=== PATIENT | male | born 1975 | race Caucasian/White ===

== ENCOUNTER 2017-03-01 18:34 | Inpatient (IN) | payer OTHER ==
[~2017-03-01] VITALS: Ht 170.2 cm; Wt 142.9 kg
[~2017-03-01 18:34] MED LIST: BACTRIM 400-801 EACH PO; DOXYCYCLINE HY100 M2 PO; KEFLEX500 M1 PO; METFORMIN HCL500 M3 PO
--- NOTE | 2017-03-01 18:43 | NUR ---
PT WAS SEEN HERE IN MAY OF LAST YEAR FOR A BLISTER ON HIS LEFT FOOT GREAT TOE. PT NEVER FOLLOWED UP BECAUSE HE DIDN'T HAVE INSURANCE. PT [facility] SEEN AT [facility] AND THEY TOLD HIM THAT THE INFECTION IS DOWN TO HIS MUSCLE AND HE NEEDED TO COME TO THE ED.
--- NOTE | 2017-03-01 19:19 | RADIOLOGY REPORT ---
EXAMINATION: XR TOES, LEFT CLINICAL INFORMATION: Wounds of left great toe for one year. Concern for osteomyelitis. COMPARISON: None TECHNIQUE: 3 views of the left toes were obtained. FINDINGS: Ovoid radiolucency consistent with the described wound over the left toe near the IP joint. No radiographic evidence of osteomyelitis. No bone destruction. Bone density maintained. Joint spaces are normal. IMPRESSION: No osseous abnormality. No radiographic evidence of osteomyelitis.
--- NOTE | 2017-03-01 19:50 | NUR ---
PT TO [facility], AWAITING EVAL. PT SITTING WITH FEET ON FLOOR USING TABLET, NO DISTRESS.
--- NOTE | 2017-03-01 20:01 | ED GENERAL ADULT ---
History of Present Illness General Chief Complaint: General Adult Stated Complaint: SENT BY URGENT CARE FOR EVAL OF WOUND ON LEFT FOOT Source: patient, friend Exam Limitations: no limitations Vital Signs & Intake/Output Vital Signs & Intake/Output Vital Signs Date Time Temp Pulse Resp B/P B/P Pulse O2 O2 Flow FiO2 Mean Ox Delivery Rate 03/01 2139 97.1 92 20 165/91 98 Room Air 03/01 1843 97.4 88 16 129/91 97 Room Air Allergies Coded Allergies: No Known Allergies (05/22/16) Reconcile Medications No Known Home Medications Triage Note: PT WAS SEEN HERE IN MAY OF LAST YEAR FOR A BLISTER ON HIS LEFT FOOT GREAT TOE. PT NEVER FOLLOWED UP BECAUSE HE DIDN'T HAVE INSURANCE. PT [facility] SEEN AT [facility] AND THEY TOLD HIM THAT THE INFECTION IS DOWN TO HIS MUSCLE AND HE NEEDED TO COME TO THE ED. Triage Nurses Notes Reviewed? yes Onset: Gradual Duration: worse persistent since (1 WEEK) Timing: recent history Injury Environment: home Severity: moderate Severity Numbers: 8 No Modifying Factors: none HPI: Patient is a 41-year-old male with history of diabetes and obesity, not currently on any medications presenting to the emergency department with chief complaint of worsening wound to his left foot. Patient and friends report that the wound has been there for the past 10 months but over the past couple weeks has been getting worse. Friends have noticed increased foul-smelling and purulent drainage from the wound. Patient reports mild pain with ambulation. He reports that he finally has insurance so that he is coming in today for evaluation. He was seen in urgent care prior to arrival and was sent to the emergency department. Patient denying any fevers or chills no nausea or vomiting. Denies chest pain or shortness of breath. No palpitations. Denies abdominal pain. He reports that he was seen and evaluated here last year for similar symptoms and they told him he had high blood glucose level. He never followed up with her primary care physician and he never started taking any medications to help with high blood glucose levels. He has not been watching his diet. (TREY JOHN) Past History Travel History Traveled to [place] past 21 day No Medical History Any Pertinent Medical History? 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 No (TREY JOHN) Review of Systems Review of Systems Constitutional: Reports: no symptoms. Comments Review of systems: See HPI, All other systems negative. Constitutional, no chills fever or weight loss HEENT: No visual changes no sore throat no congestion Cardiovascular: No chest pain ,palpitation , orthopnea or ankle swelling Skin, no jaundice Respiratory: No dyspnea cough sputum or hemoptysis GI: No nausea no vomiting : No dysuria No hematuria Muscle skeletal: no back pain, no neck pain, Neurologic: No numbness no confusion Psych: No stress Immunology: No splenectomy or history of AIDS (TREY JOHN) Physical Exam Physical Exam General Appearance: no apparent distress, alert, awake, comfortable, obese Comments: Obese person in no acute distress HEENT: Pupils equally round and reactive to light and accommodation. Nose is atraumatic. Neck: NORMAL INSPECTION Back: Nontender, Cardiovascular: Regular rate and rhythms no murmurs rubs or gallops, normal JVP Respiratory: Chest nontender. No respiratory distress.breath sounds clear to auscultation bilaterally Abdomen: Soft, NON-TENDER, PROTUBERANT, no appreciable organomegaly. Normal bowel sounds. No ascites Extremity: Nonpitting edema noted in the lower extremities bilaterally, no calf tenderness to palpation, pedal pulses are 1+ bilaterally. Neuro: Alert oriented x3, motor sensory normal, cranial nerves II through XII grossly intact. Skin: 2 and half by 2-1/2 cm wound, approximately grade 3 noted on the lateral aspect of the left great toe with surrounding erythema approximately 5-6 cm extending up the left great toe. Mildly tender to palpation in this area. Foul smelling. Psych: Mood and affect is normal, memory and judgment is normal. Core Measures ACS in differential dx? No CVA/TIA Diagnosis: No Severe Sepsis Present: No Septic Shock Present: No (TREY JOHN) Progress Differential Diagnoses I considered the following diagnoses in my evaluation of the patient: Osteomyelitis, cellulitis, DKA, hyperglycemia, medication noncompliance Plan of Care: Orders Procedure Date/time Status LACTIC ACID 05/09 2301 Active Admit to inpatient 03/01 222 Active Patient Data 03/01 2203 Active Add-on Test (ER Only) 03/01 2103 Active FingerStick- Glucose 03/01 2019 Active WESTERGREN SED RATE 03/01 2010 Active C-REACTIVE PROTEIN 03/01 2010 Active URINALYSIS 03/01 2001 Active LACTIC ACID 03/01 2001 Active GLYCOSYLATED HGB 03/01 2001 Active COMPREHENSIVE METABOLIC PANEL 03/01 2001 Active CBC WITHOUT DIFFERENTIAL 03/01 2001 Active ACETONE 03/01 2001 Active Laboratory Tests 03/01/17 2010: Anion Gap 10, Estimated GFR > 60, BUN/Creatinine Ratio 21.7, Glucose 288 H, Hemoglobin A1c Pending, Lactic Acid 2.2 H, Calcium 9.2, Total Bilirubin 0.4, AST 26, ALT 54, Alkaline Phosphatase 76, C-Reactive Prot, Quant 2.7 H, Total Protein 7.2, Albumin 3.8, Globulin 3.4, Albumin/Globulin Ratio 1.1, CBC w Diff NO MAN DIFF REQ, RBC 5.15, MCV 87.1, MCH 29.6, RDW 12.3, MPV 7.8, Gran % 55.8, Lymphocytes % 33.6, Monocytes % 7.8, Eosinophils % 2.2, Basophils % 0.6, Absolute Granulocytes 7.0 H, Absolute Lymphocytes 4.2 H, Absolute Monocytes 1.0 H, Absolute Eosinophils 0.3, Absolute Basophils 0.1, PUBS MCHC 34.0, ESR Westergren Pending, Acetone Level NEGATIVE Diagnostic Imaging: Viewed by Me: Radiology Read. Discussed w/RAD: Radiology Read. Radiology Impression: PRESENT AGE: 41 PATIENT ACCOUNT NO: [id number] : 75 LOCATION: [facility] ORDERING PHYSICIAN: NATE PRIETO DO (TBS) SERVICE DATE: EXAM TYPE: RAD - XRY-TOES, LEFT EXAMINATION: XR TOES, LEFT CLINICAL INFORMATION: Wounds of left great toe for one year. Concern for osteomyelitis. COMPARISON: None TECHNIQUE: 3 views of the left toes were obtained. FINDINGS: Ovoid radiolucency consistent with the described wound over the left toe near the IP joint. No radiographic evidence of osteomyelitis. No bone destruction. Bone density maintained. Joint spaces are normal. IMPRESSION: No osseous abnormality. No radiographic evidence of osteomyelitis. DICTATED BY: CORINE CALZADA MD DATE/TIME DICTATED:03/01/171912 HONING MACHINE TRY OUT SETTER:DANIEL DATE/TIME TRANSCRIBED:03/01/171912 CONFIDENTIAL, DO NOT COPY WITHOUT APPROPRIATE AUTHORIZATION. <Electronically signed in Other Vendor System> SIGNED BY: CORINE CALZADA MD 03/01/171918 Initial ED EKG: none Comments: 03/01/2017 9:32:44 PM patient's vitals are stable, blood glucose elevated. Patient has been noncompliant with diabetic medications for over a year. Positive family history of diabetes. Patient has had a nonhealing wound on the left foot for about one year now. Likely related to noncompliance with diabetic medications. Patient is afebrile. Wound appears to be stage III with surrounding erythema and foul-smelling. CBC, CMP, lactic acid, sedimentation rate and CRP ordered. X-rays negative for obvious osteomyelitis. Spoke with Dr. Aggarwal who will see the patient first thing in the morning, recommending holding off on antibiotics at this point and getting an MRI in the morning. (TREY JOHN) Departure Departure Disposition: STILL A PATIENT Condition: Stable Referrals: PATIENT HAS NO PRIMARY CARE DR (PCP/Family) Departure Forms: Customer Survey General Discharge Information Prescriptions: Current Visit Scripts No Known Home Medications Admission Note Spoke With: DARWIN LÓPEZ MD Documentation of Exam: Documentation of any treatments & extenuating circumstances including Concerns Regarding Discharge (functional status, medication knowledge or non-compliance, living conditions, etc.) that warrant an admission rather than observation: HOLDING ON ABX, PODIATRY CONSULT, MRI, POTENITAL BONE BIOPSY THEN IV ABX. DISCHARGE AT THIS TIME WOULD BE MEDICALLY HARMFUL. RULE OUT OSTEO. (TREY JOHN) Departure Clinical Impression Primary Impression: Wound infection Secondary Impressions: Cellulitis Qualifiers: Site of cellulitis: extremity Site of cellulitis of extremity: toe Laterality: left Qualified Code: L03.032 - Cellulitis of left toe PA/[employer] Co-Sign Statement Statement: ED Attending supervision documentation- [] I saw and evaluated the patient. I have also reviewed all the pertinent lab results and diagnostic results. I agree with the findings and the plan of care as documented in the PA's/[employer]'s documentation. [x] I have reviewed the ED Record and agree with the PA's/[employer]'s documentation. [] Additions or exceptions (if any) to the PAs/[employer]'s note and plan are summarized below: [] (JAILYN PEDERSON,NATE Valerio) Critical Care Note Critical Care Note Critical Care Time: non-applicable (LENCHO JOHNSON,TREY)
--- NOTE | 2017-03-01 20:01 | NUR ---
PT WITH OPEN BLISTER DEEP INTO SKIN, NO DRAINAGE. SKIN WHITE AND SKIN BENEATH RED/PINK.
--- NOTE | 2017-03-01 20:10 | NUR ---
PT L GREAT TOE REDNESS ON ANTERIOR TOE EXTENDS FROM BASE OF NAIL TO JOINT OF FOOT. FOU ODOR NOTED. PT REPORTS HE FEELS NO PAIN
--- NOTE | 2017-03-01 20:14 | NUR ---
LABS SENT (BLUE,SST,LAV) NURSE AWARE WE STILL NEED ANOTHER LAV AND MURDOCK TOP
[2017-03-01 20:25] LABS: ABSOLUTE BASOPHIL COUNT 0.1 /CUMM (0.0-0.2); ABSOLUTE EOSINOPHIL COUNT 0.3 /CUMM (0.0-0.7); ABSOLUTE LYMPH COUNT 4.2 /CUMM (1.2-3.4); BASOPHIL % 0.6 % (0.0-2.0); EOSINOPHIL % 2.2 % (0-5); GRANULOCYTE % 55.8 % (42.2-75.2); HEMATOCRIT 44.8 % (42-52); MEAN CORPUSCULAR HGB 29.6 PG (27.0-31.0); MEAN CORPUSCULAR VOLUME 87.1 FL (80.0-94.0); MEAN PLATELET VOLUME 7.8 FL (7.4-10.4); PLATELET COUNT 278 /CUMM (130-400); RBC DISTRIBUTION WIDTH 12.3 % (11.5-14.5); RED BLOOD CELL CT 5.15 /CUMM (4.70-6.10); WHITE BLOOD CELL COUNT 12.6 /CUMM (4.8-10.8)
--- NOTE | 2017-03-01 20:29 | NUR ---
ACCUCHECK 261
--- NOTE | 2017-03-01 20:39 | NUR ---
PT UNABLE TO GIVE URINE SAMPLE AT THIS TIME
--- NOTE | 2017-03-01 21:06 | NUR ---
CRITICAL TEST RESULTS [id number] CONNER STEWART 41 M TESTS AND RESULTS: LACTIC 2.2 (SL HEMOLYZED) Results received and read back by: SHIRLENE GONCALVES Results received date and time: 03/01/172105 The following provider was notified of the results, and read the results back: ALEX MUSA Notified date and time: 03/01/17 at 210
--- NOTE | 2017-03-01 21:33 | NUR ---
PT DOES NOT WISH TO CHANGE AT THIS TIME. AWARE OF ADMISSION.
--- NOTE | 2017-03-01 21:34 | NUR ---
L GREAT TOE IRRIGATED
--- NOTE | 2017-03-01 22:01 | History & Physical ---
MONICA PEDERSON,[facility] [place] 03/01/17 2200: General Information and HPI MD Statement: I have seen and personally examined CONNER MAYBERRY and documented this H&P. The patient is a 41 year old M who presented with a patient stated chief complaint of left great toe ulcer. Source of Information: patient Exam Limitations: no limitations History of Present Illness: Mr. Mayberry is a 41 y/o morbidly obese M with no PMHx who is sent in from Urgent Care for further evaluation of a nonhealing ulcer on the plantar surface of his left great toe. Patient reports that the ulcer has been present since April 2016, first starting off as a blister. Over time it has decreased in diameter but increased in depth. There is no drainage. He reports that the ulcer is painful at times but he is able to put pressure on it. Patient was previously seen here in the ED at [facility] for the ulcer on 05/22/16 and 06/20/16 with the application of dressing to the great toe. During his presentation on 05/22/16 his blood sugar was found to be elevated at 387. Patient has not followed up with any physician as he does not have health insurance. He denies fevers, chills, nausea or vomiting, numbness or tingling. Of note, he has not seen a doctor for more than 10 years. He does not have any medical conditions that he is aware of and does not take any medications. Allergies/Medications Allergies: Coded Allergies: No Known Allergies (05/22/16) Home Med list No Known Home Medications Past History Travel History Traveled to [place] past 21 day No Medical History Neurological: NONE EENT: NONE Cardiovascular: NONE Respiratory: NONE Gastrointestinal: NONE Hepatic: NONE Renal: NONE Musculoskeletal: fracture (arm as a child), chronic nonhealing ulcer of left great toe Psychiatric: NONE Endocrine: diabetes Blood Disorders: NONE Cancer(s): NONE ENROLLMENT MANAGEMENT COORDINATOR/Reproductive: NONE Surgical History Surgical History: none Past Family/Social History Family History Relations & Conditions if any MOTHER, , Age 60+; Cause: Cardiac arrest. FH: heart disease FATHER, , Age 60+. Psychosocial History Where do you live? Home Who Do You Live With? friends Services at Home: None Smoking Status: Never Smoked ETOH Use: denies use Illicit Drug Use: denies illicit drug use Functional Ability ADLs Independent: dressing, eating, toileting, bathing. Ambulation: independent IADLs Independent: shopping, housework, finances, food prep, telephone, transportation , medication admin. 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 EENTM: Reports: no symptoms. Cardiovascular: Denies: chest pain, palpitations. Respiratory: Denies: cough, short of breath. GI: Denies: nausea, vomiting. Genitourinary: Reports: no symptoms. Musculoskeletal: Reports: no symptoms. Skin: Reports: lesions (left great toe ulcer). Neurological/Psychological: Denies: numbness, paresthesia, tingling. Hematologic/Endocrine: Reports: no symptoms. Immunologic/Allergic: Reports: no symptoms. All Other Systems: Reviewed and Negative Exam & Diagnostic Data Last 24 Hrs of Vital Signs/I&O Vital Signs Date Time Temp Pulse Resp B/P B/P Pulse O2 O2 Flow FiO2 Mean Ox Delivery Rate 03/019 97.1 92 20 165/91 98 Room Air 03/01 1843 97.4 88 16 129/91 97 Room Air Intake & Output 03/02 0800 03/02 0000 03/01 1600 Intake Total 1000 Output Total Balance 1000 Intake, IV 1000 Patient 142.882 kg Weight Weight Reported by Patient Measurement Method Physical Exam General Appearance Alert, Oriented X3, No Acute Distress HEENT Atraumatic, Mucous Membr. moist/pink Cardiovascular Regular Rate, Normal S1, Normal S2, No Murmurs, Gallops, Rubs Lungs Clear to Auscultation Abdomen Soft, No Tenderness, Obese, Positive Bowel Sounds Neurological Decreased Sensation to Light Touch on Bilateral Toes Extremities No Clubbing, No Cyanosis, No Edema, Stage 3 Pressure Ulcer on the Plantar Surface of Great Toe, 2 x 2 cm with Surrounding Erythema, Slightly Tender to Palpation, No Purulent Drainage or Fluctuance Appreciated Last 24 Hrs of Labs/Denis: Laboratory Tests 03/01/17 2300: Lactic Acid 2.8 H 03/01/17 2250: Urine Color YEL, Urine Clarity CLEAR, Urine pH 6.0, Ur Specific [place] 1.025, Urine Protein NEG, Urine Ketones NEG, Urine Nitrite NEG, Urine Bilirubin NEG, Urine Urobilinogen 0.2, Ur Leukocyte Esterase NEG, Ur Microscopic EXAM NOT REQUIRED, Urine Hemoglobin NEG, Urine Glucose >=1000 H 03/01/172009: Anion Gap 10, Estimated GFR > 60, BUN/Creatinine Ratio 21.7, Glucose 288 H, Hemoglobin A1c Pending, Lactic Acid 2.2 H, Calcium 9.2, Total Bilirubin 0.4, AST 26, ALT 54, Alkaline Phosphatase 76, C-Reactive Prot, Quant 2.7 H, Total Protein 7.2, Albumin 3.8, Globulin 3.4, Albumin/Globulin Ratio 1.1, CBC w Diff NO MAN DIFF REQ, RBC 5.15, MCV 87.1, MCH 29.6, RDW 12.3, MPV 7.8, Gran % 55.8, Lymphocytes % 33.6, Monocytes % 7.8, Eosinophils % 2.2, Basophils % 0.6, Absolute Granulocytes 7.0 H, Absolute Lymphocytes 4.2 H, Absolute Monocytes 1.0 H, Absolute Eosinophils 0.3, Absolute Basophils 0.1, PUBS MCHC 34.0, ESR Westergren 37 H, Acetone Level NEGATIVE Diagnostic Data Other Results XR LEFT TOES: No osseous abnormality. No radiographic evidence of osteomyelitis. Assessment/Plan Assessment: 41 y/o morbidly obese M with no PMHx who is sent in from Urgent Care for further evaluation of left great toe ulcer. #Chronic nonhealing ulcer of left great toe with cellulitis: Chronic nonhealing stage 3 ulcer on the plantar surface of the left great toe with some surrounding erythema but no purulent drainage. Likely secondary to diabetic neuropathy given decreased sensation of bilateral toes on exam and undiagnosed T2DM. Afebrile with no systemic signs of infection other than mild leukocytosis and elevation of lactic acid to 2.8. CRP (2.7) and ESR (37) with only slight elevation. XR of left toes with no radiographic evidence of osteomyelitis, however it needs to be ruled out by MRI given the chronicity of the wound. * Admit to General Medicine. * Podiatry consulted. Appreciate their recs. * MRI left foot W/O SERENA ordered to evaluate for osteomyelitis. * Monitor off antibiotics. * Place ID consult. * Check urine and blood cultures. * NPO for possible bone biopsy or debridement in the AM. * EKG ordered for preoperative clearance. * Continue to trend lactic acid. #Undiagnosed T2DM: Although not officially diagnosed, blood glucose of 387 last year and 288 on current presentation and glucosuria is consistent with diabetes, especially in the setting of diabetic neuropathy and morbid obesity. * Check HbA1c. * Accu-checks Q6H and sliding scale Novolin while NPO. * Check TSH, free T4, vitamin B12 to evaluate for other causes of neuropathy. * Check lipid panel, folate and vitamin D as patient has not been following up with a PCP. * Monitor BP. If elevated, consider starting JENNIFER inhibitor for protection against diabetic nephropathy. Diet: NPO DVT PPx: ALPs Pain: Tylenol 650 mg PO Q6H PRN for mild pain (scale 1-3) Motrin 600 mg PO Q6H PRN for moderate pain (scale 4-6) Tylenol 1 g IV Q6H PRN for severe pain (scale 7-10) CODE: FULL As Ranked By This Provider Problem List: 1. Chronic ulcer of great toe of left foot 2. T2DM (type 2 diabetes mellitus) 3. Morbid obesity with BMI of 45.0-49.9, adult 4. Cellulitis of great toe of left foot Core Measures/Miscellaneous Acute Coronary Syndrome ACS Diagnosis: No Cerebrovascular Accident CVA/TIA Diagnosis: No Congestive Heart Failure CHF Diagnosis: No Venous Thromboembolism VTE Risk Factors: Age > 40, Obesity No [facility] VTE prophylaxis d/t: No contraindications No VTE Pharm Prophylaxis d/t: No contraindications VTE Diagnosis: No VTE Type: NONE VTE Confirmed by (Test): NONE Severe Sepsis Severe Sepsis Present: No Septic Shock Septic Shock Present: No Miscellaneous Documentation Attending Case Discussed With: RADHA [facility] Primary Care Physician: PATIENT HAS NO PRIMARY CARE DR Patient sees these Specialists None Level of Patient Care: General Medicine OLIVE OG 03/02/17 0301: Resident Review Statement Resident Statement: examined this patient, discussed with consultants intern, agreed with consultants intern, discussed with nursing Other Findings: Mr. Baumann is a 41-year-old gentleman with no known significant past medical history presents to the hospital emergency department after being instructed to do so by an outpatient urgent care center. He initially went for evaluation of the left great toe ulcer. He has had the ulcer since April 2016. He states that it started as a blister and progressed. He has not seen a physician for this problem, or any physician for many years. He did visit the hospital emergency department previously and was discharged with outpatient care and instructed to follow-up with her primary care physician. Regarding his ulcer, he states that he occasionally has pain at the site of the wound. He states that the wound is getting better actually, decreasing in circumference but he does note that he feels it is deeper. He denies any associated symptoms including fever, chills, nausea, vomiting or diaphoresis. He denies any fluctuance surrounding masses or drainage. The remaining review of systems as dictated above. Vitals are stable. Physical exam unremarkable. As dictated above except for a stage III ulcer on the medial/plantar aspect of the left great toe. Approximately 1.2 x 1.2 cm, well-circumscribed with surrounding erythema. No fluctuant areas appreciated. No purulent discharge noted. Decreased sensation in the toes BL noted. Labs revealed white blood cell 12.6, H&H 15.2/44.8, platelet 278. BEP revealed sodium 133 potassium 4.8, glucose 288. CRP was elevated at 2.7 and ESR 37. Lactic acid was elevated at 2.2 X-ray of the foot was negative. Problem list assessment and plan We will admit the patient to general medicine floor for treatment/evaluation of the following problems: Cellulitis in a patient with hyperglycemia. * The patient's ulcer does not appear acutely infected. He does have a slight leukocytosis, however his vitals are stable and clinically he appears in no acute distress. * Chest x-ray revealed no signs of ulcer myelitis however we will further evaluate with an MRI * We will hold off on antibiotics for now, and consult with podiatry for possible debridement and culture in the OR tomorrow. * Podiatry consult placed and appreciated. * One of the predisposing risk factors for cellulitis his diabetes. The patient does not carry a formal diagnosis of diabetes, and the A1c is currently pending however the patient has had previous finger stick glucose measurements that were elevated. Notably today 288. * Given his obesity and hyperglycemia, he may have a component of metabolic syndrome. We will evaluate with a hemoglobin A1c, and place the patient on fingersticks 3 times a day before meals at bedtime, as well as a Novolin nothing by mouth sliding scale * He does have a component of decreased sensation and neuropathy in the toes. We will evaluate with B12 and B9 levels as well as TSH and free T4. * Most likely this decreased sensations is the beginning of DM neuropathy. * He should be set up with primary care physician as well as an marketing automation specialist in the outpatient setting for continued management after his discharge. Full code Nothing by mouth Alps for DVT prophylaxis Pain path as ordered RENE PEDERSON, [facility] 03/02/17 0450: Attending MD Review Statement Attending Statement Attending MD Statement: examined this patient, discuss w/resident/PA/SULFIDE HEAD OPERATOR, agreed w/resident/PA/SULFIDE HEAD OPERATOR Attending Assessment/Plan: 41 yo morbidly obese M who has never seen a physician, has had chronic nonhealing ulcer to his left toe, initially went to an Urgent care center for evaluation and was sent to the ER. He reports the wound has gradually progressed since April 2016, now appears more deep. Per ER records, his friends noted purulent foul smelling discharge but patient denies this. He never followed up with PCP due to insurance issues. He is aware of elevated blood sugars but has not been diagnosed with diabetes nor treated. He now has insurance and hence came for further evaluation. Patient denies chest pain, dyspnea, cough, palpitations, nausea or lightheadedness. Of note, he reports right foot plantar ulcer (2 yrs ago) that had healed on its own. Vitals stable, except BP was borderline 165/91. Exam: AAO, Chest b/l clear, Heart S1S2 regular, Left great toe stage 3 ulcer on the plantar aspect about 2 x 2 cm with surrounding erythema, tender with foul smell but no obvious discharge. Peripheral pulses well felt. Labs: WBC 12.6, ESR 37, Na 133, glucose 288, lactic acid 2.2 --> 2.8, CRP 2.7. UA glucose >1000, otherwise normal. Toe Xray: no osseous abnormaligy, no e/o osteomyelitis. 1. Left great toe chronic nonhealing ulcer with cellulitis. GM admit, panculture , plan for MRI to rule out osteomyelitis in AM, Podiatry consult. NPO for possible plan for bone biopsy or debridement. Pain management. IV fluids. Trend lactic acid. Monitor off antibiotics for now. ID consult. Please obtain baseline EKG. 2. Undiagnosed diabetes. Accucheks, check HbA1c, insulin NPO SS. Consider Endo consult for follow up as outpatient. Possible neuropathy check B12, TSH, free T4. 3. Hypertension. Monitor BP, if needed consider JENNIFER-I. PCP follow up on discharge. DVT ppx Alps, if no plans for OR please initiate lovenox for DVT ppx. Full code.
--- NOTE | 2017-03-01 23:01 | NUR ---
AMB TO BATHROOM URINE TRIO SENT REPEAT LACTIC ACID SENT PT GIVEN HOSPITAL GOWN TO CHANGE IN TO
--- NOTE | 2017-03-01 23:08 | NUR ---
HOUSESTAFF AT BEDSIDE.
--- NOTE | 2017-03-01 23:17 | NUR ---
PER DR LÓPEZ WHEN ASKED ABOUT REPEAT LACTIC, NO OTHER BLOODWORK IS NECESSARY AT THIS TIME.
--- NOTE | 2017-03-01 23:23 | NUR ---
CRITICAL TEST RESULTS [id number] CONNER STEWART 41 M TESTS AND RESULTS: LACTIC 2.8 Results received and read back by: ISRAEL GARCIA Results received date and time: 03/01/17 3215 The following provider was notified of the results, and read the results back: DR. SCHAEFER Notified date and time: 03/01/17 at 9181
--- NOTE | 2017-03-02 03:35 | NUR ---
ASSUMED CARE AT THIS TIME, PT NOTED TO BE SLEEPING ON BED, REGULAR RESP RATE NOTED . WILL CONTINUE TO MONITOR
--- NOTE | 2017-03-02 03:43 | NUR ---
HOUSE STAFF CALLED TO SPEAK WITH THIS NURSE, QUESTIONED IF EKG WAS DONE, MADE AWARE THAT THERE IS ONE IN PATIENTS CHART, ALSO STATES THAT SHE WOULD LIKE 0300 LACTIC ACID DRAWN. PT MADE AWARE THAT HE IS TO REMAIN NPO AT THIS TIME. PT VERBALIZED UNDERSTANDING
--- NOTE | 2017-03-02 03:51 | NUR ---
PT AWAKE FOR BLOOD DRAW, ALERT AND ORIENTED , OFFERS NO COMPLAINTS OF PAIN, FLUIDS INFUSING AT 100 ML/HR.
--- NOTE | 2017-03-02 04:15 | Admission Certification ---
Admission Certification Certification Statement - As attending physician, I certify that at the time of - admission, based on clinical presentation, severity of - symptoms, need for further diagnostic testing and - therapeutic interventions, and risk of adverse outcomes - without in-hospital treatment, in my clinical assessment, - this patient requires an acute hospital stay for a minimum - of two nights or longer. I have also considered psychsocial - factors such as support system, advanced age, financial - issues, cognitive issues, and failed out-patient treatments, - past re-admission history, safety of patient, and lack of - compliance as applicable. Specific rationale supporting this admission is: Left great toe nonhealing ulcer with cellulitis, need to rule out osteomyelitis.
--- NOTE | 2017-03-02 05:01 | NUR ---
CRITICAL TEST RESULTS [id number] CONNER STEWART 41 M TESTS AND RESULTS: LACTIC ACID 2.5 Results received and read back by: ROYA LIMA Results received date and time: 03/02/17 0501 The following provider was notified of the results, and read the results back: DR SCHAEFER Notified date and time: 03/02/17 at 0501
--- NOTE | 2017-03-02 06:01 | NUR ---
PT AWAKE AND ALERT, DENIES PAIN, FS 317, 10 UNITS NOVOLIN R GIVEN PER ORDER. LABS BEING DRAWN AT THIS TIME
[2017-03-02 06:18] LABS: ABSOLUTE BASOPHIL COUNT 0.1 /CUMM (0.0-0.2); ABSOLUTE EOSINOPHIL COUNT 0.3 /CUMM (0.0-0.7); ABSOLUTE GRANULOCYTE CT 5.2 /CUMM (1.4-6.5); ABSOLUTE LYMPH COUNT 4.2 /CUMM (1.2-3.4); ABSOLUTE MONOCYTE COUNT 0.9 /CUMM (0.10-0.60); BASOPHIL % 0.7 % (0.0-2.0); EOSINOPHIL % 2.8 % (0-5); HEMATOCRIT 40.8 % (42-52); MEAN CORPUSCULAR HGB CONC 34.3 G/DL (33.0-37.0); MEAN CORPUSCULAR VOLUME 87.4 FL (80.0-94.0); MEAN PLATELET VOLUME 8.3 FL (7.4-10.4); PLATELET COUNT 258 /CUMM (130-400); RBC DISTRIBUTION WIDTH 12.7 % (11.5-14.5); RED BLOOD CELL CT 4.67 /CUMM (4.70-6.10); WHITE BLOOD CELL COUNT 10.6 /CUMM (4.8-10.8)
--- NOTE | 2017-03-02 06:38 | PN- Housestaff ---
HOLDEN PEDERSON,[place] 03/02/17 0638: Subjective Follow-up For: nonhealing toe ulcer Subjective: Pt seen today, he was in good spirits, no complaints, VSS. MRI done and showed early signs of osteomyelitis. Dr Aggarwal will take him to the OR on tuesday. hba1c came back elevated, will get endo consult tomorrow. ID has been consulted, will hold off abx for now. Review of Systems Constitutional: Reports: see HPI. Objective Last 24 Hrs of Vital Signs/I&O Vital Signs Date Time Temp Pulse Resp B/P B/P Pulse O2 O2 Flow FiO2 Mean Ox Delivery Rate 03/02 1523 112/70 03/02 1438 97.4 73 20 162/118 95 03/02 0703 96.8 82 16 147/87 96 Room Air 03/01 2139 97.1 92 20 165/91 98 Room Air 03/01 1843 97.4 88 16 129/91 97 Room Air Intake & Output 03/02 1600 03/02 0800 03/02 0000 Intake Total 1555 0 1000 Output Total 401 2 Balance 1154 -2 1000 Intake, IV 1075 1000 Intake, Oral 480 0 Number 1 Bowel Movements Output, Urine 401 2 Patient 142.882 kg 142.882 kg Weight Weight Reported by Patient Measurement Method Physical Exam General Appearance: Alert, Oriented X3, Cooperative, No Acute Distress Skin: ulcer on left great toe, can see muscle Cardiovascular: Regular Rate, Normal S1, Normal S2, No Murmurs Lungs: Clear to Auscultation, Normal Air Movement Abdomen: Normal Bowel Sounds, Soft, No Tenderness Neurological: Normal Speech Current Medications: Current Medications Sig/Homero Start time Last Medication Dose Route Stop Time Status Admin Acetaminophen 650 MG Q6P PRN 03/01 2345 AC PO Acetaminophen 1,000 MG Q6P PRN 03/01 2345 AC IV Enoxaparin Sodium 40 MG DAILY 03/02 1400 AC SC 03/03 1001 Ibuprofen 600 MG Q6P PRN 03/01 2345 AC PO Insulin Aspart 0 AT BEDTIME 03/02 2200 AC SC Insulin Aspart 0 TIDAC 03/02 1700 AC SC Insulin Detemir 10 UNITS AT BEDTIME 03/02 1445 AC SC Insulin Human Regular 0 Q6 03/01 2359 DC 03/02 SC 0601 Sodium Chloride 1,000 ML .Q10H 03/01 2330 DC 03/02 IV 03/02 1929 0948 Sodium Chloride 1,000 ML BOLUS ONE 03/01 2015 DC 03/01 IV 03/01 Last 24 Hrs of Lab/Denis Results Last 24 Hrs of Labs/Mics: Laboratory Tests 03/02/17 0830: Lactic Acid 2.0 03/02/17 0720: RBC Folate Pending 03/02/17 0605: Anion Gap 10, Estimated GFR > 60, BUN/Creatinine Ratio 28.0 H, Triglycerides 519 H, Cholesterol 179, LDL Cholesterol Direct 90.63, LDL Cholesterol, Calc ND, HDL Cholesterol 23 L, Cholesterol/HDL Ratio 8 H, Vitamin B12 446, TSH 5.760 H , Free T4 1.07 03/02/17 0605: Vit D 1,25-Dihyd Total Pending, 1,25 Dihydroxy Vit D2 Pending, 1,25 Dihydroxy Vit D3 Pending, CBC w Diff NO MAN DIFF REQ, RBC 4.67 L, MCV 87.4, MCH 30.0, RDW 12.7, MPV 8.3, Gran % 49.0, Lymphocytes % 39.0, Monocytes % 8.5, Eosinophils % 2.8, Basophils % 0.7, Absolute Granulocytes 5.2, Absolute Lymphocytes 4.2 H, Absolute Monocytes 0.9 H, Absolute Eosinophils 0.3, Absolute Basophils 0.1, PUBS MCHC 34.3 03/02/17 0350: Lactic Acid 2.5 H 03/01/17 2300: Lactic Acid 2.8 H 03/01/17 2250: Urine Opiates Screen < 100.00, Methadone Screen < 40, Barbiturate Screen < 60, Ur Phencyclidine Scrn < 6.00, Amphetamines Screen < 100, U Benzodiazepines Scrn < 85, Urine Cocaine Screen < 50, Urine Cannabis Screen < 5.00, Urine Color YEL, Urine Clarity CLEAR, Urine pH 6.0, Ur Specific [place] 1.025, Urine Protein NEG, Urine Ketones NEG, Urine Nitrite NEG, Urine Bilirubin NEG, Urine Urobilinogen 0.2, Ur Leukocyte Esterase NEG, Ur Microscopic EXAM NOT REQUIRED, Urine Hemoglobin NEG, Urine Glucose >=1000 H 03/01/172009: Anion Gap 10, Estimated GFR > 60, BUN/Creatinine Ratio 21.7, Glucose 288 H, Hemoglobin A1c 9.7 H, Lactic Acid 2.2 H, Calcium 9.2, Total Bilirubin 0.4, AST 26, ALT 54, Alkaline Phosphatase 76, C-Reactive Prot, Quant 2.7 H, Total Protein 7.2, Albumin 3.8, Globulin 3.4, Albumin/Globulin Ratio 1.1, CBC w Diff NO MAN DIFF REQ, RBC 5.15, MCV 87.1, MCH 29.6, RDW 12.3, MPV 7.8, Gran % 55.8, Lymphocytes % 33.6, Monocytes % 7.8, Eosinophils % 2.2, Basophils % 0.6, Absolute Granulocytes 7.0 H, Absolute Lymphocytes 4.2 H, Absolute Monocytes 1.0 H, Absolute Eosinophils 0.3, Absolute Basophils 0.1, PUBS MCHC 34.0, ESR Westergren 37 H, Acetone Level NEGATIVE Microbiology 03/02 729 BLOOD: Blood Culture - RECD 03/02 720 BLOOD: Blood Culture - RECD 03/02 609 URINE ROUT: Urine Culture - CAN Cancelled: Cancelled via OE: ADD ON 03/01 2250 URINE ROUT: Urine Culture - RECD Assessment/Plan Assessment: 41 y/o morbidly obese M with no PMHx who is sent in from Urgent Care for further evaluation of left great toe ulcer. # Chronic nonhealing ulcer of left great toe: Chronic nonhealing stage 3 ulcer on the plantar surface of the left great toe with some surrounding erythema but no purulent drainage. Likely secondary to diabetic neuropathy given decreased sensation of bilateral toes on exam and undiagnosed T2DM. Afebrile with no systemic signs of infection other than mild leukocytosis and elevation of lactic acid to 2.8,came down to 2. CRP (2.7) and ESR (37) with only slight elevation. XR of left toes with no radiographic evidence of osteomyelitis, MRI showed early signs of osteomyelitis. * Admit to General Medicine. * Podiatry consulted. Appreciate their recs. Plan to go OR on Tuesday03/04/17 * Monitor off antibiotics. * Appreciate ID consult. * Follow urine and blood cultures. * EKG ordered for preoperative clearance. # Newly diagnosed T2DM: Although not officially diagnosed, blood glucose of 387 last year and 288 on current presentation and glucosuria is consistent with diabetes, especially in the setting of diabetic neuropathy and morbid obesity. - hba1c 9.7 * Accu-checks tidac/qhs * Low dose insulin ss tidac * Bedtime novolog * Follow TSH, free T4, vitamin B12 to evaluate for other causes of neuropathy. * Follow lipid panel, folate and vitamin D as patient has not been following up with a PCP. * Monitor BP. If elevated, consider starting JENNIFER inhibitor for protection against diabetic nephropathy. Diet: CC3 DVT PPx: ALPs,lovenox (till 03/03, going to OR 03/04) Pain: Tylenol 650 mg PO Q6H PRN for mild pain (scale 1-3) Motrin 600 mg PO Q6H PRN for moderate pain (scale 4-6) Tylenol 1 g IV Q6H PRN for severe pain (scale 7-10) CODE: FULL Problem List: 1. Chronic ulcer of great toe of left foot Pain Ratin Pain Location: none Pain Goal: Remain pain free Pain Plan: mild pp Tomorrow's Labs & Rationales: bep and cbc for osteomyelitis , monitor wbc and electrolytes DVT/Prophylaxis: mechanical, pharmacological EVARISTO PINZON 03/02/17 1141: Attending MD Review Statement Attending Statement Attending MD Statement: examined this patient, discuss w/resident/PA/SQUEEGEE OPERATOR, agreed w/resident/PA/SQUEEGEE OPERATOR, discussed with family, reviewed EMR data (avail), discussed with nursing, discussed with case mgmt, reviewed images, amended to note Attending Assessment/Plan: ASSESSMENT AND PLAN 1. Left great toe chronic nonhealing ulcer with cellulitis. GM admit, panculture , F/U MRI to rule out osteomyelitis, Podiatry consult. NPO for possible plan for bone biopsy or debridement. Pain management. IV fluids. Trend lactic acid. Monitor off antibiotics for now. ID consult. 2. Undiagnosed diabetes. Accucheks, f/u HbA1c, insulin NPO SS. Consider Endo consult for follow up as outpatient. 3. Hypertension. Monitor BP, if needed consider JENNIFER-I. PCP follow up on discharge. DVT ppx Alps, if no plans for OR please initiate lovenox for DVT ppx. Full code.
[2017-03-02 07:03] VITALS: BP 147/87
--- NOTE | 2017-03-02 07:21 | NUR ---
LABS DRAWN AND SENT BY THIS [facility], LAV, 1ST SET OF CULTURES
--- NOTE | 2017-03-02 07:31 | NUR ---
2ND SET OF CULTURES DRAWN AND SENT
--- NOTE | 2017-03-02 07:59 | NUR ---
PT RESTING ON BED WITH EYES CLOSED AT THIS TIME. REGULAR RESP RATE NOTED.
--- NOTE | 2017-03-02 08:30 | NUR ---
LABS DRAWN AND SENT BY THIS [facility] BLUE, LAV, PINK, TAYLOR
--- NOTE | 2017-03-02 09:23 | NUR ---
MRI CALLED AND PT TO GO FOR TEST AROUND [id number]
--- NOTE | 2017-03-02 09:49 | NUR ---
PT AWAKE AND ALERT, IV FLUIDS INFUSING AT 100ML/HR . PT AWARE THAT HE IS GOING TO GO TO MRI AROUND 1030. PT DENIES ANY IMPLANTED DEVICES
--- NOTE | 2017-03-02 10:33 | NUR ---
PT TO MRI VIA WHEELCHAIR AT THIS TIME.
--- NOTE | 2017-03-02 12:21 | MRI REPORT ---
EXAMINATION: MR FOOT WITHOUT CONTRAST, LEFT CLINICAL INFORMATION: Stage III ulcer with surrounding cellulitis. Presumptive diagnosis of osteomyelitis. COMPARISON: Radiograph dated 03/01/2017. TECHNIQUE: Multiplanar MR imaging was obtained through the left foot without contrast on a 1.5 Brittany magnet. Examination is somewhat limited by patient motion. Multiple sequences were repeated to optimize the study and limit artifact. FINDINGS: Ulceration at the plantar/medial aspect of the great toe measures 1.7 x 2.3 cm and is associated with skin thickening and edema. The edema signal extends to the depth of the great toe distal phalanx at its plantar/medial margin. Reactive intramedullary edema signal is present throughout the great toe distal phalanx. Small foci of decreased signal intensity are evident on T1-weighted images (laterally on image 25/32 of series 8 and medially on 20/32 of series 8), consistent with small areas of early osteomyelitis. No abscesses. Proximal phalangeal bone marrow signal is normal without evidence of osteomyelitis. No evidence of septic arthritis. Bone marrow signal is otherwise normal. No fracture or malalignment. There is diffuse muscle atrophy and fatty replacement of the foot with associated intramuscular edema signal, consistent with chronic changes of diabetes. Plantar fascia is unremarkable. No discrete tendon tears are identified. IMPRESSION: Ulceration at the plantar/medial margin of the great toe distal phalanx with a subtle foci of early osteomyelitis at the distal phalanx. No abscess.
--- NOTE | 2017-03-02 12:22 | NUR ---
GREY PAGED AT 136 TO REPORT BLOOD SUGAR OF 247 AND PT REFUSAL DESPITE EDUCATION ON PROMOTION OF WOUND HEALING.
--- NOTE | 2017-03-02 14:04 | NUR ---
PT GOING TO ROOM 205-1
[2017-03-02 14:38] VITALS: BP 162/118
[2017-03-02 15:23] VITALS: BP 112/70
--- NOTE | 2017-03-02 17:15 | Cons- Infect Disease ---
General Information and HPI Consulting Request Date of Consult: 03/02/17 Requested By: EVARISTO PINZON MD Reason for Consult: Rule out osteomyelitis of the left great toe Source of Information: patient, old records History of Present Illness: This is a 41-year-old man with no known past medical history, seen in the emergency room 9 months prior to admission with a left great toe ulcer, found to have a glucose of 387, a white blood cell count of 15,000 and an x-ray suggesting early erosive arthritic changes, discharged with a prescription for Keflex and Bactrim, which he did not fill, seen again one month later with a white blood cell count of 13,000 and discharged with a prescription for Doxycycline, which he did not fill, admitted on March 01 after he presented to the emergency room with a persistent ulcer of the left great toe, associated with erythema and edema, but with no associated fevers or chills. On admission he was afebrile. Laboratory data revealed a white blood cell count of 11,000, glucose 288, BUN/creatinine 13 and 0.6, lactic acid 2.2, with normal liver enzymes, hemoglobin A1c 9.7. Urinalysis negative. X-ray of the left foot was negative. He was followed off antibiotics and has remained afebrile. An MRI of the left foot today suggested early osteomyelitis of the distal phalanx of the left great toe. Allergies/Medications Allergies: Coded Allergies: No Known Allergies (05/22/16) Home Med List: No Known Home Medications Past History Travel History Traveled to [place] past 21 day No Medical History Blood Transfusion Hx: No Neurological: NONE EENT: NONE Cardiovascular: NONE Respiratory: NONE Gastrointestinal: NONE Hepatic: NONE Renal: NONE Musculoskeletal: fracture (arm as a child), chronic nonhealing ulcer of left great toe Psychiatric: NONE Endocrine: diabetes Blood Disorders: NONE Cancer(s): NONE SIDE HEMMER/Reproductive: NONE History of MRSA: No History of VRE: No History of CDIFF: No Isolation History: Standard Surgical History Surgical History: none Family History Relations & Conditions If Any: MOTHER, , Age 60+; Cause: Cardiac arrest. FH: heart disease FATHER, , Age 60+. Psychosocial History Where Do You Live? Home Who Do You Live With? friends Services at Home: None Smoking Status: Never Smoked ETOH Use: denies use Illicit Drug Use: denies illicit drug use Functional Ability ADLs Independent: dressing, eating, toileting, bathing. Ambulation: independent IADLs Independent: shopping, housework, finances, food prep, telephone, transportation , medication admin. 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 of Systems Review of Systems All Other Systems: Reviewed and Negative Exam & Diagnostic Data Last 24 Hrs of Vital Signs/I&O Vital Signs Date Time Temp Pulse Resp B/P B/P Pulse O2 O2 Flow FiO2 Mean Ox Delivery Rate 03/02 1523 112/70 03/02 1438 97.4 73 20 162/118 95 03/02 0703 96.8 82 16 147/87 96 Room Air 03/01 2139 97.1 92 20 165/91 98 Room Air 03/01 1843 97.4 88 16 129/91 97 Room Air Intake & Output 03/02 1600 03/02 0800 03/02 0000 Intake Total 1555 0 1000 Output Total 401 2 Balance 1154 -2 1000 Intake, IV 1075 1000 Intake, Oral 480 0 Number 1 Bowel Movements Output, Urine 401 2 Patient 315 lb 315 lb Weight Weight Reported by Patient Measurement Method Physical Exam Other Physical Findings: He is awake and alert in no acute distress. He is afebrile. Skin reveals no rash. HEENT exam is negative. Neck is supple with no adenopathy. Lungs are clear. Heart regular rhythm with no murmur. Abdomen is soft, nontender with positive bowel sounds. Back no CVA tenderness. Extremities left great toe swelling and erythema, with a plantar ulcer. Neuro neuropathy both feet. Last 24 Hours of Lab Results: Laboratory Tests 03/02 03/02 03/02 0830 0720 0605 Chemistry Sodium (137 - 145 mmol/L) 136 L Potassium (3.5 - 5.1 mmol/L) 4.5 Chloride (98 - 107 mmol/L) 101 Carbon Dioxide (22 - 30 mmol/L) 24 Anion Gap (5 - 16) 10 BUN (9 - 20 mg/dL) 14 Creatinine (0.7 - 1.2 mg/dL) 0.5 L Estimated GFR (>60 ml/min) > 60 BUN/Creatinine Ratio (7 - 25 %) 28.0 H Lactic Acid (0.7 - 2.1 mmol/L) 2.0 Triglycerides (<150 mg/dL) 519 H Cholesterol (< 200 MG/DL) 179 LDL Cholesterol Direct (<100 mg/dL) 90.63 LDL Cholesterol, Calc (65 - 129 mg/dL) ND HDL Cholesterol (40 - 60 mg/dL) 23 L Cholesterol/HDL Ratio (0.00 - 4.88 %) 8 H Vitamin B12 (239 - 931 pg/mL) 446 RBC Folate Pending TSH (0.270 - 4.200 uIU/mL) 5.760 H Free T4 (0.64 - 1.79 ng/dL) 1.07 03/020 2299 Chemistry Lactic Acid (0.7 - 2.1 mmol/L) 2.5 H 2.8 H Vit D 1,25-Dihyd Total Pending 1,25 Dihydroxy Vit D2 Pending 1,25 Dihydroxy Vit D3 Pending Hematology CBC w Diff NO MAN DIFF REQ WBC (4.8 - 10.8 /CUMM) 10.6 RBC (4.70 - 6.10 /CUMM) 4.67 L Hgb (14.0 - 18.0 G/DL) 14.0 Hct (42 - 52 %) 40.8 L MCV (80.0 - 94.0 FL) 87.4 MCH (27.0 - 31.0 PG) 30.0 RDW (11.5 - 14.5 %) 12.7 Plt Count (130 - 400 /CUMM) 258 MPV (7.4 - 10.4 FL) 8.3 Gran % (42.2 - 75.2 %) 49.0 Lymphocytes % (20.5 - 51.1 %) 39.0 Monocytes % (1.7 - 9.3 %) 8.5 Eosinophils % (0 - 5 %) 2.8 Basophils % (0.0 - 2.0 %) 0.7 Absolute Granulocytes (1.4 - 6.5 /CUMM) 5.2 Absolute Lymphocytes (1.2 - 3.4 /CUMM) 4.2 H Absolute Monocytes (0.10 - 0.60 /CUMM) 0.9 H Absolute Eosinophils (0.0 - 0.7 /CUMM) 0.3 Absolute Basophils (0.0 - 0.2 /CUMM) 0.1 PUBS MCHC (33.0 - 37.0 G/DL) 34.3 03/01 Chemistry Sodium (137 - 145 mmol/L) 133 L Potassium (3.5 - 5.1 mmol/L) 4.2 Chloride (98 - 107 mmol/L) 97 L Carbon Dioxide (22 - 30 mmol/L) 27 Anion Gap (5 - 16) 10 BUN (9 - 20 mg/dL) 13 Creatinine (0.7 - 1.2 mg/dL) 0.6 L Estimated GFR (>60 ml/min) > 60 BUN/Creatinine Ratio (7 - 25 %) 21.7 Glucose (65 - 99 mg/dL) 288 H Hemoglobin A1c (4.2 - 5.8 %) 9.7 H Lactic Acid (0.7 - 2.1 mmol/L) 2.2 H Calcium (8.4 - 10.2 mg/dL) 9.2 Total Bilirubin (0.2 - 1.3 mg/dL) 0.4 AST (17 - 59 U/L) 26 ALT (21 - 72 U/L) 54 Alkaline Phosphatase (< 127 U/L) 76 C-Reactive Prot, Quant (<1.0 mg/dL) 2.7 H Total Protein (6.3 - 8.2 g/dL) 7.2 Albumin (3.5 - 5.0 g/dL) 3.8 Globulin (1.9 - 4.2 gm/dL) 3.4 Albumin/Globulin Ratio (1.1 - 2.2 %) 1.1 Hematology CBC w Diff NO MAN DIFF REQ WBC (4.8 - 10.8 /CUMM) 12.6 H RBC (4.70 - 6.10 /CUMM) 5.15 Hgb (14.0 - 18.0 G/DL) 15.2 Hct (42 - 52 %) 44.8 MCV (80.0 - 94.0 FL) 87.1 MCH (27.0 - 31.0 PG) 29.6 RDW (11.5 - 14.5 %) 12.3 Plt Count (130 - 400 /CUMM) 278 MPV (7.4 - 10.4 FL) 7.8 Gran % (42.2 - 75.2 %) 55.8 Lymphocytes % (20.5 - 51.1 %) 33.6 Monocytes % (1.7 - 9.3 %) 7.8 Eosinophils % (0 - 5 %) 2.2 Basophils % (0.0 - 2.0 %) 0.6 Absolute Granulocytes (1.4 - 6.5 /CUMM) 7.0 H Absolute Lymphocytes (1.2 - 3.4 /CUMM) 4.2 H Absolute Monocytes (0.10 - 0.60 /CUMM) 1.0 H Absolute Eosinophils (0.0 - 0.7 /CUMM) 0.3 Absolute Basophils (0.0 - 0.2 /CUMM) 0.1 PUBS MCHC (33.0 - 37.0 G/DL) 34.0 ESR Westergren (0 - 10 MM) 37 H Toxicology Urine Opiates Screen (>2000 NG/ML) < 100.00 Methadone Screen (>300 NG/ML) < 40 Barbiturate Screen (>200 NG/ML) < 60 Ur Phencyclidine Scrn (>25 NG/ML) < 6.00 Amphetamines Screen (>1000 NG/ML) < 100 U Benzodiazepines Scrn (>200 NG/ML) < 85 Urine Cocaine Screen (>300 NG/ML) < 50 Urine Cannabis Screen (>50 NG/ML) < 5.00 Acetone Level (NEGATIVE) NEGATIVE Urines Urine Color (YEL,AMB,STR) YEL Urine Clarity (CLEAR) CLEAR Urine pH (5.0 - 8.0) 6.0 Ur Specific [place] (1.001 - 1.035) 1.025 Urine Protein (NEG,<30 MG/DL) NEG Urine Ketones (NEG) NEG Urine Nitrite (NEG) NEG Urine Bilirubin (NEG) NEG Urine Urobilinogen (0.1 - 1.0 EU/dl) 0.2 Ur Leukocyte Esterase (NEG) NEG Ur Microscopic EXAM NOT REQUIRED Urine Hemoglobin (NEG) NEG Urine Glucose (N MG/DL) >=1000 H Last 24 Hours of Denis Results: Blood cultures 2 March 02 pending Urine culture March 01 pending Diagnostic Data Recent Imaging Findings: X-ray of the left foot March 01 negative MRI of the left foot March 02 reveals a subtle focus of early osteomyelitis of the distal phalanx of the left great toe Assessment/Plan Assessment/Plan Impression: This is a 41-year-old man, with presumed diabetes, which has not been treated, who was admitted on March 01 with a nearly one-year history of an ulcer on the left great toe, found on admission to be afebrile with erythema and edema of the left great toe surrounding an ulcer on the plantar aspect of the toe and with an MRI suggestive of early osteomyelitis of the distal pharynx. His clinical picture is consistent with a localized cellulitis of the left great toe with underlying osteomyelitis, and he will likely require at least a partial amputation of the toe. The need for antibiotics postop will depend on whether he will be left with any residual infection of the soft tissues or bone, but, as he is stable, he can be followed off antibiotics until cultures are obtained in the OR. Suggestion: 1. Await Podiatry evaluation 2. Further management of his diabetes per Medicine 3. Continue to follow off antibiotics pending above Consult Acknowledgment - Thank you for your consult request.
--- NOTE | 2017-03-02 18:06 | Cons- Podiatry ---
General Information and HPI Consulting Request Date of Consult: 03/02/17 Requested By: EVARISTO PINZON MD History of Present Illness: Adrián is a 41-year-old newly diagnosed diabetic with a long-standing history of a nonhealing ulcer to the plantar aspect of his left great toe. The patient admits to being noncompliant with the recommendations for his left great toe. Patient denies any recent systemic signs of infection. Patient denies nausea vomiting fever chills. Allergies/Medications Allergies: Coded Allergies: No Known Allergies (05/22/16) Home Med List: No Known Home Medications Past History Medical History Blood Transfusion Hx: No Neurological: NONE EENT: NONE Cardiovascular: NONE Respiratory: NONE Gastrointestinal: NONE Hepatic: NONE Renal: NONE Musculoskeletal: fracture (arm as a child), chronic nonhealing ulcer of left great toe Psychiatric: NONE Endocrine: diabetes Blood Disorders: NONE Cancer(s): NONE GRAB DRIVER/Reproductive: NONE Surgical History Pertinent Surgical History: none Family History Relations & Conditions If Any: MOTHER, , Age 60+; Cause: Cardiac arrest. FH: heart disease FATHER, , Age 60+. Psychosocial History Where Do You Live? Home Who Do You Live With? friends Services at Home: None Smoking Status: Never Smoked ETOH Use: denies use Illicit Drug Use: denies illicit drug use Functional Ability ADLs Independent: dressing, eating, toileting, bathing. Ambulation: independent IADLs Independent: shopping, housework, finances, food prep, telephone, transportation , medication admin. 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 of Systems Review of Systems: Unremarkable except for that noted in history of present illness Exam & Diagnostic Data Vital Signs and I&O Vital Signs Date Time Temp Pulse Resp B/P B/P Pulse O2 O2 Flow FiO2 Mean Ox Delivery Rate 03/02 1523 112/70 03/02 1438 97.4 73 20 162/118 95 03/02 0703 96.8 82 16 147/87 96 Room Air 03/01 2139 97.1 92 20 165/91 98 Room Air 03/01 1843 97.4 88 16 129/91 97 Room Air Intake & Output 03/02 1600 03/02 0800 03/02 0000 03/01 1600 03/01 0800 03/01 0000 Intake Total 1555 0 1000 Output Total 401 2 Balance 1154 -2 1000 Intake, IV 1075 1000 Intake, Oral 480 0 Number 1 Bowel Movements Output, Urine 401 2 Patient 315 lb 315 lb Weight Weight Reported by Patient Measurement Method Physical Exam: Posterior tibial artery palpable bilaterally. Patient with a 2 cm x 1 cm full- thickness mal perforans ulcer noted to the plantar left great toe. There is hyperkeratosis at the periphery of the lesion. The wound bed is a mixed granular fibrotic base. 2-3 cm of cellulitis noted to emanate from about the periphery of the lesion. Assessment/Plan Assessment/Plan Left great toe osteomyelitis. Discussed possible treatment options with the patient. Recommended primary amputation, which however the patient refused. Suggested a debridement with a bone biopsy and culture and possible extended course of IV antibiotics. Patient is for the moment amenable to this plan. Williams schedule the patient for debridement and bone culture on Tuesday. Consult Acknowledgment - Thank you for your consult request. Attending MD Review Statement Attending Statement Attending MD Statement: examined this patient
[2017-03-02 22:05] VITALS: BP 130/70
[2017-03-03 06:47] VITALS: BP 130/86
--- NOTE | 2017-03-03 06:55 | PN- Housestaff ---
HOLDEN PEDERSON,[facility] 03/03/17 0655: Subjective Follow-up For: osteomyelitis Subjective: Pt seen today, was feeling fine. Decided to pursue debridement tomorrow with Dr. Aggarwal. noted inc in wbc from 10.6 to 11.4, will continue to trend. He might need prolonged abx, and possibly picc line placement. Will discuss with ID. Dr. Olson, has been consulted for diabetic management. accucheck was [phone]. Review of Systems Constitutional: Reports: see HPI. Objective Last 24 Hrs of Vital Signs/I&O Vital Signs Date Time Temp Pulse Resp B/P B/P Pulse O2 O2 Flow FiO2 Mean Ox Delivery Rate 03/03 0647 97.7 82 20 130/86 97 Room Air 03/02 2205 98.5 75 19 130/70 97 Room Air 03/02 1523 112/70 03/02 1438 97.4 73 20 162/118 95 Intake & Output 03/03 1600 03/03 0800 03/03 0000 Intake Total 120 350 Output Total Balance 120 350 Intake, Oral 120 350 Physical Exam General Appearance: Alert, Oriented X3, Cooperative, No Acute Distress HEENT: Atraumatic Cardiovascular: Regular Rate, Normal S1, Normal S2 Lungs: Clear to Auscultation, Normal Air Movement Abdomen: Normal Bowel Sounds, Soft, No Tenderness Neurological: Normal Speech Extremities: No Edema, left toe nonhealing ulcer noted Last 24 Hrs of Lab/Denis Results Last 24 Hrs of Labs/Mics: Laboratory Tests 03/03/17 0605: Anion Gap 10, Estimated GFR > 60, BUN/Creatinine Ratio 24.0, CBC w Diff NO MAN DIFF REQ, RBC 4.67 L, MCV 88.2, MCH 29.9, RDW 12.6, MPV 7.8, Gran % 46.5, Lymphocytes % 42.3, Monocytes % 7.9, Eosinophils % 3.0, Basophils % 0.3, Absolute Granulocytes 5.3, Absolute Lymphocytes 4.8 H, Absolute Monocytes 0.9 H, Absolute Eosinophils 0.3, Absolute Basophils 0, PUBS MCHC 33.9 Assessment/Plan Assessment: 41 y/o morbidly obese M with no PMHx who is sent in from Urgent Care for further evaluation of left great toe ulcer. # Chronic nonhealing ulcer of left great toe: Chronic nonhealing stage 3 ulcer on the plantar surface of the left great toe with some surrounding erythema but no purulent drainage. Likely secondary to diabetic neuropathy given decreased sensation of bilateral toes on exam and undiagnosed T2DM. Afebrile with no systemic signs of infection other than mild leukocytosis and elevation of lactic acid to 2.8,came down to 2. CRP (2.7) and ESR (37) with only slight elevation. XR of left toes with no radiographic evidence of osteomyelitis, MRI showed early signs of osteomyelitis. * Admit to General Medicine. * Podiatry consulted. Appreciate their recs. Plan to go OR on Tuesday03/04/17 for debridement. NPO past midnight. IVF NS ordered, levemir changed to 5 units at bedtime tonight, novolog will be discontinued at midnight, and novolin started at midnight. * Monitor off antibiotics. * Appreciate ID consult. * Follow urine and blood cultures. * EKG ordered for preoperative clearance. # Newly diagnosed T2DM: Although not officially diagnosed, blood glucose of 387 last year and 288 on current presentation and glucosuria is consistent with diabetes, especially in the setting of diabetic neuropathy and morbid obesity. - hba1c 9.7 - TG 519H - TSH 5.760H, FT4 1.07 - Vit B12 446 * Accu-checks tidac/qhs * Novolog tidac/qhs * Follow folate and vitamin D as patient has not been following up with a PCP. * Monitor BP. If elevated, consider starting JENNIFER inhibitor for protection against diabetic nephropathy * Endocrinology, Dr. Olson, consulted Diet: CC3 --> NPO DVT PPx: ALPs,lovenox (till 03/03, going to OR 03/04) Pain: Tylenol 650 mg PO Q6H PRN for mild pain (scale 1-3) Motrin 600 mg PO Q6H PRN for moderate pain (scale 4-6) Tylenol 1 g IV Q6H PRN for severe pain (scale 7-10) CODE: FULL Problem List: 1. Chronic ulcer of great toe of left foot Pain Ratin Pain Location: none Pain Goal: Remain pain free Pain Plan: mild pp Tomorrow's Labs & Rationales: cbc bep pt ptt preop DVT/Prophylaxis: mechanical, pharmacological EVARISTO PINZON 03/03/17 1042: Attending MD Review Statement Attending Statement Attending MD Statement: examined this patient, discuss w/resident/PA/TRAILER PARK MANAGER, agreed w/resident/PA/TRAILER PARK MANAGER, discussed with family, reviewed EMR data (avail), discussed with nursing, discussed with case mgmt, reviewed images, amended to note Attending Assessment/Plan: ASSESSMENT AND PLAN 1. Left great toe chronic nonhealing ulcer with cellulitis. GM admit, panculture , F/U MRI to rule out osteomyelitis, Podiatry consult. NPO midnight today for plan for bone biopsy or debridement tomorrow. Pain management. IV fluids. Monitor off antibiotics for now. ID consulted. 2. Undiagnosed diabetes. Accucheks, 9.7 HbA1c, basal insulin + RISS. Consider Endo consult for follow up as outpatient. 3. Hypertension. Monitor BP, if needed consider JENNIFER-I. PCP follow up on discharge. DVT lovenox. Full code.
[2017-03-03 07:53] LABS: ABSOLUTE BASOPHIL COUNT 0 /CUMM (0.0-0.2); ABSOLUTE EOSINOPHIL COUNT 0.3 /CUMM (0.0-0.7); ABSOLUTE GRANULOCYTE CT 5.3 /CUMM (1.4-6.5); ABSOLUTE LYMPH COUNT 4.8 /CUMM (1.2-3.4); ABSOLUTE MONOCYTE COUNT 0.9 /CUMM (0.10-0.60); BASOPHIL % 0.3 % (0.0-2.0); GRANULOCYTE % 46.5 % (42.2-75.2); HEMATOCRIT 41.2 % (42-52); MEAN CORPUSCULAR HGB 29.9 PG (27.0-31.0); MEAN CORPUSCULAR HGB CONC 33.9 G/DL (33.0-37.0); MEAN CORPUSCULAR VOLUME 88.2 FL (80.0-94.0); MEAN PLATELET VOLUME 7.8 FL (7.4-10.4); PLATELET COUNT 253 /CUMM (130-400); RBC DISTRIBUTION WIDTH 12.6 % (11.5-14.5); RED BLOOD CELL CT 4.67 /CUMM (4.70-6.10); WHITE BLOOD CELL COUNT 11.4 /CUMM (4.8-10.8)
--- NOTE | 2017-03-03 11:19 | Cons- Endocrinology ---
General Information and HPI Consulting Request Date of Consult: 03/03/17 Requested By: medical team Reason for Consult: management of DM type 2 Source of Information: patient, old records Exam Limitations: no limitations History of Present Illness: 41-year-old man was admitted on March 01 for an ulcer on left great toe. MRI suggesed early osteomyelitis. Patient was found to have glucose level of 288 and HbA1c of 9.7%. On 05/22/2016, he was in ER for an open blister on his left great toe and his glucose level was 387. But he wasn't on any medication for DM. He was put on Levemir 10 units daily and Novolog coverage before meals and his FSGs were 307, 317, 247, 182, 278 and 245. Allergies/Medications Allergies: Coded Allergies: No Known Allergies (05/22/16) Home Med List: No Known Home Medications Review of Systems Review of Systems Constitutional: Reports: see HPI. Cardiovascular: Denies: chest pain. Respiratory: Denies: short of breath. GI: Denies: abdominal pain. Genitourinary: Denies: dysuria. Musculoskeletal: Reports: see HPI (left great toe infection). Hematologic/Endocrine: Denies: polyuria, polydipsia. 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 FH: heart disease FATHER, , Age 60+. Psychosocial History Where Do You Live? Home Who Do You Live With? friends Services at Home: None Smoking Status: Never Smoked ETOH Use: denies use Illicit Drug Use: denies illicit drug use Functional Ability ADLs Independent: dressing, eating, toileting, bathing. Ambulation: independent IADLs Independent: shopping, housework, finances, food prep, telephone, transportation , medication admin. 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 Exam & Diagnostic Data Last 24 Hrs of Vital Signs/I&O Vital Signs Date Time Temp Pulse Resp B/P B/P Pulse O2 O2 Flow FiO2 Mean Ox Delivery Rate 03/03 0647 97.7 82 20 130/86 97 Room Air 03/02 2205 98.5 75 19 130/70 97 Room Air 03/02 1523 112/70 03/02 1438 97.4 73 20 162/118 95 Intake & Output 03/03 1600 03/03 0800 03/03 0000 Intake Total 120 350 Output Total Balance 120 350 Intake, Oral 120 350 Physical Exam General Appearance: no apparent distress, obese Neck: difficult to palpate his thyroid gland due to body habitus Respiratory: lungs clear Cardiovascular: regular rate/rhythm Gastrointestinal: soft Extremities: left great toe lesion Other Physical Findings: gynecomastia Labs/Denis Results: Laboratory Tests 03/03 03/02 03/02 0605 0830 0720 Chemistry Sodium (137 - 145 mmol/L) 135 L Potassium (3.5 - 5.1 mmol/L) 4.2 Chloride (98 - 107 mmol/L) 99 Carbon Dioxide (22 - 30 mmol/L) 26 Anion Gap (5 - 16) 10 BUN (9 - 20 mg/dL) 12 Creatinine (0.7 - 1.2 mg/dL) 0.5 L Estimated GFR (>60 ml/min) > 60 BUN/Creatinine Ratio (7 - 25 %) 24.0 Lactic Acid (0.7 - 2.1 mmol/L) 2.0 RBC Folate Pending Hematology CBC w Diff NO MAN DIFF REQ WBC (4.8 - 10.8 /CUMM) 11.4 H RBC (4.70 - 6.10 /CUMM) 4.67 L Hgb (14.0 - 18.0 G/DL) 13.9 L Hct (42 - 52 %) 41.2 L MCV (80.0 - 94.0 FL) 88.2 MCH (27.0 - 31.0 PG) 29.9 RDW (11.5 - 14.5 %) 12.6 Plt Count (130 - 400 /CUMM) 253 MPV (7.4 - 10.4 FL) 7.8 Gran % (42.2 - 75.2 %) 46.5 Lymphocytes % (20.5 - 51.1 %) 42.3 Monocytes % (1.7 - 9.3 %) 7.9 Eosinophils % (0 - 5 %) 3.0 Basophils % (0.0 - 2.0 %) 0.3 Absolute Granulocytes (1.4 - 6.5 /CUMM) 5.3 Absolute Lymphocytes (1.2 - 3.4 /CUMM) 4.8 H Absolute Monocytes (0.10 - 0.60 /CUMM) 0.9 H Absolute Eosinophils (0.0 - 0.7 /CUMM) 0.3 Absolute Basophils (0.0 - 0.2 /CUMM) 0 PUBS MCHC (33.0 - 37.0 G/DL) 33.9 03/02 03/02 03/02 0605 0605 0350 Chemistry Sodium (137 - 145 mmol/L) 136 L Potassium (3.5 - 5.1 mmol/L) 4.5 Chloride (98 - 107 mmol/L) 101 Carbon Dioxide (22 - 30 mmol/L) 24 Anion Gap (5 - 16) 10 BUN (9 - 20 mg/dL) 14 Creatinine (0.7 - 1.2 mg/dL) 0.5 L Estimated GFR (>60 ml/min) > 60 BUN/Creatinine Ratio (7 - 25 %) 28.0 H Lactic Acid (0.7 - 2.1 mmol/L) 2.5 H Triglycerides (<150 mg/dL) 519 H Cholesterol (< 200 MG/DL) 179 LDL Cholesterol Direct (<100 mg/dL) 90.63 LDL Cholesterol, Calc (65 - 129 mg/dL) ND HDL Cholesterol (40 - 60 mg/dL) 23 L Cholesterol/HDL Ratio (0.00 - 4.88 %) 8 H Vitamin B12 (239 - 931 pg/mL) 446 Vit D 1,25-Dihyd Total Pending 1,25 Dihydroxy Vit D2 Pending 1,25 Dihydroxy Vit D3 Pending TSH (0.270 - 4.200 uIU/mL) 5.760 H Free T4 (0.64 - 1.79 ng/dL) 1.07 Hematology CBC w Diff NO MAN DIFF REQ WBC (4.8 - 10.8 /CUMM) 10.6 RBC (4.70 - 6.10 /CUMM) 4.67 L Hgb (14.0 - 18.0 G/DL) 14.0 Hct (42 - 52 %) 40.8 L MCV (80.0 - 94.0 FL) 87.4 MCH (27.0 - 31.0 PG) 30.0 RDW (11.5 - 14.5 %) 12.7 Plt Count (130 - 400 /CUMM) 258 MPV (7.4 - 10.4 FL) 8.3 Gran % (42.2 - 75.2 %) 49.0 Lymphocytes % (20.5 - 51.1 %) 39.0 Monocytes % (1.7 - 9.3 %) 8.5 Eosinophils % (0 - 5 %) 2.8 Basophils % (0.0 - 2.0 %) 0.7 Absolute Granulocytes (1.4 - 6.5 /CUMM) 5.2 Absolute Lymphocytes (1.2 - 3.4 /CUMM) 4.2 H Absolute Monocytes (0.10 - 0.60 /CUMM) 0.9 H Absolute Eosinophils (0.0 - 0.7 /CUMM) 0.3 Absolute Basophils (0.0 - 0.2 /CUMM) 0.1 PUBS MCHC (33.0 - 37.0 G/DL) 34.3 03/01 03/01 2300 2250 Chemistry Lactic Acid (0.7 - 2.1 mmol/L) 2.8 H Toxicology Urine Opiates Screen (>2000 NG/ML) < 100.00 Methadone Screen (>300 NG/ML) < 40 Barbiturate Screen (>200 NG/ML) < 60 Ur Phencyclidine Scrn (>25 NG/ML) < 6.00 Amphetamines Screen (>1000 NG/ML) < 100 U Benzodiazepines Scrn (>200 NG/ML) < 85 Urine Cocaine Screen (>300 NG/ML) < 50 Urine Cannabis Screen (>50 NG/ML) < 5.00 Urines Urine Color (YEL,AMB,STR) YEL Urine Clarity (CLEAR) CLEAR Urine pH (5.0 - 8.0) 6.0 Ur Specific [place] (1.001 - 1.035) 1.025 Urine Protein (NEG,<30 MG/DL) NEG Urine Ketones (NEG) NEG Urine Nitrite (NEG) NEG Urine Bilirubin (NEG) NEG Urine Urobilinogen (0.1 - 1.0 EU/dl) 0.2 Ur Leukocyte Esterase (NEG) NEG Ur Microscopic EXAM NOT REQUIRED Urine Hemoglobin (NEG) NEG Urine Glucose (N MG/DL) >=1000 H 03/01 2010 Chemistry Sodium (137 - 145 mmol/L) 133 L Potassium (3.5 - 5.1 mmol/L) 4.2 Chloride (98 - 107 mmol/L) 97 L Carbon Dioxide (22 - 30 mmol/L) 27 Anion Gap (5 - 16) 10 BUN (9 - 20 mg/dL) 13 Creatinine (0.7 - 1.2 mg/dL) 0.6 L Estimated GFR (>60 ml/min) > 60 BUN/Creatinine Ratio (7 - 25 %) 21.7 Glucose (65 - 99 mg/dL) 288 H Hemoglobin A1c (4.2 - 5.8 %) 9.7 H Lactic Acid (0.7 - 2.1 mmol/L) 2.2 H Calcium (8.4 - 10.2 mg/dL) 9.2 Total Bilirubin (0.2 - 1.3 mg/dL) 0.4 AST (17 - 59 U/L) 26 ALT (21 - 72 U/L) 54 Alkaline Phosphatase (< 127 U/L) 76 C-Reactive Prot, Quant (<1.0 mg/dL) 2.7 H Total Protein (6.3 - 8.2 g/dL) 7.2 Albumin (3.5 - 5.0 g/dL) 3.8 Globulin (1.9 - 4.2 gm/dL) 3.4 Albumin/Globulin Ratio (1.1 - 2.2 %) 1.1 Hematology CBC w Diff NO MAN DIFF REQ WBC (4.8 - 10.8 /CUMM) 12.6 H RBC (4.70 - 6.10 /CUMM) 5.15 Hgb (14.0 - 18.0 G/DL) 15.2 Hct (42 - 52 %) 44.8 MCV (80.0 - 94.0 FL) 87.1 MCH (27.0 - 31.0 PG) 29.6 RDW (11.5 - 14.5 %) 12.3 Plt Count (130 - 400 /CUMM) 278 MPV (7.4 - 10.4 FL) 7.8 Gran % (42.2 - 75.2 %) 55.8 Lymphocytes % (20.5 - 51.1 %) 33.6 Monocytes % (1.7 - 9.3 %) 7.8 Eosinophils % (0 - 5 %) 2.2 Basophils % (0.0 - 2.0 %) 0.6 Absolute Granulocytes (1.4 - 6.5 /CUMM) 7.0 H Absolute Lymphocytes (1.2 - 3.4 /CUMM) 4.2 H Absolute Monocytes (0.10 - 0.60 /CUMM) 1.0 H Absolute Eosinophils (0.0 - 0.7 /CUMM) 0.3 Absolute Basophils (0.0 - 0.2 /CUMM) 0.1 PUBS MCHC (33.0 - 37.0 G/DL) 34.0 ESR Westergren (0 - 10 MM) 37 H Toxicology Acetone Level (NEGATIVE) NEGATIVE Assessment/Plan Assessment/Plan 41-year-old man was admitted on March 01 for an ulcer on left great toe. MRI suggesed early osteomyelitis. Patient was found to have glucose level of 288 and HbA1c of 9.7%. 1. DM type 2 ---increase Levemir to 20 units daily at bedtime ---adjust Novolog coverage before meals FSG 80-150 4 units 151-200 6 units 201-250 8 units 251-300 10 units 301-350 12 units 351-400 14 units > 400 16 units ---he is scheduled to go to OR tomorrow and he will be NPO and on NS at 75 ml/ hour decrease Levemir to 10 units at bedtime tonight RISS every 6 hours when he is NPO and on NS at 75 ml/hour. FSG 201-250 2 units 251-300 4 units 301-350 6 units 351-400 8 units > 400 10 units 2. abnormal TFT--- repeat TSH, free T4 and TT3 tomorrow; check thyroid antibody panel. 3. dyslipidemia---recommend starting patient on statin. will follow. Consult Acknowledgment - Thank you for your consult request.
--- NOTE | 2017-03-03 12:02 | PN- Infect Dx ---
Subjective Subjective: Afebrile without complaints Objective Last 24 Hrs of Vital Signs/I&O Vital Signs Date Time Temp Pulse Resp B/P B/P Pulse O2 O2 Flow FiO2 Mean Ox Delivery Rate 03/03 0647 97.7 82 20 130/86 97 Room Air 03/02 2205 98.5 75 19 130/70 97 Room Air 03/02 1523 112/70 03/02 1438 97.4 73 20 162/118 95 Intake & Output 03/03 1600 03/03 0800 03/03 0000 Intake Total 120 350 Output Total Balance 120 350 Intake, Oral 120 350 Physical Exam Other Physical Findings: He appears comfortable in no acute distress Extremities left great toe swelling and erythema, nontender to palpation, with a plantar ulcer, measuring 2 x 1 cm Results Last 24 Hours of Lab Results: Laboratory Tests 03/03 605 Chemistry Sodium (137 - 145 mmol/L) 135 L Potassium (3.5 - 5.1 mmol/L) 4.2 Chloride (98 - 107 mmol/L) 99 Carbon Dioxide (22 - 30 mmol/L) 26 Anion Gap (5 - 16) 10 BUN (9 - 20 mg/dL) 12 Creatinine (0.7 - 1.2 mg/dL) 0.5 L Estimated GFR (>60 ml/min) > 60 BUN/Creatinine Ratio (7 - 25 %) 24.0 Hematology CBC w Diff NO MAN DIFF REQ WBC (4.8 - 10.8 /CUMM) 11.4 H RBC (4.70 - 6.10 /CUMM) 4.67 L Hgb (14.0 - 18.0 G/DL) 13.9 L Hct (42 - 52 %) 41.2 L MCV (80.0 - 94.0 FL) 88.2 MCH (27.0 - 31.0 PG) 29.9 RDW (11.5 - 14.5 %) 12.6 Plt Count (130 - 400 /CUMM) 253 MPV (7.4 - 10.4 FL) 7.8 Gran % (42.2 - 75.2 %) 46.5 Lymphocytes % (20.5 - 51.1 %) 42.3 Monocytes % (1.7 - 9.3 %) 7.9 Eosinophils % (0 - 5 %) 3.0 Basophils % (0.0 - 2.0 %) 0.3 Absolute Granulocytes (1.4 - 6.5 /CUMM) 5.3 Absolute Lymphocytes (1.2 - 3.4 /CUMM) 4.8 H Absolute Monocytes (0.10 - 0.60 /CUMM) 0.9 H Absolute Eosinophils (0.0 - 0.7 /CUMM) 0.3 Absolute Basophils (0.0 - 0.2 /CUMM) 0 PUBS MCHC (33.0 - 37.0 G/DL) 33.9 Last 24 Hours of Denis Results: Blood cultures March 02 negative Urine culture March 01 negative Assessment/Plan Impression: Stable off antibiotics with temperatures remaining normal and white blood cell count minimally elevated. He was evaluated by Podiatry who recommended an amputation of the left great toe, which he is currently refusing. If he only undergoes debridement he will likely require a prolonged course of antibiotics, which, without amputation, may not be effective in resolving his infection. Suggestion: 1. Await surgery in the a.m. 2. Continue to follow off antibiotics, but will likely begin antibiotics postoperatively pending OR cultures.
[2017-03-03 14:04] VITALS: BP 112/78
--- NOTE | 2017-03-03 17:18 | PN- Podiatry ---
Subjective Subjective: Patient seen at bedside without new complaints. Patient denies nausea vomiting fever chills. Objective Vital Signs and I&Os Vital Signs Date Time Temp Pulse Resp B/P B/P Pulse O2 O2 Flow FiO2 Mean Ox Delivery Rate 03/03 1404 98.1 80 20 112/78 97 03/03 0647 97.7 82 20 130/86 97 Room Air 03/02 2205 98.5 75 19 130/70 97 Room Air Intake & Output 03/03 1600 03/03 0800 03/03 0000 03/02 1600 03/02 0800 03/02 0000 Intake Total 910 515 358 9270 0 1000 Output Total 401 2 Balance 910 321 457 4143 -2 1000 Intake, IV 10 1075 1000 Intake, Oral 900 120 350 480 0 Number 0 1 Bowel Movements Output, Urine 401 2 Patient 315 lb 315 lb 315 lb Weight Weight Reported by Patient Measurement Method Physical Exam: Necrotic full-thickness ulceration noted to the plantar left great toe. Cellulitis noted dorsally extending to the metatarsophalangeal joint. Minimal drainage identified. Assessment/Plan Assessment/Plan Left great toe osteomyelitis. Patient nothing by mouth tonight for debridement and bone biopsy. Patient refusing great toe amputation. Attending MD Review Statement Attending Statement Attending MD Statement: examined this patient
[2017-03-03 22:34] VITALS: BP 130/80
[2017-03-04 06:32] VITALS: BP 132/78
--- NOTE | 2017-03-04 07:02 | PN- Housestaff ---
HOLDEN PEDERSON,GREY 03/04/17 0702: Subjective Follow-up For: osteomyelitis left great toe Subjective: Pt was asleep,in no distress Last 24 hrs accucheck 284, 247,245,284,341. Pt going to OR at 1PM today Morning labs pending Review of Systems Constitutional: Reports: see HPI. Objective Last 24 Hrs of Vital Signs/I&O Vital Signs Date Time Temp Pulse Resp B/P B/P Pulse O2 O2 Flow FiO2 Mean Ox Delivery Rate 03/04 0632 97.7 78 20 132/78 96 Room Air 03/03 2234 97.6 97 20 130/80 98 Room Air 03/03 1404 98.1 80 20 112/78 97 Intake & Output 03/04 0800 03/04 0000 03/03 1600 Intake Total 535 800 910 Output Total Balance 535 800 910 Intake, IV 535 10 Intake, Oral 0 800 900 Number 0 0 Bowel Movements Patient 142.882 kg Weight Physical Exam General Appearance: asleep , in no distress Cardiovascular: Regular Rate, Normal S1, Normal S2 Lungs: Clear to Auscultation Abdomen: Normal Bowel Sounds, Soft Current Medications: Current Medications Sig/Homero Start time Last Medication Dose Route Stop Time Status Admin Acetaminophen 650 MG Q6P PRN 03/01 2345 AC PO Acetaminophen 1,000 MG Q6P PRN 03/01 2345 AC IV Atorvastatin Calcium 10 MG 0 03/03 1700 AC 03/03 PO 1726 Enoxaparin Sodium 40 MG 0 03/03 1700 DC 03/03 SC 03/03 1701 1726 Ibuprofen 600 MG Q6P PRN 03/01 2345 AC PO Insulin Aspart 0 TIDAC 03/03 1700 DC 03/03 SC 03/03 2300 1726 Insulin Aspart 0 TIDAC/HS 03/03 1200 DC 03/03 SC 03/03 2300 1305 Insulin Aspart 0 AT BEDTIME 03/02 2200 DC 03/02 SC 2210 Insulin Aspart 0 TIDAC 03/02 1700 DC 03/03 SC 0915 Insulin Detemir 5 UNITS AT BEDTIME 03/03 2200 DC SC Insulin Detemir 10 UNITS AT BEDTIME 03/03 2200 AC 03/03 SC 2104 Insulin Detemir 10 UNITS AT BEDTIME 03/02 1445 DC 03/02 SC 2209 Insulin Human Regular 0 Q6 03/04 1200 DC SC Insulin Human Regular 0 Q6 03/04 0000 AC 03/04 SC 0629 Sodium Chloride 1,000 ML Q13H 03/04 0005 AC 03/04 IV 03/04 1304 0028 Last 24 Hrs of Lab/Denis Results Last 24 Hrs of Labs/Mics: Laboratory Tests 03/04/17 0607: Sodium Pending, Potassium Pending, Chloride Pending, Carbon Dioxide Pending, Anion Gap Pending, BUN Pending, Creatinine Pending, BUN/Creatinine Ratio Pending , TSH Pending, Free T4 Pending, Total T3 Pending, PT Pending, INR Pending, APTT Pending, CBC w Diff Pending, WBC Pending, RBC Pending, Hgb Pending, Hct Pending, MCV Pending, MCH Pending, RDW Pending, Plt Count Pending, MPV Pending, PUBS MCHC Pending Assessment/Plan Assessment: 41 y/o morbidly obese M with no PMHx who is sent in from Urgent Care for further evaluation of left great toe ulcer. # Chronic nonhealing ulcer of left great toe: Chronic nonhealing stage 3 ulcer on the plantar surface of the left great toe with some surrounding erythema but no purulent drainage. Likely secondary to diabetic neuropathy given decreased sensation of bilateral toes on exam and undiagnosed T2DM. Afebrile with no systemic signs of infection other than mild leukocytosis and elevation of lactic acid to 2.8,came down to 2. CRP (2.7) and ESR (37) with only slight elevation. XR of left toes with no radiographic evidence of osteomyelitis, MRI showed early signs of osteomyelitis. * Admit to General Medicine. * Podiatry consulted. Appreciate their recs. Debridement by Dr. Aggarwal on Tuesday03/04/17. * Monitor off antibiotics. * Appreciate ID consult, will discuss need for possible picc line placement * Follow urine and blood cultures. * EKG ordered for preoperative clearance. # Newly diagnosed T2DM: Although not officially diagnosed, blood glucose of 387 last year and 288 on current presentation and glucosuria is consistent with diabetes, especially in the setting of diabetic neuropathy and morbid obesity. - hba1c 9.7 - TG 519H - TSH 5.760H, FT4 1.07 - Vit B12 446 * Accu-checks tidac/qhs * Follow folate and vitamin D as patient has not been following up with a PCP. * Monitor BP. If elevated, consider starting JENNIFER inhibitor for protection against diabetic nephropathy * Endocrinology, Dr. Olson, consulted, insulin as per endo Diet: NPO --> CC 3 after surgery DVT PPx: ALPs,lovenox (till 03/03, going to OR 03/04, will resume 03/05) Pain: Tylenol 650 mg PO Q6H PRN for mild pain (scale 1-3) Motrin 600 mg PO Q6H PRN for moderate pain (scale 4-6) Tylenol 1 g IV Q6H PRN for severe pain (scale 7-10) CODE: FULL Problem List: 1. Chronic osteomyelitis of toe of left foot Pain Ratin Pain Location: none Pain Goal: Remain pain free Pain Plan: mild pp Tomorrow's Labs & Rationales: cbc and bep post op DVT/Prophylaxis: mechanical, pharmacological EVARISTO PINZON 03/04/17 1336: Attending MD Review Statement Attending Statement Attending MD Statement: examined this patient, discuss w/resident/PA/TMD TEACHER, agreed w/resident/PA/TMD TEACHER, discussed with family, reviewed EMR data (avail), discussed with nursing, discussed with case mgmt, reviewed images, amended to note Attending Assessment/Plan: ASSESSMENT AND PLAN 1. Left great toe chronic nonhealing ulcer with cellulitis and OM. GM admit, panculture, F/U MRI with osteomyelitis, Podiatry consulted. Plan for bone biopsy or debridement. Pain management. IV fluids. Begin unasyn pending cultures as per ID. 2. Undiagnosed diabetes. Accucheks, 9.7 HbA1c, basal insulin + RISS. f/u Endo. 3. Hypertension. Monitor BP, if needed consider JENNIFER-I. PCP follow up on discharge. DVT lovenox. Full code.
[2017-03-04 08:04] LABS: ABSOLUTE BASOPHIL COUNT 0 /CUMM (0.0-0.2); ABSOLUTE EOSINOPHIL COUNT 0.3 /CUMM (0.0-0.7); ABSOLUTE GRANULOCYTE CT 5.6 /CUMM (1.4-6.5); ABSOLUTE LYMPH COUNT 4.3 /CUMM (1.2-3.4); ABSOLUTE MONOCYTE COUNT 0.9 /CUMM (0.10-0.60); BASOPHIL % 0.3 % (0.0-2.0); EOSINOPHIL % 2.5 % (0-5); GRANULOCYTE % 50.6 % (42.2-75.2); HEMATOCRIT 42.9 % (42-52); MEAN CORPUSCULAR HGB 29.6 PG (27.0-31.0); MEAN CORPUSCULAR HGB CONC 33.5 G/DL (33.0-37.0); MEAN CORPUSCULAR VOLUME 88.3 FL (80.0-94.0); MEAN PLATELET VOLUME 7.9 FL (7.4-10.4); PLATELET COUNT 245 /CUMM (130-400); RBC DISTRIBUTION WIDTH 12.4 % (11.5-14.5); RED BLOOD CELL CT 4.86 /CUMM (4.70-6.10); WHITE BLOOD CELL COUNT 11.1 /CUMM (4.8-10.8)
[2017-03-04 08:15] LABS: PT 11.7 SEC (9.4-12.5); PTT 28 SEC (25-37)
--- NOTE | 2017-03-04 08:32 | Patient Discharge Instructions ---
Discharge Instructions General Discharge Information You were seen/treated for: Osteomyelitis (bone infection) of left great toe You had these procedures: Debridement Special Instructions: -Please follow up with PCP in 1 week -Please follow up with Dr. Olson in 1 week -Please follow up with Dr. Aggarwal in 1 week -Please get weekly ESR (last one checked 03/07/17) -Please finish 4 weeks of unasyn (complete on April 01, 2017) Diet Continue normal diet: No Recommended Diet: Diabetic, Heart Healthy Activity Full Activity/No Limits: No Activity Self Limited: Yes Additional ACTIVITY Info: Heel touch to left foot. Acute Coronary Syndrome Inclusion Criteria At DC or during hospital stay patient has or had the following: ACS DIAGNOSIS No Discharge Core Measures Meds if any: Prescribed or Continued at Discharge Meds if any: NOT Prescribed or Continued at Discharge Congestive Heart Failure Inclusion Criteria At DC or during hospital stay patient has or had the following: CHF DIAGNOSIS No Discharge Core Measures Meds if any: Prescribed or Continued at Discharge Meds if any: NOT Prescribed or Continued at Discharge Cerebrovascular accident Inclusion Criteria At DC or during hospital stay patient has or had the following: CVA/TIA Diagnosis No Discharge Core Measures Meds if any: Prescribed or Continued at Discharge Meds if any: NOT Prescribed or Continued at Discharge Venous thromboembolism Inclusion Criteria VTE Diagnosis No VTE Type NONE VTE Confirmed by (Test) NONE Discharge Core Measures - Per Current guidelines, there needs to be overlap - treatment for the first 5 days of Warfarin therapy. - If discharged on Warfarin prior to 5 days of - overlap therapy, the patient will need to be - assessed for post discharge needs including - *Post discharge parental anticoagulation - *Warfarin and/or parental anticoagulation education - *Follow up date to check INR post discharge At least 5 days overlap therapy as Inpatient No Meds if any: Prescribed or Continued at Discharge Note: Overlap Therapy is Warfarin and Anticoagulant Meds if any: NOT Prescribed or Continued at Discharge
--- NOTE | 2017-03-04 10:40 | PN- Diabetes ---
Assessment/Plan Assessment: 41-year-old man was admitted on March 01 for an ulcer on left great toe. MRI suggesed early osteomyelitis. Patient was found to have glucose level of 288 and HbA1c of 9.7%. He is going to OR later today. He has been NPO since midnight> He received Levemir 10 units last night. Currently he is on RISS every 6 hours. His FSGs were 245, 341, 284, 245, 247 and 284. Plan: After he is giraldo from OR and when he is ready to eat, 1. start Levemir 20 units daily at bedtime; 2. start Novolog coverage before meals and Novolog coverage at bedtime-- detail see the inpatient DM orders; 3. monitor FSGs. will follow. abnormal TFT-- ? sick euthyroid changes recommend repeating TFT next week. Inpatient Diabetes Orders Before Each Meal: Bolus Insulin: Novolog < 80 mg/dl: no coverage 80-100 mg/dl: 6 units 101-120 mg/dl: 6 units 121-150 mg/dl: 6 units 151-200 mg/dl: 8 units 201-250 mg/dl: 10 units 251-300 mg/dl: 12 units 301-350 mg/dl: 14 units 351-400 mg/dl: 16 units > 400 mg/dl: 18 units Bedtime: Bolus Insulin: Novolog < 80 mg/dl: no coverage 80-100 mg/dl: no coverage 101-120 mg/dl: no coverage 121-150 mg/dl: no coverage 151-200 mg/dl: no coverage 201-250 mg/dl: no coverage 251-300 mg/dl: 2 units 301-350 mg/dl: 3 units 351-400 mg/dl: 4 units > 400 mg/dl: 5 units Subjective Subjective: He is waiting for the procedure. Objective Last 24 Hrs of Vital Signs/I&O Vital Signs Date Time Temp Pulse Resp B/P B/P Pulse O2 O2 Flow FiO2 Mean Ox Delivery Rate 03/04 0632 97.7 78 20 132/78 96 Room Air 03/03 2234 97.6 97 20 130/80 98 Room Air 03/03 1404 98.1 80 20 112/78 97 Intake & Output 03/04 1600 / 0800 / 0000 Intake Total 535 800 Output Total Balance 535 800 Intake, IV 535 Intake, Oral 0 800 Number 0 Bowel Movements Findings Pertinent Lab/Denis Results: Laboratory Tests 03/04 0607 Chemistry Sodium (137 - 145 mmol/L) 137 Potassium (3.5 - 5.1 mmol/L) 4.1 Chloride (98 - 107 mmol/L) 100 Carbon Dioxide (22 - 30 mmol/L) 26 Anion Gap (5 - 16) 11 BUN (9 - 20 mg/dL) 22 H Creatinine (0.7 - 1.2 mg/dL) 0.6 L Estimated GFR (>60 ml/min) > 60 BUN/Creatinine Ratio (7 - 25 %) 36.7 H TSH (0.270 - 4.200 uIU/mL) 4.720 H Free T4 (0.64 - 1.79 ng/dL) 0.97 Total T3 (0.97 - 1.69 ng/mL) 1.62 Coagulation PT (9.4 - 12.5 SEC) 11.7 INR (0.90 - 1.17) 1.12 APTT (25 - 37 SEC) 28 Hematology CBC w Diff NO MAN DIFF REQ WBC (4.8 - 10.8 /CUMM) 11.1 H RBC (4.70 - 6.10 /CUMM) 4.86 Hgb (14.0 - 18.0 G/DL) 14.4 Hct (42 - 52 %) 42.9 MCV (80.0 - 94.0 FL) 88.3 MCH (27.0 - 31.0 PG) 29.6 RDW (11.5 - 14.5 %) 12.4 Plt Count (130 - 400 /CUMM) 245 MPV (7.4 - 10.4 FL) 7.9 Gran % (42.2 - 75.2 %) 50.6 Lymphocytes % (20.5 - 51.1 %) 38.3 Monocytes % (1.7 - 9.3 %) 8.3 Eosinophils % (0 - 5 %) 2.5 Basophils % (0.0 - 2.0 %) 0.3 Absolute Granulocytes (1.4 - 6.5 /CUMM) 5.6 Absolute Lymphocytes (1.2 - 3.4 /CUMM) 4.3 H Absolute Monocytes (0.10 - 0.60 /CUMM) 0.9 H Absolute Eosinophils (0.0 - 0.7 /CUMM) 0.3 Absolute Basophils (0.0 - 0.2 /CUMM) 0 PUBS MCHC (33.0 - 37.0 G/DL) 33.5
--- NOTE | 2017-03-04 12:06 | PN- Infect Dx ---
Subjective Subjective: Afebrile without complaints Objective Last 24 Hrs of Vital Signs/I&O Vital Signs Date Time Temp Pulse Resp B/P B/P Pulse O2 O2 Flow FiO2 Mean Ox Delivery Rate 03/04 0632 97.7 78 20 132/78 96 Room Air 03/03 2234 97.6 97 20 130/80 98 Room Air 03/03 1404 98.1 80 20 112/78 97 Intake & Output 03/04 1600 03/04 0800 03/04 0000 Intake Total 535 800 Output Total Balance 535 800 Intake, IV 535 Intake, Oral 0 800 Number 0 Bowel Movements Physical Exam Other Physical Findings: He appears comfortable in no acute distress Extremities left great toe swelling and erythema, with no tenderness on palpation; plantar ulcer unchanged Results Last 24 Hours of Lab Results: Laboratory Tests 03/04 607 Chemistry Sodium (137 - 145 mmol/L) 137 Potassium (3.5 - 5.1 mmol/L) 4.1 Chloride (98 - 107 mmol/L) 100 Carbon Dioxide (22 - 30 mmol/L) 26 Anion Gap (5 - 16) 11 BUN (9 - 20 mg/dL) 22 H Creatinine (0.7 - 1.2 mg/dL) 0.6 L Estimated GFR (>60 ml/min) > 60 BUN/Creatinine Ratio (7 - 25 %) 36.7 H TSH (0.270 - 4.200 uIU/mL) 4.720 H Free T4 (0.64 - 1.79 ng/dL) 0.97 Total T3 (0.97 - 1.69 ng/mL) 1.62 Coagulation PT (9.4 - 12.5 SEC) 11.7 INR (0.90 - 1.17) 1.12 APTT (25 - 37 SEC) 28 Hematology CBC w Diff NO MAN DIFF REQ WBC (4.8 - 10.8 /CUMM) 11.1 H RBC (4.70 - 6.10 /CUMM) 4.86 Hgb (14.0 - 18.0 G/DL) 14.4 Hct (42 - 52 %) 42.9 MCV (80.0 - 94.0 FL) 88.3 MCH (27.0 - 31.0 PG) 29.6 RDW (11.5 - 14.5 %) 12.4 Plt Count (130 - 400 /CUMM) 245 MPV (7.4 - 10.4 FL) 7.9 Gran % (42.2 - 75.2 %) 50.6 Lymphocytes % (20.5 - 51.1 %) 38.3 Monocytes % (1.7 - 9.3 %) 8.3 Eosinophils % (0 - 5 %) 2.5 Basophils % (0.0 - 2.0 %) 0.3 Absolute Granulocytes (1.4 - 6.5 /CUMM) 5.6 Absolute Lymphocytes (1.2 - 3.4 /CUMM) 4.3 H Absolute Monocytes (0.10 - 0.60 /CUMM) 0.9 H Absolute Eosinophils (0.0 - 0.7 /CUMM) 0.3 Absolute Basophils (0.0 - 0.2 /CUMM) 0 PUBS MCHC (33.0 - 37.0 G/DL) 33.5 Last 24 Hours of Denis Results: Blood cultures March 02 negative Urine culture March 01 negative Assessment/Plan Impression: Stable off antibiotics with temperatures remaining normal and white blood cell count minimally elevated. He is scheduled for debridement of the left great toe later today for presumed osteomyelitis. An amputation of the toe was recommended by Podiatry, but he has refused this. He, therefore, will likely require a prolonged course of IV antibiotics, though, without amputation, am not sure that his infection will resolve. Suggestion: 1. Await surgery in the a.m. 2. Follow-up OR cultures 3. Begin Unasyn 3 g IV every 6 hours postop pending above
[2017-03-04 14:00] VITALS: BP 140/86
--- NOTE | 2017-03-04 15:01 | NUR ---
NURSING NOTE: PT OFF FLOOR TO OR. VSS CHARGED
--- NOTE | 2017-03-04 16:49 | Operative Report ---
Operative/Inv Procedure Report Surgery Date: 03/04/17 Name of Procedure: 1 open incision and drainage deep to the deep fascia with exposure of the flexor tendon and tendon sheath multiple sites left foot 2 bone biopsy left great toe 3 closure of nonhealing ulceration with local random advancement flap 4 excisional debridement Pre-Operative Diagnosis: 1 open necrotic wound left foot 2 osteomyelitis left great toe 3 diabetic peripheral neuropathy 4 chronic nonhealing ulceration left great toe Post-Operative Diagnosis: The same Estimated Blood Loss: less than 50ml Surgeon/Tread Builder: GABRIELLE WOOD DPM Anesthesia: moderate sedation, block Operative/Procedure Note Note: After obtaining informed consent the patient was brought to the operating room and placed on the operating table in the supine position. The patient was then securely fastened to the operating table utilizing safety belt. After administration of IV sedation, 10 mL of 0.5% Marcaine plain was infiltrated about the patient's left ankle. Left foot and ankle then scrubbed prepped and draped in usual aseptic manner. Attention directed left foot were a large full- thickness necrotic was identified. A 15 blade was utilized sharply revised skin margins. The dissection was then carried down deep to the D fashion with exposure of the flexor tendon and tendon sheath multiple sites, both proximally and distally. All necrotic nonviable infected tissue sharply evacuated from the wound bed. It 6 was then carried down to the medial distal phalanx where bone was harvested for both microbiologic and pathologic inspection. The open wound was then irrigated with 3 L of normal sterile saline infused with 50,000 units of bacitracin. Following this, the foot was redraped and the surgeon's top was changed clean gloves. Any bleeding vessels identified were cauterized or ligated as encountered. The incision was then extended proximally and laterally and the flap was developed and undermined. The flap was then rotated distally to cover the open wound. It was fixated at its deep side with 3-0 Vicryl. The skin edges reapproximated with 2-0 nylon. Incision was then dressed with Xeroform 4 x 4's Kerlix and an Julian wrap. The patient was noted to tolerate both procedure and anesthesia well and the patient was transported from the operating room to recovery with vital signs stable and fascia status intact to the flap.
[2017-03-04 18:44] VITALS: BP 110/62
--- NOTE | 2017-03-04 18:53 | NUR ---
NURSING NOTE: PT ARRIVED TO FLOOR VIA STRETCHER FROM PACU. PT DROWSY BUT EASILY AROUSABLE. VSS CHARTED. WILL CONTINUE TO MONITOR
[2017-03-04 23:47] VITALS: BP 126/84
[2017-03-05 07:07] VITALS: BP 127/78
--- NOTE | 2017-03-05 08:10 | PN- Housestaff ---
HOLDEN PEDERSON,GREY 03/05/17 0810: Subjective Follow-up For: osteomyelitis Subjective: Pt sp debridement yesterday doing well on abx blood sugar 242,299,193,264 await or cx and sensitivity to decide on final abx he is asking if he would need rehab Review of Systems Constitutional: Reports: see HPI. Objective Last 24 Hrs of Vital Signs/I&O Vital Signs Date Time Temp Pulse Resp B/P B/P Pulse O2 O2 Flow FiO2 Mean Ox Delivery Rate 03/05 0707 98.2 86 20 127/78 97 03/04 2347 97.6 73 20 126/84 95 Room Air 03/04 1844 97.9 60 18 110/62 95 Room Air Room Air 03/04 1400 98.1 80 18 140/86 97 Room Air Intake & Output 03/05 1600 03/05 0800 03/05 0000 Intake Total 1600 630 Output Total Balance 1600 630 Intake, IV 400 150 Intake, Oral 1200 480 Physical Exam General Appearance: Alert, Oriented X3, Cooperative, No Acute Distress Cardiovascular: Regular Rate, Normal S1, Normal S2 Lungs: Clear to Auscultation, Normal Air Movement Abdomen: Normal Bowel Sounds, Soft, No Tenderness Extremities: left foot wrapped Current Medications: Current Medications Sig/Homero Start time Last Medication Dose Route Stop Time Status Admin Acetaminophen 650 MG Q6P PRN 03/01 2345 AC PO Acetaminophen 1,000 MG Q6P PRN 03/01 2345 AC IV Ampicillin Sodium/ 3,000 MG Q6 03/04 1800 AC 03/05 Sulbactam Sodium IV 0621 Sodium Chloride 100 ML Atorvastatin Calcium 10 MG 1700 03/03 1700 AC 03/04 PO 1851 Dexmedetomidine HCl 400 MCG .STK-MED ONE 03/04 1547 DC IV 03/04 1548 Enoxaparin Sodium 40 MG DAILY 03/05 1000 AC SC Fentanyl Citrate 100 MCG .STK-MED ONE 03/04 1541 DC IM 03/04 1542 Ibuprofen 600 MG Q6P PRN 03/01 2345 AC PO Insulin Aspart 0 AT BEDTIME 03/04 2200 AC 03/04 SC 215 Insulin Aspart 0 TIDAC 03/04 1700 AC 03/04 SC 194 Insulin Detemir 20 UNITS AT BEDTIME 03/04 2200 AC 03/04 SC 215 Insulin Detemir 10 UNITS AT BEDTIME 03/03 2200 DC 03/03 SC 2104 Insulin Human Regular 0 Q6 03/04 0000 DC 03/04 SC 03/04 1700 1147 Midazolam HCl 5 MG .STK-MED ONE 03/04 1541 DC IM 03/04 1542 Patient Medication 1 ED ONE ONE 03/04 1400 DC Teaching ED 03/04 1401 Sodium Chloride 1,000 ML Q13H 03/04 0005 DC 03/04 IV 03/05 0203 1156 Last 24 Hrs of Lab/Denis Results Last 24 Hrs of Labs/Mics: Laboratory Tests 03/05/17 0710: Sodium Pending, Potassium Pending, Chloride Pending, Carbon Dioxide Pending, Anion Gap Pending, BUN Pending, Creatinine Pending, BUN/Creatinine Ratio Pending , CBC w Diff Pending, WBC Pending, RBC Pending, Hgb Pending, Hct Pending, MCV Pending, MCH Pending, RDW Pending, Plt Count Pending, MPV Pending, PUBS MCHC Pending Microbiology 03/04 1630 EXTREMITIE: Gross Specimen Examination - RECD 03/04 1630 EXTREMITIE: Gram Stain - RECD Assessment/Plan Assessment: 41 y/o morbidly obese M with no PMHx who is sent in from Urgent Care for further evaluation of left great toe ulcer. # Chronic nonhealing ulcer of left great toe: Chronic nonhealing stage 3 ulcer on the plantar surface of the left great toe with some surrounding erythema but no purulent drainage. Likely secondary to diabetic neuropathy given decreased sensation of bilateral toes on exam and undiagnosed T2DM. Afebrile with no systemic signs of infection other than mild leukocytosis and elevation of lactic acid to 2.8,came down to 2. CRP (2.7) and ESR (37) with only slight elevation. XR of left toes with no radiographic evidence of osteomyelitis, MRI showed early signs of osteomyelitis. * Admit to General Medicine. * Podiatry consulted. Appreciate their recs. S/P debridement by Dr. Aggarwal on Tuesday03/04/17 will follow up OR cx. Unasyn started after OR. * Appreciate ID consult, will discuss need for possible picc line placement * Follow urine and blood cultures. # Newly diagnosed T2DM: Although not officially diagnosed, blood glucose of 387 last year and 288 on current presentation and glucosuria is consistent with diabetes, especially in the setting of diabetic neuropathy and morbid obesity. - hba1c 9.7 - TG 519H - TSH 5.760H, FT4 1.07 - Vit B12 446 * Accu-checks tidac/qhs * Follow folate and vitamin D as patient has not been following up with a PCP. * Monitor BP. If elevated, consider starting JENNIFER inhibitor for protection against diabetic nephropathy * Endocrinology, Dr. Olson, consulted, insulin as per endo * TFT in 1 week Diet: CC 3 DVT PPx: ALPs,lovenox Pain: Tylenol 650 mg PO Q6H PRN for mild pain (scale 1-3) Motrin 600 mg PO Q6H PRN for moderate pain (scale 4-6) Tylenol 1 g IV Q6H PRN for severe pain (scale 7-10) CODE: FULL Problem List: 1. Chronic osteomyelitis of toe of left foot Pain Ratin Pain Location: none Pain Goal: Remain pain free Pain Plan: mild pp Tomorrow's Labs & Rationales: cbc for leukocytosis DVT/Prophylaxis: mechanical, pharmacological CECILE P[facility]ERSON[facility] 03/05/17 1509: Attending MD Review Statement Attending Statement Attending MD Statement: examined this patient, discuss w/resident/PA/CUT OFF MAN, agreed w/resident/PA/CUT OFF MAN, reviewed EMR data (avail), discussed with nursing, reviewed images, amended to note Attending Assessment/Plan: Patient seen and examined, denies any complaints. He denies any aches or pains. He's afebrile. Vital Signs Date Time Temp Pulse Resp B/P B/P Pulse O2 O2 Flow FiO2 Mean Ox Delivery Rate 03/05 1505 98.4 87 18 124/70 95 Room Air 03/05 0707 98.2 86 20 127/78 97 03/04 2347 97.6 73 20 126/84 95 Room Air 03/04 1844 97.9 60 18 110/62 95 Room Air Room Air on exam; aox3, nad. cv; s1,s2, rrr resp; clear abd; soft, nt, bs+ ext; left foot wrapped in jennifer wrap, no edema. Laboratory Tests 03/05 0710 Chemistry Sodium (137 - 145 mmol/L) 134 L Potassium (3.5 - 5.1 mmol/L) 4.6 Chloride (98 - 107 mmol/L) 101 Carbon Dioxide (22 - 30 mmol/L) 23 Anion Gap (5 - 16) 10 BUN (9 - 20 mg/dL) 18 Creatinine (0.7 - 1.2 mg/dL) 0.5 L Estimated GFR (>60 ml/min) > 60 BUN/Creatinine Ratio (7 - 25 %) 36.0 H Hematology CBC w Diff NO MAN DIFF REQ WBC (4.8 - 10.8 /CUMM) 14.2 H RBC (4.70 - 6.10 /CUMM) 5.03 Hgb (14.0 - 18.0 G/DL) 14.8 Hct (42 - 52 %) 43.9 MCV (80.0 - 94.0 FL) 87.2 MCH (27.0 - 31.0 PG) 29.3 RDW (11.5 - 14.5 %) 12.4 Plt Count (130 - 400 /CUMM) 258 MPV (7.4 - 10.4 FL) 7.8 Gran % (42.2 - 75.2 %) 65.1 Lymphocytes % (20.5 - 51.1 %) 24.5 Monocytes % (1.7 - 9.3 %) 7.9 Eosinophils % (0 - 5 %) 2.3 Basophils % (0.0 - 2.0 %) 0.2 Absolute Granulocytes (1.4 - 6.5 /CUMM) 9.2 H Absolute Lymphocytes (1.2 - 3.4 /CUMM) 3.5 H Absolute Monocytes (0.10 - 0.60 /CUMM) 1.1 H Absolute Eosinophils (0.0 - 0.7 /CUMM) 0.3 Absolute Basophils (0.0 - 0.2 /CUMM) 0 PUBS MCHC (33.0 - 37.0 G/DL) 33.6 A/P; 41-year-old male with history of diabetes who is admitted with left great toe nonhealing ulcer/osteomyelitis status post debridement. Currently on Unasyn, follow-up on the bone culture results. For her by infectious disease. Blood sugars are high, seen by Dr. Banks and he recommends to increase the dose of Levemir. Patient denies any pain. DVT prophylaxis: Lovenox.
[2017-03-05 08:34] LABS: ABSOLUTE BASOPHIL COUNT 0 /CUMM (0.0-0.2); ABSOLUTE EOSINOPHIL COUNT 0.3 /CUMM (0.0-0.7); ABSOLUTE GRANULOCYTE CT 9.2 /CUMM (1.4-6.5); ABSOLUTE LYMPH COUNT 3.5 /CUMM (1.2-3.4); ABSOLUTE MONOCYTE COUNT 1.1 /CUMM (0.10-0.60); BASOPHIL % 0.2 % (0.0-2.0); EOSINOPHIL % 2.3 % (0-5); GRANULOCYTE % 65.1 % (42.2-75.2); HEMATOCRIT 43.9 % (42-52); MEAN CORPUSCULAR HGB 29.3 PG (27.0-31.0); MEAN CORPUSCULAR HGB CONC 33.6 G/DL (33.0-37.0); MEAN CORPUSCULAR VOLUME 87.2 FL (80.0-94.0); MEAN PLATELET VOLUME 7.8 FL (7.4-10.4); PLATELET COUNT 258 /CUMM (130-400); RBC DISTRIBUTION WIDTH 12.4 % (11.5-14.5); RED BLOOD CELL CT 5.03 /CUMM (4.70-6.10); WHITE BLOOD CELL COUNT 14.2 /CUMM (4.8-10.8)
--- NOTE | 2017-03-05 10:02 | PN- Infect Dx ---
Subjective Subjective: Afebrile without complaints Objective Last 24 Hrs of Vital Signs/I&O Vital Signs Date Time Temp Pulse Resp B/P B/P Pulse O2 O2 Flow FiO2 Mean Ox Delivery Rate 03/05 0707 98.2 86 20 127/78 97 03/04 2347 97.6 73 20 126/84 95 Room Air 03/04 1844 97.9 60 18 110/62 95 Room Air Room Air 03/04 1400 98.1 80 18 140/86 97 Room Air Intake & Output 03/05 1600 03/05 0800 03/05 0000 Intake Total 1600 630 Output Total Balance 1600 630 Intake, IV 400 150 Intake, Oral 1200 480 Physical Exam Other Physical Findings: He appears comfortable in no acute distress Extremities left foot dressing intact Results Last 24 Hours of Lab Results: Laboratory Tests 03/05 0710 Chemistry Sodium (137 - 145 mmol/L) 134 L Potassium (3.5 - 5.1 mmol/L) 4.6 Chloride (98 - 107 mmol/L) 101 Carbon Dioxide (22 - 30 mmol/L) 23 Anion Gap (5 - 16) 10 BUN (9 - 20 mg/dL) 18 Creatinine (0.7 - 1.2 mg/dL) 0.5 L Estimated GFR (>60 ml/min) > 60 BUN/Creatinine Ratio (7 - 25 %) 36.0 H Hematology CBC w Diff NO MAN DIFF REQ WBC (4.8 - 10.8 /CUMM) 14.2 H RBC (4.70 - 6.10 /CUMM) 5.03 Hgb (14.0 - 18.0 G/DL) 14.8 Hct (42 - 52 %) 43.9 MCV (80.0 - 94.0 FL) 87.2 MCH (27.0 - 31.0 PG) 29.3 RDW (11.5 - 14.5 %) 12.4 Plt Count (130 - 400 /CUMM) 258 MPV (7.4 - 10.4 FL) 7.8 Gran % (42.2 - 75.2 %) 65.1 Lymphocytes % (20.5 - 51.1 %) 24.5 Monocytes % (1.7 - 9.3 %) 7.9 Eosinophils % (0 - 5 %) 2.3 Basophils % (0.0 - 2.0 %) 0.2 Absolute Granulocytes (1.4 - 6.5 /CUMM) 9.2 H Absolute Lymphocytes (1.2 - 3.4 /CUMM) 3.5 H Absolute Monocytes (0.10 - 0.60 /CUMM) 1.1 H Absolute Eosinophils (0.0 - 0.7 /CUMM) 0.3 Absolute Basophils (0.0 - 0.2 /CUMM) 0 PUBS MCHC (33.0 - 37.0 G/DL) 33.6 Last 24 Hours of Denis Results: OR culture labeled left first toe bone pending Blood cultures March 02 negative Assessment/Plan Impression: Stable status post I&D of a left great toe infection and bone biopsy for presumed osteomyelitis yesterday, with closure of the wound. He remains afebrile with white blood cell count elevated today, likely reactive secondary to his recent surgery, now on empiric treatment with Unasyn pending OR cultures. He will likely require a prolonged course of IV antibiotics, though, without toe amputation, which was recommended by Podiatry, am not sure that his infection will resolve. Suggestion: 1. Follow-up OR cultures 2. Continue Unasyn pending above
--- NOTE | 2017-03-05 14:50 | PN- Diabetes ---
Assessment/Plan Assessment: 41-year-old man was admitted on March 01 for an ulcer on left great toe. MRI suggesed early osteomyelitis. Patient was found to have glucose level of 288 and HbA1c of 9.7%. The patient went to the operating room yesterday. He did receive 20 units of Levemir last night. He is on sliding scale NovoLog before meals with a separate sliding-scale at bedtime. The patient states he is eating okay. Fingerstick blood sugar this morning was 242 before breakfast and before lunch was 274. Plan: The patient's blood sugar remains high. This is his first day postop foot surgery. Suggest increase the patient's Levemir to 26 units daily. Also increase sliding -scale NovoLog before meals. Sliding-scale NovoLog before meals should be 80- 150 give 6 units NovoLog, 151-200 give 8 units NovoLog, 201-250 give 10 units NovoLog, 51-300 give 11 units NovoLog, 301-350 give 12 units NovoLog, 351-400 give 13 units NovoLog. Bedtime sliding-scale NovoLog can stay the same. Subjective Subjective: Feels okay Review of Systems Constitutional: Denies: chills, fever. Cardiovascular: Denies: chest pain. Respiratory: Denies: short of breath. Gastrointestinal: Denies: abdominal pain, nausea, vomiting. Skin: Reports: no symptoms. Objective Last 24 Hrs of Vital Signs/I&O Vital Signs Date Time Temp Pulse Resp B/P B/P Pulse O2 O2 Flow FiO2 Mean Ox Delivery Rate 03/05 707 98.2 86 20 127/78 97 03/04 2347 97.6 73 20 126/84 95 Room Air 03/04 1844 97.9 60 18 110/62 95 Room Air Room Air Intake & Output 03/05 0000 Intake Total 1000 1600 630 Output Total Balance 1000 1600 630 Intake, IV 100 400 150 Intake, Oral 900 1200 480 Number 0 Bowel Movements Vital Signs Date Time Temp Pulse Resp B/P B/P Pulse O2 O2 Flow FiO2 Mean Ox Delivery Rate 03/05 707 98.2 86 20 127/78 97 03/04 2347 97.6 73 20 126/84 95 Room Air 03/04 1844 97.9 60 18 110/62 95 Room Air Room Air Intake & Output 03/05 0000 Intake Total 1000 1600 630 Output Total Balance 1000 1600 630 Intake, IV 100 400 150 Intake, Oral 900 1200 480 Number 0 Bowel Movements Physical Exam General Appearance: alert, awake, obese Head: normal appearance Neck: normal inspection Respiratory: normal breath sounds Cardiovascular: regular rate/rhythm Extremities: right foot bandaged Current Medications: Current Medications Sig/Homero Start time Last Medication Dose Route Stop Time Status Admin Acetaminophen 650 MG Q6P PRN 03/01 2345 AC PO Acetaminophen 1,000 MG Q6P PRN 03/01 2345 AC IV Ampicillin Sodium/ 3,000 MG Q6 03/04 1800 AC 03/05 Sulbactam Sodium IV 1240 Sodium Chloride 100 ML Atorvastatin Calcium 10 MG 1700 03/03 1700 AC 03/04 PO 1851 Dexmedetomidine HCl 400 MCG .STK-MED ONE 03/04 1547 DC IV 03/04 1548 Enoxaparin Sodium 40 MG DAILY 03/05 1000 AC 03/05 SC 0840 Fentanyl Citrate 100 MCG .STK-MED ONE 03/04 1541 DC IM 03/04 1542 Ibuprofen 600 MG Q6P PRN 03/01 2345 AC PO Insulin Aspart 0 AT BEDTIME 03/04 2200 AC 03/04 SC 2156 Insulin Aspart 0 TIDAC 03/04 1700 AC 03/05 SC 1240 Insulin Detemir 20 UNITS AT BEDTIME 03/04 2200 AC 03/04 SC 2155 Insulin Human Regular 0 Q6 03/04 0000 DC 03/04 SC 03/04 1700 1147 Midazolam HCl 5 MG .STK-MED ONE 03/04 1541 DC IM 03/04 1542 Sodium Chloride 1,000 ML Q13H 03/04 0005 DC 03/04 IV 03/05 0203 1156 Findings Pertinent Lab/Denis Results: Laboratory Tests 03/05 0710 Chemistry Sodium (137 - 145 mmol/L) 134 L Potassium (3.5 - 5.1 mmol/L) 4.6 Chloride (98 - 107 mmol/L) 101 Carbon Dioxide (22 - 30 mmol/L) 23 Anion Gap (5 - 16) 10 BUN (9 - 20 mg/dL) 18 Creatinine (0.7 - 1.2 mg/dL) 0.5 L Estimated GFR (>60 ml/min) > 60 BUN/Creatinine Ratio (7 - 25 %) 36.0 H Hematology CBC w Diff NO MAN DIFF REQ WBC (4.8 - 10.8 /CUMM) 14.2 H RBC (4.70 - 6.10 /CUMM) 5.03 Hgb (14.0 - 18.0 G/DL) 14.8 Hct (42 - 52 %) 43.9 MCV (80.0 - 94.0 FL) 87.2 MCH (27.0 - 31.0 PG) 29.3 RDW (11.5 - 14.5 %) 12.4 Plt Count (130 - 400 /CUMM) 258 MPV (7.4 - 10.4 FL) 7.8 Gran % (42.2 - 75.2 %) 65.1 Lymphocytes % (20.5 - 51.1 %) 24.5 Monocytes % (1.7 - 9.3 %) 7.9 Eosinophils % (0 - 5 %) 2.3 Basophils % (0.0 - 2.0 %) 0.2 Absolute Granulocytes (1.4 - 6.5 /CUMM) 9.2 H Absolute Lymphocytes (1.2 - 3.4 /CUMM) 3.5 H Absolute Monocytes (0.10 - 0.60 /CUMM) 1.1 H Absolute Eosinophils (0.0 - 0.7 /CUMM) 0.3 Absolute Basophils (0.0 - 0.2 /CUMM) 0 PUBS MCHC (33.0 - 37.0 G/DL) 33.6
[2017-03-05 15:05] VITALS: BP 124/70
[2017-03-05 22:06] VITALS: BP 110/62
[2017-03-06 06:55] VITALS: BP 110/65
--- NOTE | 2017-03-06 07:48 | PN- Housestaff ---
See Addendum Subjective Follow-up For: osteomyelitis Subjective: Pt seen today, was woken up from sleep, no complains. no pain blood sugar was 275,257,218,274,242. pain has been 0 or cx grew GPC in chains and gnr, pt on unasyn, cbc from this am still pending. will f/u Review of Systems Constitutional: Reports: see HPI. Objective Last 24 Hrs of Vital Signs/I&O Vital Signs Date Time Temp Pulse Resp B/P B/P Pulse O2 O2 Flow FiO2 Mean Ox Delivery Rate 03/06 0655 98.1 80 20 110/65 96 03/05 2206 98.4 108 18 110/62 95 03/05 1600 95 Room Air 03/05 1505 98.4 87 18 124/70 95 Room Air Intake & Output 03/06 1600 03/06 0800 03/06 0000 Intake Total 200 840 Output Total Balance 200 840 Intake, IV 200 120 Intake, Oral 720 Number 1 Bowel Movements Physical Exam General Appearance: Alert, Oriented X3, Cooperative, No Acute Distress Cardiovascular: Regular Rate, Normal S1, Normal S2 Lungs: Clear to Auscultation, Normal Air Movement Abdomen: Normal Bowel Sounds, Soft, No Tenderness Extremities: left foot wrapped Current Medications: Current Medications Sig/Homero Start time Last Medication Dose Route Stop Time Status Admin Acetaminophen 650 MG Q6P PRN 03/01 2345 AC PO Acetaminophen 1,000 MG Q6P PRN 03/01 2345 AC IV Ampicillin Sodium/ 3,000 MG Q6 03/04 1800 AC 03/06 Sulbactam Sodium IV 0624 Sodium Chloride 100 ML Atorvastatin Calcium 10 MG 1700 03/03 1700 AC 03/05 PO 1652 Enoxaparin Sodium 40 MG DAILY 03/05 1000 AC 03/05 MA 0840 Ibuprofen 600 MG Q6P PRN 03/01 2345 AC PO Insulin Aspart 0 AT BEDTIME 03/04 2200 AC 03/05 SC 2117 Insulin Aspart 0 TIDAC 03/04 1700 AC 03/05 SC 1652 Insulin Detemir 26 UNITS AT BEDTIME 03/05 2200 AC 03/05 SC 2116 Insulin Detemir 20 UNITS AT BEDTIME 03/04 2200 DC 03/04 MA 2155 Last 24 Hrs of Lab/Denis Results Last 24 Hrs of Labs/Mics: Laboratory Tests 03/06/17 0613: CBC w Diff Pending, WBC Pending, RBC Pending, Hgb Pending, Hct Pending, MCV Pending, MCH Pending, RDW Pending, Plt Count Pending, MPV Pending, PUBS MCHC Pending Assessment/Plan Assessment: 41 y/o morbidly obese M with no PMHx who is sent in from Urgent Care for further evaluation of left great toe ulcer. # Chronic nonhealing ulcer of left great toe: Chronic nonhealing stage 3 ulcer on the plantar surface of the left great toe with some surrounding erythema but no purulent drainage. Likely secondary to diabetic neuropathy given decreased sensation of bilateral toes on exam and undiagnosed T2DM. Afebrile with no systemic signs of infection other than mild leukocytosis and elevation of lactic acid to 2.8,came down to 2. CRP (2.7) and ESR (37) with only slight elevation. XR of left toes with no radiographic evidence of osteomyelitis, MRI showed early signs of osteomyelitis. * Admit to General Medicine. * Podiatry consulted. Appreciate their recs. S/P debridement by Dr. Aggarwal on Tuesday03/04/17 will follow up OR cx - GNR and GPC in chains. Unasyn started after OR. * Appreciate ID consult, will discuss need for possible picc line placement * Follow urine and blood cultures. # Newly diagnosed T2DM: Although not officially diagnosed, blood glucose of 387 last year and 288 on current presentation and glucosuria is consistent with diabetes, especially in the setting of diabetic neuropathy and morbid obesity. - hba1c 9.7 - TG 519H - TSH 5.760H, FT4 1.07 - Vit B12 446 * Accu-checks tidac/qhs * Follow folate and vitamin D as patient has not been following up with a PCP. * Monitor BP. If elevated, consider starting JENNIFER inhibitor for protection against diabetic nephropathy * Endocrinology, Dr. Olson, consulted, insulin as per endo * TFT in 1 week Diet: CC3 DVT PPx: ALPs,lovenox Pain: Tylenol 650 mg PO Q6H PRN for mild pain (scale 1-3) Motrin 600 mg PO Q6H PRN for moderate pain (scale 4-6) Tylenol 1 g IV Q6H PRN for severe pain (scale 7-10) CODE: FULL Problem List: 1. Chronic osteomyelitis of toe of left foot Pain Ratin Pain Location: none Pain Goal: Remain pain free Pain Plan: mild pp Tomorrow's Labs & Rationales: cbc for leukocytosis DVT/Prophylaxis: mechanical, pharmacological
[2017-03-06 07:50] LABS: ABSOLUTE BASOPHIL COUNT 0 /CUMM (0.0-0.2); ABSOLUTE EOSINOPHIL COUNT 0.3 /CUMM (0.0-0.7); ABSOLUTE GRANULOCYTE CT 6.6 /CUMM (1.4-6.5); ABSOLUTE MONOCYTE COUNT 1.3 /CUMM (0.10-0.60); BASOPHIL % 0.3 % (0.0-2.0); EOSINOPHIL % 2.4 % (0-5); GRANULOCYTE % 49.9 % (42.2-75.2); HEMATOCRIT 42.9 % (42-52); MEAN CORPUSCULAR HGB 29.7 PG (27.0-31.0); MEAN CORPUSCULAR HGB CONC 33.7 G/DL (33.0-37.0); MEAN CORPUSCULAR VOLUME 88.1 FL (80.0-94.0); MEAN PLATELET VOLUME 7.8 FL (7.4-10.4); PLATELET COUNT 247 /CUMM (130-400); RBC DISTRIBUTION WIDTH 12.7 % (11.5-14.5); RED BLOOD CELL CT 4.87 /CUMM (4.70-6.10); WHITE BLOOD CELL COUNT 13.3 /CUMM (4.8-10.8)
--- NOTE | 2017-03-06 10:25 | PN- Diabetes ---
Assessment/Plan Assessment: 41-year-old man was admitted on March 01 for an ulcer on left great toe. MRI suggesed early osteomyelitis. Patient was found to have glucose level of 288 and HbA1c of 9.7%. The patient went to the operating last Tuesday. Levemir was increased to 26 units last night. . He is on sliding scale NovoLog before meals with a separate sliding-scale at bedtime. The patient states he is eating okay. Fingerstick blood sugar this morning was 275 before breakfast. Plan: Suggest increase the patient's Levemir to 32 units at bedtime. As an outpatient he will be a candidate to begin metformin. Continue present sliding-scale NovoLog. Subjective Subjective: Feels okay Review of Systems Constitutional: Denies: chills, fever. Respiratory: Denies: cough, short of breath. Gastrointestinal: Denies: abdominal pain, nausea, vomiting. Hematologic/Endocrine: Denies: polyuria, polydipsia. Objective Last 24 Hrs of Vital Signs/I&O Vital Signs Date Time Temp Pulse Resp B/P B/P Pulse O2 O2 Flow FiO2 Mean Ox Delivery Rate 03/06 0655 98.1 80 20 110/65 96 03/05 2206 98.4 108 18 110/62 95 03/05 1600 95 Room Air 03/05 1505 98.4 87 18 124/70 95 Room Air Intake & Output 03/06 1600 03/06 0803/06 0000 Intake Total 200 840 Output Total Balance 200 840 Intake, IV 200 120 Intake, Oral 720 Number 1 Bowel Movements Vital Signs Date Time Temp Pulse Resp B/P B/P Pulse O2 O2 Flow FiO2 Mean Ox Delivery Rate 03/06 0655 98.1 80 20 110/65 96 03/05 2206 98.4 108 18 110/62 03/05 1600 95 Room Air 03/05 1505 98.4 87 18 124/70 95 Room Air Intake & Output 03/06 1600 03/06 0000 Intake Total 200 840 Output Total Balance 200 840 Intake, IV 200 120 Intake, Oral 720 Number 1 Bowel Movements Physical Exam General Appearance: alert, awake, comfortable Head: normal appearance Respiratory: normal breath sounds Cardiovascular: regular rate/rhythm Abdomen: normal bowel sounds Extremities: left foot is bandaged
[2017-03-06 14:26] VITALS: BP 130/77
[2017-03-06 21:41] VITALS: BP 160/90
[2017-03-07 06:12] VITALS: BP 132/72
--- NOTE | 2017-03-07 07:15 | PN- Housestaff ---
HOLDEN PEDERSON,GREY 03/07/17 0715: Subjective Follow-up For: osteomyelitis Subjective: Pt was seen today, no complains, just asking when he can go home or cx grew gnr, gpc, beta strep g, on unasyn blood sugar was 252, 262, 249, 331,275 Review of Systems Constitutional: Reports: see HPI. Objective Last 24 Hrs of Vital Signs/I&O Intake & Output 03/07 0800 03/07 0000 Intake Total 490 100 Output Total Balance 490 100 Intake, IV 250 100 Intake, Oral 240 Number 0 Bowel Movements Vital Signs Date Time Temp Pulse Resp B/P B/P Pulse O2 O2 Flow FiO2 Mean Ox Delivery Rate 03/07 06 97.7 77 20 132/72 95 Room Air 03/06 2141 98.3 94 20 160/90 95 03/06 1426 97.8 82 20 130/77 95 Room Air Intake & Output 03/07 1600 03/07 0800 03/07 0000 Intake Total 490 100 Output Total Balance 490 100 Intake, IV 250 100 Intake, Oral 240 Number 0 Bowel Movements Physical Exam General Appearance: Alert, Oriented X3, Cooperative, No Acute Distress Cardiovascular: Regular Rate, Normal S1, Normal S2, No Murmurs Lungs: Clear to Auscultation, Normal Air Movement Abdomen: Normal Bowel Sounds, Soft, No Tenderness Extremities: left foot wrapped Current Medications: Current Medications Sig/Homero Start time Last Medication Dose Route Stop Time Status Admin Acetaminophen 650 MG Q6P PRN 03/01 2345 AC PO Acetaminophen 1,000 MG Q6P PRN 03/01 2345 AC IV Ampicillin Sodium/ 3,000 MG Q6 03/04 1800 AC 03/07 Sulbactam Sodium IV 0531 Sodium Chloride 100 ML Atorvastatin Calcium 10 MG 1700 03/03 1700 AC 03/06 PO 1832 Enoxaparin Sodium 40 MG DAILY 03/05 1000 AC 03/07 SC 0844 Ibuprofen 600 MG Q6P PRN 03/01 2345 AC PO Insulin Aspart 0 AT BEDTIME 03/04 2200 AC 03/06 SC 2200 Insulin Aspart 0 TIDAC 03/04 1700 AC 03/07 SC 0845 Insulin Detemir 22 UNITS BID 03/07 1000 AC 03/07 SC 0844 Insulin Detemir 32 UNITS AT BEDTIME 03/06 2200 DC 03/06 SC 2200 Insulin Detemir 26 UNITS AT BEDTIME 03/05 2200 DC 03/05 SC 2116 Last 24 Hrs of Lab/Denis Results Last 24 Hrs of Labs/Mics: Laboratory Tests 03/07/17 0718: CBC w Diff Pending, WBC Pending, RBC Pending, Hgb Pending, Hct Pending, MCV Pending, MCH Pending, RDW Pending, Plt Count Pending, MPV Pending, PUBS MCHC Pending Assessment/Plan Assessment: 41 y/o morbidly obese M with no PMHx who is sent in from Urgent Care for further evaluation of left great toe ulcer. # Chronic nonhealing ulcer of left great toe: Chronic nonhealing stage 3 ulcer on the plantar surface of the left great toe with some surrounding erythema but no purulent drainage. Likely secondary to diabetic neuropathy given decreased sensation of bilateral toes on exam and undiagnosed T2DM. Afebrile with no systemic signs of infection other than mild leukocytosis and elevation of lactic acid to 2.8,came down to 2. CRP (2.7) and ESR (37) with only slight elevation. XR of left toes with no radiographic evidence of osteomyelitis, MRI showed early signs of osteomyelitis. * Admit to General Medicine. * Podiatry consulted. Appreciate their recs. S/P debridement by Dr. Aggarwal on Tuesday03/04/17 will follow up OR cx - beta strep G, GNR and GPC. Unasyn started after OR. * Appreciate ID consult, will discuss need for possible picc line placement * Follow urine and blood cultures. # Newly diagnosed T2DM: Although not officially diagnosed, blood glucose of 387 last year and 288 on current presentation and glucosuria is consistent with diabetes, especially in the setting of diabetic neuropathy and morbid obesity. - hba1c 9.7 - TG 519H - TSH 5.760H, FT4 1.07 - Vit B12 446 * Accu-checks tidac/qhs * Follow Vitamin D level * Monitor BP. If elevated, consider starting JENNIFER inhibitor for protection against diabetic nephropathy * Endocrinology, Dr. Olson, consulted, insulin as per endo * TFT in 1 week Diet: CC3 DVT PPx: ALPs,lovenox Pain: Tylenol 650 mg PO Q6H PRN for mild pain (scale 1-3) Motrin 600 mg PO Q6H PRN for moderate pain (scale 4-6) Tylenol 1 g IV Q6H PRN for severe pain (scale 7-10) CODE: FULL Problem List: 1. Chronic osteomyelitis of toe of left foot Pain Ratin Pain Location: none Pain Goal: Remain pain free Pain Plan: mild pp Tomorrow's Labs & Rationales: none DVT/Prophylaxis: mechanical, pharmacological EVARISTO PINZON 03/07/17 1209: Attending MD Review Statement Attending Statement Attending MD Statement: examined this patient, discuss w/resident/PA/AUTOMOTIVE SERVICE PROFESSIONAL, agreed w/resident/PA/AUTOMOTIVE SERVICE PROFESSIONAL, discussed with family, reviewed EMR data (avail), discussed with nursing, discussed with case mgmt, reviewed images, amended to note Attending Assessment/Plan: A/P; 41-year-old male with history of diabetes who is admitted with left great toe nonhealing ulcer/osteomyelitis status post debridement, refused amputation. Currently on Unasyn, follow-up on the bone culture results. Possible PICC line placement. f/u ID Blood sugars control as per endo Patient denies any pain. DVT prophylaxis: Lovenox. d/c planning. case management on board.
[2017-03-07 08:30] LABS: ABSOLUTE BASOPHIL COUNT 0.1 /CUMM (0.0-0.2); ABSOLUTE EOSINOPHIL COUNT 0.4 /CUMM (0.0-0.7); ABSOLUTE GRANULOCYTE CT 6.8 /CUMM (1.4-6.5); ABSOLUTE LYMPH COUNT 4.2 /CUMM (1.2-3.4); BASOPHIL % 0.6 % (0.0-2.0); EOSINOPHIL % 3.2 % (0-5); GRANULOCYTE % 54.4 % (42.2-75.2); MEAN CORPUSCULAR HGB 29.8 PG (27.0-31.0); MEAN CORPUSCULAR VOLUME 87.4 FL (80.0-94.0); PLATELET COUNT 241 /CUMM (130-400); RBC DISTRIBUTION WIDTH 12.8 % (11.5-14.5); WHITE BLOOD CELL COUNT 12.5 /CUMM (4.8-10.8)
--- NOTE | 2017-03-07 11:12 | PN- Diabetes ---
Assessment/Plan Assessment: 41-year-old man was admitted on March 01 for an ulcer on left great toe. MRI suggesed early osteomyelitis. Patient was found to have glucose level of 288 and HbA1c of 9.7%. The patient went to the operating last Tuesday. Levemir was increased to 32 units daily. He is on sliding scale NovoLog before meals with a separate sliding-scale at bedtime. The patient states he is eating okay. Fingerstick blood sugars were 275, 331, 249, 262, 252. Plan: 1. increase Levemir to 22 units twice a day; 2. adjust Novolog coverage before meals--detail see the inpatient DM orders; 3. continue the current Novolog coverage at bedtime; 4. monitor FSGs. will follow. Inpatient Diabetes Orders Before Each Meal: Bolus Insulin: Novolog < 80 mg/dl: no coverage 80-100 mg/dl: 8 units 101-120 mg/dl: 8 units 121-150 mg/dl: 8 units 151-200 mg/dl: 10 units 201-250 mg/dl: 12 units 251-300 mg/dl: 14 units 301-350 mg/dl: 16 units 351-400 mg/dl: 18 units > 400 mg/dl: 20 units Subjective Subjective: His glucose levels are not controlled yet. Objective Last 24 Hrs of Vital Signs/I&O Vital Signs Date Time Temp Pulse Resp B/P B/P Pulse O2 O2 Flow FiO2 Mean Ox Delivery Rate 03/07 1018 Room Air Room Air 03/07 1016 Room Air Room Air 03/07 0612 97.7 77 20 132/72 95 Room Air 03/06 2141 98.3 94 20 160/90 95 03/06 1426 97.8 82 20 130/77 95 Room Air Intake & Output 03/07 1600 03/07 0800 03/07 0000 Intake Total 490 100 Output Total Balance 490 100 Intake, IV 250 100 Intake, Oral 240 Number 0 Bowel Movements Findings Pertinent Lab/Denis Results: Laboratory Tests 03/07 0718 Hematology CBC w Diff NO MAN DIFF REQ WBC (4.8 - 10.8 /CUMM) 12.5 H RBC (4.70 - 6.10 /CUMM) 4.80 Hgb (14.0 - 18.0 G/DL) 14.3 Hct (42 - 52 %) 42.0 MCV (80.0 - 94.0 FL) 87.4 MCH (27.0 - 31.0 PG) 29.8 RDW (11.5 - 14.5 %) 12.8 Plt Count (130 - 400 /CUMM) 241 MPV (7.4 - 10.4 FL) 8.0 Gran % (42.2 - 75.2 %) 54.4 Lymphocytes % (20.5 - 51.1 %) 33.7 Monocytes % (1.7 - 9.3 %) 8.1 Eosinophils % (0 - 5 %) 3.2 Basophils % (0.0 - 2.0 %) 0.6 Absolute Granulocytes (1.4 - 6.5 /CUMM) 6.8 H Absolute Lymphocytes (1.2 - 3.4 /CUMM) 4.2 H Absolute Monocytes (0.10 - 0.60 /CUMM) 1.0 H Absolute Eosinophils (0.0 - 0.7 /CUMM) 0.4 Absolute Basophils (0.0 - 0.2 /CUMM) 0.1 PUBS MCHC (33.0 - 37.0 G/DL) 34.0
--- NOTE | 2017-03-07 12:51 | PN- Infect Dx ---
Subjective Subjective: Afebrile without complaints Objective Last 24 Hrs of Vital Signs/I&O Vital Signs Date Time Temp Pulse Resp B/P B/P Pulse O2 O2 Flow FiO2 Mean Ox Delivery Rate 03/07 1018 Room Air Room Air 03/07 1016 Room Air Room Air 03/07 0612 97.7 77 20 132/72 95 Room Air 03/06 2141 98.3 94 20 160/90 95 03/06 1426 97.8 82 20 130/77 95 Room Air Intake & Output 03/07 1600 03/07 0800 03/07 0000 Intake Total 490 100 Output Total Balance 490 100 Intake, IV 250 100 Intake, Oral 240 Number 0 Bowel Movements Physical Exam Other Physical Findings: He appears comfortable in no acute distress Extremities left foot dressing intact Results Last 24 Hours of Lab Results: Laboratory Tests 03/07 07 Hematology CBC w Diff NO MAN DIFF REQ WBC (4.8 - 10.8 /CUMM) 12.5 H RBC (4.70 - 6.10 /CUMM) 4.80 Hgb (14.0 - 18.0 G/DL) 14.3 Hct (42 - 52 %) 42.0 MCV (80.0 - 94.0 FL) 87.4 MCH (27.0 - 31.0 PG) 29.8 RDW (11.5 - 14.5 %) 12.8 Plt Count (130 - 400 /CUMM) 241 MPV (7.4 - 10.4 FL) 8.0 Gran % (42.2 - 75.2 %) 54.4 Lymphocytes % (20.5 - 51.1 %) 33.7 Monocytes % (1.7 - 9.3 %) 8.1 Eosinophils % (0 - 5 %) 3.2 Basophils % (0.0 - 2.0 %) 0.6 Absolute Granulocytes (1.4 - 6.5 /CUMM) 6.8 H Absolute Lymphocytes (1.2 - 3.4 /CUMM) 4.2 H Absolute Monocytes (0.10 - 0.60 /CUMM) 1.0 H Absolute Eosinophils (0.0 - 0.7 /CUMM) 0.4 Absolute Basophils (0.0 - 0.2 /CUMM) 0.1 PUBS MCHC (33.0 - 37.0 G/DL) 34.0 Last 24 Hours of Denis Results: OR culture May 12 positive for Group G strep, MSSA, Proteus and possible anaerobes Assessment/Plan Impression: Stable status post I&D of a left great toe infection and bone biopsy for polymicrobial osteomyelitis 3 days ago, with closure of the wound. He remains afebrile with white blood cell count slightly decreased today on Unasyn, which should provide adequate coverage for the organisms isolated from the bone culture.. He will require a four-week course of IV antibiotics, though, without toe amputation, which was recommended by Podiatry, am not sure that his infection will resolve. Suggestion: 1. Would proceed with placement of a PICC 2. Would obtain a postop baseline ESR and x-ray of the left foot 3. Continue Unasyn to plan on a four-week course of antibiotics from his debridement (until April 01) 4. Will need a weekly ESR while on Unasyn
[2017-03-07] MEDS ORDERED: UNASYN 3 GM VIAL3 GM IV (13:28)
[2017-03-07] MEDS ORDERED: NOVOLOG100 UNIT/2 SC ×2 (13:30→13:33)
[2017-03-07] MEDS ORDERED: LEVEMIR100 UNIT/1 SC (13:34)
[2017-03-07] MEDS ORDERED: ATORVASTATIN CA10 M1 PO (13:35)
--- NOTE | 2017-03-07 13:54 | Discharge Summary ---
Visit Information Visit Dates Admission Date: 03/01/17 Discharge Date: 03/07/17 Hospital Course Course Attending Physician: EVARISTO PINZON MD Primary Care Physician: PATIENT HAS NO PRIMARY CARE DR Consulting Request: Consulting Specialty: Infectious Disease Hospital Course: This is a 41 y/o morbidly obese Male with no diagnosed PMHx was sent in from Urgent Care for further evaluation of left great toe ulcer. Patient reports that the ulcer has been present since April 2016, first starting off as a blister. Over time it has decreased in diameter but increased in depth. There is no drainage. He reports that the ulcer is painful at times but he is able to put pressure on it. Patient was previously seen here in the ED at [facility] for the ulcer on 05/22/16 and 06/20/16 with the application of dressing to the great toe. During his presentation on 05/22/16 his blood sugar was found to be elevated at 387. Patient has not followed up with any physician as he does not have health insurance. Of note, he has not seen a doctor for more than 10 years. He does not have any medical conditions that he is aware of and does not take any medications. Vitals are stable. Physical exam unremarkable. As dictated above except for a stage III ulcer on the medial/plantar aspect of the left great toe. Approximately 1.2 x 1.2 cm, well-circumscribed with surrounding erythema. No fluctuant areas appreciated. No purulent discharge noted. Decreased sensation in the toes BL noted. Labs revealed white blood cell 12.6, H&H 15.2/44.8, platelet 278. BEP revealed sodium 133 potassium 4.8, glucose 288. CRP was elevated at 2.7 and ESR 37. Lactic acid was elevated at 2.2 X-ray of the foot was negative. Further imaging, MRI of the left foot, revealed subtle foci of early osteomyelitis at the distal phalanx. After discussing his options, he refused toe amputation, and debridement was done instead, by Dr. Wood, on 03/04/17. The following were done; open incision and drainage deep to the deep fascia with exposure of the flexor tendon and tendon sheath multiple sites left foot, bone biopsy left great toe, closure of nonhealing ulceration with local random advancement flap, excisional debridement. He was kept off antibiotics prior to the OR biopsy. Unasyn was started right after the procedure. Post procedure, his WBC went up to 14.2 without bands, most likely reactive. The rest of his lab was unremarkable and his vitals were WNL. OR culture grew proteus mirabilis, beta strep group g , and gram positive cocci, final identification and sensitivity still pending. PICC line (single lumen) was placed on 03/07/17, and patient will be continued on unasyn for a total of 4 weeks, completing his antibiotics course on March. ESR is to be checked every week (last checked 03/07/17), results to be forwarded to Dr. William. Endocrinology, Dr. Akhtar, was on board, to manage his insulin (hba1c 9.7). He is on Levemir 22 U BID and Novolog coverage before meals and bedtime. Atorvastatin was started for hyperlipidemia (TG 519). TSH 5.760H, FT4 1.07, TT3 1.62, most likely representing sick euthyroid. Patient will follow up with Dr. Akhtar for the management of the above. Patient also needs a new PCP to follow up with. Referral to Dr. Mota given. DVT PPX: SC Lovenox. Code status: Full code Allergies: Coded Allergies: No Known Allergies (05/22/16) Significant Procedures: EXAM TYPE: MRI - MRI-LT FOOT W/O SERENA EXAMINATION: MR FOOT WITHOUT CONTRAST, LEFT CLINICAL INFORMATION: Stage III ulcer with surrounding cellulitis. Presumptive diagnosis of osteomyelitis. COMPARISON: Radiograph dated 03/01/2017. TECHNIQUE: Multiplanar MR imaging was obtained through the left foot without contrast on a 1.5 Brittany magnet. Examination is somewhat limited by patient motion. Multiple sequences were repeated to optimize the study and limit artifact. FINDINGS: Ulceration at the plantar/medial aspect of the great toe measures 1.7 x 2.3 cm and is associated with skin thickening and edema. The edema signal extends to the depth of the great toe distal phalanx at its plantar/medial margin. Reactive intramedullary edema signal is present throughout the great toe distal phalanx. Small foci of decreased signal intensity are evident on T1-weighted images (laterally on image 25/32 of series 8 and medially on 20/32 of series 8), consistent with small areas of early osteomyelitis. No abscesses. Proximal phalangeal bone marrow signal is normal without evidence of osteomyelitis. No evidence of septic arthritis. Bone marrow signal is otherwise normal. No fracture or malalignment. There is diffuse muscle atrophy and fatty replacement of the foot with associated intramuscular edema signal, consistent with chronic changes of diabetes. Plantar fascia is unremarkable. No discrete tendon tears are identified. IMPRESSION: Ulceration at the plantar/medial margin of the great toe distal phalanx with a subtle foci of early osteomyelitis at the distal phalanx. No abscess. DICTATED BY: ROBERTO LIRA MD DATE/TIME DICTATED:03/02/171133 EXAM TYPE: RAD - XRY-TOES, LEFT EXAMINATION: XR TOES, LEFT CLINICAL INFORMATION: Wounds of left great toe for one year. Concern for osteomyelitis. COMPARISON: None TECHNIQUE: 3 views of the left toes were obtained. FINDINGS: Ovoid radiolucency consistent with the described wound over the left toe near the IP joint. No radiographic evidence of osteomyelitis. No bone destruction. Bone density maintained. Joint spaces are normal. IMPRESSION: No osseous abnormality. No radiographic evidence of osteomyelitis. DICTATED BY: CORINE CALZADA MD DATE/TIME DICTATED:03/01/171912 Chest x-ray after PICC line placement: 03/07/2017: COMPARISON: Multiple chest x-rays most recent prior also performed on 03/07/2017 TECHNIQUE: 2 views of the chest were obtained. FINDINGS: Stable cardiomediastinal silhouette. Right-sided PICC line terminates at the cavoatrial junction. Lungs are clear. Bony thorax is intact. IMPRESSION: PICC line in place. No acute pulmonary disease. Foot x-ray 03/07/2017: COMPARISON: 03/01/2017 TECHNIQUE: AP, lateral, and oblique views of the left foot. FINDINGS: There is a new erosion at the medial base of the distal phalanx of the left hallux. Osseous fragments are noted in the overlying soft tissues. Recent MR with reactive intramedullary edema in the distal phalanx underlying ulceration and consistent with early osteomyelitis. The proximal phalanx of the left hallux is normal in appearance. The interphalangeal joint is normal in appearance aside from postsurgical changes. IMPRESSION: There is cortical destruction and osseous fragments and soft tissue along the medial aspect of the base of the left hallux distal phalanx consistent with debridement of osteomyelitis identified at recent MR. Disposition Summary Disposition Principal Diagnosis: Osteomyelitis left great toe, sp debridement Additional Diagnosis: Newly diagnosed diabetes mellitus open necrotic wound left foot osteomyelitis left great toe diabetic peripheral neuropathy chronic nonhealing ulceration left great toe Discharge Disposition: SNF Discharge Instructions General Discharge Information Code Status: Full Code Patient's Diet: Diabetic diet Patient's Activity: As tolerated, heel touch to left foot Follow-Up Instructions/Appts: -Please follow up with PCP in 1 week -Please follow up with Dr. Akhtar in 1 week; will need repeat TFT. -Please follow up with Dr. Wood in 1 week -Please get weekly ESR (last one checked 03/07/17) -Please finish 4 weeks of unasyn (complete on April 01, 2017) Medications at Discharge Discharge Medications: Start taking the following new medications: Ampicillin Sodium/Sulbactam Na (Unasyn 3 Gm Vial) 3 GRAM VIAL 3,000 Milligram INTRAVEN EVERY SIX HOURS Days = 30 No Refills Instructions: To complete 4 week course on April 01, 2017 Comments: Last Taken:03/07/17 Time: 1900PM Insulin Aspart (Novolog) 100 UNIT/ML VIAL 0 Inject into fatty tissue BEDTIME Qty = 10 No Refills Instructions: Blood sugar # Units Less than 250 0 251-300 1 301-350 2 351-400 3 more than 400 4 Comments: Last Taken:03/06/17 Time:2200PM Insulin Aspart (Novolog) 100 UNIT/ML VIAL 0 Inject into fatty tissue 3 TIMES DAILY BEFORE MEALS Qty = 30 No Refills Instructions: blood sugar # units less than 80 initiate hypoglycemia 80-150 8 units 151-200 10 units 201-250 12 units 251-300 14 units 301-350 16 units 351-400 18 units more than 400 20 units, notify Comments: Last Taken:03/07/17 Time: 1700PM Insulin Detemir (Levemir) 100 UNIT/ML VIAL 22 Units Inject into fatty tissue TWICE DAILY Qty = 30 No Refills Comments: Last Taken:03/07/17 Time: 0900AM Atorvastatin Calcium (Atorvastatin Calcium) 10 MG TABLET 1 Tablet ORAL DAILY Qty = 30 No Refills Comments: Last Taken:03/07/17 Time: 1700PM Copies To: NKECHI WOOD DPM, MD,CHIO Bynum; PHONG PEDERSON,MARCELLUS AKHTAR MD,TAYLOR Attending MD Review Statement Documenting Attending: EVARISTO PINZON MD
[2017-03-07 15:00] VITALS: BP 132/78
--- NOTE | 2017-03-07 15:19 | NUR ---
PHYSICAL THERAPY- CONSULT RECEIVED, CHART REVIEWED. PT INDEPENDENTLY AMB IN ROOM PER DOCUMENTATION AND ROUNDS REPORT. NO SKILLED ACUTE P.T. NEEDS IDENTIFIED, WILL NOT FOLLOW.
--- NOTE | 2017-03-07 15:31 | RADIOLOGY REPORT ---
EXAMINATION: XR PORTABLE CHEST CLINICAL INFORMATION: PICC line placement COMPARISON: None TECHNIQUE: Portable frontal 80 degree upright view of the chest was obtained. FINDINGS: A right PICC line projects over the SVC, tip poorly seen. Recommend upright PA radiograph when feasible to more accurately document location. There is abnormal elevation of the right diaphragm. This could represent an eventration, diaphragmatic paralysis or subphrenic mass/collection. There may be some left perihilar consolidation. Indistinct left hemidiaphragm is nonspecific given extreme lordotic positioning. Again, upright PA and lateral radiographs advised. Widening of the mediastinum is nonspecific for technique. IMPRESSION: Right PICC line projects over SVC however tip is not well seen. Abnormal elevation or eventration of the right diaphragm. Abnormal opacity at the left lung base. Recommend PA and lateral radiograph.
--- NOTE | 2017-03-07 16:12 | NUR ---
NURSING NOTE: PT LEFT FLOOR VIA STRETCHER WITH DISTRIBUTION FOR CXR TO CONFIRM PICC PLACEMENT, PT AWAKE, A/OX3, ROOM AIR, DENIES COMPLAINTS, DSG INTACT. AWAIT RETURN TO FLOOR
--- NOTE | 2017-03-07 16:36 | RADIOLOGY REPORT ---
EXAMINATION: XR CHEST CLINICAL INFORMATION: PICC line placement COMPARISON: 03/07/2017 TECHNIQUE: 2 views of the chest were obtained. FINDINGS: The right-sided PICC line is in place, extending into the right atrium, terminating approximately 2.5 cm beyond the cavoatrial junction. Mild elevation of the right hemidiaphragm is improved from prior. No consolidation, edema, or effusion. No pneumothorax. The cardiomediastinal silhouette is within normal limits. No acute osseous abnormality. IMPRESSION: Right-sided PICC line terminates over the right atrium. Clear lungs.
--- NOTE | 2017-03-07 17:09 | RADIOLOGY REPORT ---
EXAMINATION: XR FOOT, LEFT CLINICAL INFORMATION: Osteomyelitis debridement. COMPARISON: 03/01/2017 TECHNIQUE: AP, lateral, and oblique views of the left foot. FINDINGS: There is a new erosion at the medial base of the distal phalanx of the left hallux. Osseous fragments are noted in the overlying soft tissues. Recent MR with reactive intramedullary edema in the distal phalanx underlying ulceration and consistent with early osteomyelitis. The proximal phalanx of the left hallux is normal in appearance. The interphalangeal joint is normal in appearance aside from postsurgical changes. IMPRESSION: There is cortical destruction and osseous fragments and soft tissue along the medial aspect of the base of the left hallux distal phalanx consistent with debridement of osteomyelitis identified at recent MR.
--- NOTE | 2017-03-07 17:15 | NUR ---
NURSING NOTE: PT LEFT FLOOR VIA WC WITH DISTRIBUTION FOR ANOTHER CXR TO CONFIRM PICC PLACEMENT AFTER IT WAS ADJUSTED BY ROSALIE BOWLING RN. TICKET TO RIDE COMPLETE, DENIES PAIN, AWAIT RETURN TO FLOOR.
--- NOTE | 2017-03-07 17:42 | RADIOLOGY REPORT ---
EXAMINATION: XR CHEST CLINICAL INFORMATION: PICC line placement COMPARISON: Chest x-rays from earlier on 03/07/2017. TECHNIQUE: 2 views of the chest were obtained. FINDINGS: Stable cardiomediastinal silhouette. Right-sided PICC line terminating in the right atrium. No significant interval change compared to the earlier chest x-ray. Lungs are clear. No evidence of pneumothorax. Bony thorax is intact. IMPRESSION: Right-sided PICC line terminating in the right atrium somewhat similar to the previous examination. No acute pulmonary disease.
--- NOTE | 2017-03-07 18:37 | NUR ---
NURSING NOTE: PT LEFT FLOOR VIA WC WITH DISTRUBUTION FOR CXR PER MD ORDER AFTER ROSALIE ADJUSTED THE PICC LINE AGAIN. PT AWAKE, A/OX3, ROOM AIR, DSG TO L FOOT INTACT. TICKET TO RIDE COMPLETE.
[2017-03-07 18:51] VITALS: BP 132/78
--- NOTE | 2017-03-07 18:55 | NUR ---
NURSING NOTE: PT BACK TO FLOOR, NO CHANGES, AWAITING CONFIRMATION XRAY.
--- NOTE | 2017-03-07 18:57 | RADIOLOGY REPORT ---
EXAMINATION: XR CHEST CLINICAL INFORMATION: PICC line readjustment COMPARISON: Multiple chest x-rays most recent prior also performed on 03/07/2017 TECHNIQUE: 2 views of the chest were obtained. FINDINGS: Stable cardiomediastinal silhouette. Right-sided PICC line terminates at the cavoatrial junction. Lungs are clear. Bony thorax is intact. IMPRESSION: PICC line in place. No acute pulmonary disease.
--- NOTE | 2017-03-07 19:59 | NUR ---
NURSING NOTE:SARMAD PICC LINE CONFIRMED PLACEMENT; OK TO USE PER MOD. PT RECEIVED 1800PM DOSE OF UNASYN, PICC LINE FLUSHED AND PATENT, +BLOOD RETURN, REPORT CALLED TO LELO JESUS; [email or web address] REPORT GIVEN TO NEXT SHIFT RN. PICC LINE/XRAY PAPERWORK SENT.
== END 2017-03-07 20:45 | DRG 312 ==
LOC: ERH 18:34 → 2NB 22:21 → ERHI 22:21 → ENRESERV 23:13 → ERHI 03-02 09:16 → ENRESERV 03-02 12:48 → CMPBEDREQ 03-02 12:51 → 2NB 03-02 14:14
PROVIDERS: Internal Medicine Cardiovascular Disease; Physician Assistant; Radiology Diagnostic Radiology; ADMIT Student in an Organized Health Care Education/Training Program
PROC: 0HXNXZZ Transfer Left Foot Skin, External Approach (ICD-10-PCS; principal; 2017-03-04)
PROC: 0QBR0ZX Excision of Left Toe Phalanx, Open Approach, Diagnostic (ICD-10-PCS; principal; 2017-03-04)
DX: E11.621 Type 2 diabetes mellitus with foot ulcer (principal); E11.42 Type 2 diabetes mellitus with diabetic polyneuropathy; E11.69 Type 2 diabetes mellitus with other specified complication; E66.01 Morbid (severe) obesity due to excess calories; Z68.42 Body mass index [BMI] 45.0-49.9, adult; E11.65 Type 2 diabetes mellitus with hyperglycemia; L97.529 Non-pressure chronic ulcer of other part of left foot with unspecified severity; L03.032 Cellulitis of left toe; M86.672 Other chronic osteomyelitis, left ankle and foot; I10 Essential (primary) hypertension; E78.5 Hyperlipidemia, unspecified; Z79.4 Long term (current) use of insulin
CPT/HCPCS: 2NBP; 75657; 87070; 87075; 87184; ERO; 36415; 73630-LT; 73660-LT; 80307; 81003; 82436; 82652; 86376; 86800; 87040; 87086; 87147; 88307; 93005; 93010; 96360; C1769; J1650; J1815; J2001

== ENCOUNTER 2017-04-22 16:01 | Inpatient (IN) | payer OTHER ==
[~2017-04-22] VITALS: Ht 170.2 cm; Wt 148.8 kg
[~2017-04-22 16:01] MED LIST changes: +ATORVASTATIN CA10 M1 PO; +LEVEMIR100 UNIT/1 SC; +NOVOLOG100 UNIT/2 SC; +UNASYN 3 GM VIAL3 GM IV
--- NOTE | 2017-04-22 16:12 | NUR ---
PT BIBA FROM HOME WITH C/C OF DIZZINESS AND NOT FEEL RIGHT "WEAK" VOMITED X 2 TODAY AND FEELING NAUSEAS AT THIS TIME. C/O DRY MOUTH. PT HAS HISTORY IDDM. RAN OUT OF NEEDLES AND WAS NON COMPLIANT WITH INSULIN SC. FINGER STICK 300. PT AO X3. VITAL SIGNS OBTAINED. TEMPERATURE 101.6 TYPANIC. PT HAS LEFT BIG TOE DRESSING ON WITH DRIED YELLOW DRAINS. SKIN AROUND THE BIG TOES NTOED RED AND WARM TO TOUGH. AWAITING EVAL.
--- NOTE | 2017-04-22 16:28 | NUR ---
TOOK DRESSING OFF OF L BIG TOE. LEFT BIG TOE NOTED GROSSLY REDNESS WITH FULL THICKNESS LOSS OF SKIN AND ABOUT QUARTER SIZE WHITE TISSUE AROUND. NO ACTIVE DRAINAGE. DENIES PAIN.
--- NOTE | 2017-04-22 16:35 | NUR ---
ALEX NAZARIO IN ROOM EVALUATING THE PT.
--- NOTE | 2017-04-22 16:37 | ED GENERAL ADULT ---
History of Present Illness General Chief Complaint: Dizziness Stated Complaint: BIBA FOR DIZZINESS Source: patient, old records Exam Limitations: no limitations Vital Signs & Intake/Output Vital Signs & Intake/Output Vital Signs Date Time Temp Pulse Resp B/P B/P Pulse O2 O2 Flow FiO2 Mean Ox Delivery Rate 04/22 1858 99.6 105 18 120/67 95 Room Air 04/22 1802 100.3 04/22 1731 101.6 04/22 1607 101.6 101 20 125/62 98 Room Air Allergies Coded Allergies: No Known Allergies (05/22/16) Reconcile Medications Ampicillin Sodium/Sulbactam Na (Unasyn 3 Gm Vial) 3 GRAM VIAL 3,000 MG IV Q6 Osteomyelitis To complete 4 week course on April 01, 2017 Atorvastatin Calcium 10 MG TABLET 1 TAB PO DAILY HLD Insulin Aspart (Novolog) 100 UNIT/ML VIAL 0 SC BEDTIME DM Blood sugar # Units Less than 250 0 251-300 1 301-350 2 351-400 3 more than 400 4 Insulin Aspart (Novolog) 100 UNIT/ML VIAL 0 SC TIDAC DM blood sugar # units less than 80 initiate hypoglycemia 80-150 8 units 151-200 10 units 201-250 12 units 251-300 14 units 301-350 16 units 351-400 18 units more than 400 20 units, notify Insulin Detemir (Levemir) 100 UNIT/ML VIAL 22 UNITS SC BID diabetes Triage Note: SEE NURSES NOTES Triage Nurses Notes Reviewed? 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 Wood for concerns of left great toe infection in which he states that since his evaluation yesterday he is continuously REGRESSING with his symptoms of generalized weakness fatigue nausea, X 2 episodes of nonbloody nonbilious emesis and worsening redness and swelling and discharge the left toe. Patient currently is not on antibiotics. Denies any chest pain shortness of breath cough abdominal pain. Patient also admits that for the past 5-6 days he ran out of his syringes which he has been unmedicated of insulin Past History Travel History Traveled to [place] past 21 day No Medical History Any Pertinent Medical History? 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 FH: heart disease FATHER, , Age 60+. Hx Contributory? No Review of Systems Review of Systems Constitutional: Reports: see HPI, chills, fever. EENTM: Reports: no symptoms. Respiratory: Reports: see HPI. Denies: cough, short of breath. Cardiovascular: Reports: see HPI. Denies: chest pain, palpitations. GI: Reports: see HPI, nausea, vomiting. Denies: abdominal pain. Genitourinary: Reports: no symptoms. Musculoskeletal: Reports: see HPI. Skin: Reports: see HPI, erythema. Neurological/Psychological: Reports: no symptoms. Hematologic/Endocrine: Reports: no symptoms. Immunologic/Allergic: Reports: no symptoms. All Other Systems: Reviewed and Negative Physical Exam Physical Exam General Appearance: no apparent distress, obese Head: atraumatic Eyes: Bilateral: normal appearance. Ears, Nose, Throat: normal pharynx, normal ENT inspection Neck: normal inspection, supple Respiratory: normal breath sounds, chest non-tender, no respiratory distress Cardiovascular: regular rate/rhythm Gastrointestinal: normal bowel sounds, soft, non-tender Extremities: swelling Neurologic/Psych: awake, alert Comments: LEFT GREAT TOE- NOTED circumferential swelling and redness and tenderness with a 2 cm dorsal aspect open weeping ulcer Core Measures ACS in differential dx? No CVA/TIA Diagnosis: No Severe Sepsis Present: No BC x2: Yes Lactic Acid x2: Yes IV ABX Broad Spectrum: Yes NS/LR Started: Yes Septic Shock Present: No Progress Differential Diagnoses I considered the following diagnoses in my evaluation of the patient: [ Cellulitis, osteomyelitis, sepsis, DKA, hyperglycemia] Plan of Care: Orders Procedure Date/time Status LACTIC ACID 04/22 1949 Active Add-on Test (ER Only) 04/22 1710 Active WESTERGREN SED RATE 04/22 171 Complete C-REACTIVE PROTEIN 04/22 171 Complete MIXED VENOUS BLOOD GAS (GEN) 04/22 164 Active Telemetry/Sustainability Director 04/22 164 Active BLOOD CULTURE 04/22 1649 Active TROPONIN LEVEL 04/22 164 Complete MAGNESIUM 04/22 164 Complete LACTIC ACID 04/22 164 Complete COMPREHENSIVE METABOLIC PANEL 04/22 1649 Complete CBC WITHOUT DIFFERENTIAL 04/22 164 Complete ACETONE 04/22 164 Complete EKG 04/22 1649 Active Current Medications Sig/Homero Start time Last Medication Dose Stop Time Status Admin Sodium Chloride 1,000 ML BOLUS ONE 04/22 1945 AC (Normal Saline 0.9%) 04/22 2044 Sodium Chloride 1,000 ML BOLUS ONE 04/22 1945 AC (Normal Saline 0.9%) 04/22 2044 Laboratory Tests 04/22/17 1849: Bicarbonate Actual 23, Mixed VBG pH 7.49 H, Mixed VBG pCO2 31 L, Mixed VBG O2 Saturation 79 H, Carboxyhemoglobin 0.7 L, O2 Concentration % RA, O2 Delivery Method RA, Phlebotomy Draw Site L.HAND 04/22/171709: ESR Westergren 194 H 04/22/171709: Anion Gap 10, Estimated GFR > 60, BUN/Creatinine Ratio 18.0, Glucose 298 H, Lactic Acid 3.5 H, Calcium 8.8, Magnesium 1.3 L, Total Bilirubin 0.6, AST 24, ALT 29, Alkaline Phosphatase 68, Troponin I < 0.01, C-Reactive Prot, Quant > 9.0 H, Total Protein 7.2, Albumin 3.4 L, Globulin 3.8, Albumin/Globulin Ratio 0.9 L, CBC w Diff MAN DIFF ORDERED, RBC 4.62 L, MCV 85.4, MCH 29.1, RDW 12.4, MPV 7.4, Gran % 88.2 H, Lymphocytes % 7.3 L, Monocytes % 4.2, Eosinophils % 0.1, Basophils % 0.2, Absolute Granulocytes 8.6 H, Segmented Neutrophils 75, Band Neutrophils 8 H, Absolute Lymphocytes 0.7 L, Lymphocytes 8 L, Monocytes 7, Absolute Monocytes 0.4, Eosinophils 1, Absolute Eosinophils 0, Basophils 1, Absolute Basophils 0, Platelet Estimate ADEQUATE, Anisocytosis 1+, PUBS MCHC 34.1, Acetone Level NEGATIVE Microbiology 04/22 1746 BLOOD: Blood Culture - RECD 04/22 1710 BLOOD: Blood Culture - RECD Please note that below is the x-ray taken yesterday of patient's left great toe PATIENT: CONNER STEWART PRESENT AGE: 41 PATIENT ACCOUNT NO: [id number] : 75 LOCATION: [facility] ORDERING PHYSICIAN: GABRIELLE WOOD DPM SERVICE DATE: 04/21/17 EXAM TYPE: RAD - XRY-FOOT COMPLETE, LEFT EXAMINATION: XR FOOT, LEFT CLINICAL INFORMATION: Ulcer of the left first toe. Evaluate for osteomyelitis. COMPARISON: Left foot films dated 03/07/2017. TECHNIQUE: 4 views of the left foot. FINDINGS: Prominent soft tissue swelling of the great toe is seen. There is interval development of a comminuted and partially impacted intra-articular fracture of the head of the proximal phalanx of the first digit with 2 small bone fragments seen projected into the soft tissues medial to the joint. The previously seen erosive change at the base of the distal phalanx of the first digit is again noted, unchanged, consistent with patient's history of debridement status post osteomyelitis. There is a small bony spur seen projected along the lateral aspect of the base of the proximal phalanx of the first digit at the first MTP joint, unchanged. Periarticular osteopenia is noted. Diffuse soft tissue swelling about the foot is seen. IMPRESSION: 1. Interval development of a comminuted impacted intra-articular fracture of the proximal phalanx at the interphalangeal joint. 2. Focal lytic lesion at the base of the distal phalanx of the first digit is seen, consistent with prior debridement at site of osteomyelitis. 3. Prominent soft tissue swelling of the great toe. Voicemail message left at Dr. Herrera's office 04/21/2017, 8:55 PM. DICTATED BY: NATHAN SNYDER MD DATE/TIME DICTATED:04/21/172039 I discussed patient's symptoms of fever and concerns of osteomyelitis with Dr. Wood who advised patient to be admitted for IV antibiotics for ongoing osteomyelitis There is no overt findings for concerns of DKA upon admission (GONZALES PA,RUDOLPH) Diagnostic Imaging: Viewed by Me: Radiology Read. Radiology Impression: SEE COMMENTS Initial ED EKG: normal p-waves, normal QRS complex, normal sinus rhythm, 95 BPM, NSR Comments: PATIENT: CONNER STEWART PRESENT AGE: 41 PATIENT ACCOUNT NO: [id number] : 75 LOCATION: [facility] ORDERING PHYSICIAN: RUDOLPH JOHNSON SERVICE DATE: 04/22/17 EXAM TYPE: RAD - XRY-PORTABLE CHEST XRAY EXAMINATION: XR PORTABLE CHEST CLINICAL INFORMATION: Fever. COMPARISON: None TECHNIQUE: Portable frontal view of the chest was obtained. FINDINGS: The cardiomediastinal silhouette is unremarkable. Lung volumes are somewhat diminished. The lungs and pleural spaces appear clear without evidence of congestion, consolidation, or significant appearing effusion or atelectasis. There is no evidence of pneumothorax or pulmonary edema. Included osseous structures appear largely unremarkable. IMPRESSION: No evidence of an acute intrathoracic process. DICTATED BY: AMBER LIND MD DATE/TIME DICTATED:04/22/171718 Departure Departure Disposition: STILL A PATIENT Condition: Stable Clinical Impression Primary Impression: Osteomyelitis of toe of left foot Secondary Impressions: Cellulitis of great toe of left foot, Hyperglycemia, Hyponatremia, Lactic acidosis Departure Forms: Customer Survey General Discharge Information Admission Note Spoke With: SALIMA ESPANA MD Documentation of Exam: Documentation of any treatments & extenuating circumstances including Concerns Regarding Discharge (functional status, medication knowledge or non-compliance, living conditions, etc.) that warrant an admission rather than observation: [ Discussed patient with who agrees with general medicine admission for concerns of cellulitis and continued osteomyelitis. Patient requires IV antibiotics, PODIATRY consultation, repeat labs wound care.] Critical Care Note Critical Care Note Critical Care Time: 30-74 min
--- NOTE | 2017-04-22 17:15 | NUR ---
LABS AND BLOOD CULTRES X 1ST SET SENT. MEDICATED WITH ZOFRAN IVP AND NS UP INFUING ORDERED.
--- NOTE | 2017-04-22 17:23 | RADIOLOGY REPORT ---
EXAMINATION: XR PORTABLE CHEST CLINICAL INFORMATION: Fever. COMPARISON: None TECHNIQUE: Portable frontal view of the chest was obtained. FINDINGS: The cardiomediastinal silhouette is unremarkable. Lung volumes are somewhat diminished. The lungs and pleural spaces appear clear without evidence of congestion, consolidation, or significant appearing effusion or atelectasis. There is no evidence of pneumothorax or pulmonary edema. Included osseous structures appear largely unremarkable. IMPRESSION: No evidence of an acute intrathoracic process.
--- NOTE | 2017-04-22 17:32 | NUR ---
MEDICATED WITH TYLENOL PO FIR FEVER.
[2017-04-22 17:34] LABS: ABSOLUTE BASOPHIL COUNT 0 /CUMM (0.0-0.2); ABSOLUTE EOSINOPHIL COUNT 0 /CUMM (0.0-0.7); ABSOLUTE GRANULOCYTE CT 8.6 /CUMM (1.4-6.5); ABSOLUTE LYMPH COUNT 0.7 /CUMM (1.2-3.4); ABSOLUTE MONOCYTE COUNT 0.4 /CUMM (0.10-0.60); BASOPHIL % 0.2 % (0.0-2.0); EOSINOPHIL % 0.1 % (0-5); HEMATOCRIT 39.4 % (42-52); MEAN CORPUSCULAR HGB 29.1 PG (27.0-31.0); MEAN CORPUSCULAR HGB CONC 34.1 G/DL (33.0-37.0); MEAN CORPUSCULAR VOLUME 85.4 FL (80.0-94.0); MEAN PLATELET VOLUME 7.4 FL (7.4-10.4); PLATELET COUNT 320 /CUMM (130-400); RBC DISTRIBUTION WIDTH 12.4 % (11.5-14.5); RED BLOOD CELL CT 4.62 /CUMM (4.70-6.10); WHITE BLOOD CELL COUNT 9.8 /CUMM (4.8-10.8)
[2017-04-22 17:44] LABS: GRANULOCYTE % 88.2 % (42.2-75.2)
--- NOTE | 2017-04-22 17:49 | NUR ---
2ND SET OF CULTURES SENT TO [facility].
--- NOTE | 2017-04-22 17:49 | NUR ---
2ND SET OF BLOOD CULTURES AND LAV SENT TO LAB.
--- NOTE | 2017-04-22 18:02 | NUR ---
RECHECKED TEMPERATURE 100.3 TYMPANIC. ZOFRAN EFFECTIVE. NO C/O NAUSEA AT THIS TIME.
--- NOTE | 2017-04-22 18:09 | NUR ---
CRITICAL TEST RESULTS [id number] CONNER STEWART 41 M TESTS AND RESULTS: LACTIC ACID 3.5 Results received and read back by: LEBRON CELIS Results received date and time: 04/22/17 1809 The following provider was notified of the results, and read the results back: Notified date and time: 04/22/17 at 1809
--- NOTE | 2017-04-22 18:39 | NUR ---
DIABETIC TRAY ORDERED FOR PT.
--- NOTE | 2017-04-22 18:50 | NUR ---
NS 1L INFUSED. IV SECOND BAG INFUSING ORDERED.
--- NOTE | 2017-04-22 18:51 | NUR ---
DIABETIC TRAY GIVEN.
--- NOTE | 2017-04-22 18:56 | NUR ---
VBG DRAWN, RESP IN DEPT AND AWARE.
--- NOTE | 2017-04-22 19:05 | NUR ---
CONNER STEWART Nurse Note by: SURESH ZIMMERMAN I agree with the RAIL EQUIPMENT OPERATOR findings/evaluation of this patient's condition. Entered by: SURESH ZIMMERMAN Date: 04/22/17 Time: 1904
--- NOTE | 2017-04-22 19:59 | NUR ---
REPEAT LACTIC ACID DRAWN AND SENT TO LAB. PT DIFF STICK, SMALL AMOUNT IN TUBE.
--- NOTE | 2017-04-22 20:21 | NUR ---
REPEAT LACTIC SENT TO LAB
--- NOTE | 2017-04-22 20:35 | NUR ---
HOUSE STAFF AT BEDSIDE TO EVAL.
--- NOTE | 2017-04-22 20:43 | NUR ---
AT BEDSIDE. DR.DESHPANDE MATIAS'Iman TOE AND WRAPPED IN GAUZE.
--- NOTE | 2017-04-22 21:19 | NUR ---
CRITICAL TEST RESULTS [id number] CONNER STEWART 41 M TESTS AND RESULTS: LACTIC 2.5 Results received and read back by: SURESH ZIMMERMAN Results received date and time: 04/22/172118 The following provider was notified of the results, and read the results back: HOUSE STAFF Notified date and time: 04/22/17 at 2120
--- NOTE | 2017-04-22 21:51 | NUR ---
4TH LITER NS INFUSING AT THSI TIME. PT READING COMFORTABLY ON STRETCHER. AWAITING ADMISSION.
--- NOTE | 2017-04-22 23:02 | NUR ---
PT AMBULATORY TO BATHROOM AT THIS TIME.
--- NOTE | 2017-04-22 23:14 | NUR ---
BED 220-2
--- NOTE | 2017-04-23 00:07 | NUR ---
REPORT GIVEN TO HAYDEE SIDDIQUI.
--- NOTE | 2017-04-23 00:54 | History & Physical ---
EUGENIO PEDERSON,[facility] 04/23/17 0054: General Information and HPI MD Statement: I have seen and personally examined CONNER MAYBERRY and documented this H&P. The patient is a 41 year old M who presented with a patient stated chief complaint of [nausea, vomiting, diarrhea, fever]. Source of Information: patient, old records Exam Limitations: poor historian History of Present Illness: Mr. Mayberry is 41 year old male presented with chief complaint of GI symptoms. Patient has past medical history significant for morbid obesity, diabetes mellitus, osteomyelitis status post 4 weeks of IV Unasyn through PICC line that finished . Patient reported that after eating outside on (steak, spinach, fried chicken and potato), Tuesday morning he started to have nausea, vomiting 2 none bilious or bloody vomit, diarrhea 3, fever Tmax 101, chills, fatigue. Patient denied any abdominal pain called EMS for presistent symptoms. Patient denied history of sick contact. Patient was discharged in after was treated for stage III left great toe ulcer with IV antibiotic Unasyn to finish total of 4 weeks in . Wound culture positive for Proteus, staph aureus and diabetes tripped group G. Patient reported follow-up visit with Dr. Aggarwal on with recommendation for x-ray of left foot. Patient denied any pain at that time but later in the day started to have pain in the left great toe, denied motor weakness or numbness. Patient chief complain was GI symptoms, with ED incidental finding of left great toe swelling and open wound with bloody purulent secretion. Patient reported burning out syringes for the last couple of days for what he didn't receive his insulin, denied polyuria, polydipsia, blurry vision, dizziness. Patient doesn't have glucometer. Allergies/Medications Allergies: Coded Allergies: No Known Allergies (05/22/16) Home Med list Atorvastatin Calcium 10 MG TABLET 1 TAB PO DAILY HLD Insulin Aspart (Novolog) 100 UNIT/ML VIAL 0 SC BEDTIME DM Blood sugar # Units Less than 250 0 251-300 1 301-350 2 351-400 3 more than 400 4 Insulin Aspart (Novolog) 100 UNIT/ML VIAL 0 SC TIDAC DM blood sugar # units less than 80 initiate hypoglycemia 80-150 8 units 151-200 10 units 201-250 12 units 251-300 14 units 301-350 16 units 351-400 18 units more than 400 20 units, notify Insulin Detemir (Levemir) 100 UNIT/ML VIAL 22 UNITS SC BID diabetes Past History Travel History Traveled to [place] past 21 day No Medical History Neurological: NONE EENT: NONE Cardiovascular: NONE Respiratory: NONE Gastrointestinal: NONE Hepatic: NONE Renal: NONE Musculoskeletal: fracture (arm as a child), 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 FH: heart disease FATHER, , Age 60+. Psychosocial History Who Do You Live With? friends Services at Home: None ETOH Use: denies use Illicit Drug Use: denies illicit drug use Functional Ability ADLs Independent: dressing, eating, toileting, bathing. Ambulation: independent IADLs Independent: shopping, housework, finances, food prep, telephone, transportation , medication admin. Review of Systems Review of Systems Constitutional: Reports: see HPI. Exam & Diagnostic Data Last 24 Hrs of Vital Signs/I&O Vital Signs Date Time Temp Pulse Resp B/P B/P Pulse O2 O2 Flow FiO2 Mean Ox Delivery Rate 04/23 0303 90 20 128/64 97 Room Air 04/23 0245 98.9 04/23 0245 98.9 04/23 0106 102.7 04/23 0103 102.7 97 18 138/70 97 Room Air 04/22 2359 98.8 87 19 138/75 98 Room Air 04/22 2141 98.7 80 18 143/76 97 Room Air 04/22 1858 99.6 105 18 120/67 95 Room Air 04/22 1802 100.3 04/22 1731 101.6 04/22 1607 101.6 101 20 125/62 98 Room Air Intake & Output 04/23 0800 04/23 0000 04/22 1600 Intake Total 1000 Output Total Balance 1000 Intake, IV 1000 Patient 149.685 kg 145.15 kg Weight Weight Reported by Patient Measurement Method Physical Exam General Appearance Alert, Oriented X3, Cooperative, No Acute Distress Skin No Rashes Skin Temp/Moisture Exam: Warm/Dry Sepsis Skin Exam (color): Normal for Ethnicity HEENT Atraumatic, PERRLA, EOMI, Mucous Membr. moist/pink Neck Supple Lymphatic no cervical lymphadenopathy Cardiovascular Regular Rate, Normal S1, Normal S2, No Murmurs Lungs Clear to Auscultation, Normal Air Movement Abdomen Patient refused examination Neurological Normal Gait, Normal Speech, Strength at 5/5 X4 Ext, Normal Tone, Sensation Intact, Cranial Nerves 3-12 NL, Reflexes 2+ Extremities No Clubbing, No Cyanosis, No Edema, Normal Pulses, No Tenderness/ Swelling, left great toe swelling, erythema, warm, mild tenderness to palpation, no crepitation, positive flactulace with blood and pus Assessment/Plan Assessment: Mr. Mayberry is 41 year old male presented with chief complaint of GI symptoms nausea, vomiting, diarrhea, fever and chills. Patient has past medical history significant for morbid obesity, diabetes mellitus, osteomyelitis status post 4 weeks of IV Unasyn through PICC line that finished . Patient chief complain was GI symptoms, with ED incidental finding of left great toe swelling, redness, warm and open wound with bloody purulent secretion, no crepitation. On admission Vital signs 101.6, heart rate 101, blood pressure 125/62, respiratory rate 20 saturating 98% room air Labs pertinent to WBC 9.8 with bands 8, H&H 13.4/39.4, platelets 320, sodium 126 , potassium 4.5, BUN/creatinine 9/0.5, glucose 298, ESR 194, C-reactive protein more than 9, lactic acid 3.5, magnesium 1.3, liver function test within normal, trops negative, UA negative for ketones Image #Chest x-ray didn't refill any acute intrathoracic pathology #Left foot x-ray on 04/21 IMPRESSION: 1. Interval development of a comminuted impacted intra-articular fracture of the proximal phalanx at the interphalangeal joint. 2. Focal lytic lesion at the base of the distal phalanx of the first digit is seen, consistent with prior debridement at site of osteomyelitis. 3. Prominent soft tissue swelling of the great toe. Problem list #Sepsis due to left foot cellulitis/osteomyelitis #Uncontrolled diabetes mellitus #Viral gastroenteritis #Hyponatremia Plan #Sepsis due to left foot cellulitis/osteomyelitis -Admit to general medical floor -Vitals every shift -IV fluid normal saline running at 75 mL/h -Trend lactic acid -IV Unasyn as patient didn't grow any resistant organism in previous soft tissue culture -Podiatry consultation -Wound care -Leg elevation -Pain management -Nothing by mouth in anticipation for debridement #Uncontrolled diabetes mellitus -Accu check -Levemir 22 units twice a day -NovoLog sliding scale 3 times a day before meals and at bedtime -Endocrine consultation #Viral gastroenteritis -IV fluid -Monitor electrolytes -Bowel rest #Hyponatremia -Corrected sodium around 129 -Check serum osmolarity -Check urine osmolarity -Check urine lites -Monitor sodium correction, avoid correcting more than 8 points in 24 hour -Diet nothing by mouth in anticipation for podiatry procedure -Code full -DVT prophylaxis heparin subcutaneous As Ranked By This Provider Problem List: 1. Hyperglycemia 2. Hyponatremia 3. Lactic acidosis 4. Osteomyelitis of toe of left foot 5. Cellulitis of great toe of left foot Core Measures/Miscellaneous Acute Coronary Syndrome ACS Diagnosis: No Cerebrovascular Accident CVA/TIA Diagnosis: No Congestive Heart Failure CHF Diagnosis: No VTE (View Protocol) VTE Risk Factors: Age > 40 No [facility] VTE prophylaxis d/t: No contraindications No VTE Pharm Prophylaxis d/t: No contraindications VTE Diagnosis: No VTE Type: NONE VTE Confirmed by (Test): NONE Sepsis (View Protocol) Severe Sepsis Present: No BC x2: Yes Lactic Acid x2: Yes IV ABX Broad Spectrum: Yes NS/LR Started: Yes Septic Shock Septic Shock Present: No Miscellaneous Documentation Attending Case Discussed With: SALIMA ESPANA MD Primary Care Physician: PATIENT HAS NO PRIMARY CARE DR Patient sees these Specialists podiatery Level of Patient Care: General Medicine PAZ KEYS MD,REGGIE 04/23/17 0245: Resident Review Statement Resident Statement: examined this patient, discussed with education intern, reviewed EMR data (avail) Other Findings: 41-year-old, morbidly obese male with past medical history significant for uncontrolled diabetes mellitus on insulin, noncompliant with medications, hyperlipidemia, history of osteomyelitis of left foot, completed 4 weeks of antibiotic therapy with Unasyn on 04/01/2017, came to emergency department with chief complaint of dry heaving, nausea and 2 episodes of nonbloody emesis, 2 episodes of loose stools, along with worsening of redness and swelling of the left toe. Vitals in emergency department, patient had a MAXIMUM TEMPERATURE of 102.7, tachycardia, heart rate ranging from 80-105, respiratory rate of 18-20, blood pressure ranging from 120-138 systolic and diastolic 70-75, oxygen saturation of 95-98% on room air. On examination patient was alert and oriented, in mild distress lying in the bed. S1 and S2 audible without any murmurs overall clear lung sounds, patient denied abdominal examination, grossly intact neurological examination. Labs are significant for, no leukocytosis WBC count of 9.8, granulocytes 88.2, band neutrophils 8, hemoglobin 13.4 and hematocrit of 39.4, ESR 194, sodium 134, no significant electrolyte abnormality, lactic acid 3.5 Recent foot x-ray showed, Interval development of a comminuted impacted intra- articular fracture of the proximal phalanx at the interphalangeal joint. Prominent soft tissue swelling of the great toe. Patient was admitted on general medicine so for the management of following problems Sepsis secondary to lower extremity cellulitis/abscess in the setting of recent osteomyelitis/ Lactic acidosis Patient met the criteria of sepsis with, tachycardia, fever of 102.7, and possible source of infection in the lower extremity. He also has bandemia of 8. Patient received 4 L of normal saline in emergency department. Give 1 additional bolus of normal saline along with continuous IV fluids at the rate of 125 mL per hour. Patient was empirically given Unasyn 1500 mg in emergency department. Recent or cultures grew Proteus mirabilis, staph aureus and beta strep group G, sensitive to Unasyn. Will start the patient on 3 g IV Unasyn every 6 hours. Patient will certainly benefit from podiatry and orthopedic consult. Patient did certainly need drainage of pus from that swollen toe. Will keep the patient nothing by mouth overnight for a possible surgery tomorrow morning. Will panculture the patient. Loose stools In the setting of recent antibiotic use E will rule out C. difficile. Uncontrolled diabetes mellitus Patient recently ran out of his insulin and did not take as per schedule. Will keep the patient on Accu-Cheks start him on his previous dose of home dose insulin and sliding scale. PseudoHypoNa Patient had Hypo Na likely secodary to increased blood sugar. Patient is full code Patient is on heparin for DVT prophylaxis patient is on pain management Patient is on Accu-Cheks Patient is nothing by mouth JOVI,AARTEE 04/23/17 0620: Attending MD Review Statement Attending Statement Attending MD Statement: examined this patient, discuss w/resident/PA/DESIGN TECHNOLOGY PROFESSOR, agreed w/resident/PA/DESIGN TECHNOLOGY PROFESSOR, reviewed EMR data (avail), reviewed images, amended to note Attending Assessment/Plan: CC : Fever PMH: Obesity, diabetes Patient is very poor historian, was recently admitted here for osteomyelitis of left toe, bone biopsy was obtained, patient was discharged on 4 week treatment of Unasyn, patient completed treatment on April 01, was apparently all right. Patient came to ER for 2 episodes of vomiting, 2 episodes of diarrhea, fever since one day. He is thought he had food poisoning because he had some steak and potatoes with some spinach and chicken yesterday. He went to see Dr. Aggarwal yesterday who ordered x-ray of his left foot. Patient does not provide any further details about the left great toe swelling, worsening discharge or ulcer. Patient also ran out of his insulin needles and was not taking insulin since last 3 days and prior to that he was taking insulin only once daily according to him. Vitals: T max in ER 101.6, HR 101, RR 20, blood pressure 125/62, saturating well on room air. On exam: A O 3, cooperative, morbidly obese, no acute distress, neck supple, JVD normal, no lymphadenopathy, mucosa moist, no focal neurological deficit, no dependent edema, CVS: S1-S2, RRR. RS: Clear to auscultate bilaterally. Abdomen: Soft, NT, ND, bowel sounds present. Left toe is markedly swollen, mild fluctuation, ulcer with unhealthy base, with pus and serous discharge, increased warmth, no crepitus. Labs: WBC 9.8, neutrophils 88%, bands 8, hemoglobin 13.4, hematocrit 39.4, platelets 320, ESR 194, CRP more than 9, sodium 126, potassium 4.5, direct 91, bicarbonate 25, BUN 9, creatinine 0.5, glucose 298, calcium 8.8, lactate 3.5 UA unremarkable CXR: No acute intrathoracic processes X-ray foot than on April 21: 1. Interval development of a comminuted impacted intra-articular fracture of the proximal phalanx at the interphalangeal joint. 2. Focal lytic lesion at the base of the distal phalanx of the first digit is seen, consistent with prior debridement at site of osteomyelitis. 3. Prominent soft tissue swelling of the great toe. A and P 41-year-old male with morbid obesity and diabetes with noncompliance presented for fever, nausea, vomiting and diarrhea. Patient is very vague historian and just reports 2 episodes of vomiting and 2 episodes of diarrhea does not inform the consistency or contents. But he is found to have worsening left toe swelling , fluctuation, discharge. Imaging done yesterday reviewed showed probable comminuted fracture, ESR and CRP is significantly elevated from previous hospitalization. The patient needs further evaluation for osteomyelitis probable debridement. + Suspected osteomyelitis left great toe, cellulitis + Comminuted impacted fracture of proximal phalanx of left great toe + Noncompliance with insulin with hyperglycemia + Probably viral gastroenteritis + Hyponatremia : Calculated sodium around 130 + Sepsis secondary to left great toe infection, diabetic foot - Admit to general medicine - Continue aggressive hydration - Serial lactate - Blood culture - IV Unasyn - Podiatry consult in morning - ID consult - Patient may need orthopedic consult please check with Dr. Aggarwal - Follow serum osmolality and urine osmolality for hyponatremia probably secondary to SIADH but at this point he needs hydration for sepsis. - Continue basal and sliding scale insulin - DVT prophylaxis with heparin - Adequate pain control
[2017-04-23 01:03] VITALS: BP 138/70
--- NOTE | 2017-04-23 01:30 | NUR ---
PATIENT ARRIVED ON UNIT AT 0034 VIA WHEELCHAIR. PATIENT AMBULATED TO BED WITHOUT ANY DIFFICULTY. PATIENT A+Ox3 AND ON RA. PATIENT ORIENTED TO CALL GLASER, ROOM, STAFF, SURROUNDINGS. ADMISSION ASSESSMENT COMPLETE. L GREAT TOE ULCER ASSESSED AND DRY DRESSING WAS PLACED (SEE WOUNDMAN). PATIENT'S ORAL TEMP AT THIS TIME WAS 102.7, MD BECKER WAS NOTIFIED AND MADE AWARE; PO TYLENOL WAS ADMINISTERED. IVF INITIATED. PATIENT REFUSED ALPS AT THIS TIME. NO FURTHER COMPLAINTS AT THIS TIME. WILL CONTINUE TO CLOSELY MONITOR.
[2017-04-23 03:03] VITALS: BP 128/64
--- NOTE | 2017-04-23 06:22 | Admission Certification ---
Admission Certification Certification Statement - As attending physician, I certify that at the time of - admission, based on clinical presentation, severity of - symptoms, need for further diagnostic testing and - therapeutic interventions, and risk of adverse outcomes - without in-hospital treatment, in my clinical assessment, - this patient requires an acute hospital stay for a minimum - of two nights or longer. I have also considered psychsocial - factors such as support system, advanced age, financial - issues, cognitive issues, and failed out-patient treatments, - past re-admission history, safety of patient, and lack of - compliance as applicable. Specific rationale supporting this admission is: Suspected osteomyelitis of left great toe Diabetic foot infection
[2017-04-23 06:39] VITALS: BP 132/66
[2017-04-23 08:44] LABS: ABSOLUTE BASOPHIL COUNT 0 /CUMM (0.0-0.2); ABSOLUTE EOSINOPHIL COUNT 0 /CUMM (0.0-0.7); ABSOLUTE GRANULOCYTE CT 4.9 /CUMM (1.4-6.5); ABSOLUTE LYMPH COUNT 1.8 /CUMM (1.2-3.4); ABSOLUTE MONOCYTE COUNT 0.7 /CUMM (0.10-0.60); BASOPHIL % 0.3 % (0.0-2.0); EOSINOPHIL % 0.2 % (0-5); GRANULOCYTE % 65.7 % (42.2-75.2); HEMATOCRIT 37.7 % (42-52); MEAN CORPUSCULAR HGB CONC 33.7 G/DL (33.0-37.0); MEAN PLATELET VOLUME 7.6 FL (7.4-10.4); PLATELET COUNT 287 /CUMM (130-400); RBC DISTRIBUTION WIDTH 12.4 % (11.5-14.5); RED BLOOD CELL CT 4.38 /CUMM (4.70-6.10); WHITE BLOOD CELL COUNT 7.5 /CUMM (4.8-10.8)
--- NOTE | 2017-04-23 10:06 | Event Note ---
Event Note Event Note: 41-year-old gentleman with a PMH of obesity and diabetes, recently treated for stage III left great toe ulcer, completed a four-week course of IV Unasyn via PICC line (last dose 04/01/2017) presented with complaints of fevers, nausea and vomiting. VS on admission: BP 125 was 62, HR 101, RR 20, SPO2 98% on RA, T101.6 Pertinent physical findings: Fluctuance and bloody purulent drainage from great toe Pertinent labs: WBC 9.8, H&H 13.4/39.4, platelets 320, sodium 134, BUN/09/0.6 lactic acid 3.3 Problem list: 1. Left great toe osteomyelitis/cellulitis 3. Comminuted impacted fracture proximal phalanx of left great toe 3. Uncontrolled diabetic Plan: Follow up blood cultures. We'll continue the patient on IV Unasyn with tentative plan to go to the operating room on Tuesday with Dr. Aggarwal. Levemir 22 units BID, Insulin sliding scale
--- NOTE | 2017-04-23 10:57 | PN- Att Addend ---
Attending Addendum Attending Brief Note Patient seen and examined. Plan of care discussed with the medical team and the patient. Available lab work and radiology test reports were reviewed. Patient awake alert without any distress. He denies any difficulty breathing or abdominal pain nausea vomiting. He had 3 episodes of loose bowel motion last night. Vital Signs Date Time Temp Pulse Resp B/P B/P Pulse O2 O2 Flow FiO2 Mean Ox Delivery Rate 04/23 1026 99.7 04/23 0800 Room Air 04/23 0639 99.2 75 20 132/66 96 Room Air 04/23 0303 90 20 128/64 97 Room Air 04/23 0245 98.9 04/23 0245 98.9 04/23 0106 102.7 04/23 0103 102.7 97 18 138/70 97 Room Air 04/22 2359 98.8 87 19 138/75 98 Room Air 04/22 2141 98.7 80 18 143/76 97 Room Air 04/22 1858 99.6 105 18 120/67 95 Room Air 04/22 1802 100.3 04/22 1731 101.6 04/22 1607 101.6 101 20 125/62 98 Room Air Intake & Output 04/23 1600 04/23 0800 04/23 0000 Intake Total 1600 1000 Output Total 600 Balance 1000 1000 Intake, IV 1600 1000 Intake, Oral 0 Output, Urine 600 Patient 330 lb 320 lb Weight Weight Reported by Patient Measurement Method Exam: General: Patient awake alert oriented without any distress; patient is noted to be obese; CVS: S1 plus S2 without any murmur or gallops Chest: Few scattered crepitation without any wheeze. There is no respiratory distress. Abdomen: Limited examination as patient does not wish to be touched overt his abdomen area he denies any pain but says he is ticklish BUSINESS RULES DEVELOPER: Awake alert oriented without any focal neuro deficit and follows command appropriately Extremities: No edema; no clubbing or cyanosis noted; right big toe has a round punched-out 1 inch lesion with pus no surrounding erythema or streaks noted ; patient is able to move his toes Laboratory Tests 04/23 04/23 1006 0620 Chemistry Sodium (137 - 145 mmol/L) 134 L Potassium (3.5 - 5.1 mmol/L) 4.2 Chloride (98 - 107 mmol/L) 101 Carbon Dioxide (22 - 30 mmol/L) 24 Anion Gap (5 - 16) 9 BUN (9 - 20 mg/dL) 8 L Creatinine (0.7 - 1.2 mg/dL) 0.5 L Estimated GFR (>60 ml/min) > 60 BUN/Creatinine Ratio (7 - 25 %) 16.0 Lactic Acid (0.7 - 2.1 mmol/L) 1.7 1.7 Hematology CBC w Diff NO MAN DIFF REQ WBC (4.8 - 10.8 /CUMM) 7.5 RBC (4.70 - 6.10 /CUMM) 4.38 L Hgb (14.0 - 18.0 G/DL) 12.7 L Hct (42 - 52 %) 37.7 L MCV (80.0 - 94.0 FL) 86.0 MCH (27.0 - 31.0 PG) 29.0 RDW (11.5 - 14.5 %) 12.4 Plt Count (130 - 400 /CUMM) 287 MPV (7.4 - 10.4 FL) 7.6 Gran % (42.2 - 75.2 %) 65.7 Lymphocytes % (20.5 - 51.1 %) 24.2 Monocytes % (1.7 - 9.3 %) 9.6 H Eosinophils % (0 - 5 %) 0.2 Basophils % (0.0 - 2.0 %) 0.3 Absolute Granulocytes (1.4 - 6.5 /CUMM) 4.9 Absolute Lymphocytes (1.2 - 3.4 /CUMM) 1.8 Absolute Monocytes (0.10 - 0.60 /CUMM) 0.7 H Absolute Eosinophils (0.0 - 0.7 /CUMM) 0 Absolute Basophils (0.0 - 0.2 /CUMM) 0 PUBS MCHC (33.0 - 37.0 G/DL) 33.7 04/23 04/23 04/22 0200 0200 2355 Chemistry Lactic Acid (0.7 - 2.1 mmol/L) 3.3 H Urines Urine Color (YEL,AMB,STR) STRAW Urine Clarity (CLEAR) CLEAR Urine pH (5.0 - 8.0) 6.0 Ur Specific [place] (1.001 - 1.035) 1.015 Urine Protein (NEG,<30 MG/DL) NEG Urine Ketones (NEG) NEG Urine Nitrite (NEG) NEG Urine Bilirubin (NEG) NEG Urine Urobilinogen (0.1 - 1.0 EU/dl) 0.2 Ur Leukocyte Esterase (NEG) NEG Ur Microscopic EXAM NOT REQUIRED Urine Hemoglobin (NEG) NEG Urine Osmolality (300 - 1000 MOSM/KG) 410 Ur Random Creatinine (mg/dL) 31.7 Ur Random Sodium (30 - 90 mmol/L) 135 H Ur Random Potassium (mmol/L) 21.4 Fraction Sodium Excret (<1% %) 1.9 H Urine Glucose (N MG/DL) NEG 04/22 171 Blood Gas Bicarbonate Actual (22 - 26 MEQ/L) 23 Mixed VBG pH (7.31 - 7.41 PH) 7.49 H Mixed VBG pCO2 (41 - 51 TORR) 31 L Mixed VBG O2 Saturation (35 - 45 TORR) 79 H Carboxyhemoglobin (1.5 - 5.0 %) 0.7 L O2 Concentration % RA O2 Delivery Method RA Chemistry Sodium (137 - 145 mmol/L) 134 L Potassium (3.5 - 5.1 mmol/L) 4.6 Chloride (98 - 107 mmol/L) 101 Carbon Dioxide (22 - 30 mmol/L) 26 Anion Gap (5 - 16) 7 BUN (9 - 20 mg/dL) 9 Creatinine (0.7 - 1.2 mg/dL) 0.6 L Estimated GFR (>60 ml/min) > 60 BUN/Creatinine Ratio (7 - 25 %) 15.0 Lactic Acid (0.7 - 2.1 mmol/L) 2.5 H Hematology ESR [place] (0 - 10 MM) 194 H Miscellaneous Phlebotomy Draw Site L.HAND 04/22 1710 Chemistry Sodium (137 - 145 mmol/L) 126 L Potassium (3.5 - 5.1 mmol/L) 4.5 Chloride (98 - 107 mmol/L) 91 L Carbon Dioxide (22 - 30 mmol/L) 25 Anion Gap (5 - 16) 10 BUN (9 - 20 mg/dL) 9 Creatinine (0.7 - 1.2 mg/dL) 0.5 L Estimated GFR (>60 ml/min) > 60 BUN/Creatinine Ratio (7 - 25 %) 18.0 Glucose (65 - 99 mg/dL) 298 H Serum Osmolality (285 - 295 MOSM/KG) 279 L Lactic Acid (0.7 - 2.1 mmol/L) 3.5 H Calcium (8.4 - 10.2 mg/dL) 8.8 Magnesium (1.6 - 2.3 mg/dL) 1.3 L Total Bilirubin (0.2 - 1.3 mg/dL) 0.6 AST (17 - 59 U/L) 24 ALT (21 - 72 U/L) 29 Alkaline Phosphatase (< 127 U/L) 68 Troponin I (<0.11 ng/ml) < 0.01 C-Reactive Prot, Quant (<1.0 mg/dL) > 9.0 H Total Protein (6.3 - 8.2 g/dL) 7.2 Albumin (3.5 - 5.0 g/dL) 3.4 L Globulin (1.9 - 4.2 gm/dL) 3.8 Albumin/Globulin Ratio (1.1 - 2.2 %) 0.9 L Hematology CBC w Diff MAN DIFF ORDERED WBC (4.8 - 10.8 /CUMM) 9.8 RBC (4.70 - 6.10 /CUMM) 4.62 L Hgb (14.0 - 18.0 G/DL) 13.4 L Hct (42 - 52 %) 39.4 L MCV (80.0 - 94.0 FL) 85.4 MCH (27.0 - 31.0 PG) 29.1 RDW (11.5 - 14.5 %) 12.4 Plt Count (130 - 400 /CUMM) 320 MPV (7.4 - 10.4 FL) 7.4 Gran % (42.2 - 75.2 %) 88.2 H Lymphocytes % (20.5 - 51.1 %) 7.3 L Monocytes % (1.7 - 9.3 %) 4.2 Eosinophils % (0 - 5 %) 0.1 Basophils % (0.0 - 2.0 %) 0.2 Absolute Granulocytes (1.4 - 6.5 /CUMM) 8.6 H Segmented Neutrophils (42.2 - 75.2 %) 75 Band Neutrophils (0.0 - 5.0 %) 8 H Absolute Lymphocytes (1.2 - 3.4 /CUMM) 0.7 L Lymphocytes (20.5 - 51.1 %) 8 L Monocytes (1.7 - 9.3 %) 7 Absolute Monocytes (0.10 - 0.60 /CUMM) 0.4 Eosinophils (0 - 5.0 %) 1 Absolute Eosinophils (0.0 - 0.7 /CUMM) 0 Basophils (0.0 - 2.0 %) 1 Absolute Basophils (0.0 - 0.2 /CUMM) 0 Platelet Estimate (ADEQUATE) ADEQUATE Anisocytosis 1+ PUBS MCHC (33.0 - 37.0 G/DL) 34.1 Toxicology Acetone Level (NEGATIVE) NEGATIVE Microbiology Date/Time Procedure - Status Source Growth 04/22 2331 Respiratory Culture - COLB LOWER RESP 04/22 2331 Gram Stain - COLB LOWER RESP 04/22 2331 Cryptosporidium Antigen - COLB STOOL 04/22 2331 Giardia Antigen (STEFANIE) - COLB STOOL 04/22 2331 Clostridium difficile Toxin A & B - COLB STOOL 04/22 1746 Blood Culture - RECD BLOOD 04/22 1710 Blood Culture - RECD BLOOD Chest x-ray did not show any acute process Assessment * diabetic foot infection of right big toe * History of diabetes * Morbid obesity * Fever- likely sources cellulitis and asked to myelitis * Rule out underlying ostium myelitis of big toe * Elevated lactic acid level improved Plan * Continue leg elevation * Continue IV Unasyn * Follow blood cultures; C. difficile and stool cultures * Podiatry consult with Dr. Aggarwal * Infectious disease consult
[2017-04-23 14:47] VITALS: BP 120/70
[2017-04-23 21:50] VITALS: BP 122/80
[2017-04-24 06:30] VITALS: BP 136/70
[2017-04-24 09:27] LABS: ABSOLUTE BASOPHIL COUNT 0 /CUMM (0.0-0.2); ABSOLUTE EOSINOPHIL COUNT 0.2 /CUMM (0.0-0.7); ABSOLUTE GRANULOCYTE CT 5.9 /CUMM (1.4-6.5); ABSOLUTE LYMPH COUNT 2.8 /CUMM (1.2-3.4); ABSOLUTE MONOCYTE COUNT 1.2 /CUMM (0.10-0.60); BASOPHIL % 0.4 % (0.0-2.0); EOSINOPHIL % 2.1 % (0-5); GRANULOCYTE % 58.2 % (42.2-75.2); HEMATOCRIT 37.9 % (42-52); MEAN CORPUSCULAR HGB 29.5 PG (27.0-31.0); MEAN CORPUSCULAR HGB CONC 34.2 G/DL (33.0-37.0); MEAN CORPUSCULAR VOLUME 86.1 FL (80.0-94.0); MEAN PLATELET VOLUME 7.8 FL (7.4-10.4); PLATELET COUNT 264 /CUMM (130-400); RBC DISTRIBUTION WIDTH 12.4 % (11.5-14.5); WHITE BLOOD CELL COUNT 10.2 /CUMM (4.8-10.8)
--- NOTE | 2017-04-24 10:41 | PN- Housestaff ---
Subjective Follow-up For: Left toe cellulitis/ostial myelitis Comminuted fracture proximal phalanx Complaints: no complaints Subjective: Interval history: Overnight there were no acute events. This morning he states that he feels comfortable and denies any fevers or chills. Review of Systems Constitutional: Reports: see HPI. Cardiovascular: Reports: no symptoms. Respiratory: Reports: no symptoms. Gastrointestinal: Reports: no symptoms. Musculoskeletal: Reports: see HPI. Objective Last 24 Hrs of Vital Signs/I&O Vital Signs Date Time Temp Pulse Resp B/P B/P Pulse O2 O2 Flow FiO2 Mean Ox Delivery Rate 04/24 630 99.5 86 18 136/70 96 Room Air 04/23 2150 95 20 122/80 96 Room Air 04/23 1600 Room Air 04/23 1447 99.0 105 20 120/70 96 Intake & Output 04/24 1600 04/24 0800 04/24 0000 Intake Total 390 230 Output Total Balance 390 230 Intake, IV 150 130 Intake, Oral 240 100 Physical Exam General Appearance: Alert, Cooperative, No Acute Distress Skin: left great toe covered in a clean a ditch with slight serosanguineous drainage. HEENT: Mucous Membr. moist/pink Cardiovascular: Regular Rate, Normal S1, Normal S2 Lungs: Normal Air Movement, distant breath sounds Abdomen: Normal Bowel Sounds, Soft, No Tenderness Extremities: 1+ pitting edema bilateral lower extremities Current Medications: Current Medications Sig/Homero Start time Last Medication Dose Route Stop Time Status Admin Acetaminophen 650 MG Q6P PRN 04/22 2330 AC 04/23 PO 0106 Ampicillin Sodium/ 3,000 MG Q6H 04/23 0200 AC 04/24 Sulbactam Sodium IV 0755 Sodium Chloride 100 ML Atorvastatin Calcium 10 MG DAILY 04/23 1000 AC 04/24 PO 0755 Benzonatate 100 MG TID 04/22 2327 AC 04/24 PO 0755 Heparin Sodium 5,000 UNIT Q8 04/23 0600 AC 04/24 (Porcine) SC 0530 Insulin Aspart 0 TIDAC 04/23 0800 AC 04/24 SC 0756 Insulin Detemir 22 UNITS BID 04/22 2319 AC 04/24 SC 0755 Morphine Sulfate 0.5 MG Q6P PRN 04/22 2330 AC IV Ondansetron HCl 4 MG Q6P PRN 04/22 2330 AC IV Oxycodone HCl 5 MG Q6P PRN 04/22 2330 AC PO Sodium Chloride 1,000 ML ONCE ONE 04/23 0645 CAN IV 04/23 1444 Last 24 Hrs of Lab/Denis Results Last 24 Hrs of Labs/Mics: Laboratory Tests 04/24/17 0730: Anion Gap 10, Estimated GFR > 60, BUN/Creatinine Ratio 18.0, CBC w Diff NO MAN DIFF REQ, RBC 4.40 L, MCV 86.1, MCH 29.5, RDW 12.4, MPV 7.8, Gran % 58.2, Lymphocytes % 27.7, Monocytes % 11.6 H, Eosinophils % 2.1, Basophils % 0.4, Absolute Granulocytes 5.9, Absolute Lymphocytes 2.8, Absolute Monocytes 1.2 H, Absolute Eosinophils 0.2, Absolute Basophils 0, PUBS MCHC 34.2 Assessment/Plan Assessment: 41-year-old gentleman with a PMH of obesity and diabetes, recently treated for stage III left great toe ulcer, completed a four-week course of IV Unasyn via PICC line (last dose 04/01/2017) presented with complaints of fevers, nausea and vomiting. VS on admission: BP 125 was 62, HR 101, RR 20, SPO2 98% on RA, T101.6 Pertinent physical findings: Fluctuance and bloody purulent drainage from great toe Pertinent labs: WBC 9.8, H&H 13.4/39.4, platelets 320, sodium 134, BUN/09/0.6 lactic acid 3.3 Problem list: 1. Left great toe osteomyelitis/cellulitis 3. Comminuted impacted fracture proximal phalanx of left great toe 3. Uncontrolled diabetic Plan: * Patient continues to remain stable at this time, afebrile. No evidence of leukocytosis and blood cultures negative thus far * Continue with IV Unasyn. Plan to follow-up with Dr. Aggarwal on Tuesday. At this time tentative schedule is to go to the OR on Tuesday * Accu-Cheks over the past 24 hours between 186 and 230. We will increase sliding scale from medium to high dose * DVT prophylaxis: Heparin 5000 units subcutaneous * Full code * Diabetic diet Problem List: 1. Osteomyelitis of toe of left foot Pain Ratin Pain Location: Left great toe Pain Goal: Pain 4 or less Pain Plan: Pain pathway Tomorrow's Labs & Rationales: CBC: Trending leukocytosis DVT/Prophylaxis: pharmacological
--- NOTE | 2017-04-24 10:58 | PN- Att Addend ---
Attending Addendum Attending Brief Note Patient seen and examined. Plan of care discussed with the medical team and the patient. Available lab work and radiology test reports were reviewed. Patient awake alert without any distress. He denies any difficulty breathing or abdominal pain nausea vomiting. His pain is well controlled. He denies any fever or chills. Vital Signs Date Time Temp Pulse Resp B/P B/P Pulse O2 O2 Flow FiO2 Mean Ox Delivery Rate 04/24 630 99.5 86 18 136/70 96 Room Air 04/23 2150 95 20 122/80 96 Room Air 04/23 1600 Room Air 04/23 1447 99.0 105 20 120/70 96 Intake & Output 04/24 1600 04/24 0800 04/24 0000 Intake Total 390 230 Output Total Balance 390 230 Intake, IV 150 130 Intake, Oral 240 100 Exam: General: Patient awake alert oriented without any distress; patient is noted to be obese; CVS: S1 plus S2 without any murmur or gallops Chest: Few scattered crepitation without any wheeze. There is no respiratory distress. 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: Awake alert oriented without any focal neuro deficit and follows command appropriately Extremities: No edema; no clubbing or cyanosis noted; right big toe has a round punched-out 1 inch lesion with pus no surrounding erythema or streaks noted ; patient is able to move his toes Laboratory Tests 04/24 730 Chemistry Sodium (137 - 145 mmol/L) 134 L Potassium (3.5 - 5.1 mmol/L) 3.9 Chloride (98 - 107 mmol/L) 100 Carbon Dioxide (22 - 30 mmol/L) 25 Anion Gap (5 - 16) 10 BUN (9 - 20 mg/dL) 9 Creatinine (0.7 - 1.2 mg/dL) 0.5 L Estimated GFR (>60 ml/min) > 60 BUN/Creatinine Ratio (7 - 25 %) 18.0 Hematology CBC w Diff NO MAN DIFF REQ WBC (4.8 - 10.8 /CUMM) 10.2 RBC (4.70 - 6.10 /CUMM) 4.40 L Hgb (14.0 - 18.0 G/DL) 13.0 L Hct (42 - 52 %) 37.9 L MCV (80.0 - 94.0 FL) 86.1 MCH (27.0 - 31.0 PG) 29.5 RDW (11.5 - 14.5 %) 12.4 Plt Count (130 - 400 /CUMM) 264 MPV (7.4 - 10.4 FL) 7.8 Gran % (42.2 - 75.2 %) 58.2 Lymphocytes % (20.5 - 51.1 %) 27.7 Monocytes % (1.7 - 9.3 %) 11.6 H Eosinophils % (0 - 5 %) 2.1 Basophils % (0.0 - 2.0 %) 0.4 Absolute Granulocytes (1.4 - 6.5 /CUMM) 5.9 Absolute Lymphocytes (1.2 - 3.4 /CUMM) 2.8 Absolute Monocytes (0.10 - 0.60 /CUMM) 1.2 H Absolute Eosinophils (0.0 - 0.7 /CUMM) 0.2 Absolute Basophils (0.0 - 0.2 /CUMM) 0 PUBS MCHC (33.0 - 37.0 G/DL) 34.2 Blood cultures are negative so far. Assessment * diabetic foot infection of right big toe * Strong suspicion of underlying osteomyelitis * History of diabetes * Transient episode of diarrhea/soft stools- resolved * Morbid obesity * Fever- likely sources cellulitis and osteomyelitis * Elevated lactic acid level improved Plan * Continue leg elevation * Continue IV Unasyn * Follow blood cultures; C. difficile and stool cultures * Podiatry consult with Dr. Aggarwal * Infectious disease consult
[2017-04-24 14:49] VITALS: BP 120/80
[2017-04-24 22:12] VITALS: BP 128/84
[2017-04-25 06:45] VITALS: BP 140/80
--- NOTE | 2017-04-25 08:32 | PN- Housestaff ---
Subjective Follow-up For: Left toe cellulitis/ostial myelitis Comminuted fracture proximal phalanx Subjective: No acute events overnight. The patient feels comfortable this morning and denies any fevers,chills or pain. Review of Systems Constitutional: Denies: see HPI. Objective Last 24 Hrs of Vital Signs/I&O Vital Signs Date Time Temp Pulse Resp B/P B/P Pulse O2 O2 Flow FiO2 Mean Ox Delivery Rate 04/25 1406 97.7 68 20 130/80 97 Room Air 04/25 0645 98.2 90 18 140/80 95 Room Air 07/ 0000 96 Room Air 04/24 2212 98.3 86 20 128/84 96 Room Air 04/24 1449 97.3 86 20 120/80 97 Intake & Output 04/25 1600 04/25 0800 04/25 0000 Intake Total 480 320 580 Output Total Balance 480 320 580 Intake, IV 120 100 Intake, Oral 480 200 480 Number 0 Bowel Movements Physical Exam General Appearance: Alert, Oriented X3, Cooperative, No Acute Distress Current Medications: Current Medications Sig/Homero Start time Last Medication Dose Route Stop Time Status Admin Acetaminophen 650 MG Q6P PRN 04/22 2330 AC 04/23 PO 0106 Ampicillin Sodium/ 3,000 MG Q6H 04/23 0200 AC 04/25 Sulbactam Sodium IV 1334 Sodium Chloride 100 ML Atorvastatin Calcium 10 MG DAILY 04/23 1000 AC 04/25 PO 0830 Benzonatate 100 MG TID 04/22 2327 AC 04/25 PO 0830 Heparin Sodium 5,000 UNIT Q8 04/23 0600 AC 04/25 (Porcine) SC 1334 Insulin Aspart 0 TIDAC 04/23 0800 AC 04/25 SC 1237 Insulin Detemir 22 UNITS BID 04/22 2319 AC 04/25 SC 0829 Morphine Sulfate 0.5 MG Q6P PRN 04/22 2330 AC IV Ondansetron HCl 4 MG Q6P PRN 04/22 2330 AC IV Oxycodone HCl 5 MG Q6P PRN 04/22 2330 AC PO Last 24 Hrs of Lab/Denis Results Last 24 Hrs of Labs/Mics: Laboratory Tests 04/25/17 0756: Anion Gap 11, Estimated GFR > 60, BUN/Creatinine Ratio 26.0 H, CBC w Diff NO MAN DIFF REQ, RBC 4.45 L, MCV 85.3, MCH 29.0, RDW 12.7, MPV 7.3 L, Gran % 48.1 , Lymphocytes % 37.0, Monocytes % 11.3 H, Eosinophils % 3.2, Basophils % 0.4, Absolute Granulocytes 4.4, Absolute Lymphocytes 3.4, Absolute Monocytes 1.0 H, Absolute Eosinophils 0.3, Absolute Basophils 0, PUBS MCHC 34.0 Lines/Diet/Fluids Lines: none Assessment/Plan Assessment: 41-year-old gentleman with a PMH of obesity and diabetes, recently treated for stage III left great toe ulcer, completed a four-week course of IV Unasyn via PICC line (last dose 04/01/2017) presented with complaints of fevers, nausea and vomiting. VS on admission: BP 125 was 62, HR 101, RR 20, SPO2 98% on RA, T101.6 Pertinent physical findings: Fluctuance and bloody purulent drainage from great toe Pertinent labs: WBC 9.8, H&H 13.4/39.4, platelets 320, sodium 134, BUN/09/0.6 lactic acid 3.3 Problem list: 1. Left great toe osteomyelitis/cellulitis 3. Comminuted impacted fracture proximal phalanx of left great toe 3. Uncontrolled diabetic Plan: * Patient continues to remain stable at this time, afebrile. No evidence of leukocytosis and blood cultures negative thus far * Continue with IV Unasyn. At this time tentative schedule is to go to the OR on Tuesday * Accu-Cheks over the past 24 hours between 164 and 229. We will continue the high dose sliding scale. * DVT prophylaxis: Heparin 5000 units subcutaneous * Full code * Diabetic diet Problem List: 1. Hyperglycemia 2. Osteomyelitis of toe of left foot Pain Ratin Pain Location: left toe Pain Goal: Pain 4 or less Pain Plan: Tylenol, Morphine sulphate, Oxycodone Tomorrow's Labs & Rationales: None
[2017-04-25 08:49] LABS: ABSOLUTE BASOPHIL COUNT 0 /CUMM (0.0-0.2); ABSOLUTE EOSINOPHIL COUNT 0.3 /CUMM (0.0-0.7); ABSOLUTE GRANULOCYTE CT 4.4 /CUMM (1.4-6.5); ABSOLUTE LYMPH COUNT 3.4 /CUMM (1.2-3.4); BASOPHIL % 0.4 % (0.0-2.0); EOSINOPHIL % 3.2 % (0-5); GRANULOCYTE % 48.1 % (42.2-75.2); HEMATOCRIT 37.9 % (42-52); MEAN CORPUSCULAR VOLUME 85.3 FL (80.0-94.0); MEAN PLATELET VOLUME 7.3 FL (7.4-10.4); PLATELET COUNT 299 /CUMM (130-400); RBC DISTRIBUTION WIDTH 12.7 % (11.5-14.5); RED BLOOD CELL CT 4.45 /CUMM (4.70-6.10); WHITE BLOOD CELL COUNT 9.2 /CUMM (4.8-10.8)
--- NOTE | 2017-04-25 10:54 | PN- Att Addend ---
Attending Addendum Attending Brief Note Patient seen and examined. Plan of care discussed with the medical team and the patient. Available lab work and radiology test reports were reviewed. Patient awake alert without any distress. He denies any difficulty breathing or abdominal pain nausea vomiting. His pain is well controlled. He denies any fever or chills. Vital Signs Date Time Temp Pulse Resp B/P B/P Pulse O2 O2 Flow FiO2 Mean Ox Delivery Rate 04/25 0645 98.2 90 18 140/80 95 Room Air 04/25 0000 96 Room Air 04/24 2212 98.3 86 20 128/84 96 Room Air 04/24 1449 97.3 86 20 120/80 97 Intake & Output 04/25 1600 04/25 0800 04/25 0000 Intake Total 320 580 Output Total Balance 320 580 Intake, IV 120 100 Intake, Oral 200 480 Exam: General: Patient awake alert oriented without any distress; patient is noted to be obese; CVS: S1 plus S2 without any murmur or gallops Chest: Few scattered crepitation without any wheeze. There is no respiratory distress. 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 without any focal neuro deficit and follows command appropriately Extremities: No edema; no clubbing or cyanosis noted; right big toe has a round punched-out 1 inch lesion with pus no surrounding erythema or streaks noted ; patient is able to move his toes Laboratory Tests 04/25 0756 Chemistry Sodium (137 - 145 mmol/L) 136 L Potassium (3.5 - 5.1 mmol/L) 3.8 Chloride (98 - 107 mmol/L) 101 Carbon Dioxide (22 - 30 mmol/L) 25 Anion Gap (5 - 16) 11 BUN (9 - 20 mg/dL) 13 Creatinine (0.7 - 1.2 mg/dL) 0.5 L Estimated GFR (>60 ml/min) > 60 BUN/Creatinine Ratio (7 - 25 %) 26.0 H Hematology CBC w Diff NO MAN DIFF REQ WBC (4.8 - 10.8 /CUMM) 9.2 RBC (4.70 - 6.10 /CUMM) 4.45 L Hgb (14.0 - 18.0 G/DL) 12.9 L Hct (42 - 52 %) 37.9 L MCV (80.0 - 94.0 FL) 85.3 MCH (27.0 - 31.0 PG) 29.0 RDW (11.5 - 14.5 %) 12.7 Plt Count (130 - 400 /CUMM) 299 MPV (7.4 - 10.4 FL) 7.3 L Gran % (42.2 - 75.2 %) 48.1 Lymphocytes % (20.5 - 51.1 %) 37.0 Monocytes % (1.7 - 9.3 %) 11.3 H Eosinophils % (0 - 5 %) 3.2 Basophils % (0.0 - 2.0 %) 0.4 Absolute Granulocytes (1.4 - 6.5 /CUMM) 4.4 Absolute Lymphocytes (1.2 - 3.4 /CUMM) 3.4 Absolute Monocytes (0.10 - 0.60 /CUMM) 1.0 H Absolute Eosinophils (0.0 - 0.7 /CUMM) 0.3 Absolute Basophils (0.0 - 0.2 /CUMM) 0 PUBS MCHC (33.0 - 37.0 G/DL) 34.0 Blood cultures are negative so far. Assessment * diabetic foot infection of right big toe * Strong suspicion of underlying osteomyelitis * History of diabetes * Transient episode of diarrhea/soft stools- resolved * Morbid obesity * Fever- likely sources cellulitis and osteomyelitis * Elevated lactic acid level improved Plan * Continue leg elevation * Continue IV Unasyn * Infectious disease consult * Await podiatry consult; patient likely needs a I&D
[2017-04-25 14:06] VITALS: BP 130/80
[2017-04-25 22:05] VITALS: BP 118/62
[2017-04-26 06:39] VITALS: BP 110/60
--- NOTE | 2017-04-26 08:03 | PN- Housestaff ---
Subjective Follow-up For: Left toe cellulitis/ostial myelitis Comminuted fracture proximal phalanx Subjective: Patient was resting comfortably in his bed. Denies any overnight events. Patient was informed that he will be going to the OR tomorrow. Review of Systems Constitutional: Denies: see HPI. Objective Last 24 Hrs of Vital Signs/I&O Vital Signs Date Time Temp Pulse Resp B/P B/P Pulse O2 O2 Flow FiO2 Mean Ox Delivery Rate 04/26 0639 97.9 74 20 110/60 97 Room Air 04/25 2205 97.9 80 20 118/62 98 Room Air 04/25 1406 97.7 68 20 130/80 97 Room Air Intake & Output 04/26 1600 04/26 0800 04/26 0000 Intake Total 390 540 Output Total Balance 390 540 Intake, IV 150 300 Intake, Oral 240 240 Patient 328 lb Weight Physical Exam General Appearance: Alert, Oriented X3, Cooperative, No Acute Distress Other Physical Findings: Skin No Rashes HEENT Atraumatic, PERRLA, EOMI Neck Supple, No JVD Cardiovascular Regular Rate, Normal S1, Normal S2, No Murmurs Lungs Clear to Auscultation, Normal Air Movement Abdomen Patient refused to be examined Neurological Normal Gait, Normal Speech, Strength at 5/5 X4 Ext, Normal Tone, Sensation Intact Extremities No Clubbing, No Cyanosis, No Edema, Normal Pulses, Normal Capillary Refill, Draining ulcer on left great toe Vascular Normal Pulses Current Medications: Current Medications Sig/Homero Start time Last Medication Dose Route Stop Time Status Admin Acetaminophen 650 MG Q6P PRN 04/22 2330 AC 04/23 PO 0106 Ampicillin Sodium/ 3,000 MG Q6H 04/23 0200 AC 04/26 Sulbactam Sodium IV 0814 Sodium Chloride 100 ML Atorvastatin Calcium 10 MG DAILY 04/23 1000 AC 04/26 PO 0815 Benzonatate 100 MG TID 04/22 2327 AC 04/26 PO 0815 Heparin Sodium 5,000 UNIT Q8 04/23 0600 AC 04/26 (Porcine) SC 0502 Insulin Aspart 0 TIDAC 04/23 0800 AC 04/26 SC 0815 Insulin Detemir 22 UNITS BID 04/22 2319 AC 04/26 SC 0814 Morphine Sulfate 0.5 MG Q6P PRN 04/22 2330 AC IV Ondansetron HCl 4 MG Q6P PRN 04/22 2330 AC IV Oxycodone HCl 5 MG Q6P PRN 04/22 2330 AC PO Assessment/Plan Assessment: 41-year-old gentleman with a PMH of obesity and diabetes, recently treated for stage III left great toe ulcer, completed a four-week course of IV Unasyn via PICC line (last dose 04/01/2017) presented with complaints of fevers, nausea and vomiting. VS on admission: BP 125 was 62, HR 101, RR 20, SPO2 98% on RA, T101.6 Pertinent physical findings: Fluctuance and bloody purulent drainage from great toe Pertinent labs: WBC 9.8, H&H 13.4/39.4, platelets 320, sodium 134, BUN/09/0.6 lactic acid 3.3 Problem list: 1. Left great toe osteomyelitis/cellulitis 3. Comminuted impacted fracture proximal phalanx of left great toe 3. Uncontrolled diabetic Plan: * Patient continues to remain stable at this time, afebrile. No evidence of leukocytosis and blood cultures negative thus far * Continue with IV Unasyn. At this time tentative schedule is to go to the OR on tomorrow. * Accu-Cheks over the past 24 hours between 156 and 193. We will continue the high dose sliding scale. * DVT prophylaxis: Heparin 5000 units subcutaneous * Full code * Diabetic diet Problem List: 1. Osteomyelitis of toe of left foot 2. Hyperglycemia Pain Ratin Pain Location: Left great toe Pain Goal: Pain 4 or less Pain Plan: Pain Pathway Tomorrow's Labs & Rationales: CBC,BEP (Pre-Procedure)
--- NOTE | 2017-04-26 10:02 | PN- Att Addend ---
Attending Addendum Attending Brief Note Patient seen and examined. Plan of care discussed with the medical team and the patient. Available lab work and radiology test reports were reviewed. Patient awake alert without any distress. He denies any difficulty breathing or abdominal pain nausea vomiting. His pain is well controlled. He denies any fever or chills. Vital Signs Date Time Temp Pulse Resp B/P B/P Pulse O2 O2 Flow FiO2 Mean Ox Delivery Rate 04/26 0639 97.9 74 20 110/60 97 Room Air 04/25 2205 97.9 80 20 118/62 98 Room Air 04/25 1406 97.7 68 20 130/80 97 Room Air Intake & Output 04/26 1600 04/26 0800 04/26 0000 Intake Total 390 540 Output Total Balance 390 540 Intake, IV 150 300 Intake, Oral 240 240 Patient 328 lb Weight Exam: General: Patient awake alert oriented without any distress; patient is noted to be obese; CVS: S1 plus S2 without any murmur or gallops Chest: Few scattered crepitation without any wheeze. There is no respiratory distress. 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: Awake alert oriented without any focal neuro deficit and follows command appropriately Extremities: No edema; no clubbing or cyanosis noted; right big toe has a round punched-out 1 inch lesion with pus no surrounding erythema or streaks noted ; patient is able to move his toes Blood cultures are negative Assessment * diabetic foot infection of right big toe * Strong suspicion of underlying osteomyelitis * History of diabetes * Transient episode of diarrhea/soft stools- resolved * Morbid obesity * Fever- likely sources cellulitis and osteomyelitis * Elevated lactic acid level improved Plan * Continue leg elevation * Continue IV Unasyn * Nothing by mouth post midnight for OR tomorrow; start IV fluids and nothing by mouth
[2017-04-26 14:11] VITALS: BP 124/80
[2017-04-26 22:18] VITALS: BP 140/90
[2017-04-27 06:10] VITALS: BP 128/82
[2017-04-27 09:11] LABS: ABSOLUTE BASOPHIL COUNT 0 /CUMM (0.0-0.2); ABSOLUTE EOSINOPHIL COUNT 0.4 /CUMM (0.0-0.7); ABSOLUTE GRANULOCYTE CT 5.3 /CUMM (1.4-6.5); ABSOLUTE LYMPH COUNT 3.7 /CUMM (1.2-3.4); ABSOLUTE MONOCYTE COUNT 0.8 /CUMM (0.10-0.60); BASOPHIL % 0.3 % (0.0-2.0); GRANULOCYTE % 51.8 % (42.2-75.2); HEMATOCRIT 39.8 % (42-52); MEAN CORPUSCULAR HGB CONC 33.8 G/DL (33.0-37.0); MEAN CORPUSCULAR VOLUME 85.7 FL (80.0-94.0); MEAN PLATELET VOLUME 7.6 FL (7.4-10.4); PLATELET COUNT 331 /CUMM (130-400); RBC DISTRIBUTION WIDTH 12.4 % (11.5-14.5); RED BLOOD CELL CT 4.64 /CUMM (4.70-6.10)
[2017-04-27 10:31] LABS: WHITE BLOOD CELL COUNT 10.2 /CUMM (4.8-10.8)
--- NOTE | 2017-04-27 12:47 | PN- Att Addend ---
Attending Addendum Attending Brief Note 41M PMH T2DM, morbid obesity, recent osteomyelitis of left toe s/p 4 weeks of Unasyn admitted with sepsis secondary to cellulitis and osteomyelitis of the left toe. Started on Unasyn on admission, fever has resolved, toe still erythematous, patient with no complaints. Labs reviewed, exam otherwise benign. AFVSS NAD Anicteric, MMM Supple RRR CTAB Soft, NTND Left toe erythema Pulses intact A&Ox3 no focal deficits Current Medications Sig/Homero Start time Last Medication Dose Route Stop Time Status Admin Acetaminophen 650 MG Q6P PRN 04/22 2330 AC 04/23 PO 0106 Ampicillin Sodium/ 3,000 MG Q6H 04/23 0200 AC 04/27 Sulbactam Sodium IV 0837 Sodium Chloride 100 ML Atorvastatin Calcium 10 MG DAILY 04/23 1000 AC 04/27 PO 0837 Benzonatate 100 MG TID 04/22 2327 AC 04/27 PO 0837 Dextrose/Sodium 1,000 ML Q13H 04/27 0000 AC 04/26 Chloride IV 04/27 1259 2334 Heparin Sodium 5,000 UNIT Q8 04/23 0600 AC 04/26 (Porcine) SC 2124 Insulin Aspart 0 TIDAC 04/23 0800 DC 04/26 SC 04/27 0000 1728 Insulin Detemir 11 UNITS BID 04/27 1000 AC 04/27 SC 0837 Insulin Detemir 22 UNITS BID 04/22 2319 DC 04/26 SC 2125 Insulin Human Regular 0 Q6 / 0000 AC 04/27 SC 1245 Morphine Sulfate 0.5 MG Q6P PRN 04/22 2330 AC IV Ondansetron HCl 4 MG Q6P PRN 04/22 2330 AC IV Oxycodone HCl 5 MG Q6P PRN 04/22 2330 AC PO Laboratory Tests 04/27 0640 Chemistry Sodium (137 - 145 mmol/L) 138 Potassium (3.5 - 5.1 mmol/L) 4.4 Chloride (98 - 107 mmol/L) 103 Carbon Dioxide (22 - 30 mmol/L) 25 Anion Gap (5 - 16) 10 BUN (9 - 20 mg/dL) 15 Creatinine (0.7 - 1.2 mg/dL) 0.6 L Estimated GFR (>60 ml/min) > 60 BUN/Creatinine Ratio (7 - 25 %) 25.0 Hematology CBC w Diff NO MAN DIFF REQ WBC (4.8 - 10.8 /CUMM) 10.2 RBC (4.70 - 6.10 /CUMM) 4.64 L Hgb (14.0 - 18.0 G/DL) 13.4 L Hct (42 - 52 %) 39.8 L MCV (80.0 - 94.0 FL) 85.7 MCH (27.0 - 31.0 PG) 29.0 RDW (11.5 - 14.5 %) 12.4 Plt Count (130 - 400 /CUMM) 331 MPV (7.4 - 10.4 FL) 7.6 Gran % (42.2 - 75.2 %) 51.8 Lymphocytes % (20.5 - 51.1 %) 35.9 Monocytes % (1.7 - 9.3 %) 8.0 Eosinophils % (0 - 5 %) 4.0 Basophils % (0.0 - 2.0 %) 0.3 Absolute Granulocytes (1.4 - 6.5 /CUMM) 5.3 Absolute Lymphocytes (1.2 - 3.4 /CUMM) 3.7 H Absolute Monocytes (0.10 - 0.60 /CUMM) 0.8 H Absolute Eosinophils (0.0 - 0.7 /CUMM) 0.4 Absolute Basophils (0.0 - 0.2 /CUMM) 0 PUBS MCHC (33.0 - 37.0 G/DL) 33.8 1. Sepsis (resolved) 2. Acute osteomyelitis of right first toe 3. T2DM 4. Morbid obesity Plan - Continue on general medicine - Will go to OR today with podiatry, follow recommendations - Levemir decreased to 11 units for this morning as patient will be NPO prior to surgery. Once post-op and diet is reinstated can increase Levemir back to home dose + sliding scale insulin - Continue Unasyn - Recheck CBC tomorrow. No need to check other labs - ID consult for antibiotic length and recommendations - Continue home medications - Follow culture results - DVT PPx
--- NOTE | 2017-04-27 13:23 | PN- Housestaff ---
Subjective Follow-up For: Left toe cellulitis/ostial myelitis Comminuted fracture proximal phalanx Subjective: I have personally seen and examined the patient today. Denies any overnight events. His toe pain is also well controlled. Review of Systems Constitutional: Denies: see HPI. Objective Last 24 Hrs of Vital Signs/I&O Vital Signs Date Time Temp Pulse Resp B/P B/P Pulse O2 O2 Flow FiO2 Mean Ox Delivery Rate 04/27 1459 96.8 71 18 122/72 94 04/27 0610 97.5 73 20 128/82 98 Room Air 04/26 2218 97.9 76 20 140/90 98 Intake & Output 04/27 1600 04/27 0800 04/27 0000 Intake Total 650 600 580 Output Total Balance 650 600 580 Intake, IV 650 600 100 Intake, Oral 0 480 Number 0 Bowel Movements Physical Exam General Appearance: Alert, Oriented X3, Cooperative, No Acute Distress Other Physical Findings: Skin No Rashes HEENT Atraumatic, PERRLA, EOMI Neck Supple, No JVD Cardiovascular Regular Rate, Normal S1, Normal S2, No Murmurs Lungs Clear to Auscultation, Normal Air Movement Abdomen Patient refused to be examined Neurological Normal Gait, Normal Speech, Strength at 5/5 X4 Ext, Normal Tone, Sensation Intact Extremities No Clubbing, No Cyanosis, No Edema, Normal Pulses, Normal Capillary Refill, Draining ulcer on left great toe Vascular Normal Pulses Current Medications: Current Medications Sig/Homero Start time Last Medication Dose Route Stop Time Status Admin Acetaminophen 650 MG Q6P PRN 04/22 2330 AC 04/23 PO 0106 Ampicillin Sodium/ 3,000 MG Q6H 04/23 0200 AC 04/27 Sulbactam Sodium IV 1357 Sodium Chloride 100 ML Atorvastatin Calcium 10 MG DAILY 04/23 1000 AC 04/27 PO 0837 Benzonatate 100 MG TID 04/22 2327 AC 04/27 PO 0837 Dextrose/Sodium 1,000 ML Q13H 04/27 0000 DC 04/26 Chloride IV 04/27 1259 2334 Heparin Sodium 5,000 UNIT Q8 04/23 0600 AC 04/26 (Porcine) SC 2124 Insulin Aspart 0 TIDAC 04/23 0800 DC 04/26 SC 04/27 0000 1728 Insulin Detemir 11 UNITS BID 04/27 1000 AC 04/27 SC 0837 Insulin Detemir 22 UNITS BID 04/22 2319 DC 04/26 SC 2125 Insulin Human Regular 0 Q6 04/27 0000 AC 04/27 SC 1245 Morphine Sulfate 0.5 MG Q6P PRN 04/22 2330 AC IV Ondansetron HCl 4 MG Q6P PRN 04/22 2330 AC IV Oxycodone HCl 5 MG Q6P PRN 04/22 2330 AC PO Last 24 Hrs of Lab/Denis Results Last 24 Hrs of Labs/Mics: Laboratory Tests 04/27/17 0640: Anion Gap 10, Estimated GFR > 60, BUN/Creatinine Ratio 25.0, CBC w Diff NO MAN DIFF REQ, RBC 4.64 L, MCV 85.7, MCH 29.0, RDW 12.4, MPV 7.6, Gran % 51.8, Lymphocytes % 35.9, Monocytes % 8.0, Eosinophils % 4.0, Basophils % 0.3, Absolute Granulocytes 5.3, Absolute Lymphocytes 3.7 H, Absolute Monocytes 0.8 H, Absolute Eosinophils 0.4, Absolute Basophils 0, PUBS MCHC 33.8 Assessment/Plan Assessment: 41-year-old gentleman with a PMH of obesity and diabetes, recently treated for stage III left great toe ulcer, completed a four-week course of IV Unasyn via PICC line (last dose 04/01/2017) presented with complaints of fevers, nausea and vomiting. VS on admission: BP 125 was 62, HR 101, RR 20, SPO2 98% on RA, T101.6 Pertinent physical findings: Fluctuance and bloody purulent drainage from great toe Pertinent labs: WBC 9.8, H&H 13.4/39.4, platelets 320, sodium 134, BUN/09/0.6 lactic acid 3.3 Problem list: 1. Left great toe osteomyelitis/cellulitis 3. Comminuted impacted fracture proximal phalanx of left great toe 3. Uncontrolled diabetic Plan: * Patient continues to remain stable at this time, afebrile. No evidence of leukocytosis and blood cultures negative thus far * Continue with IV Unasyn. Patient was schedueled to go to the OR today, but patient refused to do the amputation. Dr. Ott will see the patient tomorrow. * Accu-Cheks over the past 24 hours between 191 and 280. We will continue the high dose sliding scale. * DVT prophylaxis: Heparin 5000 units subcutaneous * Full code * Diabetic diet Problem List: 1. Osteomyelitis of toe of left foot 2. Hyperglycemia Pain Ratin Pain Location: Left great toe Pain Goal: Pain 4 or less Pain Plan: Pain Pathway Tomorrow's Labs & Rationales: None
[2017-04-27 14:59] VITALS: BP 122/72
--- NOTE | 2017-04-27 16:25 | NUR ---
PT LEFT FLOOR VIA STRETCHER TO OR.
--- NOTE | 2017-04-27 17:03 | NUR ---
PT ARRIVED TO FLOOR VIA STRETCHER, PROCEDURE NOT COMPLETE, REQUESTING DINNER, CALL GLASER WITHIN REACH.
[2017-04-27 22:32] VITALS: BP 124/80
--- NOTE | 2017-04-27 22:49 | Patient Discharge Instructions ---
Discharge Instructions General Discharge Information You were seen/treated for: Osteomyelitis: Infection of the bone Cellulitis: Infection of the skin Watch for these problems: Worsening redness or swelling. Fevers, chills Nausea, vomiting, and diarrhea Special Instructions: Recommendations were for toe amputation. Based on your preference not to have this done here being discharged with instructions to watch for any worsening redness, swelling, pain, fevers or chills that may arise. Please return to the emergency room immediately Please follow-up with your PCP within one week after discharge. Please follow-up with Dr. Aggarwal as directed. Diet Recommended Diet: Heart Healthy Activity Activity Self Limited: Yes Acute Coronary Syndrome Inclusion Criteria At DC or during hospital stay patient has or had the following: ACS DIAGNOSIS No Discharge Core Measures Meds if any: Prescribed or Continued at Discharge Meds if any: NOT Prescribed or Continued at Discharge Congestive Heart Failure Inclusion Criteria At DC or during hospital stay patient has or had the following: CHF DIAGNOSIS No Discharge Core Measures Meds if any: Prescribed or Continued at Discharge Meds if any: NOT Prescribed or Continued at Discharge Cerebrovascular accident Inclusion Criteria At DC or during hospital stay patient has or had the following: CVA/TIA Diagnosis No Discharge Core Measures Meds if any: Prescribed or Continued at Discharge Meds if any: NOT Prescribed or Continued at Discharge Venous thromboembolism Inclusion Criteria VTE Diagnosis No VTE Type NONE VTE Confirmed by (Test) NONE Discharge Core Measures - Per Current guidelines, there needs to be overlap - treatment for the first 5 days of Warfarin therapy. - If discharged on Warfarin prior to 5 days of - overlap therapy, the patient will need to be - assessed for post discharge needs including - *Post discharge parental anticoagulation - *Warfarin and/or parental anticoagulation education - *Follow up date to check INR post discharge At least 5 days overlap therapy as Inpatient No Meds if any: Prescribed or Continued at Discharge Note: Overlap Therapy is Warfarin and Anticoagulant Meds if any: NOT Prescribed or Continued at Discharge
[2017-04-28 06:49] VITALS: BP 128/80
--- NOTE | 2017-04-28 07:17 | PN- Housestaff ---
RINA PEDERSON,LUL 04/28/17 0716: Subjective Follow-up For: Left toe cellulitis/ostial myelitis Comminuted fracture proximal phalanx Subjective: I have personally seen and examined the patient today. Patient was sleepy and not very interactive. Denies any overnight events. Review of Systems Constitutional: Denies: see HPI. Objective Last 24 Hrs of Vital Signs/I&O Vital Signs Date Time Temp Pulse Resp B/P B/P Pulse O2 O2 Flow FiO2 Mean Ox Delivery Rate 04/28 1435 98.0 74 20 120/70 96 Room Air 04/28 0938 Room Air 04/28 0800 Room Air 04/28 0649 98.4 75 20 128/80 96 Room Air 04/27 2232 98.6 80 20 124/80 95 Room Air Intake & Output 04/28 1600 04/28 0800 04/28 0000 Intake Total 680 450 230 Output Total Balance 680 450 230 Intake, IV 200 250 130 Intake, Oral 480 200 100 Number 1 Bowel Movements Physical Exam General Appearance: Alert, Oriented X3, Cooperative Other Physical Findings: Skin No Rashes HEENT Atraumatic, PERRLA, EOMI Neck Supple, No JVD Cardiovascular Regular Rate, Normal S1, Normal S2, No Murmurs Lungs Clear to Auscultation, Normal Air Movement Abdomen Patient refused to be examined Neurological Normal Gait, Normal Speech, Strength at 5/5 X4 Ext, Normal Tone, Sensation Intact Extremities No Clubbing, No Cyanosis, No Edema, Normal Pulses, Normal Capillary Refill, Draining ulcer on left great toe Vascular Normal Pulses Current Medications: Current Medications Sig/Homero Start time Last Medication Dose Route Stop Time Status Admin Acetaminophen 650 MG Q6P PRN 04/22 2330 AC 04/23 PO 0106 Ampicillin Sodium/ 3,000 MG Q6H 04/23 0200 AC 04/28 Sulbactam Sodium IV 1324 Sodium Chloride 100 ML Atorvastatin Calcium 10 MG DAILY 04/23 1000 AC 04/28 PO 0850 Benzonatate 100 MG TID 04/22 2327 AC 04/28 PO 0850 Fentanyl Citrate 100 MCG .STK-MED ONE 04/27 1631 DC IM 04/27 1632 Heparin Sodium 5,000 UNIT Q8 04/23 0600 AC 04/26 (Porcine) SC 2124 Insulin Aspart 0 TIDAC 04/28 0800 AC 04/28 SC 1324 Insulin Detemir 22 UNITS BID 04/27 2200 AC 04/28 SC 0850 Insulin Detemir 11 UNITS BID 04/27 1000 DC 04/27 NV 0837 Insulin Human Regular 0 Q6 04/27 0000 DC 04/27 SC 1245 Midazolam HCl 2 MG .STK-MED ONE 04/27 1631 DC IM 04/27 1632 Morphine Sulfate 0.5 MG Q6P PRN 04/22 2330 AC IV Ondansetron HCl 4 MG Q6P PRN 04/22 2330 AC IV Oxycodone HCl 5 MG Q6P PRN 04/22 2330 AC PO Last 24 Hrs of Lab/Denis Results Last 24 Hrs of Labs/Mics: Laboratory Tests 04/28/17 0744: CBC w Diff NO MAN DIFF REQ, RBC 4.72, MCV 85.9, MCH 28.9, RDW 12.6, MPV 7.3 L, Gran % 61.0, Lymphocytes % 28.3, Monocytes % 7.7, Eosinophils % 2.7, Basophils % 0.3, Absolute Granulocytes 7.2 H, Absolute Lymphocytes 3.4, Absolute Monocytes 0.9 H, Absolute Eosinophils 0.3, Absolute Basophils 0, PUBS MCHC 33.6 Microbiology 04/28 0211 STOOL: Stool Culture - COLB Assessment/Plan Assessment: 41-year-old gentleman with a PMH of obesity and diabetes, recently treated for stage III left great toe ulcer, completed a four-week course of IV Unasyn via PICC line (last dose 04/01/2017) presented with complaints of fevers, nausea and vomiting. VS on admission: BP 125 was 62, HR 101, RR 20, SPO2 98% on RA, T101.6 Pertinent physical findings: Fluctuance and bloody purulent drainage from great toe Pertinent labs: WBC 9.8, H&H 13.4/39.4, platelets 320, sodium 134, BUN/09/0.6 lactic acid 3.3 Problem list: 1. Left great toe osteomyelitis/cellulitis 3. Comminuted impacted fracture proximal phalanx of left great toe 3. Uncontrolled diabetic Plan: * Patient continues to remain stable at this time, afebrile. No evidence of leukocytosis and blood cultures negative thus far * Continue with IV Unasyn. Patient was schedueled to go to the OR yesterday, but patient refused to do the amputation. Dr. Ott will see the patient today, awaiting his recommendations. * Accu-Cheks over the past 24 hours between 173 and 219. We will continue the high dose sliding scale. * DVT prophylaxis: Heparin 5000 units subcutaneous * Full code * Diabetic diet Problem List: 1. Osteomyelitis of toe of left foot 2. Hyperglycemia Pain Ratin Pain Location: Left great toe Pain Goal: Pain 4 or less Pain Plan: Pain Pathway Tomorrow's Labs & Rationales: None HUSEYIN LYON MD 04/28/17 1223: Attending MD Review Statement Attending Statement Attending MD Statement: examined this patient, discuss w/resident/PA/MILL CONTROL OPERATOR, agreed w/resident/PA/MILL CONTROL OPERATOR, reviewed EMR data (avail) Attending Assessment/Plan: 41M PMH T2DM, morbid obesity, recent osteomyelitis of left toe s/p 4 weeks of Unasyn admitted with sepsis secondary to cellulitis and osteomyelitis of the left toe. Started on Unasyn on admission, fever has resolved. Patient refused toe amputation yesterday. He is still having erythema and mild discomfort. Afebrile overnight, stable vitals, WBC up to 11.9 today. AFVSS NAD Anicteric, MMM Supple RRR CTAB Soft, NTND Left toe erythema Pulses intact A&Ox3 no focal deficits 1. Sepsis (resolved) 2. Acute osteomyelitis of right first toe 3. T2DM 4. Morbid obesity Plan - Continue on general medicine - Follow ID, podiatry, vascular recommendations - Continue home dose of Levemir + sliding scale insulin - Continue Unasyn - CBC tomorrow - Continue home medications - Follow culture results - DVT PPx
[2017-04-28 08:32] LABS: ABSOLUTE BASOPHIL COUNT 0 /CUMM (0.0-0.2); ABSOLUTE EOSINOPHIL COUNT 0.3 /CUMM (0.0-0.7); ABSOLUTE GRANULOCYTE CT 7.2 /CUMM (1.4-6.5); ABSOLUTE LYMPH COUNT 3.4 /CUMM (1.2-3.4); ABSOLUTE MONOCYTE COUNT 0.9 /CUMM (0.10-0.60); BASOPHIL % 0.3 % (0.0-2.0); EOSINOPHIL % 2.7 % (0-5); HEMATOCRIT 40.6 % (42-52); MEAN CORPUSCULAR HGB 28.9 PG (27.0-31.0); MEAN CORPUSCULAR HGB CONC 33.6 G/DL (33.0-37.0); MEAN CORPUSCULAR VOLUME 85.9 FL (80.0-94.0); MEAN PLATELET VOLUME 7.3 FL (7.4-10.4); PLATELET COUNT 348 /CUMM (130-400); RBC DISTRIBUTION WIDTH 12.6 % (11.5-14.5); RED BLOOD CELL CT 4.72 /CUMM (4.70-6.10); WHITE BLOOD CELL COUNT 11.9 /CUMM (4.8-10.8)
--- NOTE | 2017-04-28 11:15 | NUR ---
PT LEFT FLOOR Via STRETCHER TO US.
--- NOTE | 2017-04-28 13:01 | ULTRASOUND REPORT ---
EXAMINATION: US DUPLEX LOWER EXTREMITY ARTERY/GRAFT LIMITED, LEFT CLINICAL INFORMATION: Left leg arterial insufficiency. Ulcer of left leg. COMPARISON: None. TECHNIQUE: Real-time ultrasound and Doppler techniques (integrating B-mode 2-D vascular images, Doppler spectral analysis and color flow Doppler imaging) were utilized to interrogate the left lower extremity. FINDINGS: Left lower extremity: Common femoral artery: 108 cm/sec; multiphasic waveform Superficial femoral artery proximal: 64 cm/sec; multiphasic waveform Superficial femoral artery mid portion: 63 cm/sec; multiphasic waveform Superficial femoral artery distal: 50 cm/sec; multiphasic waveform Profunda artery: 60 cm/sec; multiphasic waveform Popliteal artery: 37.7 cm/sec; multiphasic waveform Posterior tibial artery: 81 cm/sec; multiphasic waveform Anterior tibial artery: 52 cm/s; multiphasic waveform ADDITIONAL FINDINGS: None. IMPRESSION: No clear evidence of arterial insufficiency in the left lower extremity. Greater sensitivity and specificity can be obtained with pre-and post exercise PVRs with SHERMAN calculations. Also consider dedicated CTA for further anatomical detail.
--- NOTE | 2017-04-28 13:45 | NUR ---
PT BACK TO FLOOR, CALL GLASER WITHIN REACH
[2017-04-28 14:35] VITALS: BP 120/70
--- NOTE | 2017-04-28 18:05 | Cons- Vascular Surgery ---
General Information and HPI Consulting Request Date of Consult: 04/28/17 Requested By: HUSEYIN LYON MD History of Present Illness: Patient is a 41-year-old gentleman with history of morbid obesity, diabetes, osteomyelitis which was treated with antibiotics with a PICC line. He presented to the hospital with GI symptoms. First toe ulcer was noted. Imaging was consistent with Ostermeier's of the left first toe. I was asked to see the patient regarding adequacy of blood flow to the left foot. Allergies/Medications Allergies: Coded Allergies: No Known Allergies (05/22/16) Home Med List: Atorvastatin Calcium 10 MG TABLET 1 TAB PO DAILY HLD Insulin Aspart (Novolog) 100 UNIT/ML VIAL 0 SC BEDTIME DM Blood sugar # Units Less than 250 0 251-300 1 301-350 2 351-400 3 more than 400 4 Insulin Aspart (Novolog) 100 UNIT/ML VIAL 0 SC TIDAC DM blood sugar # units less than 80 initiate hypoglycemia 80-150 8 units 151-200 10 units 201-250 12 units 251-300 14 units 301-350 16 units 351-400 18 units more than 400 20 units, notify Insulin Detemir (Levemir) 100 UNIT/ML VIAL 22 UNITS SC BID diabetes Past History Medical History Blood Transfusion Hx: No Neurological: NONE EENT: NONE Cardiovascular: NONE Respiratory: NONE Gastrointestinal: NONE Hepatic: NONE Renal: NONE Musculoskeletal: fracture (arm as a child), chronic nonhealing ulcer of left great toe Psychiatric: NONE Endocrine: diabetes Blood Disorders: NONE Cancer(s): NONE ASSISTANT TRACK AND FIELD COACH/Reproductive: NONE Surgical History Pertinent Surgical History: BIOPSY OF L GREAT TOE Family History Relations & Conditions If Any: MOTHER, , Age 60+; Cause: Cardiac arrest. FH: heart disease FATHER, , Age 60+. Psychosocial History Where Do You Live? Home Who Do You Live With? friends Services at Home: None Smoking Status: Never Smoked ETOH Use: denies use Illicit Drug Use: denies illicit drug use Functional Ability ADLs Independent: dressing, eating, toileting, bathing. Ambulation: independent IADLs Independent: shopping, housework, finances, food prep, telephone, transportation , medication admin. Review of Systems Review of Systems: Patient denies headache, dizziness, cough, palpitation, diarrhea or constipation Exam & Diagnostic Data Vital Signs and I&O Vital Signs Date Time Temp Pulse Resp B/P B/P Pulse O2 O2 Flow FiO2 Mean Ox Delivery Rate 04/28 1435 98.0 74 20 120/70 96 Room Air 04/28 0938 Room Air 04/28 0800 Room Air 04/28 0649 98.4 75 20 128/80 96 Room Air 04/27 2232 98.6 80 20 124/80 95 Room Air Intake & Output 04/28 1600 04/28 0800 04/28 0000 04/27 1600 04/27 0800 04/27 0000 Intake Total 680 450 230 650 600 580 Output Total Balance 680 450 230 650 600 580 Intake, IV 200 250 130 650 600 100 Intake, Oral 480 200 100 0 480 Number 1 0 Bowel Movements Physical Exam: Patient is alert and oriented 3 Lungs: Clear to auscultation bilaterally Heart: Regular rate and rhythm Abdomen: Soft, nontender nondistended Extremities: There is palpable dorsalis pedis and posterior tibial artery pulses on the left foot. The left first toe has some drainage. This is not purulence or nature. There is erythema around the left first toe. Assessment/Plan Assessment/Plan 41-year-old man with diabetes and prior history of osteomyelitis presents with left first toe osteomyelitis by imaging. Because of his strongly palpable left pedal pulses, I don't believe any significant disease is present. Arterial ultrasound of the lower extremity showed no evidence of significant arterial disease. There is no vascular surgical intervention needed at this time. Thank you for asking me to be involved in the care of this patient. Consult Acknowledgment - Thank you for your consult request. Attending MD Review Statement Attending Statement Attending MD Statement: examined this patient, discuss w/resident/PA/ARC CUTTER PLASMA ARC
--- NOTE | 2017-04-28 18:55 | NUR ---
ALERT AND ORIENTED X 3. ON ROOM AIR. DENIES SHORTNESS OF BREATH VITAL SIGNS STABLE. DENIES CHEST PAIN. + PULSES. DENIES NUMBNESS/TINGLING DSG TO L GREAT TOE IS C/D/I. NO DISCOMFORT/DISTRESS NOTED. STEADY GAIT WILL CONTINUE TO MONITOR
[2017-04-28 22:08] VITALS: BP 124/76
--- NOTE | 2017-04-29 08:15 | PN- Housestaff ---
RINA PEDERSON,[facility] 04/29/17 0815: Subjective Follow-up For: Left toe cellulitis/ostial myelitis Comminuted fracture proximal phalanx Review of Systems Constitutional: Denies: see HPI. Objective Last 24 Hrs of Vital Signs/I&O Vital Signs Date Time Temp Pulse Resp B/P B/P Pulse O2 O2 Flow FiO2 Mean Ox Delivery Rate 04/29 1110 Room Air 04/29 0800 Room Air 04/28 2208 97.4 76 20 124/76 95 Room Air 04/28 1435 98.0 74 20 120/70 96 Room Air Intake & Output 04/29 1600 04/29 0800 04/29 0000 Intake Total 300 580 Output Total Balance 300 580 Intake, IV 120 130 Intake, Oral 180 450 Number 0 Bowel Movements Physical Exam General Appearance: Alert, Oriented X3, Cooperative, No Acute Distress Other Physical Findings: Skin No Rashes HEENT Atraumatic, PERRLA, EOMI Neck Supple, No JVD Cardiovascular Regular Rate, Normal S1, Normal S2, No Murmurs Lungs Clear to Auscultation, Normal Air Movement Abdomen Patient refused to be examined Neurological Normal Gait, Normal Speech, Strength at 5/5 X4 Ext, Normal Tone, Sensation Intact Extremities No Clubbing, No Cyanosis, No Edema, Normal Pulses, Normal Capillary Refill, Draining ulcer on left great toe Vascular Normal Pulses Current Medications: Current Medications Sig/Homero Start time Last Medication Dose Route Stop Time Status Admin Acetaminophen 650 MG Q6P PRN 04/22 2330 AC 04/23 PO 0106 Ampicillin Sodium/ 3,000 MG Q6H 04/23 0200 DC 04/29 Sulbactam Sodium IV 0203 Sodium Chloride 100 ML Atorvastatin Calcium 10 MG DAILY 04/23 1000 AC 04/29 PO 0852 Benzonatate 100 MG TID 04/22 2327 AC 04/29 PO 0852 Heparin Sodium 5,000 UNIT Q8 04/23 06 AC 04/26 (Porcine) UT 212 Insulin Aspart 0 TIDAC 04/28 08 AC 04/29 SC 0852 Insulin Detemir 22 UNITS BID 04/27 2200 AC 04/29 SC 0852 Morphine Sulfate 0.5 MG Q6P PRN 04/22 2330 AC IV Ondansetron HCl 4 MG Q6P PRN 04/22 2330 AC IV Oxycodone HCl 5 MG Q6P PRN 04/22 2330 AC PO Assessment/Plan Assessment: 41-year-old gentleman with a PMH of obesity and diabetes, recently treated for stage III left great toe ulcer, completed a four-week course of IV Unasyn via PICC line (last dose 04/01/2017) presented with complaints of fevers, nausea and vomiting. VS on admission: BP 125 was 62, HR 101, RR 20, SPO2 98% on RA, T101.6 Pertinent physical findings: Fluctuance and bloody purulent drainage from great toe Pertinent labs: WBC 9.8, H&H 13.4/39.4, platelets 320, sodium 134, BUN/09/0.6 lactic acid 3.3 Problem list: 1. Left great toe osteomyelitis/cellulitis 3. Comminuted impacted fracture proximal phalanx of left great toe 3. Uncontrolled diabetic Plan: * Patient refused toe amputation and was informed about worsening of his infection without surgical intervention. continues to remain stable at this time , afebrile. No evidence of leukocytosis and blood cultures negative thus far. * Dr. Ott does not recommend any vascular surgical interventions at this time. * Will discontinue his antibiotics as per ID recommendations. * Accu-Cheks over the past 24 hours between 153 and 211. We will continue the high dose sliding scale. * DVT prophylaxis: Heparin 5000 units subcutaneous * Full code * Diabetic diet Problem List: 1. Osteomyelitis of toe of left foot 2. Hyperglycemia Pain Ratin Pain Location: left great toe Pain Goal: Remain pain free Pain Plan: Pain Pathwy Tomorrow's Labs & Rationales: None(Discharged) HUSEYIN LYON MD 04/29/17 1115: Attending MD Review Statement Attending Statement Attending MD Statement: examined this patient, discuss w/resident/PA/TOWEL SEWER, agreed w/resident/PA/TOWEL SEWER, reviewed EMR data (avail) Attending Assessment/Plan: 41M PMH T2DM, morbid obesity, recent osteomyelitis of left toe s/p 4 weeks of Unasyn admitted with sepsis secondary to cellulitis and osteomyelitis of the left toe. Started on Unasyn on admission, fever has resolved. Patient continues to refuse toe amputation. He remains afebrile and has no complaints. Arterial doppler and vascular consult revealed no evidence of PAD or ischemia in LE. AFVSS NAD Anicteric, MMM Supple RRR CTAB Soft, NTND Left toe erythema Pulses intact A&Ox3 no focal deficits 1. Sepsis (resolved) 2. Acute osteomyelitis of left first toe 3. T2DM 4. Morbid obesity Plan - Continue on general medicine - Follow ID, podiatry, vascular recommendations - Continue home dose of Levemir + sliding scale insulin - Discontinue antibiotics per ID recommendations - Continue home medications - Follow culture results - DVT PPx - Will have discussion with patient today regarding plan of care. Definitive treatment would be amputation of the toe. There is no role for IV antibiotics for this infection, as the risks outweigh the benefits. Will inform patient that without surgical intervention his infection is likely to worsen and spread. ADDENDUM: After extensive discussion with patient, he has decided not to undergo surgery at this time. Given his recent course of antibiotics, and after discussion with ID and podiatry, there is no role for repeat of detention antibiotics, and PO antibiotics would not be beneficial in this case. Patient understands the risks of this and that he is likely to have worsening of his foot infection with risk of sepsis or , and in particular how it may require more extensive surgical intervention. He has capacity for decision making, has insight, and is able to explain the risks and benefits in a way that demonstrates clear understanding. The patient will be discharged home off of antibiotics and will follow up in the wound care center with Dr. Aggarwal.
[2017-04-29 13:52] VITALS: BP 122/70
--- NOTE | 2017-04-29 16:54 | Discharge Summary ---
Visit Information Visit Dates Admission Date: 04/22/17 Discharge Date: 04/29/17 Hospital Course Course Attending Physician: HUSEYIN LYON MD Primary Care Physician: PATIENT HAS NO PRIMARY CARE DR Hospital Course: 41-year-old gentleman with a PMH of obesity and diabetes, recently treated for stage III left great toe ulcer, completed a four-week course of IV Unasyn via PICC line (last dose 04/01/2017) presented with complaints of fevers, nausea and vomiting. On examination was also found to have a draining ulcer on his left great toe. Patient was treated for the following problems 1. Left great toe osteomyelitis/cellulitis: * Patient had no leukocytosis and negative blood cultures, was restarted on IV Unasyn. Podiatry Consult: Dr. brown recommended to do the toe amputation which the patient refused. * ID Consult: Discontinued Unasyn as he already completed a 4 weeks course of Unasyn and its very unlikely that the patient will benefit from further antibiotics. * Vascular Consult: No vascular surgical intervention needed at this time. 2. Viral gastroenteritis 3. Diabetes : Patient is on Levemir 22 units BID and Novolog TIDAC and at bedtime. Allergies: Coded Allergies: No Known Allergies (05/22/16) Significant Procedures: CHEST XRAY: IMPRESSION: No evidence of an acute intrathoracic process. US-DUPLEX SCAN LOWER EXT ARTERIAL: IMPRESSION: No clear evidence of arterial insufficiency in the left lower extremity. Greater sensitivity and specificity can be obtained with pre-and post exercise PVRs with SHERMAN calculations. Also consider dedicated CTA for further anatomical detail. Disposition Summary Disposition Principal Diagnosis: Left toe cellulitis/osteomyelitis Additional Diagnosis: Comminuted fracture proximal phalanx Discharge Disposition: home or self care Discharge Instructions General Discharge Information Code Status: Full Code Patient's Diet: Heart Healthy Diet Patient's Activity: As tolerated. Follow-Up Instructions/Appts: Recommendations were for toe amputation. Based on your preference not to have this done here being discharged with instructions to watch for any worsening redness, swelling, pain, fevers or chills that may arise. Please return to the emergency room immediately Please follow-up with your PCP within one week after discharge. Please follow-up with Dr. Brown as directed. Medications at Discharge Discharge Medications: Continue taking these medications: Insulin Aspart (Novolog) 100 UNIT/ML VIAL 0 Inject into fatty tissue BEDTIME Qty = 10 Instructions: Blood sugar # Units Less than 250 0 251-300 1 301-350 2 351-400 3 more than 400 4 Comments: Last Taken:04/29/17 Time: 12PM Insulin Aspart (Novolog) 100 UNIT/ML VIAL 0 Inject into fatty tissue 3 TIMES DAILY BEFORE MEALS Qty = 30 Instructions: blood sugar # units less than 80 initiate hypoglycemia 80-150 8 units 151-200 10 units 201-250 12 units 251-300 14 units 301-350 16 units 351-400 18 units more than 400 20 units, carlos PEDERSON Comments: Last Taken:04/29/17 Time: 12PM Insulin Detemir (Levemir) 100 UNIT/ML VIAL 22 Units Inject into fatty tissue TWICE DAILY Qty = 30 Comments: Last Taken:04/29/17 Time: 0900AM Atorvastatin Calcium (Atorvastatin Calcium) 10 MG TABLET 1 Tablet ORAL DAILY Qty = 30 Comments: Last Taken:04/29/17 Time: 10AM Copies To: GABRIELLE BROWN DPM Attending MD Review Statement Documenting Attending: HUSEYIN LYON MD
== END 2017-04-29 16:18 | DRG 720 ==
LOC: ERH 16:01 → 2NA 22:03 → ERHI 22:03 → ENRESERV 23:09 → 2NA 04-23 00:39 → ENPENDDIS 04-29 11:42 → 2NA 04-29 16:18
PROVIDERS: Internal Medicine; Physician Assistant; Student in an Organized Health Care Education/Training Program; ADMIT Internal Medicine
DX: A41.9 Sepsis, unspecified organism (principal); E11.65 Type 2 diabetes mellitus with hyperglycemia; Z79.4 Long term (current) use of insulin; S92.912A Unspecified fracture of left toe(s), initial encounter for closed fracture; E66.01 Morbid (severe) obesity due to excess calories; Z68.43 Body mass index [BMI] 50.0-59.9, adult; E11.69 Type 2 diabetes mellitus with other specified complication; M86.172 Other acute osteomyelitis, left ankle and foot; E87.1 Hypo-osmolality and hyponatremia; E87.2 Acidosis; L03.032 Cellulitis of left toe; L03.116 Cellulitis of left lower limb; A08.4 Viral intestinal infection, unspecified; Z91.19 Patient's noncompliance with other medical treatment and regimen
CPT/HCPCS: 2NASP; 84133; 84300; ERO; 36415; 73630-LT; 81003; 82436; 82570; 87040; 87045; 87070; 87328; 87329; 93005; 93010; 96361; 96374; 96375; G0463; J1644; J1815; J2405; J7042

== ENCOUNTER 2018-03-09 20:24 | Inpatient (IN) | payer OTHER ==
[~2018-03-09] VITALS: Ht 170.2 cm; Wt 142.9 kg
[~2018-03-09 20:24] MED LIST changes: +LEVEMIR FL100 UNIT/1 SC; +VANCO 2 GR2 GM/250 M IV
--- NOTE | 2018-03-09 22:52 | ED ANKLE/FOOT INJURY COMPLAINT ---
History of Present Illness General Chief Complaint: Foot or Ankle Injury Stated Complaint: L FOOT PAIN AND BLEEDING Source: patient, old records Exam Limitations: no limitations Vital Signs & Intake/Output Vital Signs & Intake/Output Vital Signs Date Time Temp Pulse Resp B/P B/P Pulse O2 O2 Flow FiO2 Mean Ox Delivery Rate 03/09 2219 99.3 03/09 2219 99.3 03/09 2051 101.4 03/09 2041 101.4 120 18 104/73 98 Room Air ED Intake and Output 03/10 0000 03/09 1200 Intake Total 0 Output Total Balance 0 Intake, Oral 0 Patient 315 lb Weight Weight Estimated Measurement Method Allergies Coded Allergies: No Known Allergies (05/22/16) Reconcile Medications Atorvastatin Calcium 10 MG TABLET 1 TAB PO DAILY HLD Insulin Aspart (Novolog) 100 UNIT/ML VIAL 0 SC BEDTIME DM Blood sugar # Units Less than 250 0 251-300 1 301-350 2 351-400 3 more than 400 4 Insulin Aspart (Novolog) 100 UNIT/ML VIAL 0 SC TIDAC DM blood sugar # units less than 80 initiate hypoglycemia 80-150 8 units 151-200 10 units 201-250 12 units 251-300 14 units 301-350 16 units 351-400 18 units more than 400 20 units, notify Insulin Detemir (Levemir Flextouch) 100 UNIT/ML (3 ML) INSULN.PEN 30 UNITS SC DAILY DM (Reported) Vancomycin/0.9 % Sod Chloride (Vanco 2 Gram/250 Ml-0.9% NaCl) 2 GRAM/250 ML PLAST..BAG 2 GM IV Q12 ANTIBIOTIC, INFECTION Triage Note: RECEIVED 42 YO MALE C/O HE HAD HIS LEFT GREAT TOE AMPUTATED ON 05/24/17, PT WAS IN A SHELTER FOR REHAB AND ANTIBIOTICS. PT REPORTS HIS LEFT TOE CONTINUES TO BLEED. Triage Nurses Notes Reviewed? yes Occurred: last week Duration: day(s):, constant, continues in ED, getting worse Timing: recent history Severity: moderate Pain/Injury Location: Left: Foot. Method of Injury: unknown Modifying Factors: Improves With: immobilization. Worsens With: movement. Associated Symptoms: swelling, redness, GCS 15 since HPI: 1 week prior to admission patient complains of opening wound on plantar surface of left foot with bleeding pain and redness extending to the dorsum with fever and chills. He denies nausea vomiting diarrhea chest pain cough shortness breath headache dysuria. Past History Travel History Traveled to [place] past 21 day No Medical History Any Pertinent Medical History? see below for history Neurological: NONE EENT: NONE Cardiovascular: hyperlipidemia Respiratory: NONE Gastrointestinal: NONE Hepatic: NONE Renal: NONE Musculoskeletal: fracture (arm as a child) Psychiatric: NONE Endocrine: diabetes Blood Disorders: NONE Cancer(s): NONE DOPEMAN/Reproductive: NONE History of MRSA: Yes History of VRE: No History of CDIFF: No Surgical History Surgical History: BIOPSY OF L GREAT TOE Psychosocial History Who do you live with Friend Services at Home None What is your primary language Kazakh Tobacco Use: Never used Family History Family History, If Any: MOTHER, , Age 60+; Cause: Cardiac arrest. FH: diabetes mellitus FH: heart disease FATHER, , Age 60+. Hx Contributory? No Review of Systems Review of Systems Constitutional: Reports: see HPI, chills, fever. EENTM: Reports: no symptoms. Respiratory: Reports: no symptoms. Cardiovascular: Reports: no symptoms. GI: Reports: no symptoms. Genitourinary: Reports: no symptoms. Musculoskeletal: Reports: no symptoms. Skin: Reports: see HPI, rash. Neurological/Psychological: Reports: no symptoms. Hematologic/Endocrine: Reports: no symptoms. Immunologic/Allergic: Reports: no symptoms. All Other Systems: Reviewed and Negative Physical Exam Physical Exam General Appearance: well developed/nourished, alert, awake, anxious, mild distress, obese Head: atraumatic, normal appearance Eyes: Bilateral: normal appearance, PERRL, EOMI. Ears, Nose, Throat: normal pharynx, normal ENT inspection, hearing grossly normal Neck: normal inspection, supple, full range of motion Cardiovascular/Respiratory: normal breath sounds, normal peripheral pulses, regular rate/rhythm, no respiratory distress Back: normal inspection, normal range of motion Leg/Knee/Thigh Left: normal range of motion, normal inspection Leg/Knee/Thigh Right: normal range of motion, normal inspection Ankle Left: normal inspection, normal range of motion Ankle Right: normal inspection, normal range of motion Foot Left: tenderness, deformity, infection, soft tissue tenderness, swelling Foot Right: normal inspection, normal range of motion Reflexes: 2+: knee (R), knee (L). Neuro/Vascular: normal motor function Tendon: normal tendon function Psychiatric: awake, alert, oriented x 3 Skin: warm/dry, rash, Plantar surace of left foot with 4 cm area of denuded skin with beefy red base and surrounding erythema extending to dorsum Progress Differential Diagnosis: cellulitis, septic arthritis Plan of Care: Orders Procedure Date/time Status Consistent Carbohydrate 2 03/10 B Active LACTIC ACID 03/10 0139 Active Patient Data 03/09 2356 Active OXYGEN SETUP (GEN) 03/09 233 Active Saline Lock 03/09 233 Active Admit to inpatient 03/09 233 Active Vital Signs 03/09 2334 Active Activity/Ambulation 03/09 233 Active Code Status 03/09 2334 Active C-REACTIVE PROTEIN 03/09 225 Complete BLOOD CULTURE 03/09 2239 Active LACTIC ACID 03/09 2239 Complete HIGH SENSITIVITY CRP 03/09 2239 Complete WESTERGREN SED RATE 03/09 2239 Complete COMPREHENSIVE METABOLIC PANEL 03/09 2239 Complete CBC WITHOUT DIFFERENTIAL 03/09 2239 Complete Intake & Output 03/09 2218 Active Current Medications Sig/Homero Start time Last Medication Dose Stop Time Status Admin Vancomycin HCl 2,000 MG ONCE ONE 03/10 0015 AC 03/10 Sodium Chloride 500 ML 03/10 0214 0022 (Normal Saline 0.9%) Ceftriaxone Sodium 1,000 MG ONCE ONE 03/09 2345 CAN (Rocephin) 03/09 2346 Vancomycin HCl 2,000 MG ONCE ONE 03/09 2345 CAN Sodium Chloride 500 ML 03/10 0144 (Normal Saline 0.9%) Laboratory Tests 03/09/182251: Anion Gap 14, Estimated GFR > 60, BUN/Creatinine Ratio 20.0, Glucose 265 H, Lactic Acid 1.7, Calcium 9.0, Total Bilirubin 0.5, AST 14 L, ALT 21, Alkaline Phosphatase 88, C-Reactive Prot, Quant 6.8 H, C-React Prot High Sens > 15.0 H, Total Protein 6.8, Albumin 3.6, Globulin 3.2, Albumin/Globulin Ratio 1.1, CBC w Diff MAN DIFF ORDERED, RBC 4.88, MCV 85.3, MCH 29.0, MCHC 34.0, RDW 13.1, MPV 7.5, Gran % 73.6, Lymphocytes % 17.1 L, Monocytes % 8.1, Eosinophils % 0.5, Basophils % 0.7, Absolute Granulocytes 15.5 H, Segmented Neutrophils 72, Band Neutrophils 1, Absolute Lymphocytes 3.6 H, Lymphocytes 20 L, Monocytes 5, Absolute Monocytes 1.7 H, Eosinophils 2, Absolute Eosinophils 0.1, Absolute Basophils 0.1, Platelet Estimate INCREASED, Normocytic RBCs VERIFIED, Normochromic RBCs VERIFIED, ESR Westergren 56 H Microbiology 03/10 0001 BLOOD: Blood Culture - RECD 03/09 225 BLOOD: Blood Culture - RECD Diagnostic Imaging: Viewed by Me: Radiology Read. Discussed w/RAD: Radiology Read. Radiology Impression: 1. Amputation of the great toe at the distal shaft of the first metatarsal. 2. Evidence of osteomyelitis of the medial cuneiform and navicular bone and osteomyelitis involving the second, third fourth and fifth toes. 3. Subluxation of the midfoot involving the medial cuneiform and the second through fifth metatarsal tarsal joints. Departure Departure Disposition: STILL A PATIENT Condition: Stable Clinical Impression Primary Impression: Osteomyelitis Secondary Impressions: Fever, Leukocytosis Referrals: Javier PEDERSON,Juan Acevedo (PCP/Family) Departure Forms: Customer Survey General Discharge Information Admission Note Spoke With: Jeannie Thayer MD Documentation of Exam: Documentation of any treatments & extenuating circumstances including Concerns Regarding Discharge (functional status, medication knowledge or non-compliance, living conditions, etc.) that warrant an admission rather than observation: IV antibiotics follow cultures ID evaluation podiatry evaluation wound care evaluation endocrinology evaluation medication adjustment continuing care discharge planning Critical Care Note Critical Care Note Critical Care Time: 30-74 min (40)
[2018-03-09 23:00] LABS: ABSOLUTE BASOPHIL COUNT 0.1 /CUMM (0.0-0.2); ABSOLUTE EOSINOPHIL COUNT 0.1 /CUMM (0.0-0.7); ABSOLUTE GRANULOCYTE CT 15.5 /CUMM (1.4-6.5); ABSOLUTE LYMPH COUNT 3.6 /CUMM (1.2-3.4); ABSOLUTE MONOCYTE COUNT 1.7 /CUMM (0.10-0.60); BASOPHIL % 0.7 % (0.0-2.0); EOSINOPHIL % 0.5 % (0-5); GRANULOCYTE % 73.6 % (42.2-75.2); HEMATOCRIT 41.6 % (42-52); MEAN CORPUSCULAR VOLUME 85.3 FL (80.0-94.0); MEAN PLATELET VOLUME 7.5 FL (7.4-10.4); PLATELET COUNT 419 /CUMM (130-400); RBC DISTRIBUTION WIDTH 13.1 % (11.5-14.5); RED BLOOD CELL CT 4.88 /CUMM (4.70-6.10)
--- NOTE | 2018-03-09 23:22 | RADIOLOGY REPORT ---
EXAMINATION: XR FOOT, LEFT CLINICAL INFORMATION: Ulceration of foot. Cellulitis COMPARISON: Left foot 05/19/2017. TECHNIQUE: AP, lateral, and oblique views of the left foot. FINDINGS: Patient's undergone amputation of the great toe through the mid distal shaft of the first metatarsal. There is bone destruction of the medial cuneiform and subluxation of the bone relative to the middle cuneiform. There is probable loss of bone also of the navicular bone adjacent to the medial cuneiform. The second toe demonstrates subluxation of the MTP joint and destruction of bone at the second MTP joint involving the metatarsal head and the proximal phalanges. There is loss of bone and bone destruction of the third metatarsal head involving the articular surface of the bone. There is mild periosteal reaction seen along the distal shaft of the third metatarsal. There is subluxation of the second metatarsal tarsal joint with loss of bone of the proximal shaft at the articular bone. There is subluxation of the fourth metatarsal tarsal joint also with loss of bone. There is subluxation of the fifth metatarsal tarsal joint with cortical bone loss of the articular surface of the metatarsal at the joint space. The cortex of the cuboid at the fifth metatarsal tarsal joint is indistinct and there may be bone destruction of this bone as well. The cuneiform and the talus is normal. IMPRESSION: 1. Amputation of the great toe at the distal shaft of the first metatarsal. 2. Evidence of osteomyelitis of the medial cuneiform and navicular bone and osteomyelitis involving the second, third fourth and fifth toes. 3. Subluxation of the midfoot involving the medial cuneiform and the second through fifth metatarsal tarsal joints.
--- NOTE | 2018-03-10 00:02 | History & Physical ---
Arlen Burks MD,[facility] 03/10/18 0002: General Information and HPI MD Statement: I have seen and personally examined CONNER STEWART and documented this H&P. The patient is a 42 year old M who presented with a patient stated chief complaint of [left foot pain and bleeding]. Source of Information: patient, old records History of Present Illness: Patient is 42 y M with PMH of DM (noncompliant with medication), HLP, obesity, osteomyelitis s/p L toe amputation, h/o MRSA in presented with left foot pain and non- healing ulcer. Patient was in usual state of health until one week ago that he realized a blister was popped in bottom of his right foot when he tried to walk after longtime to get groceries. Patient lives in his car and occasionally visits his friends. He doesn't know when the blister started in bottom of his right foot. Since the skin lesion was not healing he decided to come to hospital. He also noticed increasing redness for the last few days. He didn't do much of care for the wound, only had clean socks, denied using any chemicals. He denied much pain as he has decreased sensation in distal lower extremities. He also reported chills but never measured his temperature. He denied any chest pain, shortness of breathing, altered mental status. Patient noted that he was not compliant with his diabetes mellitus medication for the last months, he was discharged on insulin in the last admission, however it was changed to oral medication (he couldn't remember the name) after he couldn't administer insulin due to living condition. He also noted he feels depressed, denied any suicidal ideation. He denied smoking and reported occasional drinking alcohol. Patient was admitted to several times during the last spring/summer, 1: February 2017, had amputation, received 4 w of unasyn, 2: March 24, refused repeating procedure, recieved unasyn for 1w, discharged on no antibiotics, 3: End of April 2017, underwent amputation, had MRSA, recieved Vanc for 4w. Allergies/Medications Allergies: Coded Allergies: No Known Allergies (05/22/16) Home Med list Atorvastatin Calcium 10 MG TABLET 1 TAB PO DAILY HLD Insulin Aspart (Novolog) 100 UNIT/ML VIAL 0 SC BEDTIME DM Blood sugar # Units Less than 250 0 251-300 1 301-350 2 351-400 3 more than 400 4 Insulin Aspart (Novolog) 100 UNIT/ML VIAL 0 SC TIDAC DM blood sugar # units less than 80 initiate hypoglycemia 80-150 8 units 151-200 10 units 201-250 12 units 251-300 14 units 301-350 16 units 351-400 18 units more than 400 20 units, notify Insulin Detemir (Levemir Flextouch) 100 UNIT/ML (3 ML) INSULN.PEN 30 UNITS SC DAILY DM (Reported) Vancomycin/0.9 % Sod Chloride (Vanco 2 Gram/250 Ml-0.9% NaCl) 2 GRAM/250 ML PLAST..BAG 2 GM IV Q12 ANTIBIOTIC, INFECTION Past History Travel History Traveled to [place] past 21 day No Medical History Neurological: NONE EENT: NONE Cardiovascular: hyperlipidemia Respiratory: NONE Gastrointestinal: NONE Hepatic: NONE Renal: NONE Musculoskeletal: fracture (arm as a child) Psychiatric: NONE Endocrine: diabetes Blood Disorders: NONE Cancer(s): NONE SUPERVISOR AREA/Reproductive: NONE History of MRSA: Yes History of VRE: No History of CDIFF: No Surgical History Surgical History: BIOPSY OF L GREAT TOE Past Family/Social History Family History Relations & Conditions if any MOTHER, , Age 60+; Cause: Cardiac arrest. FH: diabetes mellitus FH: heart disease FATHER, , Age 60+. Psychosocial History Who Do You Live With? friends Services at Home: None Functional Ability ADLs Independent: dressing, eating, toileting, bathing. Ambulation: independent IADLs Independent: shopping, housework, finances, food prep, telephone, transportation , medication admin. Review of Systems Review of Systems Constitutional: Reports: see HPI. Exam & Diagnostic Data Last 24 Hrs of Vital Signs/I&O Vital Signs Date Time Temp Pulse Resp B/P B/P Pulse O2 O2 Flow FiO2 Mean Ox Delivery Rate 03/09 2219 99.3 03/09 2219 99.3 03/09 2051 101.4 03/09 2041 101.4 120 18 104/73 98 Room Air Intake & Output 03/10 0800 03/10 0000 03/09 1600 Intake Total 0 Output Total Balance 0 Intake, Oral 0 Patient 315 lb Weight Weight Estimated Measurement Method Physical Exam General Appearance Alert, Oriented X3, No Acute Distress, inattentive, obese Skin 10 cm X10 cm no bleeding ulcer in bottom of left foot, granulation tissue, no pus/discharge erythema around the ulcer Skin Temp/Moisture Exam: Warm/Dry Sepsis Skin Exam (color): Normal for Ethnicity HEENT Atraumatic, EOMI Cardiovascular Regular Rate, Normal S1, Normal S2 Lungs decreased breathing sound bilaterally Abdomen doest not allow for exam Neurological M normal, decreased S in L lE distal Extremities as noted above Last 24 Hrs of Labs/Denis: Laboratory Tests 03/10/18 0139: Lactic Acid Cancelled 03/09/182251: Anion Gap 14, Estimated GFR > 60, BUN/Creatinine Ratio 20.0, Glucose 265 H, Lactic Acid 1.7, Calcium 9.0, Total Bilirubin 0.5, AST 14 L, ALT 21, Alkaline Phosphatase 88, C-Reactive Prot, Quant 6.8 H, C-React Prot High Sens > 15.0 H, Total Protein 6.8, Albumin 3.6, Globulin 3.2, Albumin/Globulin Ratio 1.1, CBC w Diff MAN DIFF ORDERED, RBC 4.88, MCV 85.3, MCH 29.0, MCHC 34.0, RDW 13.1, MPV 7.5, Gran % 73.6, Lymphocytes % 17.1 L, Monocytes % 8.1, Eosinophils % 0.5, Basophils % 0.7, Absolute Granulocytes 15.5 H, Segmented Neutrophils 72, Band Neutrophils 1, Absolute Lymphocytes 3.6 H, Lymphocytes 20 L, Monocytes 5, Absolute Monocytes 1.7 H, Eosinophils 2, Absolute Eosinophils 0.1, Absolute Basophils 0.1, Platelet Estimate INCREASED, Normocytic RBCs VERIFIED, Normochromic RBCs VERIFIED, ESR Westergren 56 H Microbiology 03/10 0233 URINE ROUT: Urine Culture - ORD 03/10 0001 BLOOD: Blood Culture - RECD 03/09 2252 BLOOD: Blood Culture - RECD Assessment/Plan Assessment: Patient is 42 y M presented with nonhealing ulcer of left foot, chills None complaint with medication miserable living condition PMH of DM (noncompliant with medication), HLP, obesity, osteomyelitis s/p L toe amputation, h/o MRSA VS, Ph Ex at admission: Tmax 101.4, OK 120, RR 18, BP 104/73 Labs at admission: WBC 21, band 1, Hgb 14.2, PLT 419, ESR 56 Imagings at admission: Foot x-ray: 1. Amputation of the great toe at the distal shaft of the first metatarsal. 2. Evidence of osteomyelitis of the medial cuneiform and navicular bone and osteomyelitis involving the second, third fourth and fifth toes. 3. Subluxation of the midfoot involving the medial cuneiform and the second through fifth metatarsal tarsal joints. In the ED patient received ceftriaxone and vancomycin. Patient was admitted to [facility] floor for management of following conditions: Sepsis Infection of the left foot, h/o MRSA IDDM, non complaint with medications Obesity -Admit patient to general medicine floor -Vital signs -Continue IV fluids -IV vancomycin, IV Unasyn -Consult Dr. Shelton, nothing by mouth overnight for possible surgery tomorrow -Endocrinology consult, placed -Continue home medication -Consider ID consult in a.m. Full code DVT Ppx: Alps, hold anticoag for now NPO for now for possible procedure tomorrow As Ranked By This Provider Problem List: 1. Fever 2. Osteomyelitis Core Measures/Misc (07/10) Acute Coronary Syndrome ACS Diagnosis: No Congestive Heart Failure Congestive Heart Failure Diagnosis No Cerebrovascular Accident CVA/TIA Diagnosis: No VTE (View Protocol) VTE Risk Factors Age>40 No Mechanical VTE Prophylaxis d/t N/A MechProphylax Ordered No VTE Pharm Prophylaxis d/t Medical Contraindication (poss procedure tomorrow) Sepsis (View protocol) Sepsis Present: Yes Jeannie Thayer 03/10/18 0315: Attending MD Review Statement Attending Statement Attending MD Statement: examined this patient, discuss w/resident/PA/TECHNICAL DELIVERY MANAGER, agreed w/resident/PA/TECHNICAL DELIVERY MANAGER, reviewed EMR data (avail), reviewed images, amended to note Attending Assessment/Plan: CC: Left foot bleeding PMH: DM Patient came to ER for bloody discharge from left foot wound. He stated that approximately a week back he noticed a blister on the bottom of his left foot, it popped open leaving of wound. Whenever he walks it drains blood, he did not notice any pus discharge. He did not notice any worsening redness around the wound, did not have any trauma or bites. He endorses chills at home but unaware if he had fever. He tried to put Neosporin ointment on the wound and clean socks but did not see any physician or did not take any antibiotics for the same. Patient had been noncompliant with all his medications since last 1 month or so, feels depressed. He used to be on insulin but he cannot take the shots so it was changed to oral medication, even that he is not taking since last 1 month. Otherwise complete ROS unremarkable Vitals: T max 101.4, pulse 120, RR 18, blood pressure 104/73, saturating 98% on room air On exam: A O 3, cooperative, no acute distress, neck supple, JVD normal, no lymphadenopathy, mucosa moist, no focal neurological deficit, no dependent edema , no obvious skin rashes or inflammation CVS: S1-S2, RRR. RS: Clear to auscultate bilaterally. Abdomen: Soft, NT, ND, bowel sounds present. Left foot has approximately 5 cm diameter ulcer on lateral aspect with surrounding mild redness , no pus or blood expressed from the wound, no fluctuation, peripheral pulses intact, ROM intact in ankle and toes. Left foot x-ray: 1. Amputation of the great toe at the distal shaft of the first metatarsal. 2. Evidence of osteomyelitis of the medial cuneiform and navicular bone and osteomyelitis involving the second, third fourth and fifth toes. 3. Subluxation of the midfoot involving the medial cuneiform and the second through fifth metatarsal tarsal joints. Assessment and plan 42-year-old male with history of insulin-dependent diabetes, currently noncompliant with medications since one month, presented in ER for nonhealing ulcer on left foot since last 1 week. He was admitted for similar complaints last year, initially treated consultatively with 4 week IV antibiotic and month of February, patient came back again for worsening symptoms and was admitted in April, underwent partial amputation, at that time patient had MRSA and polymicrobial infection so patient was discharged on vancomycin for 4 more weeks. Patient comes back for nonhealing wound on left foot since last 1 week, initially started with blisters which popped open and now it's draining blood intermittently when he walks. He had chills at home. His main concern was nonhealing wound, he did not see any physician and did not take antibiotics. He had fever of 101.4, tachycardic and on examination Left foot has approximately 5 cm diameter ulcer on lateral aspect with surrounding mild redness , no pus or blood expressed from the wound, no fluctuation, peripheral pulses intact. Labs show significant leukocytosis and x-ray confirms the finding of osteomyelitis. Although it would be beneficial to wait until bone cultures and given his sepsis his fever, tachycardia and leukocytosis we will continue empiric antibiotics with vancomycin and Unasyn for now, get podiatry involved for further intervention. We continue basal and bolus insulin. + Suspected osteomyelitis of medial cuneiform and navicular bone, second, third fourth and fifth toes + Hx DM : non compliance + Depression - Admit to general medicine - Continue gentle hydration 75 mL per hour for 1 L - Nothing by mouth after midnight - Consult podiatry Dr. Aggarwal - Continue IV vancomycin and Unasyn - Follow blood cultures - Sliding-scale insulin low dose - Endocrine consult patient known to Dr. valdes - ECG - Patient requests psych consult for depression - Repeat labs in a.m. - DVT prophylaxis with Alps only until evaluation for surgery then change to pharmacologic Con PEDERSON,[facility] 03/10/18 0544: Resident Review Statement Resident Statement: examined this patient, discussed with internal control manager, agreed with internal control manager, reviewed EMR data (avail), discussed with nursing Other Findings: Patient is 42-year-old male with past medical history significant for diabetes mellitus, diabetic foot and nonhealing wound of left foot status post left great toe amputation in May 27, 2017, MRSA infection who presented to ED with chief complaint of left foot nonhealing wound. Patient is poor historian, he reported being homeless and living in his car, a week ago had a blister on the plantar surface of his left foot that popped up and developed a wound that has been oozing blood every time he walk on his foot, denied any discharges, fever or chills. He has been cleaning the wound with regular water and wear clean socks. He reported using Neosporin ointment sometimes. Patient had follow up with Dr. Aggarwal couple of months ago, noncompliant with his medication mainly hypoglycemic medication because of depression. He expressed being depressed but could not tell the lesions. Patient denied suicidal or homicidal ideation. Problem list #Osteomyelitis left foot #Sepsis #Diabetes mellitus noncompliant with medication Plan Admit to general medical floor Vitals every shift Pancultured Cover with Unasyn and vancomycin to cover for MRSA and anaerobes N.p.o. for possible procedure in a.m. Podiatry consultation Endocrinology Dr. valdes consultation IV fluid 1 L Accu Check and NovoLog sliding scale every 6 hours Psych consultation Obtain EKG Blood type and crossmatch DVT prophylaxis Alps Code full
--- NOTE | 2018-03-10 03:16 | Admission Certification ---
Admission Certification Certification Statement - As attending physician, I certify that at the time of - admission, based on clinical presentation, severity of - symptoms, need for further diagnostic testing and - therapeutic interventions, and risk of adverse outcomes - without in-hospital treatment, in my clinical assessment, - this patient requires an acute hospital stay for a minimum - of two nights or longer. I have also considered psychsocial - factors such as support system, advanced age, financial - issues, cognitive issues, and failed out-patient treatments, - past re-admission history, safety of patient, and lack of - compliance as applicable. Specific rationale supporting this admission is: Diabetic foot infection
[2018-03-10 06:20] LABS: ABSOLUTE BASOPHIL COUNT 0 /CUMM (0.0-0.2); ABSOLUTE EOSINOPHIL COUNT 0.3 /CUMM (0.0-0.7); ABSOLUTE GRANULOCYTE CT 8.6 /CUMM (1.4-6.5); ABSOLUTE LYMPH COUNT 3.4 /CUMM (1.2-3.4); ABSOLUTE MONOCYTE COUNT 1.3 /CUMM (0.10-0.60); BASOPHIL % 0.3 % (0.0-2.0); EOSINOPHIL % 2.5 % (0-5); GRANULOCYTE % 62.7 % (42.2-75.2); HEMATOCRIT 40.9 % (42-52); MEAN CORPUSCULAR HGB 28.4 PG (27.0-31.0); MEAN CORPUSCULAR HGB CONC 32.9 G/DL (33.0-37.0); MEAN CORPUSCULAR VOLUME 86.4 FL (80.0-94.0); MEAN PLATELET VOLUME 7.4 FL (7.4-10.4); PLATELET COUNT 363 /CUMM (130-400); RBC DISTRIBUTION WIDTH 13.1 % (11.5-14.5); RED BLOOD CELL CT 4.73 /CUMM (4.70-6.10); WHITE BLOOD CELL COUNT 13.8 /CUMM (4.8-10.8)
--- NOTE | 2018-03-10 09:01 | Cons- Endocrinology ---
General Information and HPI Consulting Request Date of Consult: 03/10/18 Requested By: medical team Reason for Consult: management of uncontrolled diabetes Source of Information: patient, old records Exam Limitations: no limitations History of Present Illness: 42 y M with PMH of DM type 2 (noncompliant with medication), dyslipidemia, obesity, osteomyelitis s/p L toe amputation, h/o MRSA, was admitted for fever, left foot pain and non- healing ulcer. His glucose level was over 300. He has been kept NPO for left foot procedure. Now he is on D5 1/ NS at 75 ml/hour. FSG at 6 am was 348. He received regular insulin 10 units. Repeat FSG was 291. Allergies/Medications Allergies: Coded Allergies: No Known Allergies (05/22/16) Home Med List: Atorvastatin Calcium 10 MG TABLET 1 TAB PO DAILY HLD Insulin Aspart (Novolog) 100 UNIT/ML VIAL 0 SC BEDTIME DM Blood sugar # Units Less than 250 0 251-300 1 301-350 2 351-400 3 more than 400 4 Insulin Aspart (Novolog) 100 UNIT/ML VIAL 0 SC TIDAC DM blood sugar # units less than 80 initiate hypoglycemia 80-150 8 units 151-200 10 units 201-250 12 units 251-300 14 units 301-350 16 units 351-400 18 units more than 400 20 units, notify Insulin Detemir (Levemir Flextouch) 100 UNIT/ML (3 ML) INSULN.PEN 30 UNITS SC DAILY DM (Reported) Vancomycin/0.9 % Sod Chloride (Vanco 2 Gram/250 Ml-0.9% NaCl) 2 GRAM/250 ML PLAST..BAG 2 GM IV Q12 ANTIBIOTIC, INFECTION Review of Systems Review of Systems Constitutional: Reports: see HPI. Cardiovascular: Denies: chest pain. Respiratory: Denies: short of breath. GI: Denies: abdominal pain. Musculoskeletal: Reports: see HPI (left foot pain). Hematologic/Endocrine: Denies: polyuria, polydipsia. 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 FH: diabetes mellitus FH: heart disease FATHER, , Age 60+. Psychosocial History Who Do You Live With? friends Services at Home: None Functional Ability ADLs Independent: dressing, eating, toileting, bathing. Ambulation: independent IADLs Independent: shopping, housework, finances, food prep, telephone, transportation , medication admin. Exam & Diagnostic Data Last 24 Hrs of Vital Signs/I&O Vital Signs Date Time Temp Pulse Resp B/P B/P Pulse O2 O2 Flow FiO2 Mean Ox Delivery Rate 03/10 0608 98.3 58 18 110/60 97 Room Air 03/10 0259 97.0 72 16 100/55 96 Room Air 03/10 0051 98.7 100 18 131/78 100 Room Air 03/09 2219 99.3 03/09 2219 99.3 03/09 2051 101.4 03/09 2041 101.4 120 18 104/73 98 Room Air Intake & Output 03/10 1600 03/10 0800 03/10 0000 Intake Total 0 Output Total 900 Balance -900 0 Intake, Oral 0 Output, Urine 900 Patient 315 lb Weight Weight Estimated Measurement Method Physical Exam General Appearance: no apparent distress, obese Respiratory: lungs clear Cardiovascular: regular rate/rhythm Gastrointestinal: soft, distention Extremities: left foot nonhealing lesion with swelling and redness Labs/Denis Results: Laboratory Tests 03/10 03/10 0600 0139 Chemistry Sodium (137 - 145 mmol/L) 138 Potassium (3.5 - 5.1 mmol/L) 3.7 Chloride (98 - 107 mmol/L) 100 Carbon Dioxide (22 - 30 mmol/L) 27 Anion Gap (5 - 16) 10 BUN (9 - 20 mg/dL) 13 Creatinine (0.7 - 1.2 mg/dL) 0.6 L Estimated GFR (>60 ml/min) > 60 BUN/Creatinine Ratio (7 - 25 %) 21.7 Hemoglobin A1c (4.2 - 5.8 %) Pending Lactic Acid Cancelled Hematology CBC w Diff NO MAN DIFF REQ WBC (4.8 - 10.8 /CUMM) 13.8 H RBC (4.70 - 6.10 /CUMM) 4.73 Hgb (14.0 - 18.0 G/DL) 13.4 L Hct (42 - 52 %) 40.9 L MCV (80.0 - 94.0 FL) 86.4 MCH (27.0 - 31.0 PG) 28.4 MCHC (33.0 - 37.0 G/DL) 32.9 L RDW (11.5 - 14.5 %) 13.1 Plt Count (130 - 400 /CUMM) 363 MPV (7.4 - 10.4 FL) 7.4 Gran % (42.2 - 75.2 %) 62.7 Lymphocytes % (20.5 - 51.1 %) 24.9 Monocytes % (1.7 - 9.3 %) 9.6 H Eosinophils % (0 - 5 %) 2.5 Basophils % (0.0 - 2.0 %) 0.3 Absolute Granulocytes (1.4 - 6.5 /CUMM) 8.6 H Absolute Lymphocytes (1.2 - 3.4 /CUMM) 3.4 Absolute Monocytes (0.10 - 0.60 /CUMM) 1.3 H Absolute Eosinophils (0.0 - 0.7 /CUMM) 0.3 Absolute Basophils (0.0 - 0.2 /CUMM) 0 03/09 2252 Chemistry Sodium (137 - 145 mmol/L) 132 L Potassium (3.5 - 5.1 mmol/L) 4.1 Chloride (98 - 107 mmol/L) 94 L Carbon Dioxide (22 - 30 mmol/L) 25 Anion Gap (5 - 16) 14 BUN (9 - 20 mg/dL) 14 Creatinine (0.7 - 1.2 mg/dL) 0.7 Estimated GFR (>60 ml/min) > 60 BUN/Creatinine Ratio (7 - 25 %) 20.0 Glucose (65 - 99 mg/dL) 265 H Lactic Acid (0.7 - 2.1 mmol/L) 1.7 Calcium (8.4 - 10.2 mg/dL) 9.0 Total Bilirubin (0.2 - 1.3 mg/dL) 0.5 AST (17 - 59 U/L) 14 L ALT (21 - 72 U/L) 21 Alkaline Phosphatase (< 127 U/L) 88 C-Reactive Prot, Quant (<1.0 mg/dL) 6.8 H C-React Prot High Sens (1.0 - 3.0 mg/L) > 15.0 H Total Protein (6.3 - 8.2 g/dL) 6.8 Albumin (3.5 - 5.0 g/dL) 3.6 Globulin (1.9 - 4.2 gm/dL) 3.2 Albumin/Globulin Ratio (1.1 - 2.2 %) 1.1 Hematology CBC w Diff MAN DIFF ORDERED WBC (4.8 - 10.8 /CUMM) 21.0 H RBC (4.70 - 6.10 /CUMM) 4.88 Hgb (14.0 - 18.0 G/DL) 14.2 Hct (42 - 52 %) 41.6 L MCV (80.0 - 94.0 FL) 85.3 MCH (27.0 - 31.0 PG) 29.0 MCHC (33.0 - 37.0 G/DL) 34.0 RDW (11.5 - 14.5 %) 13.1 Plt Count (130 - 400 /CUMM) 419 H MPV (7.4 - 10.4 FL) 7.5 Gran % (42.2 - 75.2 %) 73.6 Lymphocytes % (20.5 - 51.1 %) 17.1 L Monocytes % (1.7 - 9.3 %) 8.1 Eosinophils % (0 - 5 %) 0.5 Basophils % (0.0 - 2.0 %) 0.7 Absolute Granulocytes (1.4 - 6.5 /CUMM) 15.5 H Segmented Neutrophils (42.2 - 75.2 %) 72 Band Neutrophils (0.0 - 5.0 %) 1 Absolute Lymphocytes (1.2 - 3.4 /CUMM) 3.6 H Lymphocytes (20.5 - 51.1 %) 20 L Monocytes (1.7 - 9.3 %) 5 Absolute Monocytes (0.10 - 0.60 /CUMM) 1.7 H Eosinophils (0 - 5.0 %) 2 Absolute Eosinophils (0.0 - 0.7 /CUMM) 0.1 Absolute Basophils (0.0 - 0.2 /CUMM) 0.1 Platelet Estimate (ADEQUATE) INCREASED Normocytic RBCs VERIFIED Normochromic RBCs VERIFIED ESR Westergren (0 - 10 MM) 56 H Assessment/Plan Assessment/Plan 42 y M with PMH of DM type 2 (noncompliant with medication), dyslipidemia, obesity, osteomyelitis s/p L toe amputation, h/o MRSA, was admitted for fever, left foot pain and non- healing ulcer. His glucose level was over 300. He has been kept NPO for left foot procedure. Now he is on D5 1/ NS at 75 ml/hour. FSG at 6 am was 348. He received regular insulin 10 units. Repeat FSG was 291. Plan: 1. start :evemir 16 units twice a day; 2. stop RISS every 6 hours; 3. start Novolog coverage every 4 hours; detail see the inpatient DM order; 4. monitor FSGs and follow HbA1c; 5. after procedure and when he is ready to eat, please contact me and then his insulin orders will be adjusted accordingly. will follow. Inpatient Diabetes Orders Every 4 Hours: Bolus Insulin: Novolog < 80 mg/dl: no coverage 80-100 mg/dl: no coverage 101-120 mg/dl: no coverage 121-150 mg/dl: no coverage 151-200 mg/dl: 2 units 201-250 mg/dl: 4 units 251-300 mg/dl: 6 units 301-350 mg/dl: 8 units 351-400 mg/dl: 10 units > 400 mg/dl: 12 units Consult Acknowledgment - Thank you for your consult request.
--- NOTE | 2018-03-10 10:26 | PN- Att Addend ---
Attending Addendum Attending Brief Note Patient seen and examined. Plan of care discussed with the medical team and the patient. Available lab work and radiology test reports were reviewed. Patient sleepy this morning. He denies any recent fever chills. Overnight the he did not have any nausea vomiting abdominal pain or chest pain and denies any difficulty breathing. Complains of moderate to severe pain 7 out of 10 left foot. Exam: General: Patient sleepy but arousable oriented without any distress CVS: S1 plus S2 without any murmur or gallops Chest: Few scattered crepitation without any wheeze. There is no respiratory distress. 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 without any focal neuro deficit and follows commands appropriately Extremities: Left foot is swollen red with a larger lateral and plantar area crusted wound with edema; no clubbing or cyanosis noted Assessment * Left foot osteomyelitis multiple bones involved * Superadded cellulitis of soft tissue * Diabetes That is uncontrolled * Morbid obesity Plan * Continue Vanco and Unasyn * Continue Levemir and sliding scale as recommended by endocrinology * Podiatry consult * Elevate left foot * DVT prophylaxis Current Medications Sig/Homero Start time Last Medication Dose Route Stop Time Status Admin Acetaminophen 650 MG Q6P PRN 03/10 0230 AC PO Acetaminophen 975 MG ONCE ONE 03/09 2100 DC 03/09 PO 03/09 2101 205 Ampicillin Sodium/ 0 .STK-MED ONE 03/10 0619 DC Sulbactam Sodium .ROUTE Ampicillin Sodium/ 3,000 MG Q6 03/10 0600 AC 03/10 Sulbactam Sodium IV 0617 Sodium Chloride 100 ML Ceftriaxone Sodium 1,000 MG ONCE ONE 03/10 0015 DC 03/10 IV 03/10 0016 0022 Ceftriaxone Sodium 0 .STK-MED ONE 03/10 0014 DC .ROUTE Ceftriaxone Sodium 1,000 MG ONCE ONE 03/09 2345 CAN IV 03/09 2346 Dextrose/Sodium 1,000 ML .[id number] 03/10 0230 AC 03/10 Chloride IV 03/10 1549 0259 Insulin Aspart 0 Q4 03/10 1000 AC 03/10 SC 0947 Insulin Detemir 16 UNITS BID 03/10 0900 AC 03/10 SC 0947 Insulin Human Regular 0 Q6 03/10 0245 DC 03/10 SC 0618 Vancomycin HCl 2,000 MG Q12H 03/10 1200 AC Sodium Chloride 500 ML IV Vancomycin HCl 2,000 MG ONCE ONE 03/10 0015 DC 03/10 Sodium Chloride 500 ML IV 03/10 0214 0022 Vancomycin HCl 2,000 MG ONCE ONE 03/09 2345 CAN Sodium Chloride 500 ML IV 03/10 0144 Laboratory Tests 03/10/18 0600: Anion Gap 10, Estimated GFR > 60, BUN/Creatinine Ratio 21.7, Hemoglobin A1c 8.4 H, CBC w Diff NO MAN DIFF REQ, RBC 4.73, MCV 86.4, MCH 28.4, MCHC 32.9 L, RDW 13.1, MPV 7.4, Gran % 62.7, Lymphocytes % 24.9, Monocytes % 9.6 H, Eosinophils % 2.5, Basophils % 0.3, Absolute Granulocytes 8.6 H, Absolute Lymphocytes 3.4, Absolute Monocytes 1.3 H, Absolute Eosinophils 0.3, Absolute Basophils 0 03/10/18 0139: Lactic Acid Cancelled 03/09/182251: Anion Gap 14, Estimated GFR > 60, BUN/Creatinine Ratio 20.0, Glucose 265 H, Lactic Acid 1.7, Calcium 9.0, Total Bilirubin 0.5, AST 14 L, ALT 21, Alkaline Phosphatase 88, C-Reactive Prot, Quant 6.8 H, C-React Prot High Sens > 15.0 H, Total Protein 6.8, Albumin 3.6, Globulin 3.2, Albumin/Globulin Ratio 1.1, CBC w Diff MAN DIFF ORDERED, RBC 4.88, MCV 85.3, MCH 29.0, MCHC 34.0, RDW 13.1, MPV 7.5, Gran % 73.6, Lymphocytes % 17.1 L, Monocytes % 8.1, Eosinophils % 0.5, Basophils % 0.7, Absolute Granulocytes 15.5 H, Segmented Neutrophils 72, Band Neutrophils 1, Absolute Lymphocytes 3.6 H, Lymphocytes 20 L, Monocytes 5, Absolute Monocytes 1.7 H, Eosinophils 2, Absolute Eosinophils 0.1, Absolute Basophils 0.1, Platelet Estimate INCREASED, Normocytic RBCs VERIFIED, Normochromic RBCs VERIFIED, ESR Westergren 56 H Microbiology 03/10 0233 URINE ROUT: Urine Culture - COLB 03/10 0001 BLOOD: Blood Culture - RECD 03/09 2252 BLOOD: Blood Culture - RECD Vital Signs Date Time Temp Pulse Resp B/P B/P Pulse O2 O2 Flow FiO2 Mean Ox Delivery Rate 03/10 0608 98.3 58 18 110/60 97 Room Air 03/10 0259 97.0 72 16 100/55 96 Room Air 03/10 0051 98.7 100 18 131/78 100 Room Air 03/09 2219 99.3 03/09 2219 99.3 03/09 2051 101.4 03/09 2041 101.4 120 18 104/73 98 Room Air Intake & Output 03/10 1600 03/10 0800 03/10 0000 Intake Total 0 Output Total 900 Balance -900 0 Intake, Oral 0 Output, Urine 900 Patient 315 lb Weight Weight Estimated Measurement Method
--- NOTE | 2018-03-10 11:49 | Event Note ---
Event Note Event Note: 42 YO M obese with PMH of DM (noncompliant with medication), HLP, osteomyelitis s/p L big toe amputation, h/o MRSA in presented with left foot pain and non- healing ulcer. No overnight events. Patient remained afebrile overnight. Seen and examined this morning. He denied any chest pain, short of breath, nausea, vomiting, chills, fever, abdominal pain dysuria. Patient is nothing by mouth and he is going for procedure possibly this afternoon. On examination: Patient has left foot plantar surface nonhealing ulcer surrounded with erythema. Left foot is swollen but no fluctuation may have deep abscess. Patient having peripheral neuropathy so it's hard to tell any tenderness. He has left foot big toe amputation in the past. We are following the patient for following problems: Sepsis due to left foot cellulitis and osteomyelitis: -On admission patient was meeting SIRS criteria, as he has elevated WBC count, temperature and tachycardia with source of infection. -Patient had history of MRSA osteomyelitis in the past. -Patient has nonhealing left foot diabetic ulcer, patient may have developed abscess and on imaging study, he has navicular and cuboid bone osteomyelitis also involving second third and fourth metatarsals. -Follow-up blood cultures. -Continue vancomycin and Unasyn -Follow-up podiatry recommendations after surgery -Follow-up ID recommendations Uncontrolled diabetes: -Patient is noncompliant to medication. For last 1 month he is not taking any medications. -Accu-Cheks -Diabetic diet -HbA1c is 8.4 -Insulin NovoLog according to sliding scale -Insulin Levemir 16 units twice a day -Follow-up endocrinology after the surgery when patient started to eat. Dr. valdes will change insulin doses after the surgery. DVT prophylaxis: Mechanical only. After the surgery we will start subcutaneous Lovenox. CODE STATUS: Full code
--- NOTE | 2018-03-10 14:47 | Cons- Infect Disease ---
General Information and HPI Consulting Request Date of Consult: 03/10/18 Requested By: Raymundo PEDERSON,Sylwia Reason for Consult: Necrotic wound/cellulitis of the left foot Source of Information: patient, old records History of Present Illness: This is a 42-year-old man with diabetes, noncompliant with medication, peripheral vascular disease, status post left great toe amputation 9 months prior to admission for osteomyelitis secondary to MRSA and Group B strep, requiring a 4 week course of Vancomycin, with eventual healing, admitted on March 09 after presenting to the emergency room with a one week history of a wound on the plantar aspect of his left foot, which began as a blister, associated with increasing erythema and edema of the foot and more acute onset of chills. On admission he was febrile to 101.4. Laboratory data revealed a white blood cell count of 21,000, glucose 265, BUN/creatinine 14 and 0.7, with normal liver enzyme. X-ray of the left foot revealed evidence of osteomyelitis of the medial cuneiform and navicular bone as well as the second, third, fourth and fifth toes. He was given a dose of Ceftriaxone, followed by Vancomycin and Unasyn. He has defervesced and offers no complaints at this time. Allergies/Medications Allergies: Coded Allergies: No Known Allergies (05/22/16) Home Med List: Atorvastatin Calcium 10 MG TABLET 1 TAB PO DAILY HLD Insulin Aspart (Novolog) 100 UNIT/ML VIAL 0 SC BEDTIME DM Blood sugar # Units Less than 250 0 251-300 1 301-350 2 351-400 3 more than 400 4 Insulin Aspart (Novolog) 100 UNIT/ML VIAL 0 SC TIDAC DM blood sugar # units less than 80 initiate hypoglycemia 80-150 8 units 151-200 10 units 201-250 12 units 251-300 14 units 301-350 16 units 351-400 18 units more than 400 20 units, notify Insulin Detemir (Levemir Flextouch) 100 UNIT/ML (3 ML) INSULN.PEN 30 UNITS SC DAILY DM (Reported) Vancomycin/0.9 % Sod Chloride (Vanco 2 Gram/250 Ml-0.9% NaCl) 2 GRAM/250 ML PLAST..BAG 2 GM IV Q12 ANTIBIOTIC, INFECTION Past History Travel History Traveled to [place] past 21 day No Medical History Neurological: NONE EENT: NONE Cardiovascular: hyperlipidemia Respiratory: NONE Gastrointestinal: NONE Hepatic: NONE Renal: NONE Musculoskeletal: fracture (arm as a child) Psychiatric: NONE Endocrine: diabetes Blood Disorders: NONE Cancer(s): NONE 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 FH: diabetes mellitus FH: heart disease FATHER, , Age 60+. Psychosocial History Who Do You Live With? friends Services at Home: None Functional Ability ADLs Independent: dressing, eating, toileting, bathing. Ambulation: independent IADLs Independent: shopping, housework, finances, food prep, telephone, transportation , medication admin. Review of Systems Review of Systems All Other Systems: Reviewed and Negative Exam & Diagnostic Data Last 24 Hrs of Vital Signs/I&O Vital Signs Date Time Temp Pulse Resp B/P B/P Pulse O2 O2 Flow FiO2 Mean Ox Delivery Rate 03/10 1349 97.7 64 18 121/56 99 Room Air 03/10 1032 98.0 63 16 116/61 96 03/10 0608 98.3 58 18 110/60 97 Room Air 03/10 0259 97.0 72 16 100/55 96 Room Air 03/10 0051 98.7 100 18 131/78 100 Room Air 03/09 2219 99.3 03/09 2219 99.3 03/09 2051 101.4 03/09 2041 101.4 120 18 104/73 98 Room Air Intake & Output 03/10 1600 03/10 0800 03/10 0000 Intake Total 0 Output Total 900 Balance -900 0 Intake, Oral 0 Output, Urine 900 Patient 315 lb Weight Weight Estimated Measurement Method Physical Exam Other Physical Findings: He is awake and alert in no acute distress. T-max 101.4. Skin reveals no rash. HEENT exam is negative. Neck is supple with no adenopathy. Lungs are clear. Heart regular rhythm with no murmur. Abdomen is obese, soft, nontender with positive bowel sounds. Back no CVA tenderness. Extremities left foot status post amputation of the great toe; necrotic wound on the plantar aspect laterally , 5 x 7 cm, with surrounding erythema and with edema of the entire foot; moderate edema with minimal erythema of the left leg; decreased pulses bilaterally. Neuro neuropathy both feet. Last 24 Hours of Lab Results: Laboratory Tests 03/10 03/10 0600 0139 Chemistry Sodium (137 - 145 mmol/L) 138 Potassium (3.5 - 5.1 mmol/L) 3.7 Chloride (98 - 107 mmol/L) 100 Carbon Dioxide (22 - 30 mmol/L) 27 Anion Gap (5 - 16) 10 BUN (9 - 20 mg/dL) 13 Creatinine (0.7 - 1.2 mg/dL) 0.6 L Estimated GFR (>60 ml/min) > 60 BUN/Creatinine Ratio (7 - 25 %) 21.7 Hemoglobin A1c (4.2 - 5.8 %) 8.4 H Lactic Acid Cancelled Magnesium (1.6 - 2.3 mg/dL) 1.6 Hematology CBC w Diff NO MAN DIFF REQ WBC (4.8 - 10.8 /CUMM) 13.8 H RBC (4.70 - 6.10 /CUMM) 4.73 Hgb (14.0 - 18.0 G/DL) 13.4 L Hct (42 - 52 %) 40.9 L MCV (80.0 - 94.0 FL) 86.4 MCH (27.0 - 31.0 PG) 28.4 MCHC (33.0 - 37.0 G/DL) 32.9 L RDW (11.5 - 14.5 %) 13.1 Plt Count (130 - 400 /CUMM) 363 MPV (7.4 - 10.4 FL) 7.4 Gran % (42.2 - 75.2 %) 62.7 Lymphocytes % (20.5 - 51.1 %) 24.9 Monocytes % (1.7 - 9.3 %) 9.6 H Eosinophils % (0 - 5 %) 2.5 Basophils % (0.0 - 2.0 %) 0.3 Absolute Granulocytes (1.4 - 6.5 /CUMM) 8.6 H Absolute Lymphocytes (1.2 - 3.4 /CUMM) 3.4 Absolute Monocytes (0.10 - 0.60 /CUMM) 1.3 H Absolute Eosinophils (0.0 - 0.7 /CUMM) 0.3 Absolute Basophils (0.0 - 0.2 /CUMM) 0 03/09 2252 Chemistry Sodium (137 - 145 mmol/L) 132 L Potassium (3.5 - 5.1 mmol/L) 4.1 Chloride (98 - 107 mmol/L) 94 L Carbon Dioxide (22 - 30 mmol/L) 25 Anion Gap (5 - 16) 14 BUN (9 - 20 mg/dL) 14 Creatinine (0.7 - 1.2 mg/dL) 0.7 Estimated GFR (>60 ml/min) > 60 BUN/Creatinine Ratio (7 - 25 %) 20.0 Glucose (65 - 99 mg/dL) 265 H Lactic Acid (0.7 - 2.1 mmol/L) 1.7 Calcium (8.4 - 10.2 mg/dL) 9.0 Total Bilirubin (0.2 - 1.3 mg/dL) 0.5 AST (17 - 59 U/L) 14 L ALT (21 - 72 U/L) 21 Alkaline Phosphatase (< 127 U/L) 88 C-Reactive Prot, Quant (<1.0 mg/dL) 6.8 H C-React Prot High Sens (1.0 - 3.0 mg/L) > 15.0 H Total Protein (6.3 - 8.2 g/dL) 6.8 Albumin (3.5 - 5.0 g/dL) 3.6 Globulin (1.9 - 4.2 gm/dL) 3.2 Albumin/Globulin Ratio (1.1 - 2.2 %) 1.1 Hematology CBC w Diff MAN DIFF ORDERED WBC (4.8 - 10.8 /CUMM) 21.0 H RBC (4.70 - 6.10 /CUMM) 4.88 Hgb (14.0 - 18.0 G/DL) 14.2 Hct (42 - 52 %) 41.6 L MCV (80.0 - 94.0 FL) 85.3 MCH (27.0 - 31.0 PG) 29.0 MCHC (33.0 - 37.0 G/DL) 34.0 RDW (11.5 - 14.5 %) 13.1 Plt Count (130 - 400 /CUMM) 419 H MPV (7.4 - 10.4 FL) 7.5 Gran % (42.2 - 75.2 %) 73.6 Lymphocytes % (20.5 - 51.1 %) 17.1 L Monocytes % (1.7 - 9.3 %) 8.1 Eosinophils % (0 - 5 %) 0.5 Basophils % (0.0 - 2.0 %) 0.7 Absolute Granulocytes (1.4 - 6.5 /CUMM) 15.5 H Segmented Neutrophils (42.2 - 75.2 %) 72 Band Neutrophils (0.0 - 5.0 %) 1 Absolute Lymphocytes (1.2 - 3.4 /CUMM) 3.6 H Lymphocytes (20.5 - 51.1 %) 20 L Monocytes (1.7 - 9.3 %) 5 Absolute Monocytes (0.10 - 0.60 /CUMM) 1.7 H Eosinophils (0 - 5.0 %) 2 Absolute Eosinophils (0.0 - 0.7 /CUMM) 0.1 Absolute Basophils (0.0 - 0.2 /CUMM) 0.1 Platelet Estimate (ADEQUATE) INCREASED Normocytic RBCs VERIFIED Normochromic RBCs VERIFIED ESR Westergren (0 - 10 MM) 56 H Last 24 Hours of Denis Results: Blood cultures 2 March 09/March 10 negative Diagnostic Data Recent Imaging Findings: X-ray of the left foot revealed evidence of osteomyelitis of the medial cuneiform and navicular bone as well as the second, third, fourth and fifth toes Assessment/Plan Assessment/Plan Impression: This is a 42-year-old man with diabetes, peripheral vascular disease, status post left great toe amputation 9 months prior to admission for osteomyelitis secondary to MRSA and Group B strep, admitted on March 09 with a one week history of a wound on the plantar aspect of his left foot, associated with increasing erythema and edema of the foot and more acute onset of chills, found to be febrile with a leukocytosis and with an x-ray of the left foot revealing evidence of osteomyelitis of the medial cuneiform and navicular bone as well as the second, third, fourth and fifth toes. He has evidence of a severe infection involving the plantar aspect of his left foot, with the suspicion on exam of a possible abscess within the soft tissues as well as cellulitis and with evidence on x-ray of underlying osteomyelitis of the foot and second through fifth toes, though these x-ray changes could also be consistent with Charcot foot. He will require debridement of the foot, but, based on the x-ray findings, suspect he may ultimately require a BKA. He was evaluated by Vascular surgery on his last hospitalization, with no intervention recommended at that time, but feel that reevaluation should be considered. He can be continued on empiric antibiotics pending OR cultures, but do not believe his infection will resolve without the appropriate drainage/debridement. Suggestion: 1. Await Podiatry input and eventual debridement/drainage 2. Vascular surgery evaluation 3. Discontinue Vancomycin 4. Continue Unasyn pending above Consult Acknowledgment - Thank you for your consult request.
--- NOTE | 2018-03-10 15:55 | Cons- Podiatry ---
General Information and HPI Consulting Request Date of Consult: 03/10/18 Requested By: Raymundo PEDERSON,Sylwia History of Present Illness: Courses a 42-year-old diabetic male known to me for left foot osteomyelitis, requiring a partial first ray resection. The patient presented to the ED complaining of redness, swelling and fever. Patient states that he developed the lesion that he noticed 1 week ago at the plantar aspect of his left foot. Patient denies drainage from the lesion. Allergies/Medications Allergies: Coded Allergies: No Known Allergies (05/22/16) Home Med List: Atorvastatin Calcium 10 MG TABLET 1 TAB PO DAILY HLD Insulin Aspart (Novolog) 100 UNIT/ML VIAL 0 SC BEDTIME DM Blood sugar # Units Less than 250 0 251-300 1 301-350 2 351-400 3 more than 400 4 Insulin Aspart (Novolog) 100 UNIT/ML VIAL 0 SC TIDAC DM blood sugar # units less than 80 initiate hypoglycemia 80-150 8 units 151-200 10 units 201-250 12 units 251-300 14 units 301-350 16 units 351-400 18 units more than 400 20 units, notify Insulin Detemir (Levemir Flextouch) 100 UNIT/ML (3 ML) INSULN.PEN 30 UNITS SC DAILY DM (Reported) Vancomycin/0.9 % Sod Chloride (Vanco 2 Gram/250 Ml-0.9% NaCl) 2 GRAM/250 ML PLAST..BAG 2 GM IV Q12 ANTIBIOTIC, INFECTION Past History Medical History Neurological: NONE EENT: NONE Cardiovascular: hyperlipidemia Respiratory: NONE Gastrointestinal: NONE Hepatic: NONE Renal: NONE Musculoskeletal: fracture (arm as a child) Psychiatric: NONE Endocrine: diabetes Blood Disorders: NONE Cancer(s): NONE 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 FH: diabetes mellitus FH: heart disease FATHER, , Age 60+. Psychosocial History Who Do You Live With? friends Services at Home: None Smoking Status: Never Smoked Functional Ability ADLs Independent: dressing, eating, toileting, bathing. Ambulation: independent IADLs Independent: shopping, housework, finances, food prep, telephone, transportation , medication admin. Review of Systems Review of Systems: Unremarkable except a noted history of present illness Exam & Diagnostic Data Vital Signs and I&O Vital Signs Date Time Temp Pulse Resp B/P B/P Pulse O2 O2 Flow FiO2 Mean Ox Delivery Rate 03/10 1349 97.7 64 18 121/56 99 Room Air 03/10 1032 98.0 63 16 116/61 96 03/10 0608 98.3 58 18 110/60 97 Room Air 03/10 0259 97.0 72 16 100/55 96 Room Air 03/10 0051 98.7 100 18 131/78 100 Room Air 03/09 2219 99.3 03/09 2219 99.3 03/09 205 101.4 03/09 204 101.4 120 18 104/73 98 Room Air Intake & Output 03/10 1600 03/10 0800 03/10 0000 03/09 1600 03/09 0800 03/09 0000 Intake Total 0 Output Total 900 Balance -900 0 Intake, Oral 0 Output, Urine 900 Patient 315 lb 315 lb Weight Weight Reported by Patient Estimated Measurement Method Physical Exam: 6 cm x 6 cm circular eschar identified at the plantar lateral aspect of the left midfoot. No probing or undermining identified. No fluctuance or crepitus appreciated. No active drainage identified. Cellulitis noted extending along the medial arch to the dorsal foot. X-rays demonstrate significant interval changes to the Lisfranc's joint left foot. These findings could represent either Charcot and/or a midfoot osteomyelitis. The obliteration of the joint uniformly from medial to lateral suggests a neuropathic arthritic process, however periostitis at the fifth ray could represent an infection. Assessment/Plan Assessment/Plan Left lower extremity cellulitis in the setting of diabetic peripheral neuropathy. Continue IV antibiotics per ID and medicine recommendations. Recommend an MRI Tuesday and a debridement of the foot on Tuesday. Consult Acknowledgment - Thank you for your consult request.
[2018-03-10 16:00] VITALS: BP 110/68
--- NOTE | 2018-03-10 17:16 | Cons- Psychiatry ---
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 Asked by emergency service to see pt for r/o depression. ED Course: Laboratory Tests 03/10/18 0600: Anion Gap 10, Estimated GFR > 60, BUN/Creatinine Ratio 21.7, Hemoglobin A1c 8.4 H, Magnesium 1.6, CBC w Diff NO MAN DIFF REQ, RBC 4.73, MCV 86.4, MCH 28.4, MCHC 32.9 L, RDW 13.1, MPV 7.4, Gran % 62.7, Lymphocytes % 24.9, Monocytes % 9.6 H, Eosinophils % 2.5, Basophils % 0.3, Absolute Granulocytes 8.6 H, Absolute Lymphocytes 3.4, Absolute Monocytes 1.3 H, Absolute Eosinophils 0.3, Absolute Basophils 0 03/10/18 0139: Lactic Acid Cancelled 03/09/18 2252: Anion Gap 14, Estimated GFR > 60, BUN/Creatinine Ratio 20.0, Glucose 265 H, Lactic Acid 1.7, Calcium 9.0, Total Bilirubin 0.5, AST 14 L, ALT 21, Alkaline Phosphatase 88, C-Reactive Prot, Quant 6.8 H, C-React Prot High Sens > 15.0 H, Total Protein 6.8, Albumin 3.6, Globulin 3.2, Albumin/Globulin Ratio 1.1, CBC w Diff MAN DIFF ORDERED, RBC 4.88, MCV 85.3, MCH 29.0, MCHC 34.0, RDW 13.1, MPV 7.5, Gran % 73.6, Lymphocytes % 17.1 L, Monocytes % 8.1, Eosinophils % 0.5, Basophils % 0.7, Absolute Granulocytes 15.5 H, Segmented Neutrophils 72, Band Neutrophils 1, Absolute Lymphocytes 3.6 H, Lymphocytes 20 L, Monocytes 5, Absolute Monocytes 1.7 H, Eosinophils 2, Absolute Eosinophils 0.1, Absolute Basophils 0.1, Platelet Estimate INCREASED, Normocytic RBCs VERIFIED, Normochromic RBCs VERIFIED, ESR Westergren 56 H Microbiology 03/10 0233 URINE ROUT: Urine Culture - COLB 03/10 0001 BLOOD: Blood Culture - RECD 03/09 225 BLOOD: Blood Culture - RES Left foot x-ray: 1. Amputation of the great toe at the distal shaft of the first metatarsal. 2. Evidence of osteomyelitis of the medial cuneiform and navicular bone and osteomyelitis involving the second, third fourth and fifth toes. 3. Subluxation of the midfoot involving the medial cuneiform and the second through fifth metatarsal tarsal joints. PMH: See above PPHx: None. FH: None SH: From [place], came with parents in 1993. They are both . Finished HS 2 years of college in [employer]. He was living with his father who 2 years ago and he no longer had access to the apartment. He was living in hotels and with friends when he was still working and in his car on weekends. Since he became more ill with diabetes he lost his job and now stays in the car at [facility] in [place]. He has food stamps. 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 MSE: Obese Male in bed in gown looking at his tablet. Alert and oriented. Looks at tablet for entire interview. He is calm and pleasant. Heavy Tongan accent but speaks perfect Pashto. No motor abnormalities. Speech normal rate and rhythm. Mood down and depressed. Affect full range, even. TP linear TC SI, delusions or violent ideation. He is unconcerned about consequences of his diabetes med non-compliance. Insight into depression is fair and Judgment is fair/ A/ Pt is a 42 SWM w/ uncontrolled diabetes who is homeless and c/o depression. He is interested in trialing an SSRI. -Would start lexapro 10 mg qDaily -Pt with very poor understanding of his diabetes, would continue education -TSH, Vit D, -I will set him up with [place] outpatient psychiat[facility]
[2018-03-10 22:26] VITALS: BP 102/74
[2018-03-11 06:22] VITALS: BP 110/66
[2018-03-11 08:36] LABS: ABSOLUTE BASOPHIL COUNT 0 /CUMM (0.0-0.2); ABSOLUTE EOSINOPHIL COUNT 0.4 /CUMM (0.0-0.7); ABSOLUTE GRANULOCYTE CT 6.4 /CUMM (1.4-6.5); ABSOLUTE MONOCYTE COUNT 0.9 /CUMM (0.10-0.60); BASOPHIL % 0.3 % (0.0-2.0); EOSINOPHIL % 3.7 % (0-5); GRANULOCYTE % 66.5 % (42.2-75.2); HEMATOCRIT 37.7 % (42-52); MEAN CORPUSCULAR HGB 28.8 PG (27.0-31.0); MEAN CORPUSCULAR HGB CONC 33.2 G/DL (33.0-37.0); MEAN CORPUSCULAR VOLUME 86.6 FL (80.0-94.0); MEAN PLATELET VOLUME 7.9 FL (7.4-10.4); PLATELET COUNT 342 /CUMM (130-400); RBC DISTRIBUTION WIDTH 13.4 % (11.5-14.5); RED BLOOD CELL CT 4.36 /CUMM (4.70-6.10); WHITE BLOOD CELL COUNT 9.7 /CUMM (4.8-10.8)
--- NOTE | 2018-03-11 09:02 | PN- Housestaff ---
Barrett PEDERSON,Radha 03/11/18 0901: Subjective Follow-up For: Sepsis Infection of the left foot, h/o MRSA IDDM, non complaint with medications Obesity Subjective: Patient states that he is sleepy today. Vital signs are stable. notes some mild lower left leg pain. no shortness of breath or chest pain. no nausea, vomiting, fever, chills. Review of Systems Constitutional: Reports: no symptoms. EENTM: Reports: no symptoms. Cardiovascular: Reports: no symptoms. Respiratory: Reports: no symptoms. Gastrointestinal: Reports: no symptoms. Genitourinary: Reports: no symptoms. Musculoskeletal: Reports: see HPI. Skin: Reports: change in skin color, lesions. Objective Last 24 Hrs of Vital Signs/I&O Vital Signs Date Time Temp Pulse Resp B/P B/P Pulse O2 O2 Flow FiO2 Mean Ox Delivery Rate 03/11 1436 97.9 77 18 116/73 97 Room Air 03/11 0622 98.1 80 20 110/66 97 03/10 2226 97.8 85 20 102/74 99 Intake & Output 03/11 1600 03/11 0800 03/11 0000 Intake Total 750 710 250 Output Total Balance 750 710 250 Intake, IV 230 10 Intake, Oral 750 480 240 Number 0 0 Bowel Movements Patient 315 lb Weight Physical Exam General Appearance: Alert, Oriented X3, Cooperative, No Acute Distress Skin: No Breakdown, large non bleeding ulcer bottom left foot with granulation tissue. no erythema Skin Temp/Moisture Exam: Warm/Dry Sepsis Skin Exam (color): Normal for Ethnicity HEENT: Atraumatic, EOMI, Mucous Membr. moist/pink Cardiovascular: Regular Rate, Normal S1, Normal S2, No Murmurs Lungs: Clear to Auscultation, Normal Air Movement Abdomen: Normal Bowel Sounds, Soft, No Tenderness, No Hepatospenomegaly Neurological: Normal Speech, Strength at 5/5 X4 Ext, Normal Tone Extremities: No Clubbing, No Cyanosis Current Medications: Current Medications Sig/Homero Start time Last Medication Dose Route Stop Time Status Admin Acetaminophen 650 MG Q6P PRN 03/10 0230 AC PO Ampicillin Sodium/ 3,000 MG Q6 03/10 0600 AC 03/11 Sulbactam Sodium IV 1732 Sodium Chloride 100 ML Enoxaparin Sodium 40 MG DAILY 03/10 1643 AC 03/11 SC 0802 Escitalopram Oxalate 10 MG DAILY 03/11 0900 AC 03/11 PO 0802 Insulin Aspart 0 TIDAC 03/11 0800 AC 03/11 SC 1731 Insulin Aspart 0 AT BEDTIME 03/10 2100 AC SC Insulin Detemir 20 UNITS BID 03/11 2100 AC SC Insulin Detemir 16 UNITS BID 03/10 0900 DC 03/11 SC 0803 Last 24 Hrs of Lab/Denis Results Last 24 Hrs of Labs/Mics: Laboratory Tests 03/11/18 0623: Anion Gap 10, Estimated GFR > 60, BUN/Creatinine Ratio 31.7 H, 25-OH Vitamin D Total 12.4 L, TSH 5.170 H, Free T4 1.34, CBC w Diff NO MAN DIFF REQ, RBC 4.36 L, MCV 86.6, MCH 28.8, MCHC 33.2, RDW 13.4, MPV 7.9, Gran % 66.5, Lymphocytes % 20.7, Monocytes % 8.8, Eosinophils % 3.7, Basophils % 0.3, Absolute Granulocytes 6.4, Absolute Lymphocytes 2.0, Absolute Monocytes 0.9 H, Absolute Eosinophils 0.4, Absolute Basophils 0 Microbiology 03/11 0425 URINE ROUT: Urine Culture - RECD Assessment/Plan Assessment: Patient is 42 y M presented with nonhealing ulcer of left foot, chills None complaint with medication miserable living condition PMH of DM (noncompliant with medication), HLP, obesity, osteomyelitis s/p L toe amputation, h/o MRSA VS, Ph Ex at admission: Tmax 101.4, CT 120, RR 18, BP 104/73 Labs at admission: WBC 21, band 1, Hgb 14.2, PLT 419, ESR 56 Imagings at admission: Foot x-ray: 1. Amputation of the great toe at the distal shaft of the first metatarsal. 2. Evidence of osteomyelitis of the medial cuneiform and navicular bone and osteomyelitis involving the second, third fourth and fifth toes. 3. Subluxation of the midfoot involving the medial cuneiform and the second through fifth metatarsal tarsal joints. In the ED patient received ceftriaxone and vancomycin. Patient was admitted to floor for management of following conditions: Sepsis Infection of the left foot, h/o MRSA IDDM, non complaint with medications Obesity -MRI of the foot on Tuesday which will better locate the site of infection -Patient will go for surgery on March 14Tuesday -Admitted patient to general medicine floor -As per vascular surgery: He has adequate pedal perfusion to heal wound. Needs local wound care, offloading. Once wound heals, he needs orthotic support to correct abnormal pressure bearing. -Vital signs -Continue IV fluids - IV Unasyn, stopped vanco -Continue home medication -Hemoglobin A1c is found to be 8.4, endocrine consult, we started Levemir 16 units twice a day and sliding scale coverage. TSH was found to be mildly high with a normal free T4 and vitamin D was found to be low at 12.4 Full code DVT Ppx: Alps, hold anticoag for now NPO for now for possible procedure tomorrow Problem List: 1. Fever 2. Sepsis 3. Cellulitis Pain Ratin Pain Location: lower left ext Pain Goal: Pain 4 or less Pain Plan: pathway Tomorrow's Labs & Rationales: taina Hung MD,Amir 03/11/18 1151: Attending MD Review Statement Attending Statement Attending MD Statement: examined this patient, discuss w/resident/PA/OUTSIDE PRODUCTION INSPECTOR, agreed w/resident/PA/OUTSIDE PRODUCTION INSPECTOR, reviewed EMR data (avail), discussed with nursing Attending Assessment/Plan: Pt was seen and evaluated. Chart reviewed. Reports doing OK just sleepy. Remains afebrile. Has been evaluated by Endo, ID and Podiatry. Appreciate their input. D/C Vanco. MRI on Tue and Debridement on . --rest of the plan as per resident's note
--- NOTE | 2018-03-11 10:15 | PN- Vascular Surgery ---
Surgical Brief Attending Note Brief Attending Note: Patient seen and examined, full note to follow. Left pedal plantar ulcer due to Charcot deformity. Surrounding cellulitis, no purulence. Palpable pedal pulses. He has adequate pedal perfusion to heal wound. Needs local wound care, offloading. Once wound heals, he needs orthotic support to correct abnormal pressure bearing. Defer to podiatry.
--- NOTE | 2018-03-11 12:49 | Cons- Vascular Surgery ---
See Addendum General Information and HPI Consulting Request Date of Consult: 03/11/18 Requested By: Raymundo PEDERSON,Sylwia Reason for Consult: diabetic foot ulcer Source of Information: patient Exam Limitations: no limitations History of Present Illness: 42 y/o diabetic male, noncompliant on medications, with a history of previous foot infections to include osteo of the left foot, presented to the hospital with a new ulceration that developed along the plantar aspect of his right foot. patient states he had a blister that popped on the bottom of his foot and it has slowly gotten infected. he has decreased sensation to the feet and he does not have much pain. Patient was admitted to several times during the last spring/summer, 1: February 2017, had amputation, received 4 w of unasyn, 2: March 24, refused repeating procedure, recieved unasyn for 1w, discharged on no antibiotics, 3: End of April 2017, underwent amputation, had MRSA, recieved Vanc for 4w. Allergies/Medications Allergies: Coded Allergies: No Known Allergies (05/22/16) Home Med List: Atorvastatin Calcium 10 MG TABLET 1 TAB PO DAILY HLD Insulin Aspart (Novolog) 100 UNIT/ML VIAL 0 SC BEDTIME DM Blood sugar # Units Less than 250 0 251-300 1 301-350 2 351-400 3 more than 400 4 Insulin Aspart (Novolog) 100 UNIT/ML VIAL 0 SC TIDAC DM blood sugar # units less than 80 initiate hypoglycemia 80-150 8 units 151-200 10 units 201-250 12 units 251-300 14 units 301-350 16 units 351-400 18 units more than 400 20 units, notify Insulin Detemir (Levemir Flextouch) 100 UNIT/ML (3 ML) INSULN.PEN 30 UNITS SC DAILY DM (Reported) Vancomycin/0.9 % Sod Chloride (Vanco 2 Gram/250 Ml-0.9% NaCl) 2 GRAM/250 ML PLAST..BAG 2 GM IV Q12 ANTIBIOTIC, INFECTION Current Medications: Current Medications Sig/Homero Start time Last Medication Dose Route Stop Time Status Admin Acetaminophen 650 MG Q6P PRN 03/10 0230 AC PO Ampicillin Sodium/ 3,000 MG Q6 03/10 0600 AC 03/11 Sulbactam Sodium IV 1123 Sodium Chloride 100 ML Dextrose/Sodium 1,000 ML .[id number] 03/10 0230 DC 03/10 Chloride IV 03/10 1549 0259 Enoxaparin Sodium 40 MG DAILY 03/10 1643 AC 03/11 SC 0802 Escitalopram Oxalate 10 MG DAILY 03/11 0900 AC 03/11 PO 0802 Insulin Aspart 0 TIDAC 03/11 0800 AC 03/11 SC 1249 Insulin Aspart 0 AT BEDTIME 03/10 2100 AC SC Insulin Aspart 0 Q4 03/10 1000 DC 03/10 SC 1347 Insulin Detemir 20 UNITS BID 03/11 2100 AC SC Insulin Detemir 16 UNITS BID 03/10 0900 DC 03/11 SC 0803 Vancomycin HCl 2,000 MG Q12H 03/10 1200 DC 03/10 Sodium Chloride 500 ML IV 1400 Admission Lab Results I reviewed the following labs: Laboratory Tests 03/11 623 Chemistry Sodium (137 - 145 mmol/L) 135 L Potassium (3.5 - 5.1 mmol/L) 4.2 Chloride (98 - 107 mmol/L) 99 Carbon Dioxide (22 - 30 mmol/L) 26 Anion Gap (5 - 16) 10 BUN (9 - 20 mg/dL) 19 Creatinine (0.7 - 1.2 mg/dL) 0.6 L Estimated GFR (>60 ml/min) > 60 BUN/Creatinine Ratio (7 - 25 %) 31.7 H 25-OH Vitamin D Total (30 - 100 ng/ml) 12.4 L TSH (0.270 - 4.200 uIU/mL) 5.170 H Free T4 (0.64 - 1.79 ng/dL) 1.34 Hematology CBC w Diff NO MAN DIFF REQ WBC (4.8 - 10.8 /CUMM) 9.7 RBC (4.70 - 6.10 /CUMM) 4.36 L Hgb (14.0 - 18.0 G/DL) 12.5 L Hct (42 - 52 %) 37.7 L MCV (80.0 - 94.0 FL) 86.6 MCH (27.0 - 31.0 PG) 28.8 MCHC (33.0 - 37.0 G/DL) 33.2 RDW (11.5 - 14.5 %) 13.4 Plt Count (130 - 400 /CUMM) 342 MPV (7.4 - 10.4 FL) 7.9 Gran % (42.2 - 75.2 %) 66.5 Lymphocytes % (20.5 - 51.1 %) 20.7 Monocytes % (1.7 - 9.3 %) 8.8 Eosinophils % (0 - 5 %) 3.7 Basophils % (0.0 - 2.0 %) 0.3 Absolute Granulocytes (1.4 - 6.5 /CUMM) 6.4 Absolute Lymphocytes (1.2 - 3.4 /CUMM) 2.0 Absolute Monocytes (0.10 - 0.60 /CUMM) 0.9 H Absolute Eosinophils (0.0 - 0.7 /CUMM) 0.4 Absolute Basophils (0.0 - 0.2 /CUMM) 0 Past History Medical History Neurological: NONE EENT: NONE Cardiovascular: hyperlipidemia Respiratory: NONE Gastrointestinal: NONE Hepatic: NONE Renal: NONE Musculoskeletal: fracture (arm as a child) Psychiatric: NONE Endocrine: diabetes Blood Disorders: NONE Cancer(s): NONE CASE FOLDER/Reproductive: NONE Surgical History Pertinent Surgical History: Amputation of the left great toe Family History Relations & Conditions If Any: MOTHER, , Age 60+; Cause: Cardiac arrest. FH: diabetes mellitus FH: heart disease FATHER, , Age 60+. Psychosocial History Who Do You Live With? friends Services at Home: None Smoking Status: Never Smoked Functional Ability ADLs Independent: dressing, eating, toileting, bathing. Ambulation: independent IADLs Independent: shopping, housework, finances, food prep, telephone, transportation , medication admin. Review of Systems Review of Systems Constitutional: Denies: chills, diaphoresis, fever, malaise, weakness. EENTM: Denies: no symptoms. Cardiovascular: Denies: no symptoms. Respiratory: Denies: no symptoms. GI: Denies: no symptoms. Genitourinary: Denies: no symptoms. Musculoskeletal: Reports: see HPI. Skin: Reports: erythema. Exam & Diagnostic Data Vital Signs and I&O Vital Signs Date Time Temp Pulse Resp B/P B/P Pulse O2 O2 Flow FiO2 Mean Ox Delivery Rate 03/11 0622 98.1 80 20 110/66 97 03/10 2226 97.8 85 20 102/74 99 03/10 1600 97.5 67 18 110/68 98 Room Air 03/10 1349 97.7 64 18 121/56 99 Room Air Intake & Output 0503/11 0803/11 0000 03/10 1600 03/10 0800 03/10 0000 Intake Total 710 250 0 Output Total 900 Balance 710 250 -900 0 Intake, IV 230 10 Intake, Oral 480 240 0 Number 0 0 Bowel Movements Output, Urine 900 Patient 0 lb 315 lb Weight Weight Reported by Patient Estimated Measurement Method Physical Exam: patient is alert and oriented, complaining of being tired and wants to sleep chest -CTA symmetric Heart- RRR without MRG Abdomen- rounded without distention, NT bilateral lower extremities- pulses palpable bilaterally and feet warm with good blood flow PT/DP 1+ large plantar ulceration @10cm annular with surrounding erythema calves soft bilaterally without edema Assessment/Plan Assessment/Plan 42 y/o male, DM with new right plantar ulcer recommendations per Dr. TRAYLOR Left pedal plantar ulcer due to Charcot deformity. Surrounding cellulitis, no purulence. Palpable pedal pulses. He has adequate pedal perfusion to heal wound. Needs local wound care, offloading. Once wound heals, he needs orthotic support to correct abnormal pressure bearing. Defer to podiatry. Problem List: 1. Hyperglycemia 2. Morbid obesity with BMI of 45.0-49.9, adult 3. Fever Copies To: Maureen PEDERSON,Hiren Henry. Consult Acknowledgment - Thank you for your consult request.
--- NOTE | 2018-03-11 13:55 | PN- Infect Dx ---
Subjective Subjective: Afebrile without complaints Objective Last 24 Hrs of Vital Signs/I&O Vital Signs Date Time Temp Pulse Resp B/P B/P Pulse O2 O2 Flow FiO2 Mean Ox Delivery Rate 03/11 622 98.1 80 20 110/66 97 03/10 2226 97.8 85 20 102/74 99 03/10 1600 97.5 67 18 110/68 98 Room Air Intake & Output 03/11 1600 03/11 0800 03/11 0000 Intake Total 710 250 Output Total Balance 710 250 Intake, IV 230 10 Intake, Oral 480 240 Number 0 0 Bowel Movements Physical Exam Other Physical Findings: He appears comfortable in no acute distress Extremities left foot necrotic eschar unchanged, with decreased edema and erythema of the foot and leg, nontender to palpation Results Last 24 Hours of Lab Results: Laboratory Tests 03/11 623 Chemistry Sodium (137 - 145 mmol/L) 135 L Potassium (3.5 - 5.1 mmol/L) 4.2 Chloride (98 - 107 mmol/L) 99 Carbon Dioxide (22 - 30 mmol/L) 26 Anion Gap (5 - 16) 10 BUN (9 - 20 mg/dL) 19 Creatinine (0.7 - 1.2 mg/dL) 0.6 L Estimated GFR (>60 ml/min) > 60 BUN/Creatinine Ratio (7 - 25 %) 31.7 H 25-OH Vitamin D Total (30 - 100 ng/ml) 12.4 L TSH (0.270 - 4.200 uIU/mL) 5.170 H Free T4 (0.64 - 1.79 ng/dL) 1.34 Hematology CBC w Diff NO MAN DIFF REQ WBC (4.8 - 10.8 /CUMM) 9.7 RBC (4.70 - 6.10 /CUMM) 4.36 L Hgb (14.0 - 18.0 G/DL) 12.5 L Hct (42 - 52 %) 37.7 L MCV (80.0 - 94.0 FL) 86.6 MCH (27.0 - 31.0 PG) 28.8 MCHC (33.0 - 37.0 G/DL) 33.2 RDW (11.5 - 14.5 %) 13.4 Plt Count (130 - 400 /CUMM) 342 MPV (7.4 - 10.4 FL) 7.9 Gran % (42.2 - 75.2 %) 66.5 Lymphocytes % (20.5 - 51.1 %) 20.7 Monocytes % (1.7 - 9.3 %) 8.8 Eosinophils % (0 - 5 %) 3.7 Basophils % (0.0 - 2.0 %) 0.3 Absolute Granulocytes (1.4 - 6.5 /CUMM) 6.4 Absolute Lymphocytes (1.2 - 3.4 /CUMM) 2.0 Absolute Monocytes (0.10 - 0.60 /CUMM) 0.9 H Absolute Eosinophils (0.0 - 0.7 /CUMM) 0.4 Absolute Basophils (0.0 - 0.2 /CUMM) 0 Last 24 Hours of Denis Results: Blood cultures 2 March 09/March 10 negative Urine culture March 11 pending Assessment/Plan ID Impression: Improved, with temperatures and white blood cell count now normal, on Unasyn, Day 2 of treatment for cellulitis of the left foot and leg, with the x-ray of the left foot suggesting osteomyelitis of the medial cuneiform and navicular bone as well as the second through fifth toes, though these changes could be secondary to Charcot foot. He is scheduled for surgery on March 14, with plans for an MRI prior to that, though the MRI may not help distinguish between osteomyelitis and Charcot foot. Suggestion: 1. Await MRI of the left foot 2. Await surgery per Podiatry on March 14 3. Continue Unasyn pending above
[2018-03-11 14:36] VITALS: BP 116/73
--- NOTE | 2018-03-11 18:25 | PN- Diabetes ---
Assessment/Plan Diabetes Assessment: 42 y M with PMH of DM type 2 (noncompliant with medication), dyslipidemia, obesity, osteomyelitis s/p L toe amputation, h/o MRSA, was admitted for fever, left foot pain and non- healing ulcer. His glucose level was over 300. He was put on Levemir 16 units twice a day, Novolog coverage before meals and Novolog coverage at bedtime. His FSGs were 222, 199 and 290. Plan: 1. increase Levemir to 20 units twice a day; 2. continue the current Novolog coverage before meals and Novolog coverage at bedtime; 3. monitor FSGs. will follow. Subjective Subjective: He feels okay. Objective Last 24 Hrs of Vital Signs/I&O Vital Signs Date Time Temp Pulse Resp B/P B/P Pulse O2 O2 Flow FiO2 Mean Ox Delivery Rate 03/11 1436 97.9 77 18 116/73 97 Room Air 03/11 0622 98.1 80 20 110/66 97 03/10 2226 97.8 85 20 102/74 99 Intake & Output 03/11 1600 03/11 0800 03/11 0000 Intake Total 750 710 250 Output Total Balance 750 710 250 Intake, IV 230 10 Intake, Oral 750 480 240 Number 0 0 Bowel Movements Patient 315 lb Weight Findings Pertinent Lab/Denis Results: Laboratory Tests 03/11 0623 Chemistry Sodium (137 - 145 mmol/L) 135 L Potassium (3.5 - 5.1 mmol/L) 4.2 Chloride (98 - 107 mmol/L) 99 Carbon Dioxide (22 - 30 mmol/L) 26 Anion Gap (5 - 16) 10 BUN (9 - 20 mg/dL) 19 Creatinine (0.7 - 1.2 mg/dL) 0.6 L Estimated GFR (>60 ml/min) > 60 BUN/Creatinine Ratio (7 - 25 %) 31.7 H 25-OH Vitamin D Total (30 - 100 ng/ml) 12.4 L TSH (0.270 - 4.200 uIU/mL) 5.170 H Free T4 (0.64 - 1.79 ng/dL) 1.34 Hematology CBC w Diff NO MAN DIFF REQ WBC (4.8 - 10.8 /CUMM) 9.7 RBC (4.70 - 6.10 /CUMM) 4.36 L Hgb (14.0 - 18.0 G/DL) 12.5 L Hct (42 - 52 %) 37.7 L MCV (80.0 - 94.0 FL) 86.6 MCH (27.0 - 31.0 PG) 28.8 MCHC (33.0 - 37.0 G/DL) 33.2 RDW (11.5 - 14.5 %) 13.4 Plt Count (130 - 400 /CUMM) 342 MPV (7.4 - 10.4 FL) 7.9 Gran % (42.2 - 75.2 %) 66.5 Lymphocytes % (20.5 - 51.1 %) 20.7 Monocytes % (1.7 - 9.3 %) 8.8 Eosinophils % (0 - 5 %) 3.7 Basophils % (0.0 - 2.0 %) 0.3 Absolute Granulocytes (1.4 - 6.5 /CUMM) 6.4 Absolute Lymphocytes (1.2 - 3.4 /CUMM) 2.0 Absolute Monocytes (0.10 - 0.60 /CUMM) 0.9 H Absolute Eosinophils (0.0 - 0.7 /CUMM) 0.4 Absolute Basophils (0.0 - 0.2 /CUMM) 0
[2018-03-11 21:36] VITALS: BP 120/76
[2018-03-12 06:35] VITALS: BP 116/58
[2018-03-12 08:38] LABS: ABSOLUTE BASOPHIL COUNT 0 /CUMM (0.0-0.2); ABSOLUTE EOSINOPHIL COUNT 0.3 /CUMM (0.0-0.7); ABSOLUTE GRANULOCYTE CT 6.3 /CUMM (1.4-6.5); ABSOLUTE LYMPH COUNT 3.2 /CUMM (1.2-3.4); BASOPHIL % 0.4 % (0.0-2.0); EOSINOPHIL % 2.8 % (0-5); GRANULOCYTE % 57.6 % (42.2-75.2); HEMATOCRIT 37.4 % (42-52); MEAN CORPUSCULAR HGB 29.1 PG (27.0-31.0); MEAN CORPUSCULAR HGB CONC 33.8 G/DL (33.0-37.0); MEAN CORPUSCULAR VOLUME 86.2 FL (80.0-94.0); MEAN PLATELET VOLUME 7.4 FL (7.4-10.4); PLATELET COUNT 357 /CUMM (130-400); RBC DISTRIBUTION WIDTH 13.1 % (11.5-14.5); RED BLOOD CELL CT 4.34 /CUMM (4.70-6.10); WHITE BLOOD CELL COUNT 10.9 /CUMM (4.8-10.8)
--- NOTE | 2018-03-12 10:13 | PN- Housestaff ---
Barrett PEDERSON,Radha 03/12/18 1012: Subjective Follow-up For: Sepsis Infection of the left foot, h/o MRSA IDDM, non complaint with medications Obesity Subjective: Patient states that he feels good today. Has no complaints and no pain in the bandaged left foot. He states that he believes he would feel pain if he tried to walk. No other complaints. Review of Systems Constitutional: Reports: no symptoms. EENTM: Reports: no symptoms. Cardiovascular: Reports: no symptoms. Respiratory: Reports: no symptoms. Gastrointestinal: Reports: no symptoms. Genitourinary: Reports: no symptoms. Musculoskeletal: Reports: no symptoms. Skin: Reports: no symptoms, lesions. Objective Last 24 Hrs of Vital Signs/I&O Vital Signs Date Time Temp Pulse Resp B/P B/P Pulse O2 O2 Flow FiO2 Mean Ox Delivery Rate 03/12 0635 98.8 72 20 116/58 97 03/11 2136 98.0 80 19 120/76 97 Room Air 03/11 1436 97.9 77 18 116/73 97 Room Air Intake & Output 03/12 1600 03/12 0800 03/12 0000 Intake Total 500 370 Output Total Balance 500 370 Intake, IV 260 130 Intake, Oral 240 240 Physical Exam General Appearance: Alert, Cooperative, No Acute Distress Skin: No Rashes, left foot bandaged wound, clean as per report Skin Temp/Moisture Exam: Warm/Dry Sepsis Skin Exam (color): Normal for Ethnicity HEENT: Atraumatic, EOMI, Mucous Membr. moist/pink Cardiovascular: Regular Rate, Normal S1, Normal S2, No Murmurs Lungs: Clear to Auscultation, Normal Air Movement Abdomen: Normal Bowel Sounds, Soft Extremities: No Clubbing, No Cyanosis, No Edema, Normal Pulses Current Medications: Current Medications Sig/Homero Start time Last Medication Dose Route Stop Time Status Admin Acetaminophen 650 MG Q6P PRN 03/10 0230 AC PO Ampicillin Sodium/ 3,000 MG Q6 03/10 0600 AC 03/12 Sulbactam Sodium IV 0511 Sodium Chloride 100 ML Enoxaparin Sodium 40 MG DAILY 03/10 1643 AC 03/12 SC 0852 Escitalopram Oxalate 10 MG DAILY 03/11 0900 AC 03/12 PO 0852 Insulin Aspart 0 TIDAC 03/11 08 AC 03/12 SC 0851 Insulin Aspart 0 AT BEDTIME 03/10 2100 [facility] Insulin Detemir 20 UNITS BID 03/11 2100 AC 03/12 RI 0851 Insulin Detemir 16 UNITS BID 03/10 0900 DC 03/11 RI 0803 Last 24 Hrs of Lab/Denis Results Last 24 Hrs of Labs/Mics: Laboratory Tests 03/12/18 0700: CBC w Diff NO MAN DIFF REQ, RBC 4.34 L, MCV 86.2, MCH 29.1, MCHC 33.8, RDW 13.1 , MPV 7.4, Gran % 57.6, Lymphocytes % 29.6, Monocytes % 9.6 H, Eosinophils % 2.8, Basophils % 0.4, Absolute Granulocytes 6.3, Absolute Lymphocytes 3.2, Absolute Monocytes 1.0 H, Absolute Eosinophils 0.3, Absolute Basophils 0 Assessment/Plan Assessment: Patient is 42 y M presented with nonhealing ulcer of left foot, chills None complaint with medication miserable living condition PMH of DM (noncompliant with medication), HLP, obesity, osteomyelitis s/p L toe amputation, h/o MRSA VS, Ph Ex at admission: Tmax 101.4, ME 120, RR 18, BP 104/73 Labs at admission: WBC 21, band 1, Hgb 14.2, PLT 419, ESR 56 Imagings at admission: Foot x-ray: 1. Amputation of the great toe at the distal shaft of the first metatarsal. 2. Evidence of osteomyelitis of the medial cuneiform and navicular bone and osteomyelitis involving the second, third fourth and fifth toes. 3. Subluxation of the midfoot involving the medial cuneiform and the second through fifth metatarsal tarsal joints. In the ED patient received ceftriaxone and vancomycin. Patient was admitted to [facility] floor for management of following conditions: Sepsis Infection of the left foot, h/o MRSA IDDM, non complaint with medications Obesity -MRI of the foot on Tuesday which will better locate the site of infection -Patient will go for surgery on March 14, Tuesday -Admitted patient to general medicine floor -As per vascular surgery: He has adequate pedal perfusion to heal wound. Needs local wound care, offloading. Once wound heals, he needs orthotic support to correct abnormal pressure bearing. -Vital signs -Continue IV fluids - IV Unasyn, stopped vanco yesterday -Continue home medication -Hemoglobin A1c is found to be 8.4, endocrine consult, we started Levemir 16 units twice a day and sliding scale coverage but now increased to 20 units bid. TSH was found to be mildly high with a normal free T4 and vitamin D was found to be low at 12.4 Full code DVT Ppx: Alps, hold anticoag for now cc3 diet Problem List: 1. Sepsis 2. Fever 3. Osteomyelitis Pain Ratin Pain Location: na Pain Goal: Remain pain free Pain Plan: pathway Tomorrow's Labs & Rationales: none Anabell PEDERSON,[facility] 03/12/18 1225: Attending MD Review Statement Attending Statement Attending MD Statement: examined this patient, discuss w/resident/PA/RADIO STATION OPERATOR, agreed w/resident/PA/RADIO STATION OPERATOR, reviewed EMR data (avail), discussed with nursing Attending Assessment/Plan: No overnight issues. Appreciate ID and Endo follow up. Plan for MRI and suseqent surgical debridement
--- NOTE | 2018-03-12 12:27 | PN- Diabetes ---
Assessment/Plan Diabetes Assessment: 42 y M with PMH of DM type 2 (noncompliant with medication), dyslipidemia, obesity, osteomyelitis s/p L toe amputation, h/o MRSA, was admitted for fever, left foot pain and non- healing ulcer. His glucose level was over 300. He was put on Levemir 20 units twice a day, Novolog coverage before meals and Novolog coverage at bedtime. His FSGs were 290, 248, 210, 248 and 243. Plan: 1. increase Levemir to 25 units twice a day; 2. adjust Novolog coverage before meals; detail see the inpatient DM order; 3. continue the current Novolog coverage at bedtime; 4. monitor FSGs. will follow. Inpatient Diabetes Orders Before Each Meal: Bolus Insulin: Novolog < 80 mg/dl: no coverage 80-100 mg/dl: 11 units 101-120 mg/dl: 11 units 121-150 mg/dl: 11 units 151-200 mg/dl: 13 units 201-250 mg/dl: 15 units 251-300 mg/dl: 17 units 301-350 mg/dl: 19 units 351-400 mg/dl: 21 units > 400 mg/dl: 22 units Subjective Subjective: He doesn't have special complaints at this point. Objective Last 24 Hrs of Vital Signs/I&O Vital Signs Date Time Temp Pulse Resp B/P B/P Pulse O2 O2 Flow FiO2 Mean Ox Delivery Rate 03/12 0635 98.8 72 20 116/58 97 03/11 2136 98.0 80 19 120/76 97 Room Air 03/11 1436 97.9 77 18 116/73 97 Room Air Intake & Output 03/12 1600 03/12 0800 03/12 0000 Intake Total 500 370 Output Total Balance 500 370 Intake, IV 260 130 Intake, Oral 240 240 Findings Pertinent Lab/Denis Results: Laboratory Tests 03/12 0700 Hematology CBC w Diff NO MAN DIFF REQ WBC (4.8 - 10.8 /CUMM) 10.9 H RBC (4.70 - 6.10 /CUMM) 4.34 L Hgb (14.0 - 18.0 G/DL) 12.6 L Hct (42 - 52 %) 37.4 L MCV (80.0 - 94.0 FL) 86.2 MCH (27.0 - 31.0 PG) 29.1 MCHC (33.0 - 37.0 G/DL) 33.8 RDW (11.5 - 14.5 %) 13.1 Plt Count (130 - 400 /CUMM) 357 MPV (7.4 - 10.4 FL) 7.4 Gran % (42.2 - 75.2 %) 57.6 Lymphocytes % (20.5 - 51.1 %) 29.6 Monocytes % (1.7 - 9.3 %) 9.6 H Eosinophils % (0 - 5 %) 2.8 Basophils % (0.0 - 2.0 %) 0.4 Absolute Granulocytes (1.4 - 6.5 /CUMM) 6.3 Absolute Lymphocytes (1.2 - 3.4 /CUMM) 3.2 Absolute Monocytes (0.10 - 0.60 /CUMM) 1.0 H Absolute Eosinophils (0.0 - 0.7 /CUMM) 0.3 Absolute Basophils (0.0 - 0.2 /CUMM) 0
[2018-03-12 14:49] VITALS: BP 147/81
[2018-03-12 21:25] VITALS: BP 138/70
[2018-03-13 06:54] VITALS: BP 98/40
--- NOTE | 2018-03-13 07:02 | PN- Housestaff ---
Subjective Follow-up For: Sepsis due to left foot cellulitis and non healing ulcer. Charcot joint disease of left foot Possible left foot osteomyelitis Uncontrolled DM Subjective: No overnight events. Patient remained afebrile,. Seen and examined this morning. He denied chest pain, short of breath, nausea, vomiting, chest, fever, abdominal pain dysuria. He has dressing on the left foot. Patient will go for MRI of the left foot today. We will keep him nothing by mouth tonight and check his Levemir to 15 units twice a day and start D5 half normal saline as he will be nothing by mouth. Review of Systems Constitutional: Denies: chills, fever. EENTM: Reports: no symptoms. Cardiovascular: Denies: chest pain, orthopena, palpitations. Respiratory: Denies: cough, short of breath, sputum production. Gastrointestinal: Denies: abdominal pain, constipation, diarrhea, nausea, vomiting. Genitourinary: Reports: no symptoms. Musculoskeletal: Reports: no symptoms. Neurological/Psychological: Reports: no symptoms. Objective Last 24 Hrs of Vital Signs/I&O Vital Signs Date Time Temp Pulse Resp B/P B/P Pulse O2 O2 Flow FiO2 Mean Ox Delivery Rate 03/13 0654 97.9 74 20 98/40 95 Room Air 03/13 0000 Room Air 03/12 2125 97.9 77 19 138/70 97 Room Air 03/12 1449 98.7 70 18 147/81 97 Room Air Intake & Output 03/13 1600 03/13 0800 03/13 0000 Intake Total 740 Output Total Balance 740 Intake, IV 140 Intake, Oral 600 Number 1 Bowel Movements Physical Exam General Appearance: Alert, Oriented X3, Cooperative Skin: No Rashes Skin Temp/Moisture Exam: Warm/Dry Sepsis Skin Exam (color): Normal for Ethnicity HEENT: Atraumatic, PERRLA, EOMI Neck: Supple Cardiovascular: Normal S1, Normal S2 Lungs: Clear to Auscultation Abdomen: Soft, No Tenderness Neurological: Normal Speech, Strength at 5/5 X4 Ext, Normal Tone Extremities: Left leg grade 1 pedal edema. left foot dressing. Assessment/Plan Assessment: 42 YO M obese with PMH of DM (noncompliant with medication), HLP, osteomyelitis s/p L big toe amputation, h/o MRSA in presented with left foot pain and non- healing ulcer. We are seeing the patient for following problems: Sepsis due to left foot cellulitis and possible osteomyelitis: -On admission patient was meeting SIRS criteria, as he has elevated WBC count, temperature and tachycardia with source of infection. -Patient had history of MRSA osteomyelitis in the past. -Patient has nonhealing left foot diabetic ulcer, on imaging study, he has navicular and cuboid bone osteomyelitis also involving second third and fourth metatarsals. His MRI is negative for any osteomyelitis. -Blood cultures are negative so far -Continue Unasyn day 4. Vancomycin was discontinued. -Possible left for debridement tomorrow, we will keep the patient nothing by mouth overnight. -Vascular surgery evaluation was done yesterday. They recommended that patient has an of blood supply to heal the wound after the surgery. -Patient having charcoal out joint disease possible needs foot support after the surgery to correct the Charcot joint disease. -Follow-up podiatry recommendations -Follow-up ID recommendations Uncontrolled diabetes: -Patient is noncompliant to medication. For last 1 month he is not taking any medications. -Accu-Cheks -Diabetic diet -HbA1c is 8.4 -Insulin NovoLog according to sliding scale -Insulin Levemir 30 units twice a day -Today his fasting blood sugar level is 244 History of anxiety/depression: -Continue Lexapro that was started by psychiatry. -Follow-up psychiatry recommendations DVT prophylaxis: Mechanical and Lovenox CODE STATUS: Full code Problem List: 1. Sepsis 2. Osteomyelitis of left foot 3. Diabetes Pain Ratin Pain Location: none Pain Goal: Remain pain free Pain Plan: pain pathway Tomorrow's Labs & Rationales: cbc/bep
[2018-03-13 08:37] LABS: ABSOLUTE BASOPHIL COUNT 0 /CUMM (0.0-0.2); ABSOLUTE EOSINOPHIL COUNT 0.3 /CUMM (0.0-0.7); ABSOLUTE GRANULOCYTE CT 7.1 /CUMM (1.4-6.5); ABSOLUTE LYMPH COUNT 2.6 /CUMM (1.2-3.4); ABSOLUTE MONOCYTE COUNT 0.9 /CUMM (0.10-0.60); BASOPHIL % 0.3 % (0.0-2.0); EOSINOPHIL % 2.9 % (0-5); GRANULOCYTE % 64.8 % (42.2-75.2); MEAN CORPUSCULAR HGB 28.5 PG (27.0-31.0); MEAN CORPUSCULAR HGB CONC 33.2 G/DL (33.0-37.0); MEAN CORPUSCULAR VOLUME 85.8 FL (80.0-94.0); MEAN PLATELET VOLUME 7.3 FL (7.4-10.4); PLATELET COUNT 370 /CUMM (130-400); RBC DISTRIBUTION WIDTH 13.3 % (11.5-14.5); RED BLOOD CELL CT 4.55 /CUMM (4.70-6.10)
--- NOTE | 2018-03-13 10:08 | PN- Diabetes ---
Assessment/Plan Diabetes Assessment: 42 y M with PMH of DM type 2 (noncompliant with medication), dyslipidemia, obesity, osteomyelitis s/p L toe amputation, h/o MRSA, was admitted for fever, left foot pain and non- healing ulcer. His glucose level was over 300. Levemir was increased to 25 units twice a day, Novolog coverage before meals was adjusted. In addition, he is on Novolog coverage at bedtime. His FSGs were 243, 260, 185, 204 and 244. Plan: 1. increase Levemir to 30 units twice a day; 2. continue the current Novolog coverage before meals; 3. continue the current Novolog coverage at bedtime; 4. monitor FSGs. 5. Most likely he will have foot procedure done tomorrow, I will recommend decreasing Levemir at bedtime to 15 units tonight will follow. Plan: see above. Subjective Subjective: He feels okay. Objective Last 24 Hrs of Vital Signs/I&O Vital Signs Date Time Temp Pulse Resp B/P B/P Pulse O2 O2 Flow FiO2 Mean Ox Delivery Rate 03/13 0654 97.9 74 20 98/40 95 Room Air 03/13 0000 Room Air 03/12 2125 97.9 77 19 138/70 97 Room Air 03/12 1449 98.7 70 18 147/81 97 Room Air Intake & Output 03/13 1600 03/13 0800 03/13 0000 Intake Total 740 Output Total Balance 740 Intake, IV 140 Intake, Oral 600 Number 1 Bowel Movements Findings Pertinent Lab/Denis Results: Laboratory Tests 03/13 0725 Hematology CBC w Diff NO MAN DIFF REQ WBC (4.8 - 10.8 /CUMM) 11.0 H RBC (4.70 - 6.10 /CUMM) 4.55 L Hgb (14.0 - 18.0 G/DL) 13.0 L Hct (42 - 52 %) 39.0 L MCV (80.0 - 94.0 FL) 85.8 MCH (27.0 - 31.0 PG) 28.5 MCHC (33.0 - 37.0 G/DL) 33.2 RDW (11.5 - 14.5 %) 13.3 Plt Count (130 - 400 /CUMM) 370 MPV (7.4 - 10.4 FL) 7.3 L Gran % (42.2 - 75.2 %) 64.8 Lymphocytes % (20.5 - 51.1 %) 23.8 Monocytes % (1.7 - 9.3 %) 8.2 Eosinophils % (0 - 5 %) 2.9 Basophils % (0.0 - 2.0 %) 0.3 Absolute Granulocytes (1.4 - 6.5 /CUMM) 7.1 H Absolute Lymphocytes (1.2 - 3.4 /CUMM) 2.6 Absolute Monocytes (0.10 - 0.60 /CUMM) 0.9 H Absolute Eosinophils (0.0 - 0.7 /CUMM) 0.3 Absolute Basophils (0.0 - 0.2 /CUMM) 0
--- NOTE | 2018-03-13 11:30 | PN- Att Addend ---
Attending Addendum Attending Brief Note Patient seen and examined. Plan of care discussed with the medical team and the patient. Available lab work and radiology test reports were reviewed. Patient feels well and denies any recent fever chills or chest pain difficulty breathing. His pain in his left foot is well controlled. Exam: General: Patient sleepy but arousable oriented without any distress CVS: S1 plus S2 without any murmur or gallops Chest: Few scattered crepitation without any wheeze. There is no respiratory distress. 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 without any focal neuro deficit and follows commands appropriately Extremities: Left foot is swollen red with a larger lateral and plantar area crusted wound with edema; no clubbing or cyanosis noted Assessment * Left foot osteomyelitis multiple bones involved * Superadded cellulitis of soft tissue * Diabetes - uncontrolled * Morbid obesity * Depression currently on Lexapro Plan * Continue Unasyn * MRI left foot today * Plan for debridement tomorrow * Agree with increasing Levemir to 30 units twice a day * And appear post midnight and start IV saline D5W * Reduce Levemir dose to half when nothing by mouth * Elevate left foot Current Medications Sig/Homero Start time Last Medication Dose Route Stop Time Status Admin Acetaminophen 650 MG Q6P PRN 03/10 0230 AC PO Ampicillin Sodium/ 3,000 MG Q6 03/10 0600 AC 03/13 Sulbactam Sodium IV 0639 Sodium Chloride 100 ML Enoxaparin Sodium 40 MG DAILY 03/10 1643 AC 03/13 SC 0755 Escitalopram Oxalate 10 MG DAILY 03/11 0900 AC 03/13 PO 0755 Insulin Aspart 0 TIDAC 03/11 0800 AC 03/13 SC 0755 Insulin Aspart 0 AT BEDTIME 03/10 2100 AC SC Insulin Detemir 30 UNITS BID 03/13 2100 AC SC Insulin Detemir 25 UNITS BID 03/12 2100 DC 03/13 SC 0755 Insulin Detemir 20 UNITS BID 03/11 2100 DC 03/12 SC 0851 Insulin Human Regular 2 UNITS .STK-MED ONE 03/12 2003 DC IV 03/12 2004 Laboratory Tests 03/13/18 0725: CBC w Diff NO MAN DIFF REQ, RBC 4.55 L, MCV 85.8, MCH 28.5, MCHC 33.2, RDW 13.3 , MPV 7.3 L, Gran % 64.8, Lymphocytes % 23.8, Monocytes % 8.2, Eosinophils % 2.9, Basophils % 0.3, Absolute Granulocytes 7.1 H, Absolute Lymphocytes 2.6, Absolute Monocytes 0.9 H, Absolute Eosinophils 0.3, Absolute Basophils 0 03/12/18 0700: CBC w Diff NO MAN DIFF REQ, RBC 4.34 L, MCV 86.2, MCH 29.1, MCHC 33.8, RDW 13.1 , MPV 7.4, Gran % 57.6, Lymphocytes % 29.6, Monocytes % 9.6 H, Eosinophils % 2.8, Basophils % 0.4, Absolute Granulocytes 6.3, Absolute Lymphocytes 3.2, Absolute Monocytes 1.0 H, Absolute Eosinophils 0.3, Absolute Basophils 0 03/11/18 0623: Anion Gap 10, Estimated GFR > 60, BUN/Creatinine Ratio 31.7 H, 25-OH Vitamin D Total 12.4 L, TSH 5.170 H, Free T4 1.34, CBC w Diff NO MAN DIFF REQ, RBC 4.36 L, MCV 86.6, MCH 28.8, MCHC 33.2, RDW 13.4, MPV 7.9, Gran % 66.5, Lymphocytes % 20.7, Monocytes % 8.8, Eosinophils % 3.7, Basophils % 0.3, Absolute Granulocytes 6.4, Absolute Lymphocytes 2.0, Absolute Monocytes 0.9 H, Absolute Eosinophils 0.4, Absolute Basophils 0 Microbiology 03/11 0425 URINE ROUT: Urine Culture - COMP Vital Signs Date Time Temp Pulse Resp B/P B/P Pulse O2 O2 Flow FiO2 Mean Ox Delivery Rate 03/13 0654 97.9 74 20 98/40 95 Room Air 03/13 0000 Room Air 03/12 2125 97.9 77 19 138/70 97 Room Air 03/12 1449 98.7 70 18 147/81 97 Room Air Intake & Output 03/13 1600 03/13 0800 03/13 0000 Intake Total 740 Output Total Balance 740 Intake, IV 140 Intake, Oral 600 Number 1 Bowel Movements
--- NOTE | 2018-03-13 12:53 | Incdntl Nt Psy ---
Incidental Note Notation: I set up pt with outpatient psychiatry for f/u for his lexapro. April 11 2:00. Please include in d/c summary. JScruggs #[phone]
[2018-03-13 13:54] VITALS: BP 142/83
--- NOTE | 2018-03-13 14:10 | MRI REPORT ---
EXAMINATION: MRI FOOT WITHOUT CONTRAST, LEFT CLINICAL INFORMATION: Left foot ulcer possible osteomyelitis. COMPARISON: X-rays of the left foot, most recent February 2018 and MRI of the left foot February 2017. TECHNIQUE: MRI of the left foot without contrast. FINDINGS: There are postoperative changes related to amputation at the level of the proximal portion of the 1st metatarsal with new bone formation overlying the distal end of the bone. There is slight indentation along the medial aspect of the overlying soft tissues. However, I do not see an ulceration extending to this portion of the bone. There is minimal heterogeneity in the apparent new bone formation overlying the distal end of the metatarsal as seen on the initial postoperative x-ray. The significance of this signal heterogeneity is unclear; osteomyelitis cannot be excluded although thought to be a low likelihood I suspect that there is a superficial ulceration along the plantar lateral aspect of the foot, in the forefoot, over near measuring approximately 4 cm transverse and 4 cm of craniocaudal. There is only mild ill-defined increased T2 signal in the plantar subcutaneous soft tissues compatible edema and/or cellulitis. There is no abscess. I do not see a sinus tract. There is severe abnormality in the midfoot compatible with neuropathic arthropathy including subluxation, dislocation, prominent degenerative change and diffuse marrow edema throughout the tarsal bones and crossing the tarsometatarsal joints. This arthropathy is demonstrated on the recent x-ray 03/09/2017. Associated with this arthropathy is a prominent joint effusion, most evident in the tarsometatarsal joints. The marrow signal within the calcaneus and talus remains intact. 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 This is also seen on radiographs. There is diffuse abnormal signal throughout the musculature, compatible with nonspecific myositis and/or muscle contusion perhaps related to the neuropathic changes involving the surrounding bone and joints. This could also reflect denervation myositis. Infectious myositis cannot be excluded. I do not see a discrete fluid collection suspicious for abscess. The visualized tendons appear intact. IMPRESSION: No definitive findings for osteomyelitis, abscess or sinus tract. Postoperative changes related to amputation at the level of the proximal 1st metatarsal with new bone formation along the end of the bone. Slight heterogeneity of this new bone of uncertain significance. Suspect more likely postoperative\E\reactive or related to bone contusion rather than acute osteomyelitis. Superficial loss of skin or subcutaneous soft tissues over the plantar lateral aspect of the foot; this likely corresponds to the reported area of ulceration. The abnormality in the underlying subcutaneous plantar soft tissues is compatible with edema and/or cellulitis. Extensive destructive and degenerative changes in the midfoot particularly at the tarsometatarsal joints compatible with neuropathic arthropathy as seen on recent x-rays. 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 Prominent abnormality of the musculature, compatible with nonspecific myositis. Perhaps reactive related to muscle contusion given the neuropathic changes in the midfoot. This could also reflect denervation myositis. Similar but less prominent findings were noted on the prior MRI in February 2017. Additional generalized abnormal signal in the subcutaneous soft tissues circumferentially about the foot, compatible with a combination of edema and/or cellulitis.
--- NOTE | 2018-03-13 14:55 | PN- Infect Dx ---
Subjective Subjective: Afebrile without complaints Objective Last 24 Hrs of Vital Signs/I&O Vital Signs Date Time Temp Pulse Resp B/P B/P Pulse O2 O2 Flow FiO2 Mean Ox Delivery Rate 03/13 1354 98.4 62 20 142/83 97 Room Air 03/13 0654 97.9 74 20 98/40 95 Room Air 03/13 0000 Room Air 03/12 2125 97.9 77 19 138/70 97 Room Air 03/12 1449 98.7 70 18 147/81 97 Room Air Intake & Output 03/13 1600 03/13 0800 03/13 0000 Intake Total 1000 740 Output Total Balance 1000 740 Intake, IV 140 Intake, Oral 1000 600 Number 1 Bowel Movements Physical Exam Other Physical Findings: He appears comfortable in no acute distress Extremities left foot necrotic plantar wound unchanged, with minimal surrounding erythema but with significant edema of the foot compared to the right Results Last 24 Hours of Lab Results: Laboratory Tests 03/13 0725 Hematology CBC w Diff NO MAN DIFF REQ WBC (4.8 - 10.8 /CUMM) 11.0 H RBC (4.70 - 6.10 /CUMM) 4.55 L Hgb (14.0 - 18.0 G/DL) 13.0 L Hct (42 - 52 %) 39.0 L MCV (80.0 - 94.0 FL) 85.8 MCH (27.0 - 31.0 PG) 28.5 MCHC (33.0 - 37.0 G/DL) 33.2 RDW (11.5 - 14.5 %) 13.3 Plt Count (130 - 400 /CUMM) 370 MPV (7.4 - 10.4 FL) 7.3 L Gran % (42.2 - 75.2 %) 64.8 Lymphocytes % (20.5 - 51.1 %) 23.8 Monocytes % (1.7 - 9.3 %) 8.2 Eosinophils % (0 - 5 %) 2.9 Basophils % (0.0 - 2.0 %) 0.3 Absolute Granulocytes (1.4 - 6.5 /CUMM) 7.1 H Absolute Lymphocytes (1.2 - 3.4 /CUMM) 2.6 Absolute Monocytes (0.10 - 0.60 /CUMM) 0.9 H Absolute Eosinophils (0.0 - 0.7 /CUMM) 0.3 Absolute Basophils (0.0 - 0.2 /CUMM) 0 Last 24 Hours of Denis Results: Blood cultures 2 March 09/March 10 negative Urine culture March 11 negative Recent Imaging Studies: MRI of the left foot March 13 no definite evidence for osteomyelitis, abscess or sinus tract; extensive destructive and degenerative changes in the midfoot, particularly at the tarsometatarsal joints, compatible with neuropathic arthropathy Assessment/Plan ID Impression: Overall improved, with temperatures and white blood cell count now normal, on Unasyn, Day 4 of treatment for cellulitis of the left foot and leg, with the x- ray of the left foot suggesting osteomyelitis of the medial cuneiform and navicular bone as well as the second through fifth toes, but with the MRI from today suggesting these changes are more likely secondary to Charcot foot. He was scheduled for surgery in the a.m. and will further discuss with Podiatry. He was febrile with a leukocytosis on admission, suggesting at least some component of infection, though this could all be soft tissue. Suggestion: 1. Further management of his left foot per Podiatry 2. Continue Unasyn
--- NOTE | 2018-03-13 18:57 | Transfer of Care Summary ---
Hospital Course Course Hospital Course: 42 YO M obese with PMH of DM (noncompliant with medication), HLP, osteomyelitis s/p L big toe amputation, h/o MRSA in presented with left foot pain and non- healing ulcer. Patient was admitted with left for cellulitis with nonhealing diabetic ulcer of the left foot. He was meeting the criteria of sepsis on admission. Considering patient's history of MRSA osteomyelitis in the past, he was started on vancomycin. In the past patient was also a polymicrobial infection he was given Unasyn. On initial imaging studies that was x-ray of the left foot it showed osteomyelitis possible bilateral MRI of left foot was done that was negative for osteomyelitis. Vancomycin was discontinued by ID and we are continuing Unasyn, today is day 4. Patient is going for debridement and possible tomorrow. We will keep the patient nothing by mouth for tomorrow, pending podiatry assessment and plan. Patient also had uncontrolled diabetes as he was not compliant to his medications. His HbA1c was 8.4. He was placed on insulin NovoLog according to sliding scale and Levemir 30 units twice a day as recommended by endocrinology. As patient will be nothing by mouth overnight we will cut down his level made to 15 units twice a day. We will give patient D5 half normal saline overnight and insulin Novolin according to nothing by mouth scale. Considering patient's history of anxiety and depression psychiatry consult was placed and they recommended patient to start Lexapro. Follow-up psychiatry as outpatient for his Lexapro. Psychiatry set up pt with outpatient psychiatry for f/u for his lexapro. April 11 2:00. Please include in d/c summary. Assessment/Plan: Sepsis due to left foot cellulitis and possible osteomyelitis: -On admission patient was meeting SIRS criteria, as he has elevated WBC count, temperature and tachycardia with source of infection. -Patient had history of MRSA osteomyelitis in the past. -Patient has nonhealing left foot diabetic ulcer, on imaging study, he has navicular and cuboid bone osteomyelitis also involving second third and fourth metatarsals. His MRI is negative for any osteomyelitis. -Blood cultures are negative so far -Continue Unasyn day 4. Vancomycin was discontinued. -Possible left for debridement tomorrow, we will keep the patient nothing by mouth overnight. -Vascular surgery evaluation was done yesterday. They recommended that patient has an of blood supply to heal the wound after the surgery. -Patient having charcoal out joint disease possible needs foot support after the surgery to correct the Charcot joint disease. -Follow-up podiatry recommendations -Follow-up ID recommendations Uncontrolled diabetes: -Patient is noncompliant to medication. For last 1 month he is not taking any medications. -Accu-Cheks -Diabetic diet -HbA1c is 8.4 -Insulin NovoLog according to sliding scale -Insulin Levemir 30 units twice a day -Today his fasting blood sugar level is 244 History of anxiety/depression: -Continue Lexapro that was started by psychiatry. -Follow-up psychiatry recommendations DVT prophylaxis: Mechanical and Lovenox CODE STATUS: Full code
[2018-03-13 21:14] VITALS: BP 122/62
[2018-03-14 06:57] VITALS: BP 116/72
--- NOTE | 2018-03-14 07:38 | PN- Housestaff ---
Subjective Follow-up For: cellulitis of the left foot and leg Subjective: seen and examined. Afebrile without any complaints. Currently playing video games on the tablet. scheduled for OR debridement today. Pain is well controlled Review of Systems Constitutional: Reports: see HPI. Objective Last 24 Hrs of Vital Signs/I&O Vital Signs Date Time Temp Pulse Resp B/P B/P Pulse O2 O2 Flow FiO2 Mean Ox Delivery Rate 03/14 0929 96.4 72 20 130/86 95 Room Air 03/14 0657 97.8 66 20 116/72 95 03/13 2114 98.2 75 122/62 95 Room Air Intake & Output 03/14 1600 03/14 0800 03/14 0000 Intake Total 610 450 490 Output Total Balance 610 450 490 Intake, IV 600 450 10 Intake, Oral 10 0 480 Number 0 0 Bowel Movements Physical Exam General Appearance: Alert, Oriented X3 Cardiovascular: Normal S1, Normal S2 Lungs: Clear to Auscultation Abdomen: Normal Bowel Sounds, Soft Neurological: Normal Speech Other Physical Findings: Extremities left foot necrotic plantar wound with minimal surrounding erythema but with significant edema of the foot compared to the right Assessment/Plan Assessment: 42 YO M obese with PMH of DM (noncompliant with medication), HLP, osteomyelitis s/p L big toe amputation, h/o MRSA in presented with left foot pain and non- healing ulcer. The patient was being treated for evaluate for following conditions #Left foot cellulitis and Charcot foot On admission patient was meeting SIRS criteria, as he has elevated WBC count, temperature and tachycardia with source of infection. 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 He has nonhealing left foot diabetic ulcer x-ray was suggestive of osteomyelitis however MRI was negative for any signs of osteomyelitis and His MRI is negative for any osteomyelitis was suggestive of Charcot foot. -Blood cultures are negative so far -Continue Unasyn day 5 -Plan debribement is for debridement today currently nothing by mouth Patient has been evaluated by vascular surgery as per the recommendation the patient has enogh blood supply to heal the wound after surgery -Follow-up podiatry recommendations -Follow-up ID recommendations #Uncontrolled diabetes: Patient is noncompliant to medication. For last 1 month he is not taking any medications. HbA1c is 8.4 -Accu-Cheks -He has been kept NPO, is receiving D5 1/2 NS at 75 ml/hour, Levemir 15 units twice a day and RISS coverage every 6 hours. -Insulin NovoLog according to sliding scale, Insulin Levemir 30 units twice a day after OR today -His FSGs were 244, 305, 126, 115, 222, 239 and 221. #History of anxiety/depression: -Continue Lexapro that was started by psychiatry. -Follow-up psychiatry recommendations #NPO/DVT prophylaxis with ALPS and Lovenox/FC Problem List: 1. Osteomyelitis of toe of left foot Pain Ratin Pain Location: Left foot Pain Goal: Pain 4 or less Pain Plan: prn Tomorrow's Labs & Rationales: none
--- NOTE | 2018-03-14 08:25 | PN- Diabetes ---
Assessment/Plan Diabetes Assessment: 42 y M with PMH of DM type 2 (noncompliant with medication), dyslipidemia, obesity, osteomyelitis s/p L toe amputation, h/o MRSA, was admitted for fever, left foot pain and non- healing ulcer. His glucose level was over 300. Levemir was increased to 30 units twice a day, Novolog coverage before meals was adjusted multiple times. In addition, he is on Novolog coverage at bedtime. He is going to have foot procedure done today. He has been kept NPO, is receiving D5 1/2 NS at 75 ml/hour, Levemir 15 units twice a day and RISS coverage every 6 hours. His FSGs were 244, 305, 126, 115, 222, 239 and 221. Plan: 1. after he is back from OR and ready to eat meal, please stop the current DM regimen and IVF, restart him on previous regimen--- Levemir 30 units twice a day, Novolog coverge before meals and Novolog coverage at bedtime. 2. monitor FSGs. will follow. Subjective Subjective: He feels okay this morning. Objective Last 24 Hrs of Vital Signs/I&O Vital Signs Date Time Temp Pulse Resp B/P B/P Pulse O2 O2 Flow FiO2 Mean Ox Delivery Rate 03/14 0657 97.8 66 20 116/72 95 03/13 2114 98.2 75 122/62 95 Room Air 03/13 1354 98.4 62 20 142/83 97 Room Air Intake & Output 03/14 1600 03/14 0800 03/14 0000 Intake Total 450 490 Output Total Balance 450 490 Intake, IV 450 10 Intake, Oral 0 480 Number 0 0 Bowel Movements
[2018-03-14 09:29] VITALS: BP 130/86
--- NOTE | 2018-03-14 11:07 | PN- Att Addend ---
Attending Addendum Attending Brief Note Patient seen and examined. Plan of care discussed with the medical team and the patient. Available lab work and radiology test reports were reviewed. Patient feels well and denies any recent fever chills or chest pain difficulty breathing. His pain in his left foot is well controlled. He is currently nothing by mouth for operation theater. Exam: General: Patient awake alert oriented without any distress CVS: S1 plus S2 without any murmur or gallops Chest: Few scattered crepitation without any wheeze. There is no respiratory distress. Abdomen: Soft non-tender, bowel sound present, no guarding or rebound [employer]: Awake alert oriented without any focal neuro deficit and follows commands appropriately Extremities: Left foot is covered with dressing; Assessment * Left foot cellulitis - MRI yesterday did not show any acute osteomyelitis * Diabetes - uncontrolled, Accu-Chek 239, 221 * Morbid obesity * Depression currently on Lexapro Plan * Continue Unasyn * Plan for debridement today * Agree with continuing Levemir 30 units twice a day after his operation today * Elevate left foot * No need to check daily labs * Await further input from podiatry for further therapeutic plan Current Medications Sig/Homero Start time Last Medication Dose Route Stop Time Status Admin Acetaminophen 650 MG Q6P PRN 03/10 0230 AC PO Ampicillin Sodium/ 3,000 MG Q6 03/10 0600 AC 03/14 Sulbactam Sodium IV 0621 Sodium Chloride 100 ML Dextrose/Sodium 1,000 ML Q13H 03/13 2300 AC 03/13 Chloride IV 03/14 1159 2348 Enoxaparin Sodium 40 MG DAILY 03/10 1643 AC 03/14 SC 0829 Escitalopram Oxalate 10 MG DAILY 03/11 0900 AC 03/14 PO 0829 Insulin Aspart 0 TIDAC 03/11 0800 DC 03/13 SC 1711 Insulin Aspart 0 AT BEDTIME 03/10 2100 DC SC 03/13 2300 Insulin Detemir 30 UNITS BID 03/13 2100 CAN SC Insulin Detemir 15 UNITS BID 03/13 2100 AC 03/14 SC 0829 Insulin Human Regular 6 UNITS .STK-MED ONE 03/14 0025 DC IV 03/14 0026 Insulin Human Regular 0 Q6 03/13 2359 AC 03/14 TX 0622 Laboratory Tests 03/13/18 0725: CBC w Diff NO MAN DIFF REQ, RBC 4.55 L, MCV 85.8, MCH 28.5, MCHC 33.2, RDW 13.3 , MPV 7.3 L, Gran % 64.8, Lymphocytes % 23.8, Monocytes % 8.2, Eosinophils % 2.9, Basophils % 0.3, Absolute Granulocytes 7.1 H, Absolute Lymphocytes 2.6, Absolute Monocytes 0.9 H, Absolute Eosinophils 0.3, Absolute Basophils 0 03/12/18 0700: CBC w Diff NO MAN DIFF REQ, RBC 4.34 L, MCV 86.2, MCH 29.1, MCHC 33.8, RDW 13.1 , MPV 7.4, Gran % 57.6, Lymphocytes % 29.6, Monocytes % 9.6 H, Eosinophils % 2.8, Basophils % 0.4, Absolute Granulocytes 6.3, Absolute Lymphocytes 3.2, Absolute Monocytes 1.0 H, Absolute Eosinophils 0.3, Absolute Basophils 0 Vital Signs Date Time Temp Pulse Resp B/P B/P Pulse O2 O2 Flow FiO2 Mean Ox Delivery Rate 03/14 0929 96.4 72 20 130/86 95 Room Air 03/14 0657 97.8 66 20 116/72 95 03/13 2114 98.2 75 122/62 95 Room Air 03/13 1354 98.4 62 20 142/83 97 Room Air Intake & Output 03/14 1600 03/14 0800 03/14 0000 Intake Total 450 490 Output Total Balance 450 490 Intake, IV 450 10 Intake, Oral 0 480 Number 0 0 Bowel Movements MRI foot No definitive findings for osteomyelitis, abscess or sinus tract. Postoperative changes related to amputation at the level of the proximal 1st metatarsal with new bone formation along the end of the bone. Slight heterogeneity of this new bone of uncertain significance. Suspect more likely postoperative\E\reactive or related to bone contusion rather than acute osteomyelitis. Superficial loss of skin or subcutaneous soft tissues over the plantar lateral aspect of the foot; this likely corresponds to the reported area of ulceration. The abnormality in the underlying subcutaneous plantar soft tissues is compatible with edema and/or cellulitis. Extensive destructive and degenerative changes in the midfoot particularly at the tarsometatarsal joints compatible with neuropathic arthropathy as seen on recent x-rays. 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 Prominent abnormality of the musculature, compatible with nonspecific myositis. Perhaps reactive related to muscle contusion given the neuropathic changes in the midfoot. This could also reflect denervation myositis. Similar but less prominent findings were noted on the prior MRI in February 2017. Additional generalized abnormal signal in the subcutaneous soft tissues circumferentially about the foot, compatible with a combination of edema and/or cellulitis.
--- NOTE | 2018-03-14 14:39 | Operative Report ---
Operative/Inv Procedure Report Surgery Date: 03/14/18 Name of Procedure: 1 open incision and drainage deep to the deep fascia with exposure of the flexor tendon and tendon sheath multiple sites plantar left foot 2 intraoperative administration of negative pressure wound therapy Pre-Operative Diagnosis: 1 necrotic wound plantar left foot 2 diabetic peripheral neuropathy 3 neuropathic arthritis left foot Post-Operative Diagnosis: The same Estimated Blood Loss: less than 50ml Surgeon/Broker [employer]: GABRIELLE WOOD DPM Anesthesia: moderate sedation, block Operative/Procedure Note Note: After obtaining informed consent the patient was brought to the operating room and placed on the operating table in the supine position. The patient was then securely fastened to the operating table utilizing safety belt. After administration of IV sedation, 10 mL of 0.5% Marcaine plain was infiltrated about the patient's left ankle. The left foot and ankle then scrubbed, prepped and draped in usual aseptic manner. Attention directed the plantar aspect the left foot, where a large full-thickness necrotic was identified. A 15 blade was utilized sharply revised skin margins. Dissection was then carried down deep to the deep fascia with exposure of the flexor tendon and tendon sheath multiple sites, both proximally and distally. All necrotic, nonviable infected tissue sharply evacuated from the wound bed. The wound was then irrigated with 3 L of normal sterile saline infusion 50,000 units of bacitracin. Following this, the foot was redraped and the surgeon's top of gestation clean gloves. Any bleeding vessels identified were cauterized or ligated as encountered. Next, negative pressure wound therapy was placed about the plantar foot. It was then dressed with Kerlix and an Julian wrap. The patient was noted to tolerate both procedure and anesthesia well and the patient was transported from the operating room to recovery with vital signs stable.
[2018-03-14 15:52] VITALS: BP 122/68
[2018-03-14 20:59] VITALS: BP 124/70
[2018-03-15 06:22] VITALS: BP 122/74
--- NOTE | 2018-03-15 07:25 | PN- Housestaff ---
Subjective Follow-up For: Left foot cellulitis Subjective: Seen and examined. Status post debridement. He is afebrile without any complaints. Review of Systems Constitutional: Reports: see HPI. Objective Last 24 Hrs of Vital Signs/I&O Vital Signs Date Time Temp Pulse Resp B/P B/P Pulse O2 O2 Flow FiO2 Mean Ox Delivery Rate 03/15 1530 Room Air 03/15 1401 98.5 65 18 124/76 98 Room Air 03/15 0622 98.1 67 18 122/74 95 Room Air 03/14 2059 97.9 62 19 124/70 97 Room Air Intake & Output 03/15 1600 03/15 0800 03/15 0000 Intake Total 1540 240 600 Output Total 900 1200 Balance 640 -960 600 Intake, IV 100 120 120 Intake, Oral 1440 120 480 Number 0 Bowel Movements Output, Urine 900 1200 Physical Exam General Appearance: Alert, Oriented X3, Cooperative Cardiovascular: Normal S1, Normal S2 Lungs: Clear to Auscultation Abdomen: Soft Neurological: Normal Speech Other Physical Findings: Extremities left foot dressing intact, with wound VAC in place Current Medications: Current Medications Sig/Homero Start time Last Medication Dose Route Stop Time Status Admin Acetaminophen 650 MG Q6P PRN 03/10 0230 AC PO Amoxicillin/ 875 MG Q12 03/15 1220 AC Clavulanate Potassium PO Ampicillin Sodium/ 3,000 MG Q6H 03/14 1600 DC 03/15 Sulbactam Sodium IV 0938 Sodium Chloride 100 ML Enoxaparin Sodium 40 MG DAILY 03/10 1643 03/15 OR 0809 Ergocalciferol 50,000 IU ONCE ONE 03/15 0830 DC 03/15 PO 03/15 0831 0938 Escitalopram Oxalate 10 MG DAILY 03/11 0900 AC 03/15 PO 0807 Insulin Aspart 0 TIDAC 03/14 1700 03/15 OR 1725 Insulin Detemir 30 UNITS BID 03/14 2100 03/15 OR 0809 Assessment/Plan Assessment: Patient is 42 year old male with PMH of DM (noncompliant with medication), osteomyelitis s/p L big toe amputation, h/o MRSA presented with left foot pain and non- healing ulcer. Patient was in usual state of health until one week ago that he realized a blister was popped in bottom of his right foot when he tried to walk after longtime to get groceries. Patient lives in his car and occasionally visits his friends. He doesn't know when the blister started in bottom of his right foot. Since the skin lesion was not healing he decided to come to hospital. He also noticed increasing redness for the last few days. He didn't do much of care for the wound, only had clean socks, denied using any chemicals. He denied much pain as he has decreased sensation in distal lower extremities. He also reported chills but never measured his temperature. He denied any chest pain, shortness of breathing, altered mental status. Patient noted that he was not compliant with his diabetes mellitus medication for the last months, he was discharged on insulin in the last admission, however it was changed to oral medication (he couldn't remember the name) after he couldn't administer insulin due to living condition. He also noted he feels depressed, denied any suicidal ideation. He denied smoking and reported occasional drinking alcohol. Patient was admitted to several times during the last spring/summer, 1: February 2017, had amputation, received 4 w of unasyn, 2: March 24, refused repeating procedure, recieved unasyn for 1w, discharged on no antibiotics, 3: End of April 2017, underwent amputation, had MRSA, recieved Vanc for 4w. Patient is currently being treated evaluated for following conditions left foot cellulitis: Patient was treated with unasyn for his nonhealing left foot diabetic ulcer. MRI was negative for any osteomyelitis. His blood cultures also remained negative. Patient had debridement of his left foot necrotic planter wound on 03/14/[address] Jensen and has a wound vac in place. Patient will be discharged on augmentin for another 5 days. Charcot joint disease: Left pedal plantar ulcer due to Charcot deformity. Palpable pedal pulses. He has adequate pedal perfusion to heal wound. Needs local wound care, offloading. Once wound heals, he needs orthotic support to correct abnormal pressure bearing. Advised to follow up with podiatry. Uncontrolled diabetes: Patient also had uncontrolled diabetes as he was not compliant to his medications. His HbA1c was 8.4. Patient was kept on novolong SS and levemir. He was evaluated by an family welfare social work professor, Dr. Olson and his insulin dose was adjusted controlling his blood sugars eventually. History of anxiety/depression: Considering patient's history of anxiety and depression psychiatry consult was placed and they recommended patient to start Lexapro. Patient is advised to follow-up psychiatry as outpatient for his Lexapro (appt. April 11 2:00 pm). Problem List: 1. Diabetes Pain Ratin Pain Location: left foot Pain Goal: Pain 4 or less Pain Plan: prn Tomorrow's Labs & Rationales: none
[2018-03-15] MEDS ORDERED: LEXAPRO10 M1 PO (11:03)
[2018-03-15] MEDS ORDERED: NOVOLOG100 UNIT/2 SC (11:26)
[2018-03-15] MEDS ORDERED: LEVEMIR100 UNIT/1 SC (11:26)
--- NOTE | 2018-03-15 11:32 | Patient Discharge Instructions ---
Discharge Instructions General Discharge Information You were seen/treated for: Left foot cellulitis DM You had these procedures: left foot debridement Special Instructions: -please follow up with primary care provider after discharge -please follow up with Dr. Jensen for wound care- -please follow up with for management of DM Diet Recommended Diet: Diabetic Activity Activity Self Limited: Yes Acute Coronary Syndrome Inclusion Criteria At DC or during hospital stay patient has or had the following: ACS DIAGNOSIS No Discharge Core Measures Meds if any: Prescribed or Continued at Discharge Meds if any: NOT Prescribed or Continued at Discharge Congestive Heart Failure Inclusion Criteria At DC or during hospital stay patient has or had the following: CHF DIAGNOSIS No Discharge Core Measures Meds if any: Prescribed or Continued at Discharge Meds if any: NOT Prescribed or Continued at Discharge Cerebrovascular accident Inclusion Criteria At DC or during hospital stay patient has or had the following: CVA/TIA Diagnosis No Discharge Core Measures Meds if any: Prescribed or Continued at Discharge Meds if any: NOT Prescribed or Continued at Discharge Venous thromboembolism Inclusion Criteria VTE Diagnosis No VTE Type NONE VTE Confirmed by (Test) NONE Discharge Core Measures - Per Current guidelines, there needs to be overlap - treatment for the first 5 days of Warfarin therapy. - If discharged on Warfarin prior to 5 days of - overlap therapy, the patient will need to be - assessed for post discharge needs including - *Post discharge parental anticoagulation - *Warfarin and/or parental anticoagulation education - *Follow up date to check INR post discharge At least 5 days overlap therapy as Inpatient No Meds if any: Prescribed or Continued at Discharge Note: Overlap Therapy is Warfarin and Anticoagulant Meds if any: NOT Prescribed or Continued at Discharge
--- NOTE | 2018-03-15 11:46 | PN- Infect Dx ---
Subjective Subjective: Afebrile without complaints Objective Last 24 Hrs of Vital Signs/I&O Vital Signs Date Time Temp Pulse Resp B/P B/P Pulse O2 O2 Flow FiO2 Mean Ox Delivery Rate 03/15 622 98.1 67 18 122/74 95 Room Air 03/149 97.9 62 19 124/70 97 Room Air 03/14 1552 97.6 62 18 122/68 97 Room Air Intake & Output 03/15 1600 03/15 0800 03/15 0000 Intake Total 240 600 Output Total 1200 Balance -960 600 Intake, IV 120 120 Intake, Oral 120 480 Number 0 Bowel Movements Output, Urine 1200 Physical Exam Other Physical Findings: He appears comfortable in no acute distress Extremities left foot dressing intact, with wound VAC in place Results Last 24 Hours of Lab Results: No recent labs Last 24 Hours of Denis Results: No recent cultures Assessment/Plan ID Impression: Stable, status post I&D of his left foot necrotic plantar wound yesterday, with no evidence of extension to bone, and with his temperatures and white blood cell count remaining normal on Unasyn, Day 5 of treatment, for cellulitis of the left foot and leg, with the MRI of his left foot suggesting Charcot foot rather than osteomyelitis. Suggestion: 1. Discontinue Unasyn 2. Begin Augmentin 875 mg p.o. every 12 hours to plan on 5 more days of treatment
[2018-03-15] MEDS ORDERED: AUGMENTIN 875-1 EACH PO ×2 (12:16→12:21)
--- NOTE | 2018-03-15 12:40 | Discharge Summary ---
Visit Information Visit Dates Admission Date: 03/09/18 Discharge Date: 03/15/18 Hospital Course Course Attending Physician: Raymundo PEDERSON,Sylwia Primary Care Physician: Juan Herrera MD Hospital Course: Patient is 42 year old male with PMH of DM (noncompliant with medication), osteomyelitis s/p L big toe amputation, h/o MRSA presented with left foot pain and non- healing ulcer. Patient was in usual state of health until one week ago that he realized a blister was popped in bottom of his right foot when he tried to walk after longtime to get groceries. Patient lives in his car and occasionally visits his friends. He doesn't know when the blister started in bottom of his right foot. Since the skin lesion was not healing he decided to come to hospital. He also noticed increasing redness for the last few days. He didn't do much of care for the wound, only had clean socks, denied using any chemicals. He denied much pain as he has decreased sensation in distal lower extremities. He also reported chills but never measured his temperature. He denied any chest pain, shortness of breathing, altered mental status. Patient noted that he was not compliant with his diabetes mellitus medication for the last months, he was discharged on insulin in the last admission, however it was changed to oral medication (he couldn't remember the name) after he couldn't administer insulin due to living condition. He also noted he feels depressed, denied any suicidal ideation. He denied smoking and reported occasional drinking alcohol. Patient was admitted to several times during the last spring/summer, 1: February 2017, had amputation, received 4 w of unasyn, 2: March 24, refused repeating procedure, recieved unasyn for 1w, discharged on no antibiotics, 3: End of April 2017, underwent amputation, had MRSA, recieved Vanc for 4w. Patient was seen and treated for; left foot cellulitis: Patient was treated with unasyn for his nonhealing left foot diabetic ulcer. MRI was negative for any osteomyelitis. His blood cultures also remained negative. Patient had debridement of his left foot necrotic planter wound on 03/14/[address] Jensen and has a wound vac in place. Patient will be discharged on augmentin for another 5 days. Charcot joint disease: Left pedal plantar ulcer due to Charcot deformity. Palpable pedal pulses. He has adequate pedal perfusion to heal wound. Needs local wound care, offloading. Once wound heals, he needs orthotic support to correct abnormal pressure bearing. Advised to follow up with podiatry. Uncontrolled diabetes: Patient also had uncontrolled diabetes as he was not compliant to his medications. His HbA1c was 8.4. Patient was kept on novolong SS and levemir. He was evaluated by an field operations farm manager, Dr. Olson and his insulin dose was adjusted controlling his blood sugars eventually. History of anxiety/depression: Considering patient's history of anxiety and depression psychiatry consult was placed and they recommended patient to start Lexapro. Patient is advised to follow-up psychiatry as outpatient for his Lexapro (appt. April 11 2:00 pm). Allergies: Coded Allergies: No Known Allergies (05/22/16) Disposition Summary Disposition Principal Diagnosis: left foot cellulitis Additional Diagnosis: DM, anxiety, Discharge Disposition: SNF Discharge Instructions General Discharge Information Code Status: Full Code Patient's Diet: regular Patient's Activity: as tolerated Follow-Up Instructions/Appts: Needs to follow up with Psychiatrist on April 11, district court reporter and field operations farm manager. Medications at Discharge Discharge Medications: Stop taking the following medications: Insulin Aspart (Novolog) 100 UNIT/ML VIAL Inject into fatty tissue 3 TIMES DAILY BEFORE MEALS Qty = 30 Insulin Detemir (Levemir Flextouch) 100 UNIT/ML (3 ML) INSULN.PEN Inject into fatty tissue DAILY Vancomycin/0.9 % Sod Chloride (Vanco 2 Gram/250 Ml-0.9% NaCl) 2 GRAM/250 ML PLAST..BAG INTRAVEN EVERY 12 HOURS Days = 28 Continue taking these medications: Insulin Aspart (Novolog) 100 UNIT/ML VIAL 0 Inject into fatty tissue BEDTIME Qty = 10 Instructions: Blood sugar # Units Less than 250 0 251-300 1 301-350 2 351-400 3 more than 400 4 Comments: not given Atorvastatin Calcium (Atorvastatin Calcium) 10 MG TABLET 1 Tablet ORAL DAILY Qty = 30 Comments: Last Taken: 05/30/17 Time: 1636PM Start taking the following new medications: Amoxicillin/Potassium Clav (Augmentin 875-125 Tablet) 875 MG-125 MG TABLET 1 Tablet ORAL TWICE DAILY Qty = 7 No Refills Escitalopram Oxalate (Lexapro) 10 MG TABLET 1 Tablet ORAL DAILY Qty = 30 No Refills Insulin Detemir (Levemir) 100 UNIT/ML VIAL 30 Units Inject into fatty tissue TWICE DAILY Qty = 1 No Refills Insulin Aspart (Novolog) 100 UNIT/ML VIAL 0 Inject into fatty tissue 3 TIMES DAILY BEFORE MEALS Qty = 30 No Refills Comments: blood sugars units <80 no coverage 80-100 11 101-150 11 151-200 13 201-250 15 251-300 17 301-350 19 351-400 21 >400 22 and call PCP or come to ED Ergocalciferol (Vitamin D2) (Vitamin D2) 50,000 UNIT CAPSULE 1 Capsule ORAL Once a Week Qty = 7 No Refills Instructions: TAKE 1 PILL EVERY TUESDAY FOR NEXT 7 WEEKS AND AFTER THAT TAKE 2000 IU OTC vIT d SUPPLEMENTATION Copies To: Javier PEDERSON,Juan Aggarwal DPM,Adam; Wesley PEDERSON,Zina Attending MD Review Statement Documenting Attending: Raymundo EPDERSON,Sylwia
--- NOTE | 2018-03-15 13:12 | PN- Att Addend ---
Attending Addendum Attending Brief Note Patient seen and examined. Plan of care discussed with the medical team and the patient. Available lab work and radiology test reports were reviewed. Patient is status post debridement and wound VAC application yesterday. Patient feels well and denies any recent fever chills or chest pain difficulty breathing. His pain in his left foot is well controlled. Exam: General: Patient awake alert oriented without any distress CVS: S1 plus S2 without any murmur or gallops Chest: Few scattered crepitation without any wheeze. There is no respiratory distress. Abdomen: Soft non-tender, bowel sound present, no guarding or rebound [employer] AND [employer]MER: Awake alert oriented without any focal neuro deficit and follows commands appropriately Extremities: Left foot is covered with dressing and has wound vacuum in place; Assessment * Left foot cellulitis - MRI did not show any acute osteomyelitis * Diabetes - uncontrolled and improving * Morbid obesity * Depression currently on Lexapro Plan * Agree with switching to Augmentin for 5 more days * Continue wound VAC * Agree with continuing Levemir 30 units twice a day after his operation today * Elevate left foot and resting * Patient can be discharged to short-term rehabilitation Current Medications Sig/Homero Start time Last Medication Dose Route Stop Time Status Admin Acetaminophen 650 MG Q6P PRN 03/10 0230 AC PO Amoxicillin/ 875 MG Q12 03/15 1220 AC Clavulanate Potassium PO Ampicillin Sodium/ 3,000 MG Q6H 03/14 1600 DC 03/15 Sulbactam Sodium IV 0938 Sodium Chloride 100 ML Ampicillin Sodium/ 3,000 MG Q6 03/10 0600 DC 03/14 Sulbactam Sodium IV 0621 Sodium Chloride 100 ML Enoxaparin Sodium 40 MG DAILY 03/10 1643 03/15 NM 0809 Ergocalciferol 50,000 IU ONCE ONE 03/15 0830 DC 03/15 PO 03/15 0831 0938 Escitalopram Oxalate 10 MG DAILY 03/11 0900 AC 03/15 PO 0807 Fentanyl Citrate 100 MCG .STK-MED ONE 03/14 1334 DC IM 03/14 1335 Insulin Aspart 0 TIDAC 03/14 1700 AC 03/15 SC 1258 Insulin Detemir 30 UNITS BID 03/14 2100 AC 03/15 SC 0809 Insulin Detemir 15 UNITS BID 03/13 2100 DC 03/14 SC 0829 Insulin Human Regular 0 Q6 03/13 2359 DC 03/14 NM 0622 Midazolam HCl 2 MG .STK-MED ONE 03/14 1334 DC IM 03/14 1335 Laboratory Tests 03/13/18 0725: CBC w Diff NO MAN DIFF REQ, RBC 4.55 L, MCV 85.8, MCH 28.5, MCHC 33.2, RDW 13.3 , MPV 7.3 L, Gran % 64.8, Lymphocytes % 23.8, Monocytes % 8.2, Eosinophils % 2.9, Basophils % 0.3, Absolute Granulocytes 7.1 H, Absolute Lymphocytes 2.6, Absolute Monocytes 0.9 H, Absolute Eosinophils 0.3, Absolute Basophils 0 Vital Signs Date Time Temp Pulse Resp B/P B/P Pulse O2 O2 Flow FiO2 Mean Ox Delivery Rate 03/15 06 98.1 67 18 122/74 95 Room Air 03/14 2059 97.9 62 19 124/70 97 Room Air 03/14 1552 97.6 62 18 122/68 97 Room Air Intake & Output 03/15 1600 03/15 0800 03/15 0000 Intake Total 240 600 Output Total 1200 Balance -960 600 Intake, IV 120 120 Intake, Oral 120 480 Number 0 Bowel Movements Output, Urine 1200 Total time spent in preparation for discharge plan, patient education, and CMR preparation was 35 minutes.
--- NOTE | 2018-03-15 13:47 | PN- Diabetes ---
Assessment/Plan Diabetes Assessment: 42 y M with PMH of DM type 2 (noncompliant with medication), dyslipidemia, obesity, osteomyelitis s/p L toe amputation, h/o MRSA, was admitted for fever, left foot pain and non- healing ulcer. His glucose level was over 300. He underwent open incision and drainage and administration of negative pressure wound therapy on 03/14/2018. Levemir was increased to 30 units twice a day, Novolog coverage before meals was adjusted multiple times. In addition, he is on Novolog coverage at bedtime. His FSGs were 198, 226, 127 and 190. Plan: continue the current insulin regimen for now; monitor FSGs. will follow. Subjective Subjective: He feels better. Objective Last 24 Hrs of Vital Signs/I&O Vital Signs Date Time Temp Pulse Resp B/P B/P Pulse O2 O2 Flow FiO2 Mean Ox Delivery Rate 03/15 0622 98.1 67 18 122/74 95 Room Air 03/14 2059 97.9 62 19 124/70 97 Room Air 03/14 1552 97.6 62 18 122/68 97 Room Air Intake & Output 03/15 1600 03/15 0800 03/15 0000 Intake Total 240 600 Output Total 1200 Balance -960 600 Intake, IV 120 120 Intake, Oral 120 480 Number 0 Bowel Movements Output, Urine 1200
[2018-03-15 14:01] VITALS: BP 124/76
[2018-03-15 21:10] VITALS: BP 152/78
[2018-03-16 06:40] VITALS: BP 148/76
--- NOTE | 2018-03-16 07:32 | PN- Housestaff ---
Subjective Follow-up For: left foot Cellulitis Subjective: Patient seen and examined. His wound VAC came off. In the morning. Otherwise afebrile without any complaints currently bed search is going on for patient's safety discharge planning Review of Systems Constitutional: Reports: see HPI. Objective Last 24 Hrs of Vital Signs/I&O Vital Signs Date Time Temp Pulse Resp B/P B/P Pulse O2 O2 Flow FiO2 Mean Ox Delivery Rate 03/16 1258 97.8 64 18 148/76 03/16 0640 97.8 64 18 148/76 96 03/15 2110 98.4 75 20 152/78 95 Room Air 03/15 1530 Room Air 03/15 1401 98.5 65 18 124/76 98 Room Air Intake & Output 03/16 1600 03/16 0800 03/16 0000 Intake Total 2000 Output Total Balance 2000 Intake, Oral 2000 Output, Urine Physical Exam General Appearance: Alert, Oriented X3, Cooperative Cardiovascular: Normal S1, Normal S2 Lungs: Clear to Auscultation, Normal Air Movement Abdomen: Normal Bowel Sounds, Soft Neurological: Normal Speech Other Physical Findings: Extremities left foot dressing intact Assessment/Plan Assessment: Patient is currently being treated evaluated for following conditions left foot cellulitis: Patient was treated with unasyn for his nonhealing left foot diabetic ulcer. MRI was negative for any osteomyelitis. His blood cultures also remained negative. Patient had debridement of his left foot necrotic planter wound on 03/14/[address] Jensen and has a wound vac in place. Patient will be discharged on augmentin for another 5 days. -wound vac fell off earlier in the morning which has been placed again -Patient is medically stable for discharge Charcot joint disease: Left pedal plantar ulcer due to Charcot deformity. Palpable pedal pulses. He has adequate pedal perfusion to heal wound. Needs local wound care, offloading. Once wound heals, he needs orthotic support to correct abnormal pressure bearing. Advised to follow up with podiatry. Uncontrolled diabetes: Patient also had uncontrolled diabetes as he was not compliant to his medications. His HbA1c was 8.4. Patient was kept on novolong SS and levemir. He was evaluated by an farm appraiser, Dr. Olson and his insulin dose was adjusted controlling his blood sugars eventually. History of anxiety/depression: Considering patient's history of anxiety and depression psychiatry consult was placed and they recommended patient to start Lexapro. Patient is advised to follow-up psychiatry as outpatient for his Lexapro (appt. April 11 2:00 pm). Problem List: 1. Cellulitis of great toe of left foot Pain Ratin Pain Location: left foot Pain Goal: Pain 4 or less Pain Plan: prn Tomorrow's Labs & Rationales: none
--- NOTE | 2018-03-16 08:25 | PN- Diabetes ---
Assessment/Plan Diabetes Assessment: 42 y M with PMH of DM type 2 (noncompliant with medication), dyslipidemia, obesity, osteomyelitis s/p L toe amputation, h/o MRSA, was admitted for fever, left foot pain and non- healing ulcer. His glucose level was over 300. He underwent open incision and drainage and administration of negative pressure wound therapy on 03/14/2018. Levemir was increased to 30 units twice a day, Novolog coverage before meals was adjusted multiple times. In addition, he is on Novolog coverage at bedtime. His FSGs were 190, 288, 159 and 133. Plan: continue the current insulin regimen for now; monitor FSGs. will follow. Subjective Subjective: He has no special complaints. Objective Last 24 Hrs of Vital Signs/I&O Vital Signs Date Time Temp Pulse Resp B/P B/P Pulse O2 O2 Flow FiO2 Mean Ox Delivery Rate 03/16 0640 97.8 64 18 148/76 96 03/15 2110 98.4 75 20 152/78 95 Room Air 03/15 1530 Room Air 03/15 1401 98.5 65 18 124/76 98 Room Air Intake & Output 03/16 1600 03/16 0800 03/16 0000 Intake Total 2000 Output Total Balance 2000 Intake, Oral 2000 Output, Urine
[2018-03-16] MEDS ORDERED: VITAMIN D250000 UNIT PO (11:55)
[2018-03-16] MEDS ORDERED: AUGMENTIN 875-1 EACH PO (11:55)
--- NOTE | 2018-03-16 12:48 | PN- Att Addend ---
Attending Addendum Attending Brief Note Patient seen and examined. Plan of care discussed with the medical team and the patient. Available lab work and radiology test reports were reviewed. Patient is status post debridement and wound VAC application 2 days ago . Overnight his wound VAC had fallen off. Patient feels well and denies any recent fever chills or chest pain difficulty breathing. His pain in his left foot is well controlled. Exam: General: Patient awake alert oriented without any distress CVS: S1 plus S2 without any murmur or gallops Chest: Few scattered crepitation without any wheeze. There is no respiratory distress. 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 HANDLER: Awake alert oriented without any focal neuro deficit and follows commands appropriately Extremities: Left foot is covered with dressing and has wound vacuum has fallen off; Assessment * Left foot cellulitis - MRI did not show any acute osteomyelitis; status post debridement and wound VAC application * Diabetes - uncontrolled and improving * Morbid obesity * Depression currently on Lexapro Plan * Continue Augmentin for 4 more days * Reapply wound VAC * contin Levemir 30 units twice a day after his operation today * Elevate left foot * Patient can be discharged to short-term rehabilitation if bed is available Current Medications Sig/Homero Start time Last Medication Dose Route Stop Time Status Admin Acetaminophen 650 MG Q6P PRN 03/10 0230 AC PO Amoxicillin/ 875 MG Q12 03/15 1220 AC 03/16 Clavulanate Potassium PO 0825 Enoxaparin Sodium 40 MG DAILY 03/10 1643 AC 03/16 SC 0825 Escitalopram Oxalate 10 MG DAILY 03/11 0900 AC 03/16 PO 0825 Insulin Aspart 0 AT BEDTIME 03/15 2100 AC SC Insulin Aspart 0 TIDAC 03/14 1700 AC 03/16 SC 1243 Insulin Detemir 30 UNITS BID 03/14 2100 AC 03/16 SC 0826 Vital Signs Date Time Temp Pulse Resp B/P B/P Pulse O2 O2 Flow FiO2 Mean Ox Delivery Rate 03/16 0640 97.8 64 18 148/76 96 03/15 2110 98.4 75 20 152/78 95 Room Air 03/15 1530 Room Air 03/15 1401 98.5 65 18 124/76 98 Room Air Intake & Output 03/16 1600 03/16 0800 03/16 0000 Intake Total 2000 Output Total Balance 2000 Intake, Oral 1999 Output, Urine
[2018-03-16 12:58] VITALS: BP 148/76
== END 2018-03-16 14:03 | DRG 197 ==
LOC: ERH 20:24 → ERHI 23:34 → 2NB 23:34 → ERHI 03-10 08:36 → ENRESERV 03-10 13:16 → ENTRNSPT 03-10 14:05 → EDTRNSPT 03-10 14:08 → EDTRNSPTSTS 03-10 14:08 → 2NB 03-10 14:26 → CMPTRNSPT 03-10 14:55 → ENTRNSPT 03-14 15:17 → EDTRNSPT 03-14 15:21 → EDTRNSPTSTS 03-14 15:21 → CMPTRNSPT 03-14 15:38 → 2NB 03-16 14:03
PROVIDERS: Emergency Medicine; Student in an Organized Health Care Education/Training Program
PROC: 2W1TX6Z Compression of Left Foot using Pressure Dressing (ICD-10-PCS; principal; 2018-03-14)
PROC: 3E0T3BZ Introduction of Anesthetic Agent into Peripheral Nerves and Plexi, Percutaneous Approach (ICD-10-PCS; principal; 2018-03-14)
PROC: 0JBR0ZZ Excision of Left Foot Subcutaneous Tissue and Fascia, Open Approach (ICD-10-PCS; principal; 2018-03-14)
DX: E11.52 Type 2 diabetes mellitus with diabetic peripheral angiopathy with gangrene (principal); A41.9 Sepsis, unspecified organism; E11.621 Type 2 diabetes mellitus with foot ulcer; E11.610 Type 2 diabetes mellitus with diabetic neuropathic arthropathy; E11.42 Type 2 diabetes mellitus with diabetic polyneuropathy; L03.116 Cellulitis of left lower limb; Z68.42 Body mass index [BMI] 45.0-49.9, adult; L97.428 Non-pressure chronic ulcer of left heel and midfoot with other specified severity; E11.65 Type 2 diabetes mellitus with hyperglycemia; E66.01 Morbid (severe) obesity due to excess calories; Z91.14 Patient's other noncompliance with medication regimen; Z59.0 Homelessness; Z86.14 Personal history of Methicillin resistant Staphylococcus aureus infection; Z79.4 Long term (current) use of insulin; Z79.84 Long term (current) use of oral hypoglycemic drugs; I73.9 Peripheral vascular disease, unspecified; F32.9 Major depressive disorder, single episode, unspecified; Z89.422 Acquired absence of other left toe(s); E78.5 Hyperlipidemia, unspecified; F41.9 Anxiety disorder, unspecified
CPT/HCPCS: 2NBP; 75657; ERO; 36592; 73630-LT; 82436; 87040; 87086; 93005; 93010; J0696; J1650; J1815; J2001; J3370; J7040; J7042